=== PATIENT | male | born 1945 | race Caucasian/White ===

== ENCOUNTER 2019-09-21 22:22 | Emergency (ER) | payer OTHER ==
[2019-09-21 22:49] LABS: BASOPHILS % (AUTO) 0.3 % (0.0-5.0); HEMATOCRIT 41.2 % (42-54); LYMPHOCYTES % (AUTO) 22.1 % (21.0-51.0); MEAN CORPUSCULAR HEMOGLOBIN 32.5 pg (27.0-33.0); MEAN CORPUSCULAR HGB CONC 34.7 g/dL (32.0-36.0); MEAN CORPUSCULAR VOLUME 93.8 fL (79-99); MONOCYTES % (AUTO) 9.9 % (3.0-13.0); NEUTROPHILS % (AUTO) 66.7 % (40.0-77.0); NUCLEATED RED BLOOD CELLS 0.1 % (0.0-0.19); PLATELET COUNT (AUTO) 208 K/uL (130-400); RED BLOOD CELL COUNT(AUTO) 4.39 MIL/uL (4.50-6.20); RED CELL DISTRIBUTION WIDTH 14.8 % (11.0-15.5); WHITE BLOOD COUNT (AUTO) 6.3 K/uL (4.8-10.8)
[2019-09-21 22:55] LABS: CREATININE 1.2 mg/dL (0.5-1.5); POTASSIUM 3.6 mmol/L (3.5-5.1)
[2019-09-21 22:57] LABS: INR 1.03 (0.85-1.15); PROTHROMBIN TIME 10.8 SEC (9.6-11.6)
[2019-09-21 23:08] LABS: ALBUMIN 3.6 g/dL (3.5-5.0); BILIRUBIN,TOTAL 0.8 mg/dL (0.2-1.0); TOTAL PROTEIN, SERUM 7.1 g/dL (6.0-8.3)
[2019-09-21] MEDS ORDERED: OCTYL 2-CYANOACRYLATE 1 EACH TP ONE (23:24)
[2019-09-22] MEDS ORDERED: OCTYL 2-CYANOACRYLATE 1 EACH TP ONE (00:55)
[2019-09-22] MEDS ORDERED: TRAMADOL HCL 50 MG TABLET ONE (01:39)
== END 2019-09-22 01:49 | disposition home or self-care (01) ==
LOC: EDH 22:22
DX: S52.501A Unspecified fracture of the lower end of right radius, initial encounter for closed fracture (principal); S01.412A Laceration without foreign body of left cheek and temporomandibular area, initial encounter; S01.112A Laceration without foreign body of left eyelid and periocular area, initial encounter; I10 Essential (primary) hypertension; E78.00 Pure hypercholesterolemia, unspecified; M19.90 Unspecified osteoarthritis, unspecified site; E11.40 Type 2 diabetes mellitus with diabetic neuropathy, unspecified; Z88.8 Allergy status to other drugs, medicaments and biological substances; Z79.899 Other long term (current) drug therapy; Z87.891 Personal history of nicotine dependence; W18.39XA Other fall on same level, initial encounter; Y93.01 Activity, walking, marching and hiking; Y92.89 Other specified places as the place of occurrence of the external cause; Y99.8 Other external cause status
CPT/HCPCS: 12013; 29125; 36415; 70450; 70486; 71045; 72125; 73110; 80053; 82550; 84484; 85025; 85610; 85730; 93005; 99291

== ENCOUNTER → 2022-05-17 | Outpatient (CLI) | payer OTHER | END | disposition home or self-care (01) | LOC: SHCH 10:42 | PROVIDERS: ATTEND Student in an Organized Health Care Education/Training Program | DX: R06.02 Shortness of breath (principal); R55 Syncope and collapse; I10 Essential (primary) hypertension; E11.9 Type 2 diabetes mellitus without complications; J44.9 Chronic obstructive pulmonary disease, unspecified; K21.9 Gastro-esophageal reflux disease without esophagitis; G47.33 Obstructive sleep apnea (adult) (pediatric); L40.50 Arthropathic psoriasis, unspecified; Z99.81 Dependence on supplemental oxygen | CPT/HCPCS: 93306 ==

== ENCOUNTER 2022-06-15 06:18 | Day surgery (SDC) | payer OTHER ==
[2022-06-14 13:13] LABS: BASOPHILS % (AUTO) 0.6 % (0.0-5.0); LYMPHOCYTES % (AUTO) 36.1 % (21.0-51.0); MEAN CORPUSCULAR HEMOGLOBIN 29.3 pg (27.0-33.0); MEAN CORPUSCULAR HGB CONC 32.8 g/dL (32.0-36.0); MEAN CORPUSCULAR VOLUME 89.4 fL (79-99); MONOCYTES % (AUTO) 8.6 % (3.0-13.0); NEUTROPHILS % (AUTO) 49.3 % (40.0-77.0); PLATELET COUNT (AUTO) 213 K/uL (130-400); RED BLOOD CELL COUNT(AUTO) 4.81 MIL/uL (4.50-6.20); RED CELL DISTRIBUTION WIDTH 13.1 % (11.0-15.5); WHITE BLOOD COUNT (AUTO) 5.2 K/uL (4.8-10.8)
[2022-06-14 13:24] LABS: APPEARANCE,URINE CLEAR (CLEAR); BILIRUBIN,URINE NEGATIVE (NEGATIVE); COLOR,URINE YELLOW (YELLOW); GLUCOSE, URINE (UA) 250 mg/dL (NEGATIVE); KETONES,URINE NEGATIVE (NEGATIVE); LEUKOCYTE ESTERASE ,URINE NEGATIVE (NEGATIVE); NITRATE,URINE NEGATIVE (NEGATIVE); OCCULT BLOOD,URINE NEGATIVE (NEGATIVE); PROTEIN,URINE 30 mg/dL (NEGATIVE); UROBILINOGEN,URINE 0.2 mg/dL (0.2-1.0)
[2022-06-14 13:28] LABS: INR 0.96 (0.85-1.15); PROTHROMBIN TIME 10.5 SEC (9.6-11.6)
[2022-06-14 13:30] LABS: PARTIAL THROMBOPLASTIN TIME 24.8 SEC (26.3-35.5)
[2022-06-14 13:31] LABS: CREATININE 1.3 mg/dL (0.5-1.5)
[2022-06-14 13:47] LABS: BACTERIA,URINE Rare /HPF (None Seen); RBC,URINE None Seen /HPF (0-1); SQUAMOUS EPITHELIAL CELL,UR Rare /HPF (0-2); WBC,URINE None Seen /HPF (0-1)
[2022-06-14 13:50] VITALS: BP 181/85
[2022-06-15] VITALS (11 sets, daily range): BP systolic 110–169; BP diastolic 56–81
[~2022-06-15] VITALS: Ht 172.7 cm; Wt 88.5 kg
[~2022-06-15 06:18] MED LIST: ADAL40SY SQ; AREDS 2 PO; BUDE10.27 IH; CHOL100040 PO; DICLOFENAC GEL TP; DULO60CA64 PO; FLUT16H NASAL; FOLIC ACID PO; INSU100V52 SQ; KETO5DRO6 OU; LACT10SO9 PO; LOPE2CAP PO; LOSA25TA41 PO; MELA1TAB28 PO; MIRA50TA PO; OXYC5TAB3 PO; SEMA1PEN3 SQ; TRAZ-187 PO
[2022-06-15] MEDS ORDERED: NITROGLYCERIN 50MG VIAL ONE (07:08)
[2022-06-15] MEDS ORDERED: HEPARIN 10,000 UNIT/10ML (1,000 UNIT/ML) VIAL ONE (07:08)
[2022-06-15] MEDS ORDERED: IOHEXOL 350 MG/ML 100ML INFUS..BTL IV ONE (07:08)
[2022-06-15] MEDS ORDERED: LIDOCAINE HCL 400MG/20ML VIAL ONE (07:08)
[2022-06-15] MEDS ORDERED: FENTANYL CITRATE PF 50 MCG/1 ML 2ML VIAL ONE (07:32)
[2022-06-15] MEDS ORDERED: IOHEXOL-350 50ML VIAL IV ONE (07:32)
[2022-06-15] MEDS ORDERED: MIDAZOLAM HCL 1 MG/ML 2ML VIAL ONE (07:32)
[2022-06-15] MEDS ORDERED: DiphenhydrAMINE HCL 50 MG/ML VIAL ONE (07:34)
[2022-06-15] MEDS ORDERED: ROPI0.257 PO (07:34)
[2022-06-15] MEDS ORDERED: HYDRALAZINE 20MG/ML VIAL ONE (07:37)
[2022-06-15] MEDS ORDERED: 0.9%NACL 1000ML 1,000 ML IV ONE (07:55)
[2022-06-15] MEDS ORDERED: 0.9%NACL 1000ML 1,000 ML IV SCH (08:30)
[2022-06-15] MEDS ORDERED: LOSARTAN 50 MG TABLET PO SCH (08:30)
[2022-06-15] MEDS ORDERED: DEXTROSE 50%-WATER 50 ML DISP.SYRIN IV PRN (08:30)
[2022-06-15] MEDS ORDERED: GLUCAGON 1MG KIT 1 MG ML IM PRN (08:30)
[2022-06-15] MEDS ORDERED: LOSARTAN 25 MG TABLET PO ONE (08:41)
== END 2022-06-15 14:53 | disposition home or self-care (01) ==
LOC: DAH 06:18
PROVIDERS: ATTEND Student in an Organized Health Care Education/Training Program
DX: I49.3 Ventricular premature depolarization (principal); I25.119 Atherosclerotic heart disease of native coronary artery with unspecified angina pectoris; R55 Syncope and collapse; I10 Essential (primary) hypertension; J44.9 Chronic obstructive pulmonary disease, unspecified; K21.9 Gastro-esophageal reflux disease without esophagitis; G47.33 Obstructive sleep apnea (adult) (pediatric); E11.9 Type 2 diabetes mellitus without complications; L40.59 Other psoriatic arthropathy; G89.29 Other chronic pain; J90 Pleural effusion, not elsewhere classified; J98.11 Atelectasis; Z99.81 Dependence on supplemental oxygen; Z82.49 Family history of ischemic heart disease and other diseases of the circulatory system; Z79.01 Long term (current) use of anticoagulants; Z79.899 Other long term (current) drug therapy; Z79.4 Long term (current) use of insulin
CPT/HCPCS: 36415; 71045; 80048; 81001; 82948; 85025; 85610; 85730; 93005; 93454; 99156; 99157; A4606; C1760; C1894; J0360; J1200; J1644; J2250; J3010; J3490; J7030; Q9967

== ENCOUNTER → 2022-07-01 | Outpatient (CLI) | payer OTHER ==
[~2022-07-01] VITALS: Ht 175.3 cm; Wt 86.6 kg
[~2022-07-01] MED LIST changes: +REGADENOSON 0.4 MG/5 ML PF SYG IVP SCH; +ROPI0.257 PO
== END | disposition home or self-care (01) ==
LOC: SHCH 08:25
PROVIDERS: ATTEND Student in an Organized Health Care Education/Training Program
DX: I49.3 Ventricular premature depolarization (principal); R94.39 Abnormal result of other cardiovascular function study; R06.02 Shortness of breath; R00.2 Palpitations; R94.31 Abnormal electrocardiogram [ECG] [EKG]; R42 Dizziness and giddiness; R55 Syncope and collapse; I10 Essential (primary) hypertension
CPT/HCPCS: 78452; 96374; 93017; J2785; A9500 ×2

== ENCOUNTER → 2022-08-30 | Outpatient (CLI) | payer OTHER ==
[~2022-08-30] MED LIST changes: -REGADENOSON 0.4 MG/5 ML PF SYG IVP SCH
== END | disposition home or self-care (01) ==
LOC: SHCH 13:08
PROVIDERS: ATTEND Student in an Organized Health Care Education/Training Program
DX: I70.293 Other atherosclerosis of native arteries of extremities, bilateral legs (principal); I73.9 Peripheral vascular disease, unspecified
CPT/HCPCS: 93925

== ENCOUNTER 2022-09-22 06:00 | Day surgery (SDC) | payer OTHER ==
[2022-09-20 11:55] LABS: BASOPHILS % (AUTO) 0.5 % (0.0-5.0); HEMATOCRIT 42.3 % (42-54); LYMPHOCYTES % (AUTO) 36.8 % (21.0-51.0); MEAN CORPUSCULAR HEMOGLOBIN 29.5 pg (27.0-33.0); MEAN CORPUSCULAR HGB CONC 32.4 g/dL (32.0-36.0); MEAN CORPUSCULAR VOLUME 91.2 fL (79-99); MONOCYTES % (AUTO) 11.6 % (3.0-13.0); NEUTROPHILS % (AUTO) 43.6 % (40.0-77.0); PLATELET COUNT (AUTO) 200 K/uL (130-400); RED BLOOD CELL COUNT(AUTO) 4.64 MIL/uL (4.50-6.20); WHITE BLOOD COUNT (AUTO) 5.7 K/uL (4.8-10.8)
[2022-09-20 12:08] LABS: CREATININE 1.2 mg/dL (0.5-1.5); POTASSIUM 4.8 mmol/L (3.5-5.1)
[2022-09-20 12:17] LABS: INR 0.94 (0.85-1.15); PROTHROMBIN TIME 10.3 SEC (9.6-11.6)
[2022-09-20 12:18] LABS: PARTIAL THROMBOPLASTIN TIME 25.4 SEC (26.3-35.5)
[2022-09-21 11:53] VITALS: BP 144/71
[2022-09-22] VITALS (12 sets, daily range): BP systolic 89–152; BP diastolic 40–74
[~2022-09-22] VITALS: Ht 172.7 cm; Wt 89.3 kg
[~2022-09-22 06:00] MED LIST changes: +0.9% NACL 500ML IV.SOLN 500 ML IV SCH; +AEC81 PO; -AREDS 2 PO; +ATOR40TA69 PO; -BUDE10.27 IH; +BUPR1PAT20 TD; +CARB1DRO OP; -DICLOFENAC GEL TP; -LACT10SO9 PO; -LOSA25TA41 PO; +LOSA50TA64 PO; -SEMA1PEN3 SQ; +SEMA2PEN SQ; +VIT1CAPS5 PO
[2022-09-22] MEDS ORDERED: 0.9%NACL 1000ML 1,000 ML IV ONE (06:18)
[2022-09-22] MEDS ORDERED: MIDAZOLAM HCL 1 MG/ML 2ML VIAL ONE ×2 (07:41→08:41)
[2022-09-22] MEDS ORDERED: IODIXANOL 320 MG/ML 100 ML VIAL ONE ×2 (07:41→08:25)
[2022-09-22] MEDS ORDERED: LIDOCAINE HCL 1% 20 ML VIAL ONE (07:41)
[2022-09-22] MEDS ORDERED: FENTANYL CITRATE PF 50 MCG/1 ML 2ML VIAL ONE (07:42)
[2022-09-22] MEDS ORDERED: NITROGLYCERIN 50MG VIAL ONE (07:46)
[2022-09-22] MEDS ORDERED: HEPARIN 10,000 UNIT/10ML (1,000 UNIT/ML) VIAL ONE (07:47)
[2022-09-22] MEDS ORDERED: VERAPAMIL HCL 2.5 MG/ML VIAL ONE (07:58)
[2022-09-22] MEDS ORDERED: HYDRALAZINE 20MG/ML VIAL ONE ×2 (08:01→08:41)
[2022-09-22] MEDS ORDERED: DiphenhydrAMINE HCL 50 MG/ML VIAL ONE (08:02)
[2022-09-22] MEDS ORDERED: 0.9%NACL 1000ML 1,000 ML IV SCH (09:00)
[2022-09-22] MEDS ORDERED: DEXTROSE 50%-WATER 50 ML DISP.SYRIN IV PRN (09:00)
[2022-09-22] MEDS ORDERED: GLUCAGON 1MG KIT 1 MG ML IM PRN (09:00)
== END 2022-09-22 15:15 | disposition home or self-care (01) ==
LOC: DAH 06:00
PROVIDERS: ATTEND Student in an Organized Health Care Education/Training Program
DX: I70.211 Atherosclerosis of native arteries of extremities with intermittent claudication, right leg (principal); E11.51 Type 2 diabetes mellitus with diabetic peripheral angiopathy without gangrene; I49.3 Ventricular premature depolarization; J44.9 Chronic obstructive pulmonary disease, unspecified; I10 Essential (primary) hypertension; I25.10 Atherosclerotic heart disease of native coronary artery without angina pectoris; R55 Syncope and collapse; G89.29 Other chronic pain; L40.59 Other psoriatic arthropathy; G47.33 Obstructive sleep apnea (adult) (pediatric); K21.9 Gastro-esophageal reflux disease without esophagitis; Z79.82 Long term (current) use of aspirin; Z79.4 Long term (current) use of insulin; Z79.899 Other long term (current) drug therapy; Z98.890 Other specified postprocedural states; Z82.49 Family history of ischemic heart disease and other diseases of the circulatory system; Z72.89 Other problems related to lifestyle; Z79.01 Long term (current) use of anticoagulants
CPT/HCPCS: 36246; 36415; 71045; 75716; 80048; 82948; 85025; 85610; 85730; 93005; 99156; 99157; A4606; C1894; J0360; J1200; J1644; J2250; J3010; J3490; J7030; Q9967

== ENCOUNTER → 2022-10-06 | Outpatient (CLI) | payer OTHER ==
[~2022-10-06] MED LIST changes: -0.9% NACL 500ML IV.SOLN 500 ML IV SCH
== END | disposition home or self-care (01) ==
LOC: RAH 15:44
PROVIDERS: ATTEND Student in an Organized Health Care Education/Training Program
DX: S30.1XXA Contusion of abdominal wall, initial encounter (principal); I72.4 Aneurysm of artery of lower extremity; X58.XXXA Exposure to other specified factors, initial encounter; Y93.89 Activity, other specified; Y92.89 Other specified places as the place of occurrence of the external cause; Y99.8 Other external cause status
CPT/HCPCS: 93926

== ENCOUNTER 2022-10-27 06:07 | Day surgery (SDC) | payer OTHER ==
[2022-10-25 13:01] LABS: BASOPHILS % (AUTO) 0.5 % (0.0-5.0); EOSINOPHILS % (AUTO) 5.5 % (0.0-8.0); HEMATOCRIT 44.5 % (42-54); MEAN CORPUSCULAR HEMOGLOBIN 29.1 pg (27.0-33.0); MEAN CORPUSCULAR HGB CONC 32.6 g/dL (32.0-36.0); MEAN CORPUSCULAR VOLUME 89.2 fL (79-99); MONOCYTES % (AUTO) 7.2 % (3.0-13.0); NEUTROPHILS % (AUTO) 57.6 % (40.0-77.0); PLATELET COUNT (AUTO) 209 K/uL (130-400); RED BLOOD CELL COUNT(AUTO) 4.99 MIL/uL (4.50-6.20); RED CELL DISTRIBUTION WIDTH 13.3 % (11.0-15.5)
[2022-10-25 13:16] LABS: PROTHROMBIN TIME 10.9 SEC (9.6-11.6)
[2022-10-25 13:17] LABS: CREATININE 1.2 mg/dL (0.5-1.5); PARTIAL THROMBOPLASTIN TIME 26.1 SEC (26.3-35.5); POTASSIUM 4.1 mmol/L (3.5-5.1)
[2022-10-25 13:20] LABS: APPEARANCE,URINE CLEAR (CLEAR); BILIRUBIN,URINE NEGATIVE (NEGATIVE); COLOR,URINE YELLOW (YELLOW); GLUCOSE, URINE (UA) >=1000 mg/dL (NEGATIVE); KETONES,URINE NEGATIVE (NEGATIVE); LEUKOCYTE ESTERASE ,URINE NEGATIVE Leu/uL (NEGATIVE); NITRATE,URINE NEGATIVE (NEGATIVE); OCCULT BLOOD,URINE NEGATIVE (NEGATIVE); PH,URINE 5.5 (5.0-8.0); PROTEIN,URINE 100 mg/dL (NEGATIVE); UROBILINOGEN,URINE 0.2 mg/dL (0.2-1.0)
[2022-10-25 13:31] LABS: BACTERIA,URINE Rare /HPF (None Seen); RBC,URINE 0-1 /HPF (0-1); SQUAMOUS EPITHELIAL CELL,UR 0-2 /HPF (0-2); WBC,URINE 0-1 /HPF (0-1)
[2022-10-26 10:05] VITALS: BP 113/61
[2022-10-27] VITALS (21 sets, daily range): BP systolic 99–145; BP diastolic 50–86
[~2022-10-27] VITALS: Ht 172.7 cm; Wt 85.9 kg
[~2022-10-27 06:07] MED LIST changes: +0.9% NACL 500ML IV.SOLN 500 ML IV SCH; -CARB1DRO OP; +CARV12.511 PO; -CHOL100040 PO; +CLOP75TA32 PO; -FLUT16H NASAL; +INSLAN SQ; -KETO5DRO6 OU; +MIRT-93 PO; +VITAMIN D3 PO
[2022-10-27] MEDS ORDERED: 0.9%NACL 1000ML 1,000 ML IV ONE (06:33)
[2022-10-27] MEDS ORDERED: LIDOCAINE HCL 1% 20 ML VIAL ONE (07:04)
[2022-10-27] MEDS ORDERED: MIDAZOLAM HCL 1 MG/ML 2ML VIAL ONE ×2 (07:04→12:59)
[2022-10-27] MEDS ORDERED: IODIXANOL 320 MG/ML 100 ML VIAL ONE (07:04)
[2022-10-27] MEDS ORDERED: NITROGLYCERIN 50MG VIAL ONE (07:04)
[2022-10-27] MEDS ORDERED: HEPARIN 10,000 UNIT/10ML (1,000 UNIT/ML) VIAL ONE (07:04)
[2022-10-27] MEDS ORDERED: FENTANYL CITRATE PF 50 MCG/1 ML 2ML VIAL ONE (07:05)
[2022-10-27] MEDS ORDERED: DiphenhydrAMINE HCL 50 MG/ML VIAL ONE (08:51)
[2022-10-27] MEDS ORDERED: 0.9%NACL 1000ML 1,000 ML IV SCH (09:30)
[2022-10-27] MEDS ORDERED: DEXTROSE 50%-WATER 50 ML DISP.SYRIN IV PRN (09:30)
[2022-10-27] MEDS ORDERED: GLUCAGON 1MG KIT 1 MG ML IM PRN (09:30)
[2022-10-27] MEDS ORDERED: MEPERIDINE-PF 25 MG/ML SYG ONE (12:58)
[2022-10-27] MEDS ORDERED: ATROPINE 1MG SYG IVP ONE (13:21)
[2022-10-27] MEDS ORDERED: HYDROCODONE/ACETAMINOPHEN 10/325 MG TAB ONE (13:53)
[2022-10-27] MEDS ORDERED: MORPHINE 2 MG SYG ONE (13:54)
== END 2022-10-27 23:36 | disposition home or self-care (01) ==
LOC: DAH 06:07
PROVIDERS: ATTEND Student in an Organized Health Care Education/Training Program
DX: I70.211 Atherosclerosis of native arteries of extremities with intermittent claudication, right leg (principal); E11.51 Type 2 diabetes mellitus with diabetic peripheral angiopathy without gangrene; I25.10 Atherosclerotic heart disease of native coronary artery without angina pectoris; I10 Essential (primary) hypertension; I49.3 Ventricular premature depolarization; J44.9 Chronic obstructive pulmonary disease, unspecified; K21.9 Gastro-esophageal reflux disease without esophagitis; G47.33 Obstructive sleep apnea (adult) (pediatric); G89.29 Other chronic pain; D64.9 Anemia, unspecified; L40.50 Arthropathic psoriasis, unspecified; Z79.82 Long term (current) use of aspirin; Z79.4 Long term (current) use of insulin; Z79.899 Other long term (current) drug therapy; Z98.890 Other specified postprocedural states; Z79.01 Long term (current) use of anticoagulants; Z82.49 Family history of ischemic heart disease and other diseases of the circulatory system; Z72.89 Other problems related to lifestyle; Z88.8 Allergy status to other drugs, medicaments and biological substances
CPT/HCPCS: 80048; 85025; 85610; 85730 ×3; 81001; 36415 ×2; 71045; 93005; 37221; 82948; 75716; C1894 ×2; C1893; C1753 ×2; C1725 ×3; C1876; C1769; J1200; J3010; J7030; J1644 ×2; J2250 ×2; J2175; J3490; Q9967; A4615; A4215; A6402; A4222; A6260; A4221; A4663; A4216; A4606; A4223 ×3; 96360; 96361; 99156; 99157; J0461

== ENCOUNTER 2023-05-01 05:55 | Day surgery (SDC) | payer OTHER ==
[~2023-05-01] VITALS: Ht 172.7 cm; Wt 88.9 kg
[~2023-05-01 05:55] MED LIST changes: -0.9% NACL 500ML IV.SOLN 500 ML IV SCH; -BUPR1PAT20 TD; +CARB1DRO39 OP; +CARV6.25 PO; +CHOL200013 PO; -CLOP75TA32 PO; +DOXE25CA3 PO; +FLUT1BLS12 IH; -INSLAN SQ; +KETO-100 OP; -LOPE2CAP PO; +LOPE2CAP14 PO; -MIRT-93 PO; +SEMA1PEN3 SQ; -SEMA2PEN SQ; +TAMS-1 PO; -TRAZ-187 PO; -VITAMIN D3 PO; +ZINC28.47 TP; +[UNRECOGNIZED DRUG - CODE] TP
[2023-05-01 06:00] VITALS: BP 136/55
[2023-05-01] MEDS ORDERED: PROPOFOL 10 MG/ML 20ML VIAL IV ONE (07:01)
[2023-05-01] MEDS ORDERED: LIDOCAINE HCL 1% 20 ML VIAL ONE (07:02)
[2023-05-01] MEDS ORDERED: 0.9%NACL 1000ML 1,000 ML IV ONE (12:04)
== END 2023-05-01 08:00 | disposition home or self-care (01) ==
LOC: DAH 05:55 → ENDO 05:55
PROVIDERS: ATTEND Internal Medicine Gastroenterology
DX: D64.9 Anemia, unspecified (principal); Z20.822 Contact with and (suspected) exposure to COVID-19; K62.5 Hemorrhage of anus and rectum; K57.30 Diverticulosis of large intestine without perforation or abscess without bleeding; I11.9 Hypertensive heart disease without heart failure; E11.9 Type 2 diabetes mellitus without complications; J44.9 Chronic obstructive pulmonary disease, unspecified; E66.01 Morbid (severe) obesity due to excess calories; M81.0 Age-related osteoporosis without current pathological fracture; M19.90 Unspecified osteoarthritis, unspecified site; I25.2 Old myocardial infarction; Z90.49 Acquired absence of other specified parts of digestive tract; Z86.010 Personal history of colon polyps; Z79.82 Long term (current) use of aspirin; Z79.899 Other long term (current) drug therapy; Z99.81 Dependence on supplemental oxygen; Z68.29 Body mass index [BMI] 29.0-29.9, adult
CPT/HCPCS: 87426; 82948 ×2; 43235; J7030; J2704; A4620; A4215 ×2; A4223; A7002; A4222; A4221; A4663; A4606

== ENCOUNTER 2023-05-02 07:49 | Day surgery (SDC) | payer OTHER ==
[~2023-05-02] VITALS: Ht 172.7 cm; Wt 88.9 kg
[~2023-05-02 07:49] MED LIST changes: -AEC81 PO; -CARV12.511 PO; -CARV6.25 PO
[2023-05-02 09:15] VITALS: BP 188/82
[2023-05-02] MEDS ORDERED: 0.9%NACL 1000ML 1,000 ML IV ONE (09:36)
[2023-05-02] MEDS ORDERED: PROPOFOL 10 MG/ML 20ML VIAL IV ONE (09:48)
[2023-05-02] MEDS ORDERED: LIDOCAINE PF 100MG/5ML (2%) SYRINGE 5ML ONE (09:49)
[2023-05-02 10:10] VITALS: BP 147/89
[2023-05-02 10:25] VITALS: BP 178/82
[2023-05-02 10:40] VITALS: BP 164/85
[2023-05-02 11:00] VITALS: BP 162/84
== END 2023-05-02 11:20 | disposition home or self-care (01) ==
LOC: DAH 07:49 → SUH 07:49
PROVIDERS: ATTEND Internal Medicine Gastroenterology
DX: D50.9 Iron deficiency anemia, unspecified (principal); Z20.822 Contact with and (suspected) exposure to COVID-19; K62.5 Hemorrhage of anus and rectum; K57.30 Diverticulosis of large intestine without perforation or abscess without bleeding; J44.9 Chronic obstructive pulmonary disease, unspecified; I10 Essential (primary) hypertension; K31.89 Other diseases of stomach and duodenum; I11.9 Hypertensive heart disease without heart failure; E13.9 Other specified diabetes mellitus without complications; M19.90 Unspecified osteoarthritis, unspecified site; I25.10 Atherosclerotic heart disease of native coronary artery without angina pectoris; E66.01 Morbid (severe) obesity due to excess calories; I25.2 Old myocardial infarction; M81.0 Age-related osteoporosis without current pathological fracture; Z90.49 Acquired absence of other specified parts of digestive tract; Z98.890 Other specified postprocedural states; Z79.4 Long term (current) use of insulin; Z79.899 Other long term (current) drug therapy; Z79.82 Long term (current) use of aspirin; Z79.01 Long term (current) use of anticoagulants; Z68.29 Body mass index [BMI] 29.0-29.9, adult
CPT/HCPCS: 45330; 43239; 88305; J7030; J2001; J2704; A4620; A4215 ×2; A4223; A4222; A4221; A4663; A4606; 45378

== ENCOUNTER 2023-05-03 09:59 | Day surgery (SDC) | payer OTHER ==
[2023-05-03] VITALS (8 sets, daily range): BP systolic 154–177; BP diastolic 79–92
[~2023-05-03] VITALS: Ht 172.7 cm; Wt 88.9 kg
[~2023-05-03 09:59] MED LIST changes: -LOPE2CAP14 PO
[2023-05-03] MEDS ORDERED: 0.9%NACL 1000ML 1,000 ML IV ONE (10:37)
[2023-05-03] MEDS ORDERED: PROPOFOL 10 MG/ML 20ML VIAL IV ONE (11:48)
== END 2023-05-03 12:45 | disposition home or self-care (01) ==
LOC: SUH 09:59
PROVIDERS: ATTEND Internal Medicine Gastroenterology
DX: D64.9 Anemia, unspecified (principal); Z20.822 Contact with and (suspected) exposure to COVID-19; K63.5 Polyp of colon; K62.5 Hemorrhage of anus and rectum; K57.30 Diverticulosis of large intestine without perforation or abscess without bleeding; I25.10 Atherosclerotic heart disease of native coronary artery without angina pectoris; I11.9 Hypertensive heart disease without heart failure; E13.9 Other specified diabetes mellitus without complications; M19.90 Unspecified osteoarthritis, unspecified site; M81.0 Age-related osteoporosis without current pathological fracture; I25.2 Old myocardial infarction; Z79.2 Long term (current) use of antibiotics; Z98.890 Other specified postprocedural states; Z79.82 Long term (current) use of aspirin; Z79.899 Other long term (current) drug therapy; Z79.4 Long term (current) use of insulin
CPT/HCPCS: 82948; 45385; J7030 ×2; J2704; A4620; A4215 ×2; A4223; A7002; A4222; A4221; A4663; A4606

== ENCOUNTER → 2023-07-07 | Outpatient (CLI) | payer OTHER ==
[~2023-07-07] MED LIST changes: +ROPI0.2535 PO; -ROPI0.257 PO
== END | disposition home or self-care (01) ==
LOC: SHCH 12:50
PROVIDERS: ATTEND Internal Medicine Cardiovascular Disease
DX: I11.9 Hypertensive heart disease without heart failure (principal); I49.3 Ventricular premature depolarization; E11.9 Type 2 diabetes mellitus without complications; E78.5 Hyperlipidemia, unspecified; J44.9 Chronic obstructive pulmonary disease, unspecified
CPT/HCPCS: 93306

== ENCOUNTER 2023-09-18 14:31 | Emergency (ER) | payer OTHER ==
[~2023-09-18] VITALS: Ht 172.7 cm; Wt 91.2 kg
[~2023-09-18 14:31] MED LIST changes: +ASPI-1197 PO; +BUPR1PAT23 TD; +DICL100G60 TP; +DOCU100C33 PO; -DOXE25CA3 PO; -KETO-100 OP; +LOPE2CAP PO; +TRAZ-187 PO
[2023-09-18 14:57] LABS: HEMATOCRIT 41.9 % (42-54); MEAN CORPUSCULAR HEMOGLOBIN 29.6 pg (27.0-33.0); MEAN CORPUSCULAR VOLUME 92.5 fL (79-99); RED BLOOD CELL COUNT(AUTO) 4.53 MIL/uL (4.50-6.20); RED CELL DISTRIBUTION WIDTH 12.7 % (11.0-15.5); WHITE BLOOD COUNT (AUTO) 6.5 K/uL (4.8-10.8)
[2023-09-18 15:05] LABS: CREATININE 1.2 mg/dL (0.5-1.5); POTASSIUM 3.9 mmol/L (3.5-5.1)
[2023-09-18 15:07] LABS: APPEARANCE,URINE CLEAR (CLEAR); BILIRUBIN,URINE NEGATIVE (NEGATIVE); COLOR,URINE LIGHT-YELLOW (YELLOW); GLUCOSE, URINE (UA) >=1000 mg/dL (NEGATIVE); KETONES,URINE NEGATIVE (NEGATIVE); LEUKOCYTE ESTERASE ,URINE NEGATIVE Leu/uL (NEGATIVE); NITRATE,URINE NEGATIVE (NEGATIVE); OCCULT BLOOD,URINE NEGATIVE (NEGATIVE); PH,URINE 5.5 (5.0-8.0); PROTEIN,URINE 50 mg/dL (NEGATIVE); UROBILINOGEN,URINE 0.2 mg/dL (0.2-1.0)
[2023-09-18 15:09] LABS: ADD UA MICROSCOPIC YES
[2023-09-18 15:11] LABS: MUCUS,URINE RARE LPF (None Seen); RBC,URINE 0-1 /HPF (0-1); WBC,URINE 0-1 /HPF (0-1)
[2023-09-18 15:22] LABS: MAGNESIUM 1.6 mg/dL (1.80-2.40); THYROID STIMULATING HORMONE 0.87 uIU/mL (0.36-3.74)
[2023-09-18] MEDS ORDERED: MAGNESIUM 2GM PREMIX 50ML 50 ML IV SCH (16:30)
[2023-09-18 20:49] VITALS: BP 123/70; PULSE 72; RESP 18; O2SAT 99
== END 2023-09-18 20:51 | disposition home or self-care (01) ==
LOC: EDH 14:31
DX: R00.0 Tachycardia, unspecified (principal); E86.0 Dehydration; E83.42 Hypomagnesemia; E11.9 Type 2 diabetes mellitus without complications; I25.10 Atherosclerotic heart disease of native coronary artery without angina pectoris; Z79.4 Long term (current) use of insulin; Z79.51 Long term (current) use of inhaled steroids; Z79.82 Long term (current) use of aspirin; Z79.899 Other long term (current) drug therapy; Z88.1 Allergy status to other antibiotic agents
CPT/HCPCS: 99285; 96365; 71045; 96366; 84443; 82550; 83735; 83874; 84484; 80048; 85027; 81001; 36415; 93005; J3475

== ENCOUNTER → 2023-10-24 | Outpatient (CLI) | payer OTHER ==
[~2023-10-24] MED LIST changes: +AMLO-257 PO; +FLUT16H NS; +FOLI1 PO; +MELA3CAP2 PO; +MULT-1367 PO
== END | disposition home or self-care (01) ==
LOC: SHCH 13:29
PROVIDERS: ATTEND Student in an Organized Health Care Education/Training Program
DX: I70.203 Unspecified atherosclerosis of native arteries of extremities, bilateral legs (principal)
CPT/HCPCS: 93925

== ENCOUNTER → 2024-05-08 | Outpatient (CLI) | payer OTHER ==
[~2024-05-08] MED LIST changes: -ADAL40SY SQ; -ASPI-1197 PO; -ATOR40TA69 PO; -BUPR1PAT23 TD; -CARB1DRO39 OP; -CHOL200013 PO; -DICL100G60 TP; -DOCU100C33 PO; -DULO60CA64 PO; +EMPA25TA PO; -FLUT16H NS; -FLUT1BLS12 IH; -FOLI1 PO; -FOLIC ACID PO; -INSU100V52 SQ; +IOHEXOL-350 75 ML VIAL IV ONE; -LOPE2CAP PO; -MELA1TAB28 PO; -MELA3CAP2 PO; -MIRA50TA PO; -MULT-1367 PO; +OXYC10TA48 PO; -OXYC5TAB3 PO; -ROPI0.2535 PO; -SEMA1PEN3 SQ; -TAMS-1 PO; -TRAZ-187 PO; -VIT1CAPS5 PO; -ZINC28.47 TP; -[UNRECOGNIZED DRUG - CODE] TP
[2024-05-08 08:21] LABS: ALBUMIN 3.6 g/dL (3.5-5.0); BILIRUBIN,TOTAL 0.4 mg/dL (0.2-1.0); CREATININE 1.2 mg/dL (0.5-1.3); POTASSIUM 4.4 mmol/L (3.5-5.1); TOTAL PROTEIN, SERUM 7.2 g/dL (6.0-8.3)
== END | disposition home or self-care (01) ==
LOC: RAH 08:14
PROVIDERS: ATTEND Student in an Organized Health Care Education/Training Program
DX: I65.23 Occlusion and stenosis of bilateral carotid arteries (principal); I10 Essential (primary) hypertension
CPT/HCPCS: 70496; 80053; 36415; 70498; Q9967

== ENCOUNTER 2024-09-26 15:11 | Emergency (ER) | payer OTHER ==
[~2024-09-26] VITALS: Ht 167.6 cm; Wt 65.8 kg
[~2024-09-26 15:11] MED LIST changes: -IOHEXOL-350 75 ML VIAL IV ONE
[2024-09-26 15:33] LABS: BASOPHILS # (AUTO) 0.03 K/uL (0.00-0.20); BASOPHILS % (AUTO) 0.4 % (0.0-5.0); EOSINOPHILS # (AUTO) 0.55 K/uL (0.00-0.70); EOSINOPHILS % (AUTO) 6.7 % (0.0-8.0); HEMATOCRIT 36.3 % (42-54); IMMATURE GRANULOCYTE ABSOLUTE 0.04 K/uL (0-1); LYMPHOCYTES # (AUTO) 1.3 K/uL (1.0-4.8); LYMPHOCYTES % (AUTO) 16.2 % (21.0-51.0); MEAN CORPUSCULAR HEMOGLOBIN 29.9 pg (27.0-33.0); MEAN CORPUSCULAR HGB CONC 31.4 g/dL (32.0-36.0); MEAN CORPUSCULAR VOLUME 95.3 fL (79-99); MONOCYTES # (AUTO) 0.7 K/uL (0.1-1.0); NEUTROPHILS # (AUTO) 5.6 K/uL (1.8-7.7); NEUTROPHILS % (AUTO) 67.2 % (40.0-77.0); PLATELET COUNT (AUTO) 201 K/uL (130-400); RED BLOOD CELL COUNT(AUTO) 3.81 MIL/uL (4.50-6.20); RED CELL DISTRIBUTION WIDTH 14.1 % (11.0-15.5); WHITE BLOOD COUNT (AUTO) 8.3 K/uL (4.8-10.8)
--- NOTE | 2024-09-26 15:35 | EKG ---
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
[2024-09-26 15:45] LABS: CREATININE 1.6 mg/dL (0.5-1.3)
[2024-09-26 15:47] LABS: INR 1.01 (0.85-1.15); PROTHROMBIN TIME 10.9 SEC (9.6-11.6)
--- NOTE | 2024-09-26 15:53 | ERN ---
General Chief Complaint: Upper Extremity Pain/Injury Stated Complaint: UPPER ARM FX Time Seen by MD: 15:15 History of Present Illness Initial Comments 79-year-old male brought in by EMS from the [facility] for a humerus fracture. Patient had a fall three days ago, has been clinical, he fell to his right side. Reports right elbow pain. He is neurovascularly intact. Denies other injuries. Medical history: Diabetes, CAD, COPD oxygen dependent PCP: [facility] Allergies: Coded Allergies: doxepin (Unverified Allergy, Unknown, 08/11/23) metronidazole (Unverified Allergy, Unknown, 09/22/19) prazosin (Unverified Allergy, Unknown, 09/22/19) Home Meds Active Scripts Meloxicam (Meloxicam) 15 Mg Tablet, 15 MG PO DAILY PRN for PAIN for 7 Days, #7 TAB Prov:NIA MANJARREZ DO 09/26/24 Hydrocodone/Acetaminophen (Hydrocodone-Acetamin 5-300 mg) 5 Mg-300 Mg Tablet, 1 TAB PO TIDP PRN for pain for 5 Days, #15 TAB 0 Refills Prov:NIA MANJARREZ DO 09/26/24 Reported Medications Empagliflozin (Jardiance) 25 Mg Tablet, 25 MG PO DAILY, TAB 01/18/24 Losartan Potassium (Losartan Potassium) 50 Mg Tablet, 50 MG PO DAILY, TAB 01/18/24 Oxycodone HCl (Oxycodone HCl) 10 Mg Tablet, 10 MG PO AD, TAB 01/18/24 Amlodipine Besylate (Amlodipine Besylate) 5 Mg Tablet, 5 MG PO DAILY, TAB 10/31/23 Past Medical History Past Medical History: Diabetes-Type II, High Cholesterol, Hypertension, Other Medical History Other: PROSTATE, PTSD, TINNITUS Past Surgical History: Cholecystectomy, Other Surgical History Other: NECK SX, ANKLE SX Social History Social History: Lives with family ROS Dictation CONSTITUTIONAL: No chills, no fever, no weakness, no diaphoresis, no malaise. HEAD/FACE: No signs of trauma. EENT: No eye pain, no blurred vision, no tearing, no double vision, no ear pain, no ear discharge, no nose pain, no nasal congestion, no throat pain, no throat swelling, no mouth pain. RESPIRATORY: No cough, no orthopnea, no SOB, no stridor, no wheezing. CARDIOVASCULAR: No chest pain, no edema, no palpitations, no syncope. GASTROINTESTINAL/ABDOMINAL: No abdominal pain, no constipation, no diarrhea, no nausea, no vomiting. GENITOURINARY: No abnormal discharge, no dysuria, no frequent urination, no hematuria. No complaints of pain in the genitals. MUSCULOSKELETAL: Right arm pain INTEGUMENTARY: No change in color, no change in hair/nails, no dryness, no lesion, no lumps, no rash. NEUROLOGICAL/PSYCH: No anxiety, not depressed, no emotional problem, no headache, no numbness, no pre-existing deficit, no history of seizures, no tremors, no weakness. HEMATOLOGIC/LYMPHATIC: Not anemic, no history of blood clots, no apparent bleeding, no bruising, glands not swollen. All Systems Negative, Except as Noted. Physical Exam Physical Exam Dictation VITAL SIGNS: Reviewed. GENERAL APPEARANCE: Alert, oriented x3, no acute distress, obese. HEAD AND FACE: Non-traumatic. EYES: PERRL, pink conjunctivas, eyelid no trauma, anterior chamber clear. EARS: Pinnas intact and no signs of trauma or erythema. Ear canals clear and no discharge. TMs no erythema. NOSE: No discharge, no bleeding. OROPHARYNX: Mouth normal, teeth no caries, tongue pink. Pharynx clear, no erythema. Tonsils no exudates, no abscesses noted. Mucous membrane moist. NECK: Supple, non-tender, no thyromegaly, no masses, no JVD, no bruits. BREAST: Deferred. CHEST: No tenderness, no crepitus, no paradoxical movement, no retractions. LUNGS: Clear, well-ventilated, symmetric, no rales, no wheezing, no rhonchi, no stridor, good breath sounds bilaterally. HEART: Regular rate, regular rhythm, no murmur, no gallops. VASCULAR: No peripheral edema. ABDOMEN: Soft, positive bowel sounds, nondistended, no guarding, nontender, no rebound, no masses no hepatomegaly, no splenomegaly, no Astudillo's sign, no hernias. RECTAL: Deferred. GENITAL: Deferred. NEUROLOGICAL: Normal speech, gross motor function intact, gross sensory function intact. MUSCULOSKELETAL: Right elbow pain. Swollen. Neurovascularly intact. EXTREMITIES: Nontender, full range of motion. SKIN: Color pink, dry, no turgor, no rash, no lacerations, no abrasions, no contusions. LYMPHATICS: Deferred. Results Laboratory and Microbiology Lab and Micro Result Laboratory Tests Test 09/26/24 15:26 White Blood Count 8.3 K/uL (4.8-10.8) Red Blood Count 3.81 MIL/uL (4.50-6.20) L Hemoglobin 11.4 g/dL (14.0-18.0) L Hematocrit 36.3 % (42-54) L Mean Corpuscular Volume 95.3 fL (79-99) Mean Corpuscular Hemoglobin 29.9 pg (27.0-33.0) Mean Corpuscular Hemoglobin Concent 31.4 g/dL (32.0-36.0) L Red Cell Distribution Width 14.1 % (11.0-15.5) Platelet Count 201 K/uL (130-400) Mean Platelet Volume 9.1 fL (7.5-10.5) Immature Granulocyte % (Auto) 0.5 % (0-1) Neutrophils (%) (Auto) 67.2 % (40.0-77.0) Lymphocytes (%) (Auto) 16.2 % (21.0-51.0) L Monocytes (%) (Auto) 9.0 % (3.0-13.0) Eosinophils (%) (Auto) 6.7 % (0.0-8.0) Basophils (%) (Auto) 0.4 % (0.0-5.0) Neutrophils # (Auto) 5.6 K/uL (1.8-7.7) Lymphocytes # (Auto) 1.3 K/uL (1.0-4.8) Monocytes # (Auto) 0.7 K/uL (0.1-1.0) Eosinophils # (Auto) 0.55 K/uL (0.00-0.70) Basophils # (Auto) 0.03 K/uL (0.00-0.20) Absolute Immature Granulocyte (auto 0.04 K/uL (0-1) Nucleated Red Blood Cells 0.0 % (0.0-0.19) Prothrombin Time 10.9 SEC (9.6-11.6) Prothromb Time International Ratio 1.01 (0.85-1.15) Sodium Level 135 mmol/L (136-145) L Potassium Level 4.0 mmol/L (3.5-5.1) Chloride Level 94 mmol/L (101-111) L Carbon Dioxide Level 35 mmol/L (21-32) H Blood Urea Nitrogen 25 mg/dL (7-18) H Creatinine 1.6 mg/dL (0.5-1.3) H Glomerular Filtration Rate Calc 44 mL/min (>90) Random Glucose 205 mg/dL (70-105) H Total Calcium 9.2 mg/dL (8.5-10.1) Total Creatine Kinase 43 U/L (21-232) Troponin I High Sensitivity 16.9 ng/L (4-75) MDM CC: Fall with a right elbow pain Historian: Patient Comorbidities: Diabetes, CAD, COPD oxygen dependent, advanced age Limitations by social determinants of health: None Differential diagnosis: Fracture, neurovascular injury, Vital signs: Stable on the ER. CBC shows mild normocytic anemia. Coags are normal. BMP shows creatinine 1.6, mildly elevated compared to previous but does not meet criteria for RICARDO. The other electrolytes are stable. The right elbow fracture per my independent interpretation shows a supracondylar fracture. The chest x-ray per my independent interpretation shows no acute abnormalities. Consultation: Dr. Mills, orthopedist. He recommends posterior splint and follow up in the clinic. Patient agrees with this plan. Patient will be discharged with a prescription for meloxicam and [place] and orthopedic follow up. The patient was placed in a splint here in the ER by the RN, neurovascularly intact before and after. ED Course Orders Procedure Category Date Status Time Cardiac Panel LAB 09/26/24 Complete 15:15 Cbc With Differential LAB 09/26/24 Complete 15:15 Basic Metabolic Panel LAB 09/26/24 Complete 15:15 Prothrombin Time With LAB 09/26/24 Complete INR 15:15 Urinalysis Profile LAB 09/26/24 Logged 15:15 12 Lead Ekg Tracing- EKG 09/26/24 Complete Technical 15:15 Chest 1vw RAD 09/26/24 Resulted 15:15 Elbow Comp 3+Vws Rt RAD 09/26/24 Resulted 15:15 Ketorolac PHA 09/26/24 Complete Tromethamine 15mg/Ml 15:30 Morphine 4mg Syg PHA 09/26/24 Complete (Morphine 4mg Syg) 15:30 Elbow Splint BRI 09/26/24 Complete 15:53 Current Medications Medications (Trade) Dose Ordered Sig/Jose Route PRN Reason Start Time Stop Time Status Last Admin Dose Admin Ketorolac Tromethamine (toRADol) 15 mg ONCE ONCE IV 09/26/24 15:30 09/26/24 15:31 DC 09/26/24 16:33 Morphine Sulfate (morPHINE 4MG SYG) 4 mg ONCE ONCE IVP 09/26/24 15:30 09/26/24 15:31 DC 09/26/24 16:34 Vital Signs Date Time Temp Pulse Resp B/P (MAP) Pulse Ox O2 Delivery O2 Flow Rate FiO2 09/26/24 18:00 97.7 99 21 109/56 95 Nasal Cannula* 4 36 09/26/24 15:31 98.1 107 20 97/47 93 Nasal Cannula* 4 36 09/26/24 15:12 98.1 107 20 97/47 94 Nasal Cannula 4.0 DX & DISP Disposition: Discharge Departure Impression: Primary Impression: Right supracondylar humerus fracture Condition: Stable Scripts Meloxicam (Meloxicam) 15 Mg Tablet 15 MG PO DAILY PRN for PAIN for 7 Days, #7 TAB Prov: NIA MANJARREZ DO 09/26/24 Hydrocodone/Acetaminophen (Hydrocodone-Acetamin 5-300 mg) 5 Mg-300 Mg Tablet 1 TAB PO TIDP PRN for pain for 5 Days, #15 TAB 0 Refills Prov: NIA MANJARREZ DO 09/26/24 Additional Instructions: You have a right supracondylar fracture. You were placed in a long posterior splint. Keep the splint on until you are evaluated by an orthopedist. I have prescribed [place] tabs to use up to 3 times a day as needed for pain. I have prescribed meloxicam which is an anti-inflammatory pain medication. Please take this once per day for pain. You will need to follow up with the orthopedist. As we discussed, you can contact Dr. Crooks, or you can visit Dr. Mills's office tomorrow from 8-12 a.m.. I have provided his contact information above. Please return to the emergency department if you have any concerns. Referrals: DOLLY MCKEON MD (PCP) JUWAN MILLS MD, RYAN E DO Sep 26, 2024 15:53
--- NOTE | 2024-09-26 16:30 | HMCIMG ---
CHEST 1VW HISTORY: Chest pain COMPARISON: 01/16/2024 FINDINGS: A frontal projection of the chest was obtained. No acute pulmonary infiltrates is seen. The heart is borderline enlarged. Degenerative changes are seen. Aortic calcifications are seen. Prominent interstitial markings are seen. IMPRESSION: 1. No acute pulmonary infiltrate is seen.
--- NOTE | 2024-09-26 16:31 | HMCIMG ---
ELBOW COMP 3+VWS RT HISTORY: Pain COMPARISON: None TECHNIQUE: 3 images of right elbow were obtained. FINDINGS: Transverse fracture with mild displacement is seen in the supracondylar region of the distal humerus. No dislocation is seen. Degenerative changes are seen. IMPRESSION: 1. Findings as described above.
[2024-09-26] MEDS: ketOROlac 15MG/ML VIAL (15MG/ML) IV ONE (16:33)
[2024-09-26] MEDS: morPHINE 4 MG SYG IVP ONE (16:34)
[2024-09-26] MEDS ORDERED: HYDR-4377 PO (16:46)
[2024-09-26] MEDS ORDERED: MELO-108 PO (16:46)
[2024-09-26 18:00] VITALS: BP 109/56; PULSE 99; RESP 21; TEMP 97.7; O2SAT 95
== END 2024-09-26 18:08 | disposition home or self-care (01) ==
LOC: EDH 15:11
DX: S42.411A Displaced simple supracondylar fracture without intercondylar fracture of right humerus, initial encounter for closed fracture (principal); I25.10 Atherosclerotic heart disease of native coronary artery without angina pectoris; J44.9 Chronic obstructive pulmonary disease, unspecified; I10 Essential (primary) hypertension; E78.00 Pure hypercholesterolemia, unspecified; E11.9 Type 2 diabetes mellitus without complications; Z79.84 Long term (current) use of oral hypoglycemic drugs; Z79.899 Other long term (current) drug therapy; Z88.1 Allergy status to other antibiotic agents; Z90.49 Acquired absence of other specified parts of digestive tract; Z98.890 Other specified postprocedural states; W18.39XA Other fall on same level, initial encounter; Y93.89 Activity, other specified; Y92.89 Other specified places as the place of occurrence of the external cause; Y99.8 Other external cause status
CPT/HCPCS: 99285; 96374; 29105; 71045; 96375; 82550; 84484; 80048; 85025; 85610; 36415; 73080; 93005; J2270; J1885

== ENCOUNTER 2024-10-15 13:34 | Inpatient (IN) | payer OTHER, MEDICARE ==
[~2024-10-15] VITALS: Ht 172.7 cm; Wt 94.5 kg
[~2024-10-15 13:34] MED LIST changes: +HYDR-4377 PO; +MELO-108 PO
--- NOTE | 2024-10-15 14:11 | NUR ---
NO ONE ANSWERED WHEN CALLED IN LOBBY. PT ASSIGNED BUT NOT IN MY ED BED 12
[2024-10-15 14:37] LABS: CREATININE 1.4 mg/dL (0.5-1.3)
[2024-10-15 14:39] LABS: BASOPHILS # (AUTO) 0.02 K/uL (0.00-0.20); BASOPHILS % (AUTO) 0.2 % (0.0-5.0); EOSINOPHILS # (AUTO) 0.01 K/uL (0.00-0.70); EOSINOPHILS % (AUTO) 0.1 % (0.0-8.0); HEMATOCRIT 37.7 % (42-54); IMMATURE GRANULOCYTE ABSOLUTE 0.05 K/uL (0-1); LYMPHOCYTES # (AUTO) 0.6 K/uL (1.0-4.8); LYMPHOCYTES % (AUTO) 5.7 % (21.0-51.0); MEAN CORPUSCULAR HEMOGLOBIN 29.7 pg (27.0-33.0); MEAN CORPUSCULAR HGB CONC 31.8 g/dL (32.0-36.0); MEAN CORPUSCULAR VOLUME 93.3 fL (79-99); MONOCYTES # (AUTO) 0.6 K/uL (0.1-1.0); MONOCYTES % (AUTO) 5.4 % (3.0-13.0); NEUTROPHILS # (AUTO) 9.9 K/uL (1.8-7.7); NEUTROPHILS % (AUTO) 88.2 % (40.0-77.0); PLATELET COUNT (AUTO) 252 K/uL (130-400); RED BLOOD CELL COUNT(AUTO) 4.04 MIL/uL (4.50-6.20); RED CELL DISTRIBUTION WIDTH 14.4 % (11.0-15.5); WHITE BLOOD COUNT (AUTO) 11.3 K/uL (4.8-10.8)
--- NOTE | 2024-10-15 14:43 | EKG ---
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
--- NOTE | 2024-10-15 14:47 | ERN ---
ED Note History of Present Illness Stated Complaint: SENT BY Chief Complaint: Weakness Time Seen by MD: 13:51 Dictation: Patient is a 79-year-old male with past medical history of diabetes, hypertension, falls, hypercholesterolemia, peripheral artery disease came to the ED with chief complaint of weakness since few days . Patient was sent by Dr. Vandana duque to get evaluated for the weakness and frequent falls and get a cardiac clearance for the upcoming surgery for humerus fracture due to a fall 3 weeks ago. Patient complains of weakness, nausea since few days. Patient also complains of swollen and painful left leg . Patient also informed about the peripheral artery disease which is severe on the right and got a stent placed and surgically corrected. Allergies: Coded Allergies: doxepin (Unverified Allergy, Unknown, 08/11/23) metronidazole (Unverified Allergy, Unknown, 09/22/19) prazosin (Unverified Allergy, Unknown, 09/22/19) Home Meds Reported Medications Ketotifen Fumarate (Ketotifen Fumarate) 0.025 % (0.035 %) Drops, 1 DROP OP BID, #5 ML 0 Refills 10/16/24 Carboxymethylcellulose Sodium (Artificial Tears) 1 % Drops, 1 DROP OP DAILY for 30 Days, #15 ML 0 Refills 10/16/24 Multivitamin W-Minerals/Lutein (Pub Multivitamin 50 Plus Tab) 1 Each Tablet, 1 TAB PO BID for 30 Days, #30 TAB 0 Refills 10/16/24 Trospium Chloride (Trospium Chloride) 20 Mg Tablet, 20 MG PO HS, TAB 10/16/24 Semaglutide (Ozempic) 2 Mg/0.75 Ml (8 Mg/3 Ml) Pen.injctr, 2 MG SQ QWEEK for 30 Days, #3 ML 0 Refills 10/16/24 Trazodone HCl (Trazodone HCl) 100 Mg Tablet, 200 MG PO HS, TAB 10/16/24 Tamsulosin HCl (Flomax) 0.4 Mg Cap.er.24h, 0.4 MG PO HS, CAPSULE. 10/16/24 Ropinirole HCl (Ropinirole HCl) 0.25 Mg Tablet, 1 TAB PO BID for 30 Days, #30 TAB 0 Refills 10/16/24 Pioglitazone HCl (Pioglitazone HCl) 30 Mg Tablet, 30 MG PO DAILY, TAB 10/16/24 Oxycodone HCl (Oxycodone HCl) 10 Mg Tablet, 1 TAB PO DAILY PRN for PAIN for 5 Days, #20 TAB 0 Refills 10/16/24 Melatonin (Melatonin) 3 Mg Capsule, 6 MG PO HS, CAP 10/16/24 Losartan Potassium (Losartan Potassium) 50 Mg Tablet, 50 MG PO BID, TAB 10/16/24 Duloxetine HCl (Duloxetine HCl) 60 Mg Capsule.dr, 60 MG PO DAILY, CAP 10/16/24 Atorvastatin Calcium (Atorvastatin Calcium) 40 Mg Tablet, 40 MG PO HS, TAB 10/16/24 Aspirin (Aspirin) 81 Mg Tab.chew, 81 MG PO DAILY, TAB.CHEW 10/16/24 Amlodipine Besylate (Amlodipine Besylate) 5 Mg Tablet, 5 MG PO DAILY, TAB 10/31/23 Discontinued Reported Medications Empagliflozin (Jardiance) 25 Mg Tablet, 25 MG PO DAILY, TAB 01/18/24 Losartan Potassium (Losartan Potassium) 50 Mg Tablet, 50 MG PO DAILY, TAB 01/18/24 Oxycodone HCl (Oxycodone HCl) 10 Mg Tablet, 10 MG PO AD, TAB 01/18/24 Discontinued Scripts Meloxicam (Meloxicam) 15 Mg Tablet, 15 MG PO DAILY PRN for PAIN for 7 Days, #7 TAB Prov:NIA MANJARREZ DO 09/26/24 Hydrocodone/Acetaminophen (Hydrocodone-Acetamin 5-300 mg) 5 Mg-300 Mg Tablet, 1 TAB PO TIDP PRN for pain for 5 Days, #15 TAB 0 Refills Prov:NIA MANJARREZ DO 09/26/24 Past Medical History Past Medical History: No Pertinent History, Diabetes-Type II, High Cholesterol, Hypertension, Other Additional Past Medical Hx: PROSTATE, PTSD, TINNITUS Surgical History: Cholecystectomy, Other Surgical History Other: NECK SX, ANKLE SX Social History: Lives with family Review of System Dictation Constitutional-no chills, weight loss/gain, fever Eyes-no injury, pain, redness and discharge ENT-no injury, pain, swelling Cardiovascular no chest pain, palpitations, edema Respiratory no shortness of breath, cough, wheezing Abdomen/GI-no abdominal pain, diarrhea, constipation, vomiting, nausea Back no injury and pain Genitourinary no injury, bleeding and discharge Musculoskeletal/extremities no injury, deformity . Left leg pain and swelling. Right humerus fracture due to fall Skin no rash, discoloration Neuro-no headache, weakness, numbness, tingling, seizures, mild tremors present Psych-no suicidal ideation, homicidal ideation, hallucinations, depression, anxiety, memory loss Initial Vital Sign VS Vital Signs Date Time Temp Pulse Resp B/P (MAP) Pulse Ox O2 Delivery O2 Flow Rate FiO2 10/15/24 13:46 98.2 89 22 102/57 93 Nasal Cannula* 3 32 Physical Exam Dictation General-patient is awake alert and oriented Head/neck-normocephalic, atraumatic Eyes-PERRL, EOMI, vision at baseline Neck-trachea midline, supple, no nuchal rigidity Cardiovascular-RRR, normal S1/S2, no MRG is, no JVD Respiratory-no distress, wheezing, rales, rhonchi Abdomen-no tenderness, guarding, soft, nondistended Skin warm, dry, normal turgor, no rash Musculoskeletal/extremities pulses equal, no cyanosis Neuro-COA X 4, GCS 15, strength 5/5, CN 2-12 intact Psych-normal behavior, mood and affect normal Results (Laboratory/Radiology) Laboratory/Radiology Laboratory Tests Test 10/15/24 14:07 10/15/24 20:38 10/16/24 04:38 10/16/24 05:38 White Blood Count 11.3 K/uL (4.8-10.8) H 9.3 K/uL (4.8-10.8) Red Blood Count 4.04 MIL/uL (4.50-6.20) L 3.32 MIL/uL (4.50-6.20) L Hemoglobin 12.0 g/dL (14.0-18.0) L 10.0 g/dL (14.0-18.0) L Hematocrit 37.7 % (42-54) L 31.3 % (42-54) L Mean Corpuscular Volume 93.3 fL (79-99) 94.3 fL (79-99) Mean Corpuscular Hemoglobin 29.7 pg (27.0-33.0) 30.1 pg (27.0-33.0) Mean Corpuscular Hemoglobin Concent 31.8 g/dL (32.0-36.0) L 31.9 g/dL (32.0-36.0) L Red Cell Distribution Width 14.4 % (11.0-15.5) 14.6 % (11.0-15.5) Platelet Count 252 K/uL (130-400) 199 K/uL (130-400) Mean Platelet Volume 8.9 fL (7.5-10.5) 8.8 fL (7.5-10.5) Immature Granulocyte % (Auto) 0.4 % (0-1) Neutrophils (%) (Auto) 88.2 % (40.0-77.0) H Lymphocytes (%) (Auto) 5.7 % (21.0-51.0) L Monocytes (%) (Auto) 5.4 % (3.0-13.0) Eosinophils (%) (Auto) 0.1 % (0.0-8.0) Basophils (%) (Auto) 0.2 % (0.0-5.0) Neutrophils # (Auto) 9.9 K/uL (1.8-7.7) H Lymphocytes # (Auto) 0.6 K/uL (1.0-4.8) L Monocytes # (Auto) 0.6 K/uL (0.1-1.0) Eosinophils # (Auto) 0.01 K/uL (0.00-0.70) Basophils # (Auto) 0.02 K/uL (0.00-0.20) Absolute Immature Granulocyte (auto 0.05 K/uL (0-1) Nucleated Red Blood Cells 0.0 % (0.0-0.19) 0.0 % (0.0-0.19) White Cell Morphology Comment See comments Sodium Level 133 mmol/L (136-145) L 137 mmol/L (136-145) Potassium Level 4.0 mmol/L (3.5-5.1) 3.7 mmol/L (3.5-5.1) Chloride Level 94 mmol/L (101-111) L 100 mmol/L (101-111) L Carbon Dioxide Level 33 mmol/L (21-32) H 32 mmol/L (21-32) Blood Urea Nitrogen 25 mg/dL (7-18) H 24 mg/dL (7-18) H Creatinine 1.4 mg/dL (0.5-1.3) H 1.1 mg/dL (0.5-1.3) Glomerular Filtration Rate Calc 51 mL/min (>90) 69 mL/min (>90) Random Glucose 176 mg/dL (70-105) H 120 mg/dL (70-105) H Total Calcium 9.3 mg/dL (8.5-10.1) 8.7 mg/dL (8.5-10.1) Total Creatine Kinase 43 U/L (21-232) Troponin I High Sensitivity 15 ng/L (4-75) 15 ng/L (4-75) Whole Blood Glucose 142 MG/DL (70-110) H 121 MG/DL (70-110) H Hemoglobin A1c 6.8 % (4.0-6.0) H Estimated Average Glucose (eAG) 148 mg/dL (70-126) H Magnesium Level 1.60 mg/dL (1.80-2.40) L Thyroid Stimulating Hormone (TSH) 0.59 uIU/mL (0.36-3.74) # Test 10/16/24 07:41 10/16/24 11:03 10/16/24 16:18 10/16/24 19:00 Blood Gas Specimen Type Arterial Arterial Blood pH 7.416 (7.350-7.450) Arterial Blood Partial Pressure CO2 47 mmHg (35-48) Arterial Blood Partial Pressure O2 66.3 mmHg (83.0-108.0) L Arterial Blood HCO3 29.7 mmol/L (21.0-28.0) H Arterial Blood Oxygen Saturation 93.3 % (94.0-98.0) L Arterial Blood Base Excess 4.5 mmol/L (-2.0-3.0) H Hemoglobin (Blood Gas) 11.3 g/dL (13.5-17.5) L Sodium (Blood Gas) 135 MMOL/L (136-145) L Bedside Potassium (Blood Gas) 3.7 MMOL/L (3.4-4.5) Bedside Chloride (Blood Gas) 97 MMOL/L (98-107) L Bedside Glucose (Blood Gas) 127 MG/DL (65-95) H Bedside Ionized Calcium (Blood Gas) 1.17 MMOL/L (1.15-1.33) Bedside Lactic Acid (Blood Gas) 0.73 MMOL/L (0.36-0.75) Blood Gas Temperature 37.0 CELSIUS (35.5-37.0) Blood Gas Flow-by 2.00 L/min (0.00-15.00) FiO2 28.0 % Blood Gas Specimen Comment LR 2LNC Whole Blood Glucose 139 MG/DL (70-110) H 124 MG/DL (70-110) H Influenza Type A Antigen Negative For Type A Influenza Type B Antigen Negative For Type B SARS-CoV-2, RNA, NAAT NEGATIVE SARS CoV-2 Test 10/16/24 19:28 10/17/24 03:40 10/17/24 03:41 10/17/24 05:27 Whole Blood Glucose 180 MG/DL (70-110) H 121 MG/DL (70-110) H Urine Color LIGHT-YELLOW (YELLOW) Urine Appearance CLEAR (CLEAR) Urine pH 5.0 (5.0-8.0) Urine Specific [place] 1.011 (1.001-1.031) Urine Protein NEGATIVE mg/dL (NEGATIVE) Urine Glucose (UA) NEGATIVE mg/dL (NEGATIVE) Urine Ketones NEGATIVE mg/dL (NEGATIVE) Urine Occult Blood NEGATIVE (NEGATIVE) Urine Nitrate NEGATIVE (NEGATIVE) Urine Bilirubin NEGATIVE mg/dL (NEGATIVE) Urine Urobilinogen 0.2 mg/dL (0.2-1.0) Urine Leukocyte Esterase NEGATIVE Miller/uL White Blood Count 7.5 K/uL (4.8-10.8) Red Blood Count 3.30 MIL/uL (4.50-6.20) L Hemoglobin 10.0 g/dL (14.0-18.0) L Hematocrit 31.0 % (42-54) L Mean Corpuscular Volume 93.9 fL (79-99) Mean Corpuscular Hemoglobin 30.3 pg (27.0-33.0) Mean Corpuscular Hemoglobin Concent 32.3 g/dL (32.0-36.0) Red Cell Distribution Width 14.6 % (11.0-15.5) Platelet Count 210 K/uL (130-400) Mean Platelet Volume 9.1 fL (7.5-10.5) Immature Granulocyte % (Auto) 0.4 % (0-1) Neutrophils (%) (Auto) 63.5 % (40.0-77.0) Lymphocytes (%) (Auto) 23.0 % (21.0-51.0) Monocytes (%) (Auto) 9.4 % (3.0-13.0) Eosinophils (%) (Auto) 3.3 % (0.0-8.0) Basophils (%) (Auto) 0.4 % (0.0-5.0) Neutrophils # (Auto) 4.8 K/uL (1.8-7.7) Lymphocytes # (Auto) 1.7 K/uL (1.0-4.8) Monocytes # (Auto) 0.7 K/uL (0.1-1.0) Eosinophils # (Auto) 0.25 K/uL (0.00-0.70) Basophils # (Auto) 0.03 K/uL (0.00-0.20) Absolute Immature Granulocyte (auto 0.03 K/uL (0-1) Nucleated Red Blood Cells 0.0 % (0.0-0.19) Sodium Level 136 mmol/L (136-145) Potassium Level 3.8 mmol/L (3.5-5.1) Chloride Level 101 mmol/L (101-111) Carbon Dioxide Level 32 mmol/L (21-32) Blood Urea Nitrogen 14 mg/dL (7-18) Creatinine 0.9 mg/dL (0.5-1.3) Glomerular Filtration Rate Calc 87 mL/min (>90) Random Glucose 110 mg/dL (70-105) H Total Calcium 8.1 mg/dL (8.5-10.1) L Magnesium Level 1.70 mg/dL (1.80-2.40) L Total Bilirubin 0.6 mg/dL (0.2-1.0) Aspartate Amino Transf (AST/SGOT) 13 U/L (10-37) Alanine Aminotransferase (ALT/SGPT) 14 U/L (12-78) Alkaline Phosphatase 79 U/L (50-136) B-Type Natriuretic Peptide 79 pg/mL (0-100) Total Protein 5.7 g/dL (6.0-8.3) L Albumin 2.5 g/dL (3.5-5.0) L Vitamin B12 Level 279 pg/mL (193-986) ED Course ED Course Orders Procedure Category Date Status Time Cbc With Differential LAB 10/15/24 Complete 13:51 Basic Metabolic Panel LAB 10/15/24 Complete 13:51 Troponin I High LAB 10/15/24 Complete Sensitivity 13:58 12 Lead Ekg Tracing- EKG 10/15/24 Resulted Technical 13:58 Urinalysis Profile LAB 10/15/24 Complete 13:58 Creatine Kinase, Total LAB 10/15/24 Complete 14:07 Us Venous Doppler US 10/15/24 Resulted Unilateral 14:34 Ct Head/Brain W/O CT 10/15/24 Resulted Contrast 14:34 0.9%Nacl 1000ml (Ns PHA 10/15/24 In Process 1000ml) 15:00 Admit Orders ADM 10/15/24 Transmitted 18:53 Vital Signs Every 4 CPOE 10/15/24 Transmitted Hours 18:56 Orthostatic Vital CPOE 10/15/24 Transmitted Signs 18:56 I&O Q Shift CPOE 10/15/24 Transmitted 18:56 Activity: Br W/Brp CPOE 10/15/24 Transmitted With Assist 18:56 Heart Healthy Diet DIET 10/16/24 Transmitted Breakfast O2 Order RT 10/15/24 Transmitted 18:56 Cbc Without LAB 10/16/24 Complete Differential 04:00 Basic Metabolic Panel LAB 10/16/24 Complete 04:00 Magnesium LAB 10/16/24 Complete 04:00 Thyroid Stimulating LAB 10/16/24 Complete Hormone 04:00 Us Carotid Duplex US 10/15/24 Resulted 18:56 Famotidine 20mg Tab PHA 10/15/24 Complete (Pepcid 20mg Tab) 21:00 Acetaminophen 325 Tab PHA 10/15/24 In Process (Tylenol 325mg Tab 19:00 Acetaminophen 650mg PHA 10/15/24 In Process Supp (Tylenol 650mg 19:00 Lactulose 20 Gm/30 Ml PHA 10/15/24 In Process Udcup (Constulose 19:00 Docusate Sodium 100 PHA 10/15/24 In Process Mg Cap (Colace 100mg 19:00 Temazepam 15 Mg Cap PHA 10/15/24 In Process (Restoril 15 Mg Cap) 19:00 Ondansetron 4mg Inj PHA 10/15/24 In Process (Zofran 4mg Inj) 19:00 Hydralazine 20mg Inj PHA 10/15/24 In Process (Apresoline 20mg In 19:00 Apply Scds CPOE 10/15/24 Transmitted 18:56 Telemetry Monitoring CPOE 10/15/24 Transmitted 18:56 Initiate BRI 10/15/24 In Process Hyperglycemia Protoco 18:56 Insulin Regular, PHA 10/15/24 In Process Human 3ml (Humulin R 21:00 Troponin I High LAB 10/16/24 Complete Sensitivity 04:00 Hemoglobin A1c LAB 10/16/24 Complete 04:00 Famotidine 20mg Tab PHA 10/16/24 In Process (Pepcid 20mg Tab) 21:00 Echo 2-D Complete ECHO 10/16/24 Resulted 18:56 Arterial Blood Gas + RT 10/16/24 Transmitted 06:11 Docusate Sodium 100 PHA 10/16/24 In Process Mg Cap (Colace 100mg 09:00 Orthostatic Vital CPOE 10/16/24 Transmitted Signs 06:24 Influenza Type A & B, LAB 10/16/24 Complete Rapid 06:31 Covid Rna Naat LAB 10/16/24 Complete 06:31 Pt Eval And Treat PT 10/16/24 Transmitted 06:31 Cardiology Consult CONPHYSVC 10/16/24 Transmitted 06:49 Arterial Blood Gas LAB 10/16/24 Complete Arterial + 07:41 Magnesium 2gm Premix PHA 10/16/24 In Process 50ml (Magnesium 2gm 09:30 Initiate Po BRI 10/16/24 In Process Hypokalemia Protoc 09:06 Potassium Chloride PHA 10/16/24 In Process 20meq/100ml ([place] 09:30 Potassium Chl 10% PHA 10/16/24 In Process Elixir 20meq (Kcl 10% 09:30 Potassium Chloride PHA 10/16/24 In Process 20meq Er (K-Dur/Klor- 09:30 Notify Physician If CPOE 10/16/24 Transmitted There Is 09:06 Notify Md On The Next CPOE 10/16/24 Transmitted 09:06 Notify Md On The CPOE 10/16/24 Transmitted Next(Cont.) 09:06 Amlodipine 5 Mg Tab PHA 10/17/24 In Process (Norvasc 5mg Tab) 09:00 Aspirin 81mg Chew Tab PHA 10/17/24 In Process (Aspirin 81mg Chew 09:00 Atorvastatin 40mg PHA 10/16/24 In Process (Lipitor 40mg) 21:00 Losartan 50 Mg Tablet PHA 10/16/24 In Process (Cozaar 50 Mg Tab) 21:00 Tamsulosin Hcl PHA 10/16/24 In Process (Flomax) 21:00 Morphine 2mg Syg PHA 10/16/24 In Process (Morphine 2mg Syg) 11:00 Cbc With Differential LAB 10/17/24 Complete 04:00 Comprehensive LAB 10/17/24 Complete Metabolic Panel 04:00 B-Type Natriuretic LAB 10/17/24 Complete Peptide 04:00 Vitamin B12 Serum LAB 10/17/24 Complete 04:00 Magnesium LAB 10/17/24 Complete 04:00 Trazodone Hcl PHA 10/17/24 In Process (Desyrel/Oleptro) 21:00 Home Medication (Home PHA 10/17/24 In Process Medication) 21:00 Case Management CM 10/17/24 Transmitted Evaluation 10:15 Current Medications Medications (Trade) Dose Ordered Sig/Jose Route PRN Reason Start Time Stop Time Status Last Admin Dose Admin Sodium Chloride 1,000 ml @ 125 mls/hr Q8H IV 10/15/24 15:00 11/14/24 14:59 10/17/24 03:25 Vital Signs Date Time Temp Pulse Resp B/P (MAP) Pulse Ox O2 Delivery O2 Flow Rate FiO2 10/17/24 08:03 95 Nasal Cannula* 2 10/17/24 08:03 Nasal Cannula* 2 10/17/24 08:00 98.4 88 18 130/65 95 Room Air 10/17/24 04:00 98.1 88 19 122/66 95 Nasal Cannula 2.0 136/80 10/17/24 00:20 87 18 N/Cannula Low lpm 2.0 10/16/24 23:45 98.1 94 19 143/81 95 Nasal Cannula 2.0 10/16/24 20:00 97.9 106 18 134/81 94 Nasal Cannula 2.0 10/16/24 19:10 94 Nasal Cannula* 2 10/16/24 16:41 97.9 94 17 144/80 92 Room Air 10/16/24 12:39 97.7 92 19 110/72 94 Room Air 10/16/24 11:31 107 18 N/Cannula Low lpm 2.0 10/16/24 08:39 97.9 90 17 156/77 99 Room Air 10/16/24 07:50 99 Room Air* 0 10/16/24 03:55 98.8 89 18 130/78 94 Nasal Cannula 2.0 10/16/24 00:00 98.1 68 18 113/63 93 Nasal Cannula 2.0 10/15/24 21:51 97.9 110 18 119/61 93 Nasal Cannula 2.0 10/15/24 21:26 93 Nasal Cannula* 2 28 10/15/24 21:04 98.1 75 18 135/57 99 Room Air* 0 21 10/15/24 18:13 98.1 16 99/60 94 Room Air* 0 21 10/15/24 13:46 98.1 109 16 102/57 95 Nasal Cannula 3.0 10/15/24 13:46 98.2 89 22 102/57 93 Nasal Cannula* 3 32 Medical Decision Making MDM INITIAL IMPRESSION Initial history and physical concerning for syncopal fall , mechanical fall , generalized weakness I have reviewed the triage nursing notes and vital signs. Initial plan: Laboratory evaluation and x-ray DATA REVIEW I have reviewed additional NN, repeat VS, and monitoring where indicated. Heart rate, blood pressure, and O2 saturation are acceptable. DISPOSITION Final diagnostic impression: Frequent falls of unknown etiology I discussed my findings, clinical impression and treatment recommendations with the patient. I have reviewed the social factors contributing to the patient's presentation and disposition planning. My final plan for disposition was made based upon -mild risk of complications and potential morbidity of the patient's condition. -Discussion with the patient regarding management options. Patient will be admitted for observation and further evaluation DX & DISP Disposition: Inpatient Decision to Admit Date: Oct 15, 2024 Decision to Admit Time: 17:42 Departure Impression: Primary Impression: Syncope Additional Impressions: Falls frequently, Generalized weakness Condition: Stable Referrals: DOLLY MCKEON MD (PCP) Time of Disposition: 17:44 I have reviewed I have reviewed the case I have examined patient I performed a substantive portion of the visit. I have reviewed and personally made and approve the management plan that is documented in the notes by myself with SUNNY/resident. I acknowledged full responsibility for the patient's management plan. JACKELINE MARIA MD Oct 15, 2024 14:47 NIA MANJARREZ DO Oct 17, 2024 10:44
--- NOTE | 2024-10-15 15:00 | NUR ---
PT JUST RETURNED FROM CT SCAN
--- NOTE | 2024-10-15 15:05 | HMCIMG ---
Exam: NONCONTRAST CT BRAIN REASON: frequent falls , recent fall 2 days ago. COMPARISON: 01/17/2024 TECHNIQUE: Images are obtained from vertex to the skull base. The exam was performed without IV contrast. FINDINGS: There is focal encephalomalacia deep central white matter in the right posterior frontal region consistent with an old stroke, this was present on prior study as well. There are generous ventricles and sulci. There is decreased attenuation in the deep central white matter. These findings are consistent with atrophy. There are no acute appearing focal parenchymal lesions. There is no evidence of mass, intracranial hemorrhage or acute stroke. Posterior fossa and brainstem structures appear unremarkable. There are no abnormal fluid collections. Extra cranial soft tissues appear unremarkable as well. IMPRESSION: 1. Atrophy, no acute finding. 2. 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 CT was performed with one or more following dose reduction techniques: automated exposure control, adjustment of the mA and kv according to patient's size, or use of a iterative reconstruction technique.
--- NOTE | 2024-10-15 15:14 | NUR ---
SONO TECH AT BS TO PERFORM EXAM
--- NOTE | 2024-10-15 15:32 | HMCIMG ---
US VENOUS DOPPLER UNILATERAL REASON: pain and swelling COMPARISON: None Technique: Left venous doppler ultrasound was performed with spectral analysis and color flow imaging technique. FINDINGS: There is a normal appearance of the common femoral, deep femoral, the profunda femoris and popliteal veins. Proximal calf veins appear normal as well. There is normal response to compression and augmentation. There is no evidence of deep venous thrombosis. IMPRESSION: Normal left lower extremity venous Doppler ultrasound.
[2024-10-15] MEDS: 0.9%NACL 1000ML 1,000 ML IV SCH (18:29)
[2024-10-15] MEDS ORDERED: TEMAZepam 15 MG CAPSULE PO PRN (19:00)
[2024-10-15] MEDS ORDERED: acetaMINOPHEN 325 MG TAB PO PRN (19:00)
[2024-10-15] MEDS ORDERED: ondanSETRON 4MG INJ IVP PRN (19:00)
[2024-10-15] MEDS ORDERED: doCUSate SODIUM 100 MG CAP PO PRN (19:00)
[2024-10-15] MEDS ORDERED: LACTULOSE 20 GM/30 ML UDCUP PO PRN (19:00)
[2024-10-15] MEDS ORDERED: acetaMINOPHEN 650 MG SUPPOSITORY RC PRN (19:00)
--- NOTE | 2024-10-15 19:13 | NUR ---
REPORT ENDORSED TO EWA MAGANA
[2024-10-15] MEDS: FAMOTIDINE 20MG TAB PO SCH (20:10)
[2024-10-15] MEDS: INSULIN humuLIN R 100 UNIT/ML 3ML SQ SCH (21:00)
--- NOTE | 2024-10-15 21:03 | NUR ---
ORTHOSTATIC VITALS LYING- 135/57 SITTING- 123/59 STANDING- 112/49
--- NOTE | 2024-10-15 21:15 | HP ---
[facility] HISTORY AND PHYSICAL Date of Service: Oct 15, 2024 Time of Service: 21:15 PCP: Dr. Robert Guthrie at [facility] Supervising/attending physicians: Dr. Kerri Bethea and Dr. Rowan HISTORY OF PRESENT ILLNESS: Mr. Connell is a 79-year-old male with past medical history of diabetes, hypertension, falls, hypercholesterolemia, peripheral artery disease who presented to [facility] ED with chief complaint of weakness since September 26 after he fell. Patient was sent by Dr. Vandana Lee for cardiac clearance for the upcoming surgery for humerus fracture due to a fall 3 weeks ago. The patient reported that Dr. Lee send him to the hospital because he appeared pale and weak. Patient complains of weakness, nausea since his fall injury on September 26. Patient also complains of swollen and painful left leg. The at bedside reports that before he fell on Monday his leg was swollen. The patient reports that he has been falling because his legs were weak. The states that she believes that his falls are contributed to multiple pain medications. She reports that he has been on oxycodone 10 mg in a.m. and half a tablet at night. She states that due to the arm fracture he was also started on Tylenol with codeine. The patient reports that he remembers his falls and he never had chest pain, shortness of breath before or after the falls. The patient reports that he never had a syncope episode with the spells. Troponin within normal limits. Remarkable lab results: Hemoglobin 12.0, hematocrit 37.7, WBCs 11.3, BUN 25, creatinine 1.4, GFR 51, sodium 133, chloride 94, glucose 120, magnesium 1.6. CT head without contrast: 1. Atrophy, no acute finding. 2. 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 Venous Doppler: WNL, negative DVT ED provider request patient be admitted with the diagnosis of syncope, fall frequently, generalized weakness. I went to assess patient at bedside. Patient's appear chronically ill, weak, breathing was even and unlabored, in no distress. Patient was very conversive. I informed patient and of labs, diagnostics, and plan of care. I answered their multiple questions. They verbalized understanding and are in agreement with the plan. Plan and assessment are listed below. REVIEW OF SYSTEMS 12-point ROS reviewed with patient. All pertinent positives mentioned above. Otherwise negative, non-pertinent, or noncontributory. Past Medical History: No Pertinent History, Diabetes-Type II, High Cholesterol, Hypertension, PROSTATE, PTSD, TINNITUS Surgical History: Cholecystectomy, NECK SX, ANKLE SX Social History: Denies alcohol, tobacco, illicit drug use Lives with family Coded Allergies: doxepin (Unverified Allergy, Unknown, 08/11/23) metronidazole (Unverified Allergy, Unknown, 09/22/19) prazosin (Unverified Allergy, Unknown, 09/22/19) PHYSICAL EXAM GENERAL APPEARANCE: The patient is awake, alert, and oriented, in no acute cardiopulmonary distress. NEUROLOGICAL: Cranial nerves II-XII grossly intact. Motor is 5/5 in bilateral upper and lower extremities proximal to distal. No sensory deficits. HEENT: Face is symmetric. Pupils are equal and reactive. Extraocular movements are intact. NECK: Supple. No JVD. No thyromegaly. No submental, submandibular, pre- /postauricular, occipital or supraclavicular lymphadenopathy. CHEST: Normal chest expansion. No Telemetry. LUNGS: Absence of any rales, rhonchi or any wheezing. CARDIOVASCULAR: Regular. S1 and S2 normal. No appreciable rubs, murmurs or gallops. ABDOMEN: Obese. Soft, nontender, and nondistended. There is no rebound, voluntary guarding, or rigidity. : Deferred. No Rivera. EXTREMITIES: Left lower extremity edema. No cyanosis. No clubbing. Good capillary refill. SKIN: No skin breakdown. Vital Sign (Last 24 Hours) 10/15/24 21:04 Temp 98.1 Pulse 75 Resp 18 B/P (MAP) 135/57 Pulse Ox 99 O2 Delivery Room Air* O2 Flow Rate 0 FiO2 21 LABS: Laboratory: Test 10/15/24 20:38 10/15/24 14:07 Range/Units Whole Blood Glucose 142 H 70-110 MG/DL White Blood Count 11.3 H 4.8-10.8 K/uL Red Blood Count 4.04 L 4.50-6.20 MIL/uL Hemoglobin 12.0 L 14.0-18.0 g/dL Hematocrit 37.7 L 42-54 % Mean Corpuscular Volume 93.3 79-99 fL Mean Corpuscular Hemoglobin 29.7 27.0-33.0 pg Mean Corpuscular Hemoglobin Concent 31.8 L 32.0-36.0 g/dL Red Cell Distribution Width 14.4 11.0-15.5 % Platelet Count 252 130-400 K/uL Mean Platelet Volume 8.9 7.5-10.5 fL Immature Granulocyte % (Auto) 0.4 0-1 % Neutrophils (%) (Auto) 88.2 H 40.0-77.0 % Lymphocytes (%) (Auto) 5.7 L 21.0-51.0 % Monocytes (%) (Auto) 5.4 3.0-13.0 % Eosinophils (%) (Auto) 0.1 0.0-8.0 % Basophils (%) (Auto) 0.2 0.0-5.0 % Neutrophils # (Auto) 9.9 H 1.8-7.7 K/uL Lymphocytes # (Auto) 0.6 L 1.0-4.8 K/uL Monocytes # (Auto) 0.6 0.1-1.0 K/uL Eosinophils # (Auto) 0.01 0.00-0.70 K/uL Basophils # (Auto) 0.02 0.00-0.20 K/uL Absolute Immature Granulocyte (auto 0.05 0-1 K/uL Nucleated Red Blood Cells 0.0 0.0-0.19 % White Cell Morphology Comment See comments Sodium Level 133 L 136-145 mmol/L Potassium Level 4.0 3.5-5.1 mmol/L Chloride Level 94 L 101-111 mmol/L Carbon Dioxide Level 33 H 21-32 mmol/L Blood Urea Nitrogen 25 H 7-18 mg/dL Creatinine 1.4 H 0.5-1.3 mg/dL Glomerular Filtration Rate Calc 51 >90 mL/min Random Glucose 176 H 70-105 mg/dL Total Calcium 9.3 8.5-10.1 mg/dL Total Creatine Kinase 43 21-232 U/L Troponin I High Sensitivity 15 4-75 ng/L Current Medications Medications (Trade) Dose Ordered Sig/Jose Route PRN Reason Start Time Stop Time Status Last Admin Dose Admin Acetaminophen (TYLenol 325MG TAB) 650 mg Q6H PRN PO FEVER/MILD PAIN LEVEL 1-3 10/15/24 19:00 11/14/24 18:59 Acetaminophen (TYLenol 650MG SUPPOSITORY) 650 mg Q6H PRN RC FEVER / MILD PAIN 1-3 IF NPO 10/15/24 19:00 11/14/24 18:59 Docusate Sodium (COLace 100MG CAP) 100 mg BID PRN PO CONSTIPATION 10/15/24 19:00 11/14/24 18:59 Famotidine (Pepcid 20mg Tab) 20 mg BID PO 10/15/24 21:00 10/15/24 20:44 DC 10/15/24 20:10 20 MG Famotidine (Pepcid 20mg Tab) 20 mg Q24H PO 10/16/24 21:00 11/14/24 20:59 Hydralazine HCl (APRESOLine 20MG INJ) 10 mg Q2H PRN IV SBP GREATER THAN 160 10/15/24 19:00 11/14/24 18:59 Insulin Human Regular (humuLIN R 100 UNIT/ML 3ML) INSULIN SLIDING SCAL... 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, present in the right posterior frontal region, per CT 10/16/2024 Decreased inability to walk, frequent falls Transverse fracture with mild displacement in the supracondylar region of the distal humerus s/p fall on 09/26/2024 Chronic pain on oxycodone scheduled b.i.d., now on Tylenol with codeine also for humerus pain Electrolyte derangement (hyponatremia, hypochloremia, hypomagnesemia) Acute kidney injury, GFR 51 Acute on chronic kidney disease, GFR 51 Acute dehydration Anorexia Hyperglycemia Left lower extremity edema Severe constipation Obstructive sleep apnea, does not use CPAP machine Hypertension Diabetes mellitus type 2 with hyperglycemia COPD Chronic problem list: History of transient hypotension, DM type 2, hypercholesteremia, hypertension, enlarged prostate, PTSD, tinnitus PLAN: Admit to medical floor with telemetry monitoring and fall precautions. Monitor respirations status closely. Trend troponins and EKGs. Obtain echo and carotids. Obtain influenza and COVID swabs were IV gentle hydration. P.r.n. medications for: Pain management, nausea, vomiting, constipation, hypertension, fevers, shortness of breath. Colace 100 mg p.o. b.i.d.. Obtain ABGs. DVT and GI prophylaxis: SCDs and Pepcid Glucometer checks a.c. and HS with insulin regular sliding scale. Blood pressure checks every 4 hours and p.r.n.. Consult Cardiology. 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 Further orders per hospitalization course. ADVANCED CARE PLANNING 1. Which of the following were discussed? Hospice Care - No Therapeutic options - Yes Advance Directives - Yes Other discussions - 2. Discussed with who? Patient 3. Voluntary nature of this service was explained to the patient? Yes 4. Amount of time spent - ___ over 35 minutes ____ 5. Reviewed by Physician? (if this service was performed by NPP) Yes Patient seen and examined by me. Agree with note by LOADERS SEE ADDITIONAL ORDERS PER CHART DISCUSSED WITH NURSING STAFF SAMANTHA POPEP Oct 15, 2024 21:15
[2024-10-15 21:26] VITALS: O2SAT 93
--- NOTE | 2024-10-15 21:26 | NUR ---
ADMISSION: PT RECEIVED FROM ER VIA STRETCHER, AT BEDSIDE. PT/ STATE HE FELL X 3 WEEKS AGO AND HAD A RIGHT HUMERUS FRACTURE CAST AND ARM SLING IN PLACE. PT/ STATE PT HAD FALLEN THREE TIMES THIS MONTH DUE TO GENERAL BODY WEAKNESS. STATES PT HAS A WALKER AT HOME BUT HE DOES NOT USE IT. PLACED TELE# 5 TO CHEST WALL, VOICES NO CHEST PAIN/DISCOMFORTS AT THE TIME. PT WITH O2 AT 2L/MIN PER NC, NO SOB NOTED. PT STATES HE USES OXYGEN AND CPAP MACHINE AT HOME. BILATERAL DRY LACERATIONS NOTED TO LOWER EXTREMITIES FROM FREQUENT FALLS. BED ALARM IN PLACE, S/R UP X 3.
[2024-10-15 21:51] VITALS: BP 119/61; PULSE 110; RESP 18; TEMP 97.8
[2024-10-16] VITALS (10 sets, daily range): BP systolic 110–156; BP diastolic 63–81; PULSE 68–107; RESP 17–19; TEMP 97.7–98.7; O2SAT 94–99
[2024-10-16] MEDS ORDERED: TAMS-1 PO (01:44)
[2024-10-16] MEDS ORDERED: PIOG30TA70 PO (01:44)
[2024-10-16] MEDS ORDERED: SEMA2PEN SQ (01:44)
[2024-10-16] MEDS ORDERED: LOSA50TA64 PO (01:44)
[2024-10-16] MEDS ORDERED: ROPI0.2535 PO (01:44)
[2024-10-16] MEDS ORDERED: ASPI-1197 PO (01:44)
[2024-10-16] MEDS ORDERED: TROS20TA4 PO (01:44)
[2024-10-16] MEDS ORDERED: MULT-470 PO (01:44)
[2024-10-16] MEDS ORDERED: CARB-283 OP (01:44)
[2024-10-16] MEDS ORDERED: ATOR40TA71 PO (01:44)
[2024-10-16] MEDS ORDERED: KETO-99 OP (01:44)
[2024-10-16] MEDS ORDERED: OXYC10TA48 PO (01:44)
[2024-10-16] MEDS ORDERED: MELA3CAP2 PO (01:44)
[2024-10-16] MEDS ORDERED: TRAZ-187 PO (01:44)
[2024-10-16] MEDS ORDERED: DULO60CA64 PO (01:44)
[2024-10-16 04:50] LABS: HEMATOCRIT 31.3 % (42-54); MEAN CORPUSCULAR HEMOGLOBIN 30.1 pg (27.0-33.0); MEAN CORPUSCULAR HGB CONC 31.9 g/dL (32.0-36.0); MEAN CORPUSCULAR VOLUME 94.3 fL (79-99); RED BLOOD CELL COUNT(AUTO) 3.32 MIL/uL (4.50-6.20); RED CELL DISTRIBUTION WIDTH 14.6 % (11.0-15.5); WHITE BLOOD COUNT (AUTO) 9.3 K/uL (4.8-10.8)
[2024-10-16 05:13] LABS: CREATININE 1.1 mg/dL (0.5-1.3); MAGNESIUM 1.6 mg/dL (1.80-2.40); POTASSIUM 3.7 mmol/L (3.5-5.1); THYROID STIMULATING HORMONE 0.59 uIU/mL (0.36-3.74)
[2024-10-16 05:14] LABS: HEMOGLOBIN A1C 6.8 % (4.0-6.0)
[2024-10-16 07:43] LABS: ABG BASE EXCESS 4.5 mmol/L (-2.0-3.0); ABG HCO3 29.7 mmol/L (21.0-28.0); ABG OXYGEN SATURATION 93.3 % (94.0-98.0); ABG PCO2 47 mmHg (35-48); ABG PH 7.416 (7.350-7.450); CARBON MONOXIDE 0.1 % (0.5-1.5); DEVICE COMMENT LR 2LNC; HHb 6.7; PO2, ARTERIAL BG 66.3 mmHg (83.0-108.0)
[2024-10-16] MEDS: doCUSate SODIUM 100 MG CAP PO SCH (08:57)
--- NOTE | 2024-10-16 09:00 | HMCIMG ---
US CAROTID DUPLEX REASON: Near syncope, GBW, frequent falls TECHNIQUE: Exam was performed using spectral analysis and color flow imaging. FINDINGS: Color flow Doppler ultrasound shows mild plaque in each bifurcation. There is no anatomic evidence of significant focal narrowing. Flow velocities and velocity ratios appear normal throughout. There is antegrade flow in both vertebral arteries. RIGHT CAROTID: CCA: 57 cm/sec ICA: 86 cm/sec Ratio: ICA/CCA: 1.5 ECA: 187 cm/sec Vertebral artery: 59 cm/sec LEFT CAROTID: CCA: 106 cm/sec ICA: 102 cm/sec Ratio: ICA/CCA: 0.9 ECA: 167 cm/sec Vertebral artery: 53 cm/sec IMPRESSION: 1. Mild plaque in both carotid bifurcations. 2. No anatomic or hemodynamic evidence of significant focal stenosis.
[2024-10-16] MEDS ORDERED: PoTASSium chloRIDE 20MEQ/100ML 100 ML IV PRN (09:30)
[2024-10-16] MEDS ORDERED: PoTASSium chl 10% ELIXIR 20MEQ 20 MEQ/15 ML UDCUP PO PRN (09:30)
--- NOTE | 2024-10-16 11:10 | PN ---
[facility] PROGRESS NOTE Date of Service: Oct 16, 2024 Time of Service: 11:08 SUBJECTIVE: Patient is seen at the bedside. He is awake alert and oriented. Vitals temperature 97.9, pulse rate 90, respiratory rate 17, blood pressure 156/77, SpO2 99% on room air. He complains of severe right arm pain secondary to transverse supracondylar fracture distal humerus post fall on 09/26. He also s tates that he has been experiencing bilateral lower extremity weakness, balance difficulties while walking which increased in intensity post fall. He denies headache, dizziness, nausea, vomiting, chest pain, palpitations, abdominal pain, difficulty in urination, diarrhea, numbness and paresthesias in bilateral lower extremities. Remarkable lab results hemoglobin 10, BUN 24, creatinine 1.1, magnesium 1.6. TSH, TCK, troponin, calcium levels are normal. ABG pH 7.4, PO2 66.3, pCO2 47. 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 Left lower extremity venous Doppler ultrasound normal. Carotid ultrasound revealed mild plaque in both carotid bifurcations and No anatomic or hemodynamic evidence of significant focal stenosis. Pending cardiology and Neurology consult REVIEW OF SYSTEMS 12-point ROS reviewed with patient. All pertinent positives mentioned above. Otherwise negative, non-pertinent, or noncontributory. PHYSICAL EXAM GENERAL APPEARANCE: The patient is awake, alert, and oriented, in no acute cardiopulmonary distress. NEUROLOGICAL: Cranial nerves II-XII grossly intact. No sensory deficits. HEENT: Face is symmetric. Pupils are equal and reactive. Extraocular movements are intact. NECK: Supple. No JVD. No thyromegaly. No submental, submandibular, pre- /postauricular, occipital or supraclavicular lymphadenopathy. CHEST: Normal chest expansion. No Telemetry. LUNGS: Absence of any rales, rhonchi or any wheezing. CARDIOVASCULAR: Regular. S1 and S2 normal. No appreciable rubs, murmurs or gallops. ABDOMEN: Obese. Soft, nontender, and nondistended. There is no rebound, voluntary guarding, or rigidity. : Deferred. No Rivera. EXTREMITIES: Left lower extremity edema. No cyanosis. No clubbing. Good capillary refill. SKIN: No skin breakdown. Vital Signs (last 8hr) Date Time Temp Pulse Resp B/P (MAP) Pulse Ox O2 Delivery O2 Flow Rate FiO2 10/16/24 08:39 97.9 90 17 156/77 99 Room Air 21 10/16/24 03:55 98.8 89 18 130/78 94 Nasal Cannula 2.0 LABS: Laboratory: Test 10/16/24 07:41 10/16/24 05:38 10/16/24 04:38 10/15/24 14:07 Range/Units Blood Gas Specimen Type Arterial Arterial Blood pH 7.416 7.350-7.450 Arterial Blood Partial Pressure CO2 47 35-48 mmHg Arterial Blood Partial Pressure O2 66.3 L 83.0-108.0 mmHg Arterial Blood HCO3 29.7 H 21.0-28.0 mmol/L Arterial Blood Oxygen Saturation 93.3 L 94.0-98.0 % Arterial Blood Base Excess 4.5 H -2.0-3.0 mmol/L Hemoglobin (Blood Gas) 11.3 L 13.5-17.5 g/dL Sodium (Blood Gas) 135 L 136-145 MMOL/L Bedside Potassium (Blood Gas) 3.7 3.4-4.5 MMOL/L Bedside Chloride (Blood Gas) 97 L 98-107 MMOL/L Bedside Glucose (Blood Gas) 127 H 65-95 MG/DL Bedside Ionized Calcium (Blood Gas) 1.17 1.15-1.33 MMOL/L Bedside Lactic Acid (Blood Gas) 0.73 0.36-0.75 MMOL/L Blood Gas Temperature 37.0 35.5-37.0 CELSIUS Blood Gas Flow-by 2.00 0.00-15.00 L/min FiO2 28.0 % Blood Gas Specimen Comment LR 2LNC Whole Blood Glucose 121 H 70-110 MG/DL White Blood Count 9.3 4.8-10.8 K/uL Red Blood Count 3.32 L 4.50-6.20 MIL/uL Hemoglobin 10.0 L 14.0-18.0 g/dL Hematocrit 31.3 L 42-54 % Mean Corpuscular Volume 94.3 79-99 fL Mean Corpuscular Hemoglobin 30.1 27.0-33.0 pg Mean Corpuscular Hemoglobin Concent 31.9 L 32.0-36.0 g/dL Red Cell Distribution Width 14.6 11.0-15.5 % Platelet Count 199 130-400 K/uL Mean Platelet Volume 8.8 7.5-10.5 fL Nucleated Red Blood Cells 0.0 0.0-0.19 % Sodium Level 137 136-145 mmol/L Potassium Level 3.7 3.5-5.1 mmol/L Chloride Level 100 L 101-111 mmol/L Carbon Dioxide Level 32 21-32 mmol/L Blood Urea Nitrogen 24 H 7-18 mg/dL Creatinine 1.1 0.5-1.3 mg/dL Glomerular Filtration Rate Calc 69 >90 mL/min Random Glucose 120 H 70-105 mg/dL Hemoglobin A1c 6.8 H 4.0-6.0 % Estimated Average Glucose (eAG) 148 H 70-126 mg/dL Total Calcium 8.7 8.5-10.1 mg/dL Magnesium Level 1.60 L 1.80-2.40 mg/dL Troponin I High Sensitivity 15 4-75 ng/L Thyroid Stimulating Hormone (TSH) 0.59 # 0.36-3.74 uIU/mL Immature Granulocyte % (Auto) 0.4 0-1 % Neutrophils (%) (Auto) 88.2 H 40.0-77.0 % Lymphocytes (%) (Auto) 5.7 L 21.0-51.0 % Monocytes (%) (Auto) 5.4 3.0-13.0 % Eosinophils (%) (Auto) 0.1 0.0-8.0 % Basophils (%) (Auto) 0.2 0.0-5.0 % Neutrophils # (Auto) 9.9 H 1.8-7.7 K/uL Lymphocytes # (Auto) 0.6 L 1.0-4.8 K/uL Monocytes # (Auto) 0.6 0.1-1.0 K/uL Eosinophils # (Auto) 0.01 0.00-0.70 K/uL Basophils # (Auto) 0.02 0.00-0.20 K/uL Absolute Immature Granulocyte (auto 0.05 0-1 K/uL White Cell Morphology Comment See comments Total Creatine Kinase 43 21-232 U/L Current Medications Medications (Trade) Dose Ordered Sig/Jose Route PRN Reason Start Time Stop Time Status Last Admin Dose Admin Acetaminophen (TYLenol 325MG TAB) 650 mg Q6H PRN PO FEVER/MILD PAIN LEVEL 1-3 10/15/24 19:00 11/14/24 18:59 Acetaminophen (TYLenol 650MG SUPPOSITORY) 650 mg Q6H PRN RC FEVER / MILD PAIN 1-3 IF NPO 10/15/24 19:00 11/14/24 18:59 Amlodipine Besylate (NorvASC 5MG TAB) 5 mg DAILY PO 10/17/24 09:00 11/16/24 08:59 Aspirin (Aspirin 81mg Chew Tab) 81 mg DAILY PO 10/17/24 09:00 11/16/24 08:59 Atorvastatin Calcium (LIPItor 40MG) 40 mg HS PO 10/16/24 21:00 11/15/24 20:59 Docusate Sodium (COLace 100MG CAP) 100 mg BID PO 10/16/24 09:00 11/15/24 08:59 10/16/24 08:57 100 MG Docusate Sodium (COLace 100MG CAP) 100 mg BID PRN PO CONSTIPATION 10/15/24 19:00 11/14/24 18:59 Famotidine (Pepcid 20mg Tab) 20 mg BID PO 10/15/24 21:00 10/15/24 20:44 DC 10/15/24 20:10 20 MG Famotidine (Pepcid 20mg Tab) 20 mg Q24H PO 10/16/24 21:00 11/14/24 20:59 Hydralazine HCl (APRESOLine 20MG INJ) 10 mg Q2H PRN IV SBP GREATER THAN 160 10/15/24 19:00 11/14/24 18:59 Insulin Human Regular (humuLIN R 100 UNIT/ML 3ML) INSULIN SLIDING SCAL... ACHS SQ 10/15/24 21:00 11/14/24 20:59 Lactulose (Constulose 20gm/ 30ml Udcup) 20 gm Q6H PRN PO CONSTIPATION 10/15/24 19:00 11/14/24 18:59 Losartan Potassium (CozAAR 50 mg TAB) 50 mg BID PO 10/16/24 21:00 11/15/24 20:59 Magnesium Sulfate 50 ml @ 0 mls/hr PROTOCOL PRN IV HYPOMAGNESEMIA 10/16/24 09:30 11/15/24 09:29 Morphine Sulfate (morPHINE 2MG SYG) 2 mg Q4H PRN IVP SEVERE PAIN (7-10) 10/16/24 11:00 10/23/24 10:59 Ondansetron HCl (zoFRAN 4MG INJ) 4 mg Q6H PRN IVP NAUSEA/VOMITING 10/15/24 19:00 11/14/24 18:59 Potassium Chloride 100 ml @ 100 mls/hr AD PRN IV POTASSIUM PROTOCOL 10/16/24 09:30 11/15/24 09:29 Potassium Chloride (K-Dur/Klor-Con 20meq) 20 meq AD PRN PO POTASSIUM PROTOCOL 10/16/24 09:30 11/15/24 09:29 Potassium Chloride (KCl 10% Elixir 20meq/15ml) 20 meq AD PRN PO POTASSIUM PROTOCOL 10/16/24 09:30 11/15/24 09:29 Sodium Chloride 1,000 ml @ 125 mls/hr Q8H IV 10/15/24 15:00 11/14/24 14:59 10/16/24 08:58 125 MLS/HR Tamsulosin HCl (FloMAX) 0.4 mg HS PO 10/16/24 21:00 11/15/24 20:59 Temazepam (restORIL 15 MG CAP) 15 mg HS PRN PO INSOMNIA/SLEEP 10/15/24 19:00 11/14/24 18:59 DIAGNOSTICS / RADIOLOGY: PROCEDURE: HEAD WO - CT HEAD/BRAIN W/O CONTRAST Exam: NONCONTRAST CT BRAIN REASON: frequent falls , recent fall 2 days ago. COMPARISON: 01/17/2024 TECHNIQUE: Images are obtained from vertex to the skull base. The exam was performed without IV contrast. FINDINGS: There is focal encephalomalacia deep central white matter in the right posterior frontal region consistent with an old stroke, this was present on prior study as well. There are generous ventricles and sulci. There is decreased attenuation in the deep central white matter. These findings are consistent with atrophy. There are no acute appearing focal parenchymal lesions. There is no evidence of mass, intracranial hemorrhage or acute stroke. Posterior fossa and brainstem structures appear unremarkable. There are no abnormal fluid collections. Extra cranial soft tissues appear unremarkable as well. IMPRESSION: 1. Atrophy, no acute finding. 2. 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 PROCEDURE: VENOUS UNI - US VENOUS DOPPLER UNILATERAL US VENOUS DOPPLER UNILATERAL REASON: pain and swelling COMPARISON: None Technique: Left venous doppler ultrasound was performed with spectral analysis and color flow imaging technique. FINDINGS: There is a normal appearance of the common femoral, deep femoral, the profunda femoris and popliteal veins. Proximal calf veins appear normal as well. There is normal response to compression and augmentation. There is no evidence of deep venous thrombosis. IMPRESSION: Normal left lower extremity venous Doppler ultrasound. PROCEDURE: CAROTID - US CAROTID DUPLEX US CAROTID DUPLEX REASON: Near syncope, GBW, frequent falls TECHNIQUE: Exam was performed using spectral analysis and color flow imaging. FINDINGS: Color flow Doppler ultrasound shows mild plaque in each bifurcation. There is no anatomic evidence of significant focal narrowing. Flow velocities and velocity ratios appear normal throughout. There is antegrade flow in both vertebral arteries. RIGHT CAROTID: CCA: 57 cm/sec ICA: 86 cm/sec Ratio: ICA/CCA: 1.5 ECA: 187 cm/sec Vertebral artery: 59 cm/sec LEFT CAROTID: CCA: 106 cm/sec ICA: 102 cm/sec Ratio: ICA/CCA: 0.9 ECA: 167 cm/sec Vertebral artery: 53 cm/sec IMPRESSION: 1. Mild plaque in both carotid bifurcations. 2. No anatomic or hemodynamic evidence of significant focal stenosis. 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, present in the right posterior frontal region, per CT 10/16/2024 Decreased inability to walk, frequent falls Transverse fracture with mild displacement in the supracondylar region of the distal humerus s/p fall on 09/26/2024 Chronic pain on oxycodone scheduled b.i.d., now on Tylenol with codeine also for humerus pain Electrolyte derangement (hyponatremia, hypochloremia, hypomagnesemia) Acute kidney injury, GFR 51, improving Acute on chronic kidney disease, GFR 51, Acute dehydration Anorexia Hyperglycemia Left lower extremity edema Severe constipation Obstructive sleep apnea, does not use CPAP machine Hypertension Diabetes mellitus type 2 with hyperglycemia COPD Chronic problem list: History of transient hypotension, DM type 2, hypercholesteremia, hypertension, enlarged prostate, PTSD, tinnitus PLAN: Continue Tele monitoring Monitor respirations status closely. Follow up on Cardiology and Neurology consult IV gentle hydration. P.r.n. medications for: Pain management, nausea, vomiting, constipation, hypertension, fevers, shortness of breath. Continue Colace 100 mg p.o. b.i.d.. DVT and GI prophylaxis: SCDs and Pepcid Glucometer checks a.c. and HS with insulin regular sliding scale. Continue Blood pressure checks every 4 hours and p.r.n.. Repeat Labs a.m. tomorrow ATTESTATION BY PHYSICIAN I have seen and examined the patient. I reviewed the documentation, medical decision making, and treatment plan as noted by the resident above. I agree with the findings and plan of care. Raj Mosley IV, MD, PRIYANKA MD Oct 16, 2024 11:10
--- NOTE | 2024-10-16 16:58 | NUR ---
NEUROLOGY CONSULT SPOKE TO DR. BURRIS REGARDING CONSULT. REQUESTED CONSULT TO BE CANCELLED. IF ORDERING PHYSICIAN HAS ANY QUESTIONS TO CONTACT HIM DIRECTLY.
[2024-10-16] MEDS: PoTASSium chloRIDE 20MEQ ER 20 MEQ ERTAB PO PRN (17:55)
[2024-10-16] MEDS: MAGNESIUM 2GM PREMIX 50ML 50 ML IV PRN (17:55)
--- NOTE | 2024-10-16 19:00 | NUR ---
cardiology according to nurse gaby mancilla, she called dr. vernell duque and let him know about the consult. she said that dr. duque is aware, but was too busy to see the patient.
--- NOTE | 2024-10-16 19:05 | HMCSR ---
APPROVED REPORT EXAM: Two-dimensional and M-mode echocardiogram with Doppler and color Doppler. Study Details: Hx: diabetes, hypertension, falls, hypercholesterolemia, peripheral artery disease INDICATION ICD: Near syncope, cardiac clearance 2D Dimensions RVDd3.4 cmLVED Vol(simp.)72.9 mL LVES Vol(simp.)31.7 mL LVEF(%, simp.)56 % LA ESV INDEX (4CH)36.80 mL/m2 Aortic Valve AoV VTI0.2 mAo Mean GR3.0 mmHgLVOT VTI0.17 m Mitral Valve MV E Vmax80.5 cm/sDECEL Hioj567 ms MV A Ybag067.4 cm/s E/A ratio0.8 Tricuspid Valve RAP (EST) 8 mmHgRVSP8.0 mmHg Left Ventricle Left ventricular cavity size is normal. LVEF is 55-60%. Unable to assess. Right Ventricle The right ventricle is normal size. The right ventricular systolic function is normal. Atria The left atrium size is normal. The right atrium size is normal. Aortic Valve Aortic valve is not well visualized but no significant valvular abnormalities noted. No aortic regurg itation is present. There is no aortic valvular stenosis. Mitral Valve Mitral valve leaflets open well. There is no mitral valve regurgitation noted. There is no mitral duglas ve stenosis. Tricuspid Valve Not well visualzied. There is no tricuspid valve regurgitation noted. Pulmonic Valve Pulmonic valve is not visualized. Great Vessels The aortic root appears normal in size. IVC is not well visualized. Pericardium No pericardial effusion. Other Information Quality : Technically difficult challenging study due to body habitus and left arm fracture pain comp laining of pain when moved from position. pt on supine position. Conclusion Technically difficult study. Left ventricle appears normal in size and systolic function with an LVEF of 55-60% by visual estimate . Unable to assess Diastology due to poor tissue Doppler signals. Both atria appear normal in size. Valves not well visualized. No pericardial effusion.
[2024-10-16 19:26] LABS: INFLUENZA TYPE A Negative For Type A (NEGATIVE); INFLUENZA TYPE B Negative For Type B (NEGATIVE)
[2024-10-16] MEDS: FAMOTIDINE 20MG TAB PO SCH (19:38)
[2024-10-16] MEDS: atorVAStatin 40 MG TABLET PO SCH (19:39)
[2024-10-16] MEDS: LoSARTan 50 MG TABLET PO SCH (19:39)
[2024-10-16] MEDS: tamSULOsin HCL 0.4 MG CAP.ER.24H PO SCH (19:39)
[2024-10-16] MEDS: morPHINE 2 MG SYG IVP PRN (19:41)
[2024-10-16 20:33] LABS: SARS-CoV-2, RNA, NAAT NEGATIVE SARS CoV-2 (NEGATIVE)
[2024-10-17] VITALS (7 sets, daily range): BP systolic 122–146; BP diastolic 65–80; PULSE 76–88; RESP 18–20; TEMP 98.1–98.4; O2SAT 92–95
--- NOTE | 2024-10-17 03:02 | NUR ---
nursing pm note patient alert and oriented times 4. at bedside. plan of care discussed with them and they verbalized understanding. I bladder scanned the patient and he had 250 ml of urine in the bladder. he has no pain or urgency. He is incontinent and urinates on the brief. he has slept about 3 hours tonight. he has some intermittent right arm pain. call light within reach, bed alarm on, 2 side rails up. will continue to monitor patient.
[2024-10-17 04:01] LABS: APPEARANCE,URINE CLEAR (CLEAR); BILIRUBIN,URINE NEGATIVE (NEGATIVE); COLOR,URINE LIGHT-YELLOW (YELLOW); GLUCOSE, URINE (UA) NEGATIVE (NEGATIVE); KETONES,URINE NEGATIVE (NEGATIVE); LEUKOCYTE ESTERASE ,URINE NEGATIVE Leu/uL (NEGATIVE); NITRATE,URINE NEGATIVE (NEGATIVE); OCCULT BLOOD,URINE NEGATIVE (NEGATIVE); PROTEIN,URINE NEGATIVE (NEGATIVE); UROBILINOGEN,URINE 0.2 mg/dL (0.2-1.0)
[2024-10-17 04:10] LABS: BASOPHILS # (AUTO) 0.03 K/uL (0.00-0.20); BASOPHILS % (AUTO) 0.4 % (0.0-5.0); EOSINOPHILS # (AUTO) 0.25 K/uL (0.00-0.70); EOSINOPHILS % (AUTO) 3.3 % (0.0-8.0); IMMATURE GRANULOCYTE ABSOLUTE 0.03 K/uL (0-1); LYMPHOCYTES # (AUTO) 1.7 K/uL (1.0-4.8); MEAN CORPUSCULAR HEMOGLOBIN 30.3 pg (27.0-33.0); MEAN CORPUSCULAR HGB CONC 32.3 g/dL (32.0-36.0); MEAN CORPUSCULAR VOLUME 93.9 fL (79-99); MONOCYTES # (AUTO) 0.7 K/uL (0.1-1.0); MONOCYTES % (AUTO) 9.4 % (3.0-13.0); NEUTROPHILS # (AUTO) 4.8 K/uL (1.8-7.7); NEUTROPHILS % (AUTO) 63.5 % (40.0-77.0); PLATELET COUNT (AUTO) 210 K/uL (130-400); RED CELL DISTRIBUTION WIDTH 14.6 % (11.0-15.5); WHITE BLOOD COUNT (AUTO) 7.5 K/uL (4.8-10.8)
[2024-10-17 04:19] LABS: ADD UA MICROSCOPIC NO
[2024-10-17 04:40] LABS: ALBUMIN 2.5 g/dL (3.5-5.0); BILIRUBIN,TOTAL 0.6 mg/dL (0.2-1.0); CREATININE 0.9 mg/dL (0.5-1.3); MAGNESIUM 1.7 mg/dL (1.80-2.40); POTASSIUM 3.8 mmol/L (3.5-5.1); TOTAL PROTEIN, SERUM 5.7 g/dL (6.0-8.3)
[2024-10-17] MEDS: amLODIPine 5 MG TAB PO SCH (09:11)
[2024-10-17] MEDS: ASPIRIN 81MG CHEW TAB PO SCH (09:11)
--- NOTE | 2024-10-17 12:06 | PN ---
[facility] PROGRESS NOTE Date of Service: Oct 17, 2024 Time of Service: 11:57 SUBJECTIVE: Patient is seen at the bedside. He is awake alert and oriented. Vitals temperature 97.9, pulse rate 90, respiratory rate 17, blood pressure 156/77, SpO2 99% on room air. He complains of severe right arm pain secondary to transverse supracondylar fracture distal humerus post fall on 09/26. He also s tates that he has been experiencing bilateral lower extremity weakness, balance difficulties while walking which increased in intensity post fall. He denies headache, dizziness, nausea, vomiting, chest pain, palpitations, abdominal pain, difficulty in urination, diarrhea, numbness and paresthesias in bilateral lower extremities. Remarkable lab results hemoglobin 10, BUN 24, creatinine 1.1, magnesium 1.6. TSH, TCK, troponin, calcium levels are normal. ABG pH 7.4, PO2 66.3, pCO2 47. 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 Left lower extremity venous Doppler ultrasound normal. Carotid ultrasound revealed mild plaque in both carotid bifurcations and No anatomic or hemodynamic evidence of significant focal stenosis. Pending cardiology and Neurology consult 10/17 Patient is seen at the bedside. He is awake alert and oriented. He is hemodynamically stable SpO2 95% on nasal cannula 3 L. He still complains of guillaume ateral lower extremity weakness. He denies headache, dizziness, nausea, vomiting, chest pain, palpitations, abdominal pain, difficulty in urination, diarrhea, numbness and paresthesias in bilateral lower extremities. Remarkable Lab results hemoglobin 10, magnesium 1.7, calcium 8.1, albumin 2.5. B12, BNP levels are normal. 2D echo Resulted in ejection fraction of 55-60%. Urinalysis results are normal. Pending cardiology, case management consult. REVIEW OF SYSTEMS 12-point ROS reviewed with patient. All pertinent positives mentioned above. Otherwise negative, non-pertinent, or noncontributory. PHYSICAL EXAM GENERAL APPEARANCE: The patient is awake, alert, and oriented, in no acute cardiopulmonary distress. NEUROLOGICAL: Cranial nerves II-XII grossly intact. No sensory deficits. HEENT: Face is symmetric. Pupils are equal and reactive. Extraocular movements are intact. NECK: Supple. No JVD. No thyromegaly. No submental, submandibular, pre- /postauricular, occipital or supraclavicular lymphadenopathy. CHEST: Normal chest expansion. No Telemetry. LUNGS: Absence of any rales, rhonchi or any wheezing. CARDIOVASCULAR: Regular. S1 and S2 normal. No appreciable rubs, murmurs or gallops. ABDOMEN: Obese. Soft, nontender, and nondistended. There is no rebound, voluntary guarding, or rigidity. : Deferred. No Rivera. EXTREMITIES: Left lower extremity edema. No cyanosis. No clubbing. Good capillary refill. SKIN: No skin breakdown. Vital Signs (last 8hr) Date Time Temp Pulse Resp B/P (MAP) Pulse Ox O2 Delivery O2 Flow Rate FiO2 10/17/24 11:52 98.1 76 18 137/76 91 Room Air 21 10/17/24 08:03 95 Nasal Cannula* 2 10/17/24 08:03 Nasal Cannula* 2 10/17/24 08:00 98.4 88 18 130/65 95 Room Air 10/17/24 04:00 98.1 88 19 122/66 95 Nasal Cannula 2.0 136/80 LABS: Laboratory: Test 10/17/24 11:24 10/17/24 03:41 10/17/24 03:40 10/16/24 19:00 Range/Units Whole Blood Glucose 147 H 70-110 MG/DL Bedside Glucose Comment Notified Nurse White Blood Count 7.5 4.8-10.8 K/uL Red Blood Count 3.30 L 4.50-6.20 MIL/uL Hemoglobin 10.0 L 14.0-18.0 g/dL Hematocrit 31.0 L 42-54 % Mean Corpuscular Volume 93.9 79-99 fL Mean Corpuscular Hemoglobin 30.3 27.0-33.0 pg Mean Corpuscular Hemoglobin Concent 32.3 32.0-36.0 g/dL Red Cell Distribution Width 14.6 11.0-15.5 % Platelet Count 210 130-400 K/uL Mean Platelet Volume 9.1 7.5-10.5 fL Immature Granulocyte % (Auto) 0.4 0-1 % Neutrophils (%) (Auto) 63.5 40.0-77.0 % Lymphocytes (%) (Auto) 23.0 21.0-51.0 % Monocytes (%) (Auto) 9.4 3.0-13.0 % Eosinophils (%) (Auto) 3.3 0.0-8.0 % Basophils (%) (Auto) 0.4 0.0-5.0 % Neutrophils # (Auto) 4.8 1.8-7.7 K/uL Lymphocytes # (Auto) 1.7 1.0-4.8 K/uL Monocytes # (Auto) 0.7 0.1-1.0 K/uL Eosinophils # (Auto) 0.25 0.00-0.70 K/uL Basophils # (Auto) 0.03 0.00-0.20 K/uL Absolute Immature Granulocyte (auto 0.03 0-1 K/uL Nucleated Red Blood Cells 0.0 0.0-0.19 % Sodium Level 136 136-145 mmol/L Potassium Level 3.8 3.5-5.1 mmol/L Chloride Level 101 101-111 mmol/L Carbon Dioxide Level 32 21-32 mmol/L Blood Urea Nitrogen 14 7-18 mg/dL Creatinine 0.9 0.5-1.3 mg/dL Glomerular Filtration Rate Calc 87 >90 mL/min Random Glucose 110 H 70-105 mg/dL Total Calcium 8.1 L 8.5-10.1 mg/dL Magnesium Level 1.70 L 1.80-2.40 mg/dL Total Bilirubin 0.6 0.2-1.0 mg/dL Aspartate Amino Transf (AST/SGOT) 13 10-37 U/L Alanine Aminotransferase (ALT/SGPT) 14 12-78 U/L Alkaline Phosphatase 79 50-136 U/L B-Type Natriuretic Peptide 79 0-100 pg/mL Total Protein 5.7 L 6.0-8.3 g/dL Albumin 2.5 L 3.5-5.0 g/dL Vitamin B12 Level 279 193-986 pg/mL Urine Color LIGHT-YELLOW YELLOW Urine Appearance CLEAR CLEAR Urine pH 5.0 5.0-8.0 Urine Specific [place] 1.011 1.001-1.031 Urine Protein NEGATIVE NEGATIVE mg/dL Urine Glucose (UA) NEGATIVE NEGATIVE mg/dL Urine Ketones NEGATIVE NEGATIVE mg/dL Urine Occult Blood NEGATIVE NEGATIVE Urine Nitrate NEGATIVE NEGATIVE Urine Bilirubin NEGATIVE NEGATIVE mg/dL Urine Urobilinogen 0.2 0.2-1.0 mg/dL Urine Leukocyte Esterase NEGATIVE NEGATIVE Miller/uL Influenza Type A Antigen Negative For Type A NEGATIVE Influenza Type B Antigen Negative For Type B NEGATIVE SARS-CoV-2, RNA, NAAT NEGATIVE SARS CoV-2 NEGATIVE Test 10/16/24 07:41 10/16/24 04:38 10/15/24 14:07 Range/Units Blood Gas Specimen Type Arterial Arterial Blood pH 7.416 7.350-7.450 Arterial Blood Partial Pressure CO2 47 35-48 mmHg Arterial Blood Partial Pressure O2 66.3 L 83.0-108.0 mmHg Arterial Blood HCO3 29.7 H 21.0-28.0 mmol/L Arterial Blood Oxygen Saturation 93.3 L 94.0-98.0 % Arterial Blood Base Excess 4.5 H -2.0-3.0 mmol/L Hemoglobin (Blood Gas) 11.3 L 13.5-17.5 g/dL Sodium (Blood Gas) 135 L 136-145 MMOL/L Bedside Potassium (Blood Gas) 3.7 3.4-4.5 MMOL/L Bedside Chloride (Blood Gas) 97 L 98-107 MMOL/L Bedside Glucose (Blood Gas) 127 H 65-95 MG/DL Bedside Ionized Calcium (Blood Gas) 1.17 1.15-1.33 MMOL/L Bedside Lactic Acid (Blood Gas) 0.73 0.36-0.75 MMOL/L Blood Gas Temperature 37.0 35.5-37.0 CELSIUS Blood Gas Flow-by 2.00 0.00-15.00 L/min FiO2 28.0 % Blood Gas Specimen Comment LR 2LNC Hemoglobin A1c 6.8 H 4.0-6.0 % Estimated Average Glucose (eAG) 148 H 70-126 mg/dL Troponin I High Sensitivity 15 4-75 ng/L Thyroid Stimulating Hormone (TSH) 0.59 # 0.36-3.74 uIU/mL White Cell Morphology Comment See comments Total Creatine Kinase 43 21-232 U/L Current Medications Medications (Trade) Dose Ordered Sig/Jose Route PRN Reason Start Time Stop Time Status Last Admin Dose Admin Acetaminophen (TYLenol 325MG TAB) 650 mg Q6H PRN PO FEVER/MILD PAIN LEVEL 1-3 10/15/24 19:00 11/14/24 18:59 Acetaminophen (TYLenol 650MG SUPPOSITORY) 650 mg Q6H PRN RC FEVER / MILD PAIN 1-3 IF NPO 10/15/24 19:00 11/14/24 18:59 Amlodipine Besylate (NorvASC 5MG TAB) 5 mg DAILY PO 10/17/24 09:00 11/16/24 08:59 10/17/24 09:11 5 MG Aspirin (Aspirin 81mg Chew Tab) 81 mg DAILY PO 10/17/24 09:00 11/16/24 08:59 10/17/24 09:11 81 MG Atorvastatin Calcium (LIPItor 40MG) 40 mg HS PO 10/16/24 21:00 11/15/24 20:59 10/16/24 19:39 40 MG Docusate Sodium (COLace 100MG CAP) 100 mg BID PO 10/16/24 09:00 11/15/24 08:59 10/17/24 09:11 100 MG Docusate Sodium (COLace 100MG CAP) 100 mg BID PRN PO CONSTIPATION 10/15/24 19:00 11/14/24 18:59 Famotidine (Pepcid 20mg Tab) 20 mg BID PO 10/15/24 21:00 10/15/24 20:44 DC 10/15/24 20:10 20 MG Famotidine (Pepcid 20mg Tab) 20 mg Q24H PO 10/16/24 21:00 11/14/24 20:59 10/16/24 19:38 20 MG Home Med (Home Medication) Melatonin 6 MG HS PO 10/17/24 21:00 11/16/24 20:59 Hydralazine HCl (APRESOLine 20MG INJ) 10 mg Q2H PRN IV SBP GREATER THAN 160 10/15/24 19:00 11/14/24 18:59 Insulin Human Regular (humuLIN R 100 UNIT/ML 3ML) INSULIN SLIDING SCAL... ACHS SQ 10/15/24 21:00 11/14/24 20:59 10/16/24 19:54 2 UNIT Lactulose (Constulose 20gm/ 30ml Udcup) 20 gm Q6H PRN PO CONSTIPATION 10/15/24 19:00 11/14/24 18:59 Losartan Potassium (CozAAR 50 mg TAB) 50 mg BID PO 10/16/24 21:00 11/15/24 20:59 10/17/24 09:11 50 MG Magnesium Sulfate 50 ml @ 0 mls/hr PROTOCOL PRN IV HYPOMAGNESEMIA 10/16/24 09:30 11/15/24 09:29 10/17/24 05:28 15 MLS/HR Morphine Sulfate (morPHINE 2MG SYG) 2 mg Q4H PRN IVP SEVERE PAIN (7-10) 10/16/24 11:00 10/23/24 10:59 10/17/24 05:31 2 MG Ondansetron HCl (zoFRAN 4MG INJ) 4 mg Q6H PRN IVP NAUSEA/VOMITING 10/15/24 19:00 11/14/24 18:59 Potassium Chloride 100 ml @ 100 mls/hr AD PRN IV POTASSIUM PROTOCOL 10/16/24 09:30 11/15/24 09:29 Potassium Chloride (K-Dur/Klor-Con 20meq) 20 meq AD PRN PO POTASSIUM PROTOCOL 10/16/24 09:30 11/15/24 09:29 10/17/24 05:28 20 MEQ Potassium Chloride (KCl 10% Elixir 20meq/15ml) 20 meq AD PRN PO POTASSIUM PROTOCOL 10/16/24 09:30 11/15/24 09:29 Sodium Chloride 1,000 ml @ 125 mls/hr Q8H IV 10/15/24 15:00 11/14/24 14:59 10/17/24 03:25 125 MLS/HR Tamsulosin HCl (FloMAX) 0.4 mg HS PO 10/16/24 21:00 11/15/24 20:59 10/16/24 19:39 0.4 MG Temazepam (restORIL 15 MG CAP) 15 mg HS PRN PO INSOMNIA/SLEEP 10/15/24 19:00 11/14/24 18:59 Trazodone HCl (DesyREL/OlepTRO) 200 mg HS PO 10/17/24 21:00 11/16/24 20:59 DIAGNOSTICS / RADIOLOGY: PROCEDURE: ECHO CMP - ECHO 2-D COMPLETE APPROVED REPORT EXAM: Two-dimensional and M-mode echocardiogram with Doppler and color Doppler. Study Details: Hx: diabetes, hypertension, falls, hypercholesterolemia, peripheral artery disease INDICATION ICD: Near syncope, cardiac clearance 2D Dimensions RVDd 3.4 cm LVED Vol(simp.) 72.9 mL LVES Vol(simp.) 31.7 mL LVEF(%, simp.) 56 % LA ESV INDEX (4CH) 36.80 mL/m2 Aortic Valve AoV VTI 0.2 m Ao Mean GR 3.0 mmHg LVOT VTI 0.17 m Mitral Valve MV E Vmax 80.5 cm/s DECEL Time 134 ms MV A Vmax 101.4 cm/s E/A ratio 0.8 Tricuspid Valve RAP (EST) 8 mmHg RVSP 8.0 mmHg Left Ventricle Left ventricular cavity size is normal. LVEF is 55-60%. Unable to assess. Right Ventricle The right ventricle is normal size. The right ventricular systolic function is normal. Atria The left atrium size is normal. The right atrium size is normal. Aortic Valve Aortic valve is not well visualized but no significant valvular abnormalities noted. No aortic regurgitation is present. There is no aortic valvular stenosis. Mitral Valve Mitral valve leaflets open well. There is no mitral valve regurgitation noted. There is no mitral valve stenosis. Tricuspid Valve Not well visualzied. There is no tricuspid valve regurgitation noted. Pulmonic Valve Pulmonic valve is not visualized. Great Vessels The aortic root appears normal in size. IVC is not well visualized. Pericardium No pericardial effusion. Other Information Quality : Technically difficult challenging study due to body habitus and left arm fracture pain complaining of pain when moved from position. pt on supine position. Conclusion Technically difficult study. Left ventricle appears normal in size and systolic function with an LVEF of 55- 60% by visual estimate. Unable to assess Diastology due to poor tissue Doppler signals. Both atria appear normal in size. Valves not well visualized. No pericardial effusion. 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, present in the right posterior frontal region, per CT 10/16/2024 Decreased inability to walk, frequent falls Transverse fracture with mild displacement in the supracondylar region of the distal humerus s/p fall on 09/26/2024 COPD on home supplemental oxygen 3 L Electrolyte derangement (hyponatremia, hypochloremia, hypomagnesemia), improving Acute kidney injury, GFR 51, improved Acute on chronic kidney disease, GFR 51, Type 2 diabetes mellitus with hyperglycemia Chronic pain on oxycodone scheduled b.i.d., now on Tylenol with codeine also for humerus pain Acute dehydration Anorexia Chronic Left lower extremity edema Severe constipation, improving COPD on 3 L oxygen at home Hypertension Diabetes mellitus type 2 with hyperglycemia Chronic Left lower extremity edema Severe constipation, improving Coronary artery disease with history of prior silent [place] with fixed inferior and inferolateral defects noted on Lexiscan Cardiolite stress test 07/01/2024 with a gated EF of 62% Peripheral artery disease, stable BPH Psoriatic arthritis PTSD Tinnitus Hyperlipidemia PLAN: Monitor respiration status closely. Follow up on Cardiology consult Follow up on Case management consult IV gentle hydration. P.r.n. medications for: Pain management, nausea, vomiting, constipation, hypertension, fevers, shortness of breath. Continue Colace 100 mg p.o. b.i.d.. DVT and GI prophylaxis: SCDs and Pepcid, not on heparin/enoxaparin/Lovenox in view of bleeding complications secondary to right humerus fracture Glucometer checks a.c. and HS with insulin regular sliding scale. Continue Blood pressure checks every 4 hours and p.r.n.. Repeat Labs a.m. tomorrow Plan to discharge to [facility]rehabilitation center in view of inability to walk/generalized body weakness/balance difficulties ATTESTATION BY PHYSICIAN I have seen and examined the patient. I reviewed the documentation, medical decision making, and treatment plan as noted by the resident above. I agree with the findings and plan of care. Rachael Bethea MD, PRIYANKA MD Oct 17, 2024 12:06
--- NOTE | 2024-10-17 14:48 | NUR ---
Right arm pain Patient complaining of 10/10 arm pain, administered prn morphine as ordered for primary nurse Iliana INTERIANO, per unit policy. Patient aox4, vss. Also provided arm and elbow offloading with positioning supports to assist with pain relief.
--- NOTE | 2024-10-17 18:12 | CONS ---
[facility] CARDIOLOGY CONSULTATION REPORT Date Patient Seen: Oct 17, 2024 Time of Visit: 17:54 Requesting Physician: Rachael Bethea MD Reason for Consultation: Preoperative cardiac clearance for right humerus fracture repair History of Present Illness: This is a 79-year-old patient of Dr. Vandana duque with a past medical history of hypertension, COPD on home oxygen 3 L nocturnally, hypertension, type 2 diabetes mellitus, peripheral artery disease, BPH, psoriatic arthritis, PTSD, who sustained a fall 09/26/2024 while outside. He denies any syncope. He has had recurrent falls x2 since then with the most recent fall occurring about one- week ago. His reports that he has complained of some lower extremity weakness. With his fall on 09/26/2024, he sustained a right humerus fracture. He has been getting oxycodone 10 mg q.a.m. and 5 mg q.p.m. and more recently he was also supplemented with Tylenol No. 3 with codeine. He was referred to the office of Dr. Benjie duque for preoperative cardiac risk assessment but upon assessment at her office, the patient spouse reports that she noted him to be looking pale and sent him to the hospital for further evaluation and preop clearance. The patient denies any prior history of CVA. He reports an old silent AL but has not had any PTCA or stent procedures. He denies any chronic kidney disease. On admission to the ER, he was noted to have a BUN and creatinine of 25 and 1.4 improving to 0.9. Magnesium was 1.6, TSH of 0.59, hemoglobin A1c of 6.8 and a BNP of 79. He has undergone further assessment with a 2D echocardiogram on 10/16/2024 demonstrating an LVEF of 55-60% and no significant valvular pathology. A carotid Doppler on 10/15/2024 was negative for any significant stenosis and a venous Doppler of the lower extremities 10/15/2024 was negative for DVT. EKG demonstrated first-degree AV block with sinus tachycardia and a heart rate of 112 beats per minute and a right bundle branch block with no ischemic changes Past Medical History: As outlined above and summarized below Past Surgical History: Cholecystectomy Right wrist surgery Bladder procedure Family History: Noncontributory Social History: [place] . Lives with spouse. Has been independent Habits: Former smoker, quit 1994 Occasional alcohol consumption. Denies illicit drug use Home Meds: Losartan 50 mg p.o. b.i.d. Amlodipine 5 mg p.o. daily Aspirin 81 mg daily Atorvastatin 40 mg q.h.s. Tamsulosin 0.4 mg daily Trazodone 200 mg p.o. q.h.s. Duloxetine 60 mg daily Oxycodone 10 mg q.a.m. and 5 mg q.p.m. Tylenol No. 3 with codeine p.r.n. Ropinirole 0.25 mg p.o. b.i.d. Ozempic injections weekly Review of Systems: CONST: Positive for generalized weakness and lower extremity weakness. No fever, fatigue, or weight changes. EYES: No recent vision problems. ENT: No congestion, ear pain, or sore throat. C/V: No chest pain, palpitations, or edema. RESP: No cough, congestion, wheezing or shortness of breath. GI: No abdominal pain, nausea, vomiting, constipation, or diarrhea. : No incontinence or dysuria. SKIN: No rashes or lesions. He sustained a right upper extremity humerus fracture 09/26/2024 NEURO: No headache, positive for lower extremity weakness, dizziness, or seizures. PSYCH: No depression or anxiety. HEME: No abnormal bruising or bleeding. LYMPH: No swollen glands. Physical Examination: GENERAL: No acute distress. HEAD: Normal with no signs of head trauma. EYES: PERRLA, EOMI, conjunctiva and sclera normal. ENT: Hearing grossly intact, normal oropharynx. NECK: Supple without JVD. There is no tenderness, lymphadenopathy, or masses. No thyromegaly. Normal carotid upstrokes without bruits. LUNGS: Poor inspiratory effort and diminished breath sounds at the right base but no audible rales or rhonchi or wheezing HEART: Normal rate and rhythm. Normal S1 and S2 without murmurs, gallop or rub. VASC: Peripheral pulses +1 bilaterally. There is trace of pedal edema primarily to the left side ABD: Bowel sounds normal, soft, nontender, no masses, no organomegaly. No audible bruits. : Not examined LYMPH: No lymphadenopathy noted. EXT: Right upper extremity in orthopedic immobilizer. SKIN: No rashes or lesions noted. NEURO: Awake, alert, and oriented x3. No focal sensory or strength deficits noted. Vital Signs (last 8hr) Date Time Temp Pulse Resp B/P (MAP) Pulse Ox O2 Delivery O2 Flow Rate FiO2 10/17/24 16:00 98.2 83 18 146/69 93 Room Air 21 10/17/24 11:52 98.1 76 18 137/76 91 Room Air 21 Laboratory: Hematology Labs: Test 10/17/24 03:41 Range/Units White Blood Count 7.5 4.8-10.8 K/uL Red Blood Count 3.30 L 4.50-6.20 MIL/uL Hemoglobin 10.0 L 14.0-18.0 g/dL Hematocrit 31.0 L 42-54 % Mean Corpuscular Volume 93.9 79-99 fL Mean Corpuscular Hemoglobin 30.3 27.0-33.0 pg Mean Corpuscular Hemoglobin Concent 32.3 32.0-36.0 g/dL Red Cell Distribution Width 14.6 11.0-15.5 % Platelet Count 210 130-400 K/uL Mean Platelet Volume 9.1 7.5-10.5 fL Immature Granulocyte % (Auto) 0.4 0-1 % Neutrophils (%) (Auto) 63.5 40.0-77.0 % Lymphocytes (%) (Auto) 23.0 21.0-51.0 % Monocytes (%) (Auto) 9.4 3.0-13.0 % Eosinophils (%) (Auto) 3.3 0.0-8.0 % Basophils (%) (Auto) 0.4 0.0-5.0 % Neutrophils # (Auto) 4.8 1.8-7.7 K/uL Lymphocytes # (Auto) 1.7 1.0-4.8 K/uL Monocytes # (Auto) 0.7 0.1-1.0 K/uL Eosinophils # (Auto) 0.25 0.00-0.70 K/uL Basophils # (Auto) 0.03 0.00-0.20 K/uL Absolute Immature Granulocyte (auto 0.03 0-1 K/uL Nucleated Red Blood Cells 0.0 0.0-0.19 % Chemistry Labs: Test 10/17/24 16:55 10/17/24 11:24 10/17/24 03:41 10/16/24 04:38 Range/Units Whole Blood Glucose 118 H 70-110 MG/DL Bedside Glucose Comment Notified Nurse Sodium Level 136 136-145 mmol/L Potassium Level 3.8 3.5-5.1 mmol/L Chloride Level 101 101-111 mmol/L Carbon Dioxide Level 32 21-32 mmol/L Blood Urea Nitrogen 14 7-18 mg/dL Creatinine 0.9 0.5-1.3 mg/dL Glomerular Filtration Rate Calc 87 >90 mL/min Random Glucose 110 H 70-105 mg/dL Total Calcium 8.1 L 8.5-10.1 mg/dL Magnesium Level 1.70 L 1.80-2.40 mg/dL Total Bilirubin 0.6 0.2-1.0 mg/dL Aspartate Amino Transf (AST/SGOT) 13 10-37 U/L Alanine Aminotransferase (ALT/SGPT) 14 12-78 U/L Alkaline Phosphatase 79 50-136 U/L B-Type Natriuretic Peptide 79 0-100 pg/mL Total Protein 5.7 L 6.0-8.3 g/dL Albumin 2.5 L 3.5-5.0 g/dL Vitamin B12 Level 279 193-986 pg/mL Hemoglobin A1c 6.8 H 4.0-6.0 % Estimated Average Glucose (eAG) 148 H 70-126 mg/dL Troponin I High Sensitivity 15 4-75 ng/L Thyroid Stimulating Hormone (TSH) 0.59 # 0.36-3.74 uIU/mL Diagnostics / Radiology: 2D echocardiogram 10/16/2024 demonstrated an LVEF of 55-60% and no significant valvular pathology A chest x-ray from 09/26/2024 demonstrated cardiomegaly, poor inspiratory effort with low lung volumes on the right (unchanged from prior history) no CHF noted Impression and Plan: Generalized weakness and recurrent falls: -likely multifactorial including lower extremity weakness, increased use of narcotic analgesia status post fall with right humeral fracture 09/26/2024 -orthostatic hypotension from a supine to a sitting position with orthostatic vital signs this afternoon demonstrated a supine blood pressure 149/73 with pulse of 86, sitting blood pressure 108/74 with pulse of 91, standing blood pressure at 1 minute of 142/73 with pulse of 100 and standing further at 3 minutes of 154/73 with pulse of 99. -continue efforts at progressive mobilization -physical therapy evaluation and management -regarding his lower extremity weakness, may be induced by his atorvastatin and we will give him a statin holiday perhaps 30 days and see how he response to a statin holiday Preoperative cardiac risk assessment: -utilizing the NSQIP surgical risk calculator, the patient has a 0.7% risk of perioperative cardiac complications to undergo right humeral fracture repair -the patient will be cleared with low cardiac risk Comorbidities: Coronary artery disease with history of prior silent [place] with fixed inferior and inferolateral defects noted on Lexiscan Cardiolite stress test 07/01/2024 with a gated EF of 62% Normal LV systolic function with an LVEF of 55-60% and no valvular pathology on 2D echocardiogram 10/16/2024 Hypertension COPD on home supplemental oxygen 3 L Type 2 diabetes mellitus Peripheral artery disease, stable BPH Psoriatic arthritis PTSD Hyperlipidemia VANI BARNETT TWISTHAND Oct 17, 2024 18:12
--- NOTE | 2024-10-17 19:13 | NUR ---
DC PLAN RECEIVED TRIGGER FOR REHAB. FAMILY WANTED TO VISIT FACILITIES BEFORE GIVEN RESPONSE. PATIENT HAVING TROUBLE UNDERSTANDING DC PLAN. FIRST SAID YES FOR REHAB THEN SAID THAT HE DID NOT SIGN FOR FOR REHAB HE SIGNED FORM FOR MORE PROVIDER HOURS. APPEARED LATER TRESA RE WENT OVER PLAN. AT THAT TIME SHE WANTED MORE TIME TO THINK. Addendum: 10/17/24 at 1916 by YOJANA MARTINS RN CM Amended: Links added.
[2024-10-17] MEDS: trAZOdone HCL 100 MG TABLET PO SCH (20:05)
[2024-10-17] MEDS: Melatonin 6 MG PO SCH (20:06)
[2024-10-18] VITALS (7 sets, daily range): BP systolic 128–155; BP diastolic 73–80; PULSE 82–91; RESP 18–20; TEMP 97.8–98.6; O2SAT 94–98
[2024-10-18 05:10] LABS: BASOPHILS # (AUTO) 0.02 K/uL (0.00-0.20); BASOPHILS % (AUTO) 0.4 % (0.0-5.0); EOSINOPHILS # (AUTO) 0.28 K/uL (0.00-0.70); HEMATOCRIT 31.9 % (42-54); IMMATURE GRANULOCYTE ABSOLUTE 0.06 K/uL (0-1); LYMPHOCYTES # (AUTO) 1.6 K/uL (1.0-4.8); LYMPHOCYTES % (AUTO) 28.9 % (21.0-51.0); MEAN CORPUSCULAR HEMOGLOBIN 29.7 pg (27.0-33.0); MONOCYTES # (AUTO) 0.6 K/uL (0.1-1.0); MONOCYTES % (AUTO) 9.9 % (3.0-13.0); NEUTROPHILS # (AUTO) 3.1 K/uL (1.8-7.7); NEUTROPHILS % (AUTO) 54.7 % (40.0-77.0); PLATELET COUNT (AUTO) 198 K/uL (130-400); RED BLOOD CELL COUNT(AUTO) 3.43 MIL/uL (4.50-6.20); RED CELL DISTRIBUTION WIDTH 14.6 % (11.0-15.5); WHITE BLOOD COUNT (AUTO) 5.6 K/uL (4.8-10.8)
[2024-10-18 05:35] LABS: ALBUMIN 2.8 g/dL (3.5-5.0); BILIRUBIN,TOTAL 0.6 mg/dL (0.2-1.0); CREATININE 0.9 mg/dL (0.5-1.3); MAGNESIUM 1.9 mg/dL (1.80-2.40); POTASSIUM 4.2 mmol/L (3.5-5.1); TOTAL PROTEIN, SERUM 5.9 g/dL (6.0-8.3)
--- NOTE | 2024-10-18 08:49 | NUR ---
PAIN Patient complaining of right arm pain, 10/10. PRN iv morphine given per primary nurse Gautam MYCOLOGIST per unit policy. AOX4 and VSS.
--- NOTE | 2024-10-18 13:01 | PN ---
[facility] PROGRESS NOTE Date of Service: Oct 18, 2024 Time of Service: 12:46 SUBJECTIVE: Patient is seen at the bedside. He is awake alert and oriented. Vitals temperature 97.9, pulse rate 90, respiratory rate 17, blood pressure 156/77, SpO2 99% on room air. He complains of severe right arm pain secondary to transverse supracondylar fracture distal humerus post fall on 09/26. He also s tates that he has been experiencing bilateral lower extremity weakness, balance difficulties while walking which increased in intensity post fall. He denies headache, dizziness, nausea, vomiting, chest pain, palpitations, abdominal pain, difficulty in urination, diarrhea, numbness and paresthesias in bilateral lower extremities. Remarkable lab results hemoglobin 10, BUN 24, creatinine 1.1, magnesium 1.6. TSH, TCK, troponin, calcium levels are normal. ABG pH 7.4, PO2 66.3, pCO2 47. 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 Left lower extremity venous Doppler ultrasound normal. Carotid ultrasound revealed mild plaque in both carotid bifurcations and No anatomic or hemodynamic evidence of significant focal stenosis. Pending cardiology and Neurology consult 10/17 Patient is seen at the bedside. He is awake alert and oriented. He is hemodynamically stable SpO2 95% on nasal cannula 2 L. He still complains of guillaume ateral lower extremity weakness. He denies headache, dizziness, nausea, vomiting, chest pain, palpitations, abdominal pain, difficulty in urination, diarrhea, numbness and paresthesias in bilateral lower extremities. Remarkable Lab results hemoglobin 10, magnesium 1.7, calcium 8.1, albumin 2.5. B12, BNP levels are normal. 2D echo Resulted in ejection fraction of 55-60%. Urinalysis results are normal. Pending cardiology, case management consult. 10/18 Patient is seen at the bedside. He is sitting comfortably in a chair. Vitals temperature 98.6, pulse rate 90, respiratory rate 18 , blood pressure 128/80, SpO2 96% on 2 L nasal cannula. He states that he is doing well. He denies headache, dizziness, nausea, vomiting, chest pain, palpitations, abdominal pain, difficulty in urination, diarrhea, numbness and paresthesias in bilateral lower extremities. He is able to ambulate short distance with the physical therapy today. Remarkable lab results hemoglobin 10.2, calcium 8.1, albumin 2.8. Magnesium levels improved from 1.7-1.9. Pending orthopedic surgery consult for right transverse supracondylar fracture distal humerus. Cardiac Clearance is obtained for right humerus fracture surgery. REVIEW OF SYSTEMS 12-point ROS reviewed with patient. All pertinent positives mentioned above. Otherwise negative, non-pertinent, or noncontributory. PHYSICAL EXAM GENERAL APPEARANCE: The patient is awake, alert, and oriented, in no acute cardiopulmonary distress. NEUROLOGICAL: Cranial nerves II-XII grossly intact. No sensory deficits. HEENT: Face is symmetric. Pupils are equal and reactive. Extraocular movements are intact. NECK: Supple. No JVD. No thyromegaly. No submental, submandibular, pre- /postauricular, occipital or supraclavicular lymphadenopathy. CHEST: Normal chest expansion. No Telemetry. LUNGS: Absence of any rales, rhonchi or any wheezing. CARDIOVASCULAR: Regular. S1 and S2 normal. No appreciable rubs, murmurs or gallops. ABDOMEN: Obese. Soft, nontender, and nondistended. There is no rebound, voluntary guarding, or rigidity. : Deferred. No Rivera. EXTREMITIES: Left lower extremity edema. No cyanosis. No clubbing. Good capillary refill. SKIN: No skin breakdown. Vital Signs (last 8hr) Date Time Temp Pulse Resp B/P (MAP) Pulse Ox O2 Delivery O2 Flow Rate FiO2 10/18/24 08:30 83 18 N/Cannula Low lpm 2.0 10/18/24 08:00 98.6 90 18 128/80 96 Nasal Cannula 2.0 24 LABS: Laboratory: Test 10/18/24 11:18 10/18/24 04:07 10/17/24 03:41 10/17/24 03:40 Range/Units Whole Blood Glucose 166 H 70-110 MG/DL Bedside Glucose Comment Notified Nurse White Blood Count 5.6 4.8-10.8 K/uL Red Blood Count 3.43 L 4.50-6.20 MIL/uL Hemoglobin 10.2 L 14.0-18.0 g/dL Hematocrit 31.9 L 42-54 % Mean Corpuscular Volume 93.0 79-99 fL Mean Corpuscular Hemoglobin 29.7 27.0-33.0 pg Mean Corpuscular Hemoglobin Concent 32.0 32.0-36.0 g/dL Red Cell Distribution Width 14.6 11.0-15.5 % Platelet Count 198 130-400 K/uL Mean Platelet Volume 9.1 7.5-10.5 fL Immature Granulocyte % (Auto) 1.1 H 0-1 % Neutrophils (%) (Auto) 54.7 40.0-77.0 % Lymphocytes (%) (Auto) 28.9 21.0-51.0 % Monocytes (%) (Auto) 9.9 3.0-13.0 % Eosinophils (%) (Auto) 5.0 0.0-8.0 % Basophils (%) (Auto) 0.4 0.0-5.0 % Neutrophils # (Auto) 3.1 1.8-7.7 K/uL Lymphocytes # (Auto) 1.6 1.0-4.8 K/uL Monocytes # (Auto) 0.6 0.1-1.0 K/uL Eosinophils # (Auto) 0.28 0.00-0.70 K/uL Basophils # (Auto) 0.02 0.00-0.20 K/uL Absolute Immature Granulocyte (auto 0.06 0-1 K/uL Nucleated Red Blood Cells 0.0 0.0-0.19 % Sodium Level 138 136-145 mmol/L Potassium Level 4.2 3.5-5.1 mmol/L Chloride Level 103 101-111 mmol/L Carbon Dioxide Level 29 21-32 mmol/L Blood Urea Nitrogen 13 7-18 mg/dL Creatinine 0.9 0.5-1.3 mg/dL Glomerular Filtration Rate Calc 87 >90 mL/min Random Glucose 117 H 70-105 mg/dL Total Calcium 8.1 L 8.5-10.1 mg/dL Magnesium Level 1.90 1.80-2.40 mg/dL Total Bilirubin 0.6 0.2-1.0 mg/dL Aspartate Amino Transf (AST/SGOT) 21 10-37 U/L Alanine Aminotransferase (ALT/SGPT) 15 12-78 U/L Alkaline Phosphatase 83 50-136 U/L Total Protein 5.9 L 6.0-8.3 g/dL Albumin 2.8 L 3.5-5.0 g/dL B-Type Natriuretic Peptide 79 0-100 pg/mL Vitamin B12 Level 279 193-986 pg/mL Urine Color LIGHT-YELLOW YELLOW Urine Appearance CLEAR CLEAR Urine pH 5.0 5.0-8.0 Urine Specific [place] 1.011 1.001-1.031 Urine Protein NEGATIVE NEGATIVE mg/dL Urine Glucose (UA) NEGATIVE NEGATIVE mg/dL Urine Ketones NEGATIVE NEGATIVE mg/dL Urine Occult Blood NEGATIVE NEGATIVE Urine Nitrate NEGATIVE NEGATIVE Urine Bilirubin NEGATIVE NEGATIVE mg/dL Urine Urobilinogen 0.2 0.2-1.0 mg/dL Urine Leukocyte Esterase NEGATIVE NEGATIVE Miller/uL Test 10/16/24 19:00 Range/Units Influenza Type A Antigen Negative For Type A NEGATIVE Influenza Type B Antigen Negative For Type B NEGATIVE SARS-CoV-2, RNA, NAAT NEGATIVE SARS CoV-2 NEGATIVE Current Medications Medications (Trade) Dose Ordered Sig/Jose Route PRN Reason Start Time Stop Time Status Last Admin Dose Admin Acetaminophen (TYLenol 325MG TAB) 650 mg Q6H PRN PO FEVER/MILD PAIN LEVEL 1-3 10/15/24 19:00 11/14/24 18:59 Acetaminophen (TYLenol 650MG SUPPOSITORY) 650 mg Q6H PRN RC FEVER / MILD PAIN 1-3 IF NPO 10/15/24 19:00 11/14/24 18:59 Amlodipine Besylate (NorvASC 5MG TAB) 5 mg DAILY PO 10/17/24 09:00 11/16/24 08:59 10/18/24 08:52 5 MG Aspirin (Aspirin 81mg Chew Tab) 81 mg DAILY PO 10/17/24 09:00 11/16/24 08:59 10/18/24 08:52 81 MG Atorvastatin Calcium (LIPItor 40MG) 40 mg HS PO 10/16/24 21:00 10/17/24 18:13 DC 10/16/24 19:39 40 MG Docusate Sodium (COLace 100MG CAP) 100 mg BID PO 10/16/24 09:00 11/15/24 08:59 10/18/24 08:52 100 MG Docusate Sodium (COLace 100MG CAP) 100 mg BID PRN PO CONSTIPATION 10/15/24 19:00 11/14/24 18:59 Famotidine (Pepcid 20mg Tab) 20 mg BID PO 10/15/24 21:00 10/15/24 20:44 DC 10/15/24 20:10 20 MG Famotidine (Pepcid 20mg Tab) 20 mg Q24H PO 10/16/24 21:00 11/14/24 20:59 10/17/24 20:05 20 MG Home Med (Home Medication) Melatonin 6 MG HS PO 10/17/24 21:00 11/16/24 20:59 Hydralazine HCl (APRESOLine 20MG INJ) 10 mg Q2H PRN IV SBP GREATER THAN 160 10/15/24 19:00 11/14/24 18:59 Insulin Human Regular (humuLIN R 100 UNIT/ML 3ML) INSULIN SLIDING SCAL... ACHS SQ 10/15/24 21:00 11/14/24 20:59 10/16/24 19:54 2 UNIT Lactulose (Constulose 20gm/ 30ml Udcup) 20 gm Q6H PRN PO CONSTIPATION 10/15/24 19:00 11/14/24 18:59 Losartan Potassium (CozAAR 50 mg TAB) 50 mg BID PO 10/16/24 21:00 11/15/24 20:59 10/18/24 08:52 50 MG Magnesium Sulfate 50 ml @ 0 mls/hr PROTOCOL PRN IV HYPOMAGNESEMIA 10/16/24 09:30 11/15/24 09:29 10/18/24 05:52 25 MLS/HR Morphine Sulfate (morPHINE 2MG SYG) 2 mg Q4H PRN IVP SEVERE PAIN (7-10) 10/16/24 11:00 10/23/24 10:59 10/18/24 08:45 2 MG Ondansetron HCl (zoFRAN 4MG INJ) 4 mg Q6H PRN IVP NAUSEA/VOMITING 10/15/24 19:00 11/14/24 18:59 Potassium Chloride 100 ml @ 100 mls/hr AD PRN IV POTASSIUM PROTOCOL 10/16/24 09:30 11/15/24 09:29 Potassium Chloride (K-Dur/Klor-Con 20meq) 20 meq AD PRN PO POTASSIUM PROTOCOL 10/16/24 09:30 11/15/24 09:29 10/17/24 05:28 20 MEQ Potassium Chloride (KCl 10% Elixir 20meq/15ml) 20 meq AD PRN PO POTASSIUM PROTOCOL 10/16/24 09:30 11/15/24 09:29 Sodium Chloride 1,000 ml @ 125 mls/hr Q8H IV 10/15/24 15:00 11/14/24 14:59 10/18/24 05:59 125 MLS/HR Tamsulosin HCl (FloMAX) 0.4 mg HS PO 10/16/24 21:00 11/15/24 20:59 10/17/24 20:05 0.4 MG Temazepam (restORIL 15 MG CAP) 15 mg HS PRN PO INSOMNIA/SLEEP 10/15/24 19:00 11/14/24 18:59 Trazodone HCl (DesyREL/OlepTRO) 200 mg HS PO 10/17/24 21:00 11/16/24 20:59 10/17/24 20:05 200 MG DIAGNOSTICS / RADIOLOGY: [ ] 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, present in the right posterior frontal region, per CT 10/16/2024 Decreased inability to walk, frequent falls Transverse fracture with mild displacement in the supracondylar region of the distal humerus s/p fall on 09/26/2024 Orthostatic hypotension Chronic pain on oxycodone scheduled b.i.d., now on Tylenol with codeine also for humerus pain Electrolyte derangement (hyponatremia, hypochloremia, hypomagnesemia) improved Acute kidney injury, GFR 51, improved Acute on chronic kidney disease, GFR 51, Acute dehydration, improved Anorexia Hyperglycemia Chronic Left lower extremity edema Severe constipation, improving COPD on home supplemental oxygen 3 L Hypertension Diabetes mellitus type 2 with hyperglycemia Coronary artery disease with history of prior silent [place] with fixed inferior and inferolateral defects noted on Lexiscan Cardiolite stress test 07/01/2024 with a gated EF of 62% Type 2 diabetes mellitus Peripheral artery disease, stable BPH Psoriatic arthritis PTSD Tinnitus Hyperlipidemia PLAN: Monitor respiration status closely. Follow up on Case management consult Follow up on Orthopedic surgery consult Follow up on pulmonology consult IV gentle hydration. Hold statins for 30 days according to cardiology recommendation in view of bilateral lower extremity weakness P.r.n. medications for: Pain management, nausea, vomiting, constipation, hypertension, fevers, shortness of breath. Continue Colace 100 mg p.o. b.i.d.. DVT and GI prophylaxis: SCDs and Pepcid, not on heparin/enoxaparin/Lovenox, a nticoagulation in view of bleeding complications secondary to right humerus fracture Glucometer checks a.c. and HS with insulin regular sliding scale. Continue Blood pressure checks every 4 hours and p.r.n.. Repeat Labs a.m. tomorrow Plan to discharge to [facility] in view of inability to walk/generalized body weakness/balance difficulties ATTESTATION BY PHYSICIAN I have seen and examined the patient. I reviewed the documentation, medical decision making, and treatment plan as noted by the resident above. I agree with the findings and plan of care. Rachael Bethea MD, PRIYANKA MD Oct 18, 2024 13:01
--- NOTE | 2024-10-18 19:59 | CONS ---
[facility] CONSULTATION NOTE Date Patient Seen: Oct 18, 2024 Time of Visit: 19:59 Supervising Physician: Dr. Uzair Nelson Reason for Consultation: Pulmonary clearance for right humerus fracture surgery Primary Care Physician: Dr. Robert Guthrie at [facility] [place] Outpatient Specialists: Inpatient Consults: [facility] pulmonology team Cardiology, Orthopedics PROBLEM LIST: COPD on home supplemental oxygen 3 L, noncompliance with nebulizer treatments and CPAP Acute on chronic hypoxemic respiratory failure, POA Transverse fracture with mild displacement in the supracondylar region of the distal humerus s/p fall on 09/26/2024 Chronic pain on oxycodone scheduled b.i.d., with addition of Tylenol with codeine s/p fall & fracture of humerus Frequent falls Frailty/debility/general body weakness POA Bilateral lower extremity weakness, POA 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, present in the right posterior frontal region, per CT 10/16/2024 Decreased inability to walk, frequent falls Orthostatic hypotension Electrolyte derangement (hyponatremia, hypochloremia, hypomagnesemia) improved Acute kidney injury, GFR 51, improved Acute on chronic kidney disease, GFR 51, Acute dehydration, improved Anorexia Hyperglycemia Chronic Left lower extremity edema Severe constipation, improving Hypertension Diabetes mellitus type 2 with hyperglycemia Coronary artery disease with history of prior silent [place] with fixed inferior and inferolateral defects noted on Lexiscan Cardiolite stress test 07/01/2024 with a gated EF of 62% Type 2 diabetes mellitus Peripheral artery disease, stable BPH Psoriatic arthritis PTSD Tinnitus Hyperlipidemia HPI: Mr. Connell is a 79-year-old male with a history of DM, HTN, frequent falls, hypercholesteremia, PD who presented to [facility] on 10/15/2024 for evaluation of weakness onset 09/26/2024 after his fall. Patient and report that Dr. Marcellus garcias sent patient to the hospital when she noticed the patient appeared pale and weak. Today 10/18/2024 BI team was consulted for clearance for right humerus fracture surgery. The patient was seen and assessed by me on October 15, 2024 when the patient arrived to ED at that time patient did appear weak, frail. Today 10/18/2024 I assess patient at bedside. The patient's breathing was even, unlabored, on 3 L nasal cannula, appears improved from 10/15/2024. The at bedside reports that patient appears improved for her also. She reports that patient is able to get up with physical therapy. The reports that patient does not use his nebulizer treatments at home and that he does not use his CPAP much at home. The patient reports that Cardiology has cleared him for surgery. They both patient and are eagerly waiting for orthopedic to come evaluate patient for humerus surgery. Plan and assessment are listed below. PAST MEDICAL HX: see above PAST SURGICAL HX: Cholecystectomy, neck surgery, ankle surgery SOCIAL HISTORY: No tobacco, ETOH, or illicit drug use Coded Allergies: doxepin (Unverified Allergy, Unknown, 08/11/23) metronidazole (Unverified Allergy, Unknown, 09/22/19) prazosin (Unverified Allergy, Unknown, 09/22/19) REVIEW OF SYSTEMS: 12 point ROS reviewed with patient. Pertinent positives mentioned above. Otherwise negative. PHYSICAL EXAM: GENERAL: Alert, awake oriented x 3 HEENT: EOMI, Sclera non icteric, moist mucosa NECK: Supple, no JVD, trachea midline LUNGS: Clear breath sounds bilaterally. No wheezes HEART: Regular rate and rhythm. Normal S1 and S2, without murmurs ABD: Obese. Abdomen soft, nontender. Bowel sounds present EXT: No clubbing cyanosis or edema NEURO: Alert and oriented X3, no neuro deficits noted. Vital Signs (last 8hr) Date Time Temp Pulse Resp B/P (MAP) Pulse Ox O2 Delivery O2 Flow Rate FiO2 10/18/24 19:32 91 18 N/Cannula Low lpm 2.0 28 10/18/24 16:00 98.1 82 18 147/73 98 Nasal Cannula 2.0 24 LABS: Hematology Labs: Test 10/18/24 04:07 Range/Units White Blood Count 5.6 4.8-10.8 K/uL Red Blood Count 3.43 L 4.50-6.20 MIL/uL Hemoglobin 10.2 L 14.0-18.0 g/dL Hematocrit 31.9 L 42-54 % Mean Corpuscular Volume 93.0 79-99 fL Mean Corpuscular Hemoglobin 29.7 27.0-33.0 pg Mean Corpuscular Hemoglobin Concent 32.0 32.0-36.0 g/dL Red Cell Distribution Width 14.6 11.0-15.5 % Platelet Count 198 130-400 K/uL Mean Platelet Volume 9.1 7.5-10.5 fL Immature Granulocyte % (Auto) 1.1 H 0-1 % Neutrophils (%) (Auto) 54.7 40.0-77.0 % Lymphocytes (%) (Auto) 28.9 21.0-51.0 % Monocytes (%) (Auto) 9.9 3.0-13.0 % Eosinophils (%) (Auto) 5.0 0.0-8.0 % Basophils (%) (Auto) 0.4 0.0-5.0 % Neutrophils # (Auto) 3.1 1.8-7.7 K/uL Lymphocytes # (Auto) 1.6 1.0-4.8 K/uL Monocytes # (Auto) 0.6 0.1-1.0 K/uL Eosinophils # (Auto) 0.28 0.00-0.70 K/uL Basophils # (Auto) 0.02 0.00-0.20 K/uL Absolute Immature Granulocyte (auto 0.06 0-1 K/uL Nucleated Red Blood Cells 0.0 0.0-0.19 % Chemistry Labs: Test 10/18/24 16:11 10/18/24 04:07 10/17/24 03:41 Range/Units Whole Blood Glucose 149 H 70-110 MG/DL Bedside Glucose Comment Notified Nurse Sodium Level 138 136-145 mmol/L Potassium Level 4.2 3.5-5.1 mmol/L Chloride Level 103 101-111 mmol/L Carbon Dioxide Level 29 21-32 mmol/L Blood Urea Nitrogen 13 7-18 mg/dL Creatinine 0.9 0.5-1.3 mg/dL Glomerular Filtration Rate Calc 87 >90 mL/min Random Glucose 117 H 70-105 mg/dL Total Calcium 8.1 L 8.5-10.1 mg/dL Magnesium Level 1.90 1.80-2.40 mg/dL Total Bilirubin 0.6 0.2-1.0 mg/dL Aspartate Amino Transf (AST/SGOT) 21 10-37 U/L Alanine Aminotransferase (ALT/SGPT) 15 12-78 U/L Alkaline Phosphatase 83 50-136 U/L Total Protein 5.9 L 6.0-8.3 g/dL Albumin 2.8 L 3.5-5.0 g/dL B-Type Natriuretic Peptide 79 0-100 pg/mL Vitamin B12 Level 279 193-986 pg/mL DIAGNOSTICS / RADIOLOGY RESULTS: [ ] PULMONARY PLAN: Continue to monitor respiratory status closely. Continue oxygen supplementation, titrate oxygen prn to keep Spo2>/+=92%. Albuterol and Atrovent nebulizer treatment p.r.n. shortness of breath. RT to provide IS and education on use. Cough and deep breathe exercise. Robitussin DM as needed cough. Obtain ABGs and chest x-ray in carina.ching. [facility] Oct 18, 2024 19:59
[2024-10-19] VITALS (9 sets, daily range): BP systolic 147–174; BP diastolic 74–91; PULSE 67–100; RESP 16–20; TEMP 97.9–98.3; O2SAT 94–98
[2024-10-19 05:47] LABS: BASOPHILS # (AUTO) 0.02 K/uL (0.00-0.20); BASOPHILS % (AUTO) 0.3 % (0.0-5.0); EOSINOPHILS # (AUTO) 0.32 K/uL (0.00-0.70); EOSINOPHILS % (AUTO) 5.2 % (0.0-8.0); HEMATOCRIT 32.6 % (42-54); IMMATURE GRANULOCYTE ABSOLUTE 0.04 K/uL (0-1); LYMPHOCYTES % (AUTO) 31.9 % (21.0-51.0); MEAN CORPUSCULAR HEMOGLOBIN 30.2 pg (27.0-33.0); MEAN CORPUSCULAR HGB CONC 32.2 g/dL (32.0-36.0); MEAN CORPUSCULAR VOLUME 93.7 fL (79-99); MONOCYTES # (AUTO) 0.7 K/uL (0.1-1.0); MONOCYTES % (AUTO) 11.8 % (3.0-13.0); NEUTROPHILS # (AUTO) 3.1 K/uL (1.8-7.7); NEUTROPHILS % (AUTO) 50.1 % (40.0-77.0); PLATELET COUNT (AUTO) 194 K/uL (130-400); RED BLOOD CELL COUNT(AUTO) 3.48 MIL/uL (4.50-6.20); RED CELL DISTRIBUTION WIDTH 14.6 % (11.0-15.5); WHITE BLOOD COUNT (AUTO) 6.1 K/uL (4.8-10.8)
[2024-10-19 06:13] LABS: ALBUMIN 2.7 g/dL (3.5-5.0); BILIRUBIN,TOTAL 0.6 mg/dL (0.2-1.0); MAGNESIUM 1.9 mg/dL (1.80-2.40); POTASSIUM 3.7 mmol/L (3.5-5.1); TOTAL PROTEIN, SERUM 5.9 g/dL (6.0-8.3)
--- NOTE | 2024-10-19 08:52 | HMCIMG ---
CHEST 1VW HISTORY: COPD COMPARISON: 09/26/2024 FINDINGS: A frontal projection of the chest was obtained. Prominent interstitial markings are seen with possible superimposed infiltrates. The heart is borderline enlarged. Degenerative changes are seen. Aortic calcifications are seen. IMPRESSION: 1. Prominent interstitial markings are seen with possible superimposed infiltrates.
[2024-10-19] MEDS: IpraTROPium 0.5 MG/2.5 ML INH IH PRN (10:59)
[2024-10-19] MEDS: ALBUTEROL 0.083% 2.5 MG/3 ML INH IH PRN (10:59)
--- NOTE | 2024-10-19 11:32 | PN ---
[facility] PROGRESS NOTE Date of Service: Oct 19, 2024 Time of Service: 11:31 SUBJECTIVE: Patient is seen at the bedside. He is awake alert and oriented. Vitals temperature 97.9, pulse rate 90, respiratory rate 17, blood pressure 156/77, SpO2 99% on room air. He complains of severe right arm pain secondary to transverse supracondylar fracture distal humerus post fall on 09/26. He also s tates that he has been experiencing bilateral lower extremity weakness, balance difficulties while walking which increased in intensity post fall. He denies headache, dizziness, nausea, vomiting, chest pain, palpitations, abdominal pain, difficulty in urination, diarrhea, numbness and paresthesias in bilateral lower extremities. Remarkable lab results hemoglobin 10, BUN 24, creatinine 1.1, magnesium 1.6. TSH, TCK, troponin, calcium levels are normal. ABG pH 7.4, PO2 66.3, pCO2 47. 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 Left lower extremity venous Doppler ultrasound normal. Carotid ultrasound revealed mild plaque in both carotid bifurcations and No anatomic or hemodynamic evidence of significant focal stenosis. Pending cardiology and Neurology consult 10/17 Patient is seen at the bedside. He is awake alert and oriented. He is hemodynamically stable SpO2 95% on nasal cannula 2 L. He still complains of guillaume ateral lower extremity weakness. He denies headache, dizziness, nausea, vomiting, chest pain, palpitations, abdominal pain, difficulty in urination, diarrhea, numbness and paresthesias in bilateral lower extremities. Remarkable Lab results hemoglobin 10, magnesium 1.7, calcium 8.1, albumin 2.5. B12, BNP levels are normal. 2D echo Resulted in ejection fraction of 55-60%. Urinalysis results are normal. Pending cardiology, case management consult. 10/18 Patient is seen at the bedside. He is sitting comfortably in a chair. Vitals temperature 98.6, pulse rate 90, respiratory rate 18 , blood pressure 128/80, SpO2 96% on 2 L nasal cannula. He states that he is doing well. He denies headache, dizziness, nausea, vomiting, chest pain, palpitations, abdominal pain, difficulty in urination, diarrhea, numbness and paresthesias in bilateral lower extremities. He is able to ambulate short distance with the physical therapy today. Remarkable lab results hemoglobin 10.2, calcium 8.1, albumin 2.8. Magnesium levels improved from 1.7-1.9. Pending orthopedic surgery consult for right transverse supracondylar fracture distal humerus. Cardiac Clearance is obtained for right humerus fracture surgery. 10/19 Patient is seen and examined at the bedside. Vitals Temperature 97.9, pulse rate 67, respiratory rate 18, blood pressure 174/91, SpO2 100% on 2 L nasal cannula. He states that his right upper extremity pain is still severe and constant. No acute events last night. He denies headache, dizziness, nausea, vomiting, chest pain, palpitations, abdominal pain, difficulty in urination, diarrhea, numbness and paresthesias in bilateral lower extremities. Remarkable lab results hemoglobin 10.5, albumin 2.7. Chest x-ray resulted in prominent interstitial markings with possible superimposed infiltrates secondary to COPD. Pending orthopedic surgery consult. REVIEW OF SYSTEMS 12-point ROS reviewed with patient. All pertinent positives mentioned above. Otherwise negative, non-pertinent, or noncontributory. PHYSICAL EXAM GENERAL APPEARANCE: The patient is awake, alert, and oriented, in no acute cardiopulmonary distress. NEUROLOGICAL: Cranial nerves II-XII grossly intact. No sensory deficits. HEENT: Face is symmetric. Pupils are equal and reactive. Extraocular movements are intact. NECK: Supple. No JVD. No thyromegaly. No submental, submandibular, pre- /postauricular, occipital or supraclavicular lymphadenopathy. CHEST: Normal chest expansion. No Telemetry. LUNGS: Absence of any rales, rhonchi or any wheezing. CARDIOVASCULAR: Regular. S1 and S2 normal. No appreciable rubs, murmurs or gallops. ABDOMEN: Obese. Soft, nontender, and nondistended. There is no rebound, voluntary guarding, or rigidity. : Deferred. No Rivera. EXTREMITIES: Left lower extremity edema. No cyanosis. No clubbing. Good capillary refill. SKIN: No skin breakdown. Vital Signs (last 8hr) Date Time Temp Pulse Resp B/P (MAP) Pulse Ox O2 Delivery O2 Flow Rate FiO2 10/19/24 11:02 70 18 10/19/24 11:01 70 18 N/Cannula Low lpm 2.0 28 10/19/24 08:00 97.9 67 18 174/91 100 Nasal Cannula 2.0 10/19/24 06:59 74 18 N/Cannula Low lpm 2.0 28 10/19/24 04:00 98.1 87 20 150/82 93 Room Air LABS: Laboratory: Test 10/19/24 11:21 10/19/24 05:27 Range/Units Whole Blood Glucose 138 H 70-110 MG/DL Bedside Glucose Comment Notified Nurse White Blood Count 6.1 4.8-10.8 K/uL Red Blood Count 3.48 L 4.50-6.20 MIL/uL Hemoglobin 10.5 L 14.0-18.0 g/dL Hematocrit 32.6 L 42-54 % Mean Corpuscular Volume 93.7 79-99 fL Mean Corpuscular Hemoglobin 30.2 27.0-33.0 pg Mean Corpuscular Hemoglobin Concent 32.2 32.0-36.0 g/dL Red Cell Distribution Width 14.6 11.0-15.5 % Platelet Count 194 130-400 K/uL Mean Platelet Volume 8.9 7.5-10.5 fL Immature Granulocyte % (Auto) 0.7 0-1 % Neutrophils (%) (Auto) 50.1 40.0-77.0 % Lymphocytes (%) (Auto) 31.9 21.0-51.0 % Monocytes (%) (Auto) 11.8 3.0-13.0 % Eosinophils (%) (Auto) 5.2 0.0-8.0 % Basophils (%) (Auto) 0.3 0.0-5.0 % Neutrophils # (Auto) 3.1 1.8-7.7 K/uL Lymphocytes # (Auto) 2.0 1.0-4.8 K/uL Monocytes # (Auto) 0.7 0.1-1.0 K/uL Eosinophils # (Auto) 0.32 0.00-0.70 K/uL Basophils # (Auto) 0.02 0.00-0.20 K/uL Absolute Immature Granulocyte (auto 0.04 0-1 K/uL Nucleated Red Blood Cells 0.0 0.0-0.19 % Sodium Level 137 136-145 mmol/L Potassium Level 3.7 3.5-5.1 mmol/L Chloride Level 103 101-111 mmol/L Carbon Dioxide Level 33 H 21-32 mmol/L Blood Urea Nitrogen 15 7-18 mg/dL Creatinine 1.0 0.5-1.3 mg/dL Glomerular Filtration Rate Calc 77 >90 mL/min Random Glucose 119 H 70-105 mg/dL Total Calcium 8.6 8.5-10.1 mg/dL Magnesium Level 1.90 1.80-2.40 mg/dL Total Bilirubin 0.6 0.2-1.0 mg/dL Aspartate Amino Transf (AST/SGOT) 18 10-37 U/L Alanine Aminotransferase (ALT/SGPT) 16 12-78 U/L Alkaline Phosphatase 85 50-136 U/L Total Protein 5.9 L 6.0-8.3 g/dL Albumin 2.7 L 3.5-5.0 g/dL Current Medications Medications (Trade) Dose Ordered Sig/Jose Route PRN Reason Start Time Stop Time Status Last Admin Dose Admin Acetaminophen (TYLenol 325MG TAB) 650 mg Q6H PRN PO FEVER/MILD PAIN LEVEL 1-3 10/15/24 19:00 11/14/24 18:59 Acetaminophen (TYLenol 650MG SUPPOSITORY) 650 mg Q6H PRN RC FEVER / MILD PAIN 1-3 IF NPO 10/15/24 19:00 11/14/24 18:59 Albuterol Sulfate (Proventil 0.083% 2.5mg/3ml) 2.5 mg Q4H PRN IH SHORTNESS OF BREATH 10/19/24 08:30 11/18/24 08:29 10/19/24 10:59 2.5 MG Amlodipine Besylate (NorvASC 5MG TAB) 5 mg DAILY PO 10/17/24 09:00 11/16/24 08:59 10/19/24 10:03 5 MG Aspirin (Aspirin 81mg Chew Tab) 81 mg DAILY PO 10/17/24 09:00 11/16/24 08:59 10/19/24 10:03 81 MG Atorvastatin Calcium (LIPItor 40MG) 40 mg HS PO 10/16/24 21:00 10/17/24 18:13 DC 10/16/24 19:39 40 MG Docusate Sodium (COLace 100MG CAP) 100 mg BID PO 10/16/24 09:00 11/15/24 08:59 10/19/24 10:03 100 MG Docusate Sodium (COLace 100MG CAP) 100 mg BID PRN PO CONSTIPATION 10/15/24 19:00 11/14/24 18:59 Famotidine (Pepcid 20mg Tab) 20 mg BID PO 10/15/24 21:00 10/15/24 20:44 DC 10/15/24 20:10 20 MG Famotidine (Pepcid 20mg Tab) 20 mg Q24H PO 10/16/24 21:00 11/14/24 20:59 10/18/24 20:40 20 MG Home Med (Home Medication) Melatonin 6 MG HS PO 10/17/24 21:00 11/16/24 20:59 Hydralazine HCl (APRESOLine 20MG INJ) 10 mg Q2H PRN IV SBP GREATER THAN 160 10/15/24 19:00 11/14/24 18:59 Insulin Human Regular (humuLIN R 100 UNIT/ML 3ML) INSULIN SLIDING SCAL... ACHS SQ 10/15/24 21:00 11/14/24 20:59 10/16/24 19:54 2 UNIT Ipratropium [place] (AtrovENT UD) 0.5 MG Q4H PRN IH SHORTNESS OF BREATH 10/19/24 08:30 11/18/24 08:29 10/19/24 10:59 0.5 MG Lactulose (Constulose 20gm/ 30ml Udcup) 20 gm Q6H PRN PO CONSTIPATION 10/15/24 19:00 11/14/24 18:59 Losartan Potassium (CozAAR 50 mg TAB) 50 mg BID PO 10/16/24 21:00 11/15/24 20:59 10/19/24 10:03 50 MG Magnesium Sulfate 50 ml @ 0 mls/hr PROTOCOL PRN IV HYPOMAGNESEMIA 10/16/24 09:30 11/15/24 09:29 10/19/24 06:27 25 MLS/HR Morphine Sulfate (morPHINE 2MG SYG) 2 mg Q4H PRN IVP SEVERE PAIN (7-10) 10/16/24 11:00 10/23/24 10:59 10/18/24 20:49 2 MG Ondansetron HCl (zoFRAN 4MG INJ) 4 mg Q6H PRN IVP NAUSEA/VOMITING 10/15/24 19:00 11/14/24 18:59 Potassium Chloride 100 ml @ 100 mls/hr AD PRN IV POTASSIUM PROTOCOL 10/16/24 09:30 11/15/24 09:29 Potassium Chloride (K-Dur/Klor-Con 20meq) 20 meq AD PRN PO POTASSIUM PROTOCOL 10/16/24 09:30 11/15/24 09:29 10/19/24 06:32 20 MEQ Potassium Chloride (KCl 10% Elixir 20meq/15ml) 20 meq AD PRN PO POTASSIUM PROTOCOL 10/16/24 09:30 11/15/24 09:29 Sodium Chloride 1,000 ml @ 125 mls/hr Q8H IV 10/15/24 15:00 11/14/24 14:59 10/18/24 20:39 125 MLS/HR Tamsulosin HCl (FloMAX) 0.4 mg HS PO 10/16/24 21:00 11/15/24 20:59 10/18/24 20:40 0.4 MG Temazepam (restORIL 15 MG CAP) 15 mg HS PRN PO INSOMNIA/SLEEP 10/15/24 19:00 11/14/24 18:59 Trazodone HCl (DesyREL/OlepTRO) 200 mg HS PO 10/17/24 21:00 11/16/24 20:59 10/18/24 20:40 200 MG DIAGNOSTICS / RADIOLOGY: PROCEDURE: CXR1VW - CHEST 1VW CHEST 1VW HISTORY: COPD COMPARISON: 09/26/2024 FINDINGS: A frontal projection of the chest was obtained. Prominent interstitial markings are seen with possible superimposed infiltrates. The heart is borderline enlarged. Degenerative changes are seen. Aortic calcifications are seen. IMPRESSION: 1. Prominent interstitial markings are seen with possible superimposed infiltrates. 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, present in the right posterior frontal region, per CT 10/16/2024 Decreased inability to walk, frequent falls Transverse fracture with mild displacement in the supracondylar region of the distal humerus s/p fall on 09/26/2024 Orthostatic hypotension Chronic pain on oxycodone scheduled b.i.d., now on Tylenol with codeine also for humerus pain Electrolyte derangement (hyponatremia, hypochloremia, hypomagnesemia) improved Acute kidney injury, GFR 51, improved Acute on chronic kidney disease, GFR 51, Acute dehydration, improved Anorexia Hyperglycemia Chronic Left lower extremity edema Severe constipation, improving COPD on home supplemental oxygen 3 L Hypertension Diabetes mellitus type 2 with hyperglycemia Coronary artery disease with history of prior silent NC with fixed inferior and inferolateral defects noted on Lexiscan Cardiolite stress test 07/01/2024 with a gated EF of 62% Type 2 diabetes mellitus Peripheral artery disease, stable BPH Psoriatic arthritis PTSD Tinnitus Hyperlipidemia PLAN: Monitor respiration status closely. Follow up on Orthopedic surgery consult Follow up on right elbow x-ray and CT upper extremity results Continue ipratropium 0.5 mg q.4 H p.r.n., albuterol 2.5 mg q.4h p.r.n. for shortness of breath Hold statins for 30 days according to cardiology recommendation in view of bilateral lower extremity weakness P.r.n. medications for: Pain management, nausea, vomiting, constipation, hypertension, fevers, shortness of breath. Continue Colace 100 mg p.o. b.i.d.. DVT and GI prophylaxis: SCDs and Pepcid, not on heparin/enoxaparin/Lovenox, anticoagulation in view of bleeding complications secondary to right humerus fracture Glucometer checks a.c. and HS with insulin regular sliding scale. Continue blood pressure checks every 4 hours and p.r.n.. Repeat Labs a.m. tomorrow [facility] in view of inability to walk/generalized body weakness/balance difficulties ATTESTATION BY PHYSICIAN I have seen and examined the patient. I reviewed the documentation, medical decision making, and treatment plan as noted by the resident above. I agree with the findings and plan of care. Rachael Bethea MD, PRIYANKA MD Oct 19, 2024 11:32
--- NOTE | 2024-10-19 12:12 | HMCIMG ---
ELBOW 2VWS RT HISTORY: Right elbow pain COMPARISON: None TECHNIQUE: 3 images of right elbow were obtained. FINDINGS: Supracondylar fracture with displacement is seen of the distal humerus. Degenerative changes are seen. Soft tissue swelling is seen. No gross dislocation is seen. Degenerative changes are seen. IMPRESSION: 1. Findings as described above.
--- NOTE | 2024-10-19 12:45 | PN ---
[facility] PROGRESS NOTE Date Patient Seen: Oct 19, 2024 Time of Visit: 12:43 Supervising Physician: [Dr. Nelson] Primary Care Physician: Dr. Robert Guthrie at [facility] Outpatient Specialists: Inpatient Consults: [facility] pulmonology team Cardiology, Orthopedics PROBLEM LIST: COPD on home supplemental oxygen 3 L, noncompliance with nebulizer treatments and CPAP Acute on chronic hypoxemic respiratory failure, POA Transverse fracture with mild displacement in the supracondylar region of the distal humerus s/p fall on 09/26/2024 Small R-pleural effusion Chronic pain on oxycodone scheduled b.i.d., with addition of Tylenol with codeine s/p fall & fracture of humerus Frequent falls Frailty/debility/general body weakness POA Bilateral lower extremity weakness, POA 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, present in the right posterior frontal region, per CT 10/16/2024 Decreased inability to walk, frequent falls Orthostatic hypotension Electrolyte derangement (hyponatremia, hypochloremia, hypomagnesemia) improved Acute kidney injury, GFR 51, improved Acute on chronic kidney disease, GFR 51, Acute dehydration, improved Anorexia Hyperglycemia Chronic Left lower extremity edema Severe constipation, improving Hypertension Diabetes mellitus type 2 with hyperglycemia Coronary artery disease with history of prior silent FL with fixed inferior and inferolateral defects noted on Lexiscan Cardiolite stress test 07/01/2024 with a gated EF of 62% Type 2 diabetes mellitus Peripheral artery disease, stable BPH Psoriatic arthritis PTSD Tinnitus Hyperlipidemia Non-compliance with CPAP INTERVAL HISTORY: [Blood pressure is 165/81 with a heart rate of 100, afebrile on 2 LNC. CXR shows prominent bilateral pulmonary infiltrates as well as a small right pleural effusion. ABG shows a pH of 7.41, pCO2 47, PO2 of 66, bicarb of 29. Patient continues on IS. Is on supplemental oxygen at baseline with 2 L. Will start pulmonary toileting and continue IS.] REVIEW OF SYSTEMS: 12 point ROS reviewed with patient. Pertinent positives mentioned above. Otherwise negative. PHYSICAL EXAM: GENERAL: Alert, awake oriented x 3 HEENT: EOMI, Sclera non icteric, moist mucosa NECK: Supple, no JVD, trachea midline LUNGS: Clear breath sounds bilaterally. No wheezes HEART: Regular rate and rhythm. Normal S1 and S2, without murmurs ABD: Obese. Abdomen soft, nontender. Bowel sounds present EXT: No clubbing cyanosis or edema NEURO: Alert and oriented X3, no neuro deficits noted. Vital Signs (last 8hr) Date Time Temp Pulse Resp B/P (MAP) Pulse Ox O2 Delivery O2 Flow Rate FiO2 10/19/24 11:46 98.2 100 16 165/81 99 Nasal Cannula 2.0 24 10/19/24 11:02 70 18 10/19/24 11:01 70 18 N/Cannula Low lpm 2.0 28 10/19/24 08:00 97.9 67 18 174/91 100 Nasal Cannula 2.0 24 10/19/24 06:59 74 18 N/Cannula Low lpm 2.0 28 LABS: Hematology Labs: Test 10/19/24 05:27 Range/Units White Blood Count 6.1 4.8-10.8 K/uL Red Blood Count 3.48 L 4.50-6.20 MIL/uL Hemoglobin 10.5 L 14.0-18.0 g/dL Hematocrit 32.6 L 42-54 % Mean Corpuscular Volume 93.7 79-99 fL Mean Corpuscular Hemoglobin 30.2 27.0-33.0 pg Mean Corpuscular Hemoglobin Concent 32.2 32.0-36.0 g/dL Red Cell Distribution Width 14.6 11.0-15.5 % Platelet Count 194 130-400 K/uL Mean Platelet Volume 8.9 7.5-10.5 fL Immature Granulocyte % (Auto) 0.7 0-1 % Neutrophils (%) (Auto) 50.1 40.0-77.0 % Lymphocytes (%) (Auto) 31.9 21.0-51.0 % Monocytes (%) (Auto) 11.8 3.0-13.0 % Eosinophils (%) (Auto) 5.2 0.0-8.0 % Basophils (%) (Auto) 0.3 0.0-5.0 % Neutrophils # (Auto) 3.1 1.8-7.7 K/uL Lymphocytes # (Auto) 2.0 1.0-4.8 K/uL Monocytes # (Auto) 0.7 0.1-1.0 K/uL Eosinophils # (Auto) 0.32 0.00-0.70 K/uL Basophils # (Auto) 0.02 0.00-0.20 K/uL Absolute Immature Granulocyte (auto 0.04 0-1 K/uL Nucleated Red Blood Cells 0.0 0.0-0.19 % Chemistry Labs: Test 10/19/24 11:21 10/19/24 05:27 Range/Units Whole Blood Glucose 138 H 70-110 MG/DL Bedside Glucose Comment Notified Nurse Sodium Level 137 136-145 mmol/L Potassium Level 3.7 3.5-5.1 mmol/L Chloride Level 103 101-111 mmol/L Carbon Dioxide Level 33 H 21-32 mmol/L Blood Urea Nitrogen 15 7-18 mg/dL Creatinine 1.0 0.5-1.3 mg/dL Glomerular Filtration Rate Calc 77 >90 mL/min Random Glucose 119 H 70-105 mg/dL Total Calcium 8.6 8.5-10.1 mg/dL Magnesium Level 1.90 1.80-2.40 mg/dL Total Bilirubin 0.6 0.2-1.0 mg/dL Aspartate Amino Transf (AST/SGOT) 18 10-37 U/L Alanine Aminotransferase (ALT/SGPT) 16 12-78 U/L Alkaline Phosphatase 85 50-136 U/L Total Protein 5.9 L 6.0-8.3 g/dL Albumin 2.7 L 3.5-5.0 g/dL DIAGNOSTICS / RADIOLOGY RESULTS: CHEST 1VW HISTORY: COPD COMPARISON: 09/26/2024 FINDINGS: A frontal projection of the chest was obtained. Prominent interstitial markings are seen with possible superimposed infiltrates. The heart is borderline enlarged. Degenerative changes are seen. Aortic calcifications are seen. IMPRESSION: 1. Prominent interstitial markings are seen with possible superimposed infiltrates. PULMONARY PLAN: pulmonary toileting Start solumedrol 20mg BID Start lasix 20mg IV daily for small pl effusion, monitor volume status and creatinine, dc if he becomes clinically dry Continue to monitor respiratory status closely. Continue oxygen supplementation, titrate oxygen prn to keep Spo2>/+=92%. Albuterol and Atrovent nebulizer treatment p.r.n. shortness of breath. RT to provide IS and education on use. Cough and deep breathe exercise. Robitussin DM as needed cough. SUZETTE CHEN Oct 19, 2024 12:45
--- NOTE | 2024-10-19 12:55 | NUR ---
PATIENT UNABLE TO MOVE ARM & ARM OUT OF FIELD OF VIEW TO PERFORM CT EXAM.
[2024-10-19] MEDS: furoSEMIDE 20MG VIAL IV SCH (17:46)
[2024-10-19 18:05] LABS: INR 1.01 (0.85-1.15); PROTHROMBIN TIME 10.9 SEC (9.6-11.6)
[2024-10-19] MEDS: Solu-medROL 40MG VIAL IVP SCH (20:04)
[2024-10-20] VITALS (12 sets, daily range): BP systolic 141–167; BP diastolic 61–87; PULSE 72–91; RESP 16–26; TEMP 97.7–98.5; O2SAT 96–98
--- NOTE | 2024-10-20 01:04 | CONS ---
DATE OF SERVICE: 10/18/2024 CONSULTING PHYSICIAN: Dr. Bethea. REASON FOR CONSULTATION: Right distal humerus fracture. HISTORY OF PRESENT ILLNESS: This is a 79-year-old gentleman with history of multiple medical comorbidities, and I think he fell down and injured his right elbow more than six weeks ago, since the admission, has been admitted for sepsis and has been in the ICU in and out. We saw him almost like more than a month after his injury and we had recommended Cardiology clearance, and he also had a wound on his right upper extremity which prevented us from healing it or treating it. Due to the risk of infection, we had to wait for the wound to heal. The patient is currently admitted in , and Ortho has been consulted for the same. PAST MEDICAL HISTORY: Positive for diabetes, hypertension, multiple falls, hypercholesterolemia, and peripheral artery disease. PAST SURGICAL HISTORY: Previous surgeries include cholecystectomy, neck surgery, and ankle surgery. ALLERGIES: TO DOXEPIN, METRONIDAZOLE, AND PRAZOSIN. SOCIAL HISTORY: Does not smoke, does not drink alcohol, no illegal drugs. Lives with family. REVIEW OF SYSTEMS: Review of twelve-point review of systems was obtained and is negative. PHYSICAL EXAMINATION: GENERAL: The patient is moderately built and nourished, awake, alert, and oriented x 3. LATEST VITAL SIGNS: Temperature is 98.2, pulse is 100, respiratory rate is 16, blood pressure 165/81, pulse oximetry 98% on room air. HEENT: Normocephalic, atraumatic. NECK: No engorged vein. HEART: Regular rate and rhythm. RESPIRATORY: Symmetric movement seen. ABDOMEN: Soft, nontender, nondistended. PELVIS: No tenderness on pelvis compression. EXTREMITIES: Examination of the right upper extremity shows swelling and deformity present in right elbow. Some tenderness present in distal humerus. Elbow range of motion is limited. Motor, sensory is grossly intact. Fingers are warm and pink. Good capillary refill is present. LABORATORY INVESTIGATIONS: Reviewed which shows a white cell count of 6.1, hemoglobin 10.5, hematocrit 32.6, and platelet count is 194. INVESTIGATIONS DATA: We tried to obtain x-rays of the elbow and CT scan of the elbow. X-rays of the right elbow shows a distal humerus fracture with some minimal displacement present. ASSESSMENT AND PLAN: The patient is a 79-year-old gentleman with right elbow distal humerus fracture. I will have another discussion with the patient and family regarding his fracture. On the x-ray, the fracture looks overall in acceptable alignment and probably will do well without surgery also. I have again discussed these findings as well as the x-rays which we obtained today and see what they want me to do. Again, I have discussed the risks and benefits of both surgery and conservative management and see what they want me to do. Ortho will continue to follow the patient. TID: [id number] RECEIPT: [id number] FILIPE
[2024-10-20 05:25] LABS: BASOPHILS # (AUTO) 0.01 K/uL (0.00-0.20); BASOPHILS % (AUTO) 0.2 % (0.0-5.0); HEMATOCRIT 33.6 % (42-54); IMMATURE GRANULOCYTE ABSOLUTE 0.03 K/uL (0-1); LYMPHOCYTES # (AUTO) 0.9 K/uL (1.0-4.8); LYMPHOCYTES % (AUTO) 17.9 % (21.0-51.0); MEAN CORPUSCULAR HEMOGLOBIN 29.5 pg (27.0-33.0); MEAN CORPUSCULAR HGB CONC 31.8 g/dL (32.0-36.0); MEAN CORPUSCULAR VOLUME 92.6 fL (79-99); MONOCYTES # (AUTO) 0.1 K/uL (0.1-1.0); MONOCYTES % (AUTO) 2.4 % (3.0-13.0); NEUTROPHILS % (AUTO) 78.9 % (40.0-77.0); PLATELET COUNT (AUTO) 244 K/uL (130-400); RED BLOOD CELL COUNT(AUTO) 3.63 MIL/uL (4.50-6.20); RED CELL DISTRIBUTION WIDTH 14.4 % (11.0-15.5); WHITE BLOOD COUNT (AUTO) 5.1 K/uL (4.8-10.8)
[2024-10-20 05:29] LABS: POTASSIUM 4.6 mmol/L (3.5-5.1)
--- NOTE | 2024-10-20 09:27 | PN ---
[facility] PROGRESS NOTE Date of Service: Oct 20, 2024 Time of Service: 09:26 SUBJECTIVE: Patient seen and examined in room [address] Robert Guthrie Admitting date 10/15/2024 Patient is seen at the bedside. He is awake alert and oriented. Vitals temperature 97.9, pulse rate 90, respiratory rate 17, blood pressure 156/77, SpO2 99% on room air. He complains of severe right arm pain secondary to transverse supracondylar fracture distal humerus post fall on 09/26. He also states that he has been experiencing bilateral lower extremity weakness, balance difficulties while walking which increased in intensity post fall. He denies headache, dizziness, nausea, vomiting, chest pain, palpitations, abdominal pain, difficulty in urination, diarrhea, numbness and paresthesias in bilateral lower extremities. Remarkable lab results hemoglobin 10, BUN 24, creatinine 1.1, magnesium 1.6. TSH, TCK, troponin, calcium levels are normal. ABG pH 7.4, PO2 66.3, pCO2 47. 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 Left lower extremity venous Doppler ultrasound normal. Carotid ultrasound revealed mild plaque in both carotid bifurcations and No anatomic or hemodynamic evidence of significant focal stenosis. Pending cardiology and Neurology consult 10/17 Patient is seen at the bedside. He is awake alert and oriented. He is hemodynamically stable SpO2 95% on nasal cannula 2 L. He still complains of bilateral lower extremity weakness. He denies headache, dizziness, nausea, vomiting, chest pain, palpitations, abdominal pain, difficulty in urination, diarrhea, numbness and paresthesias in bilateral lower extremities. Remarkable Lab results hemoglobin 10, magnesium 1.7, calcium 8.1, albumin 2.5. B12, BNP levels are normal. 2D echo Resulted in ejection fraction of 55-60%. Urinalysis results are normal. Pending cardiology, case management consult. 10/18 Patient is seen at the bedside. He is sitting comfortably in a chair. V itals temperature 98.6, pulse rate 90, respiratory rate 18 , blood pressure 128/80, SpO2 96% on 2 L nasal cannula. He states that he is doing well. He denies headache, dizziness, nausea, vomiting, chest pain, palpitations, abdominal pain, difficulty in urination, diarrhea, numbness and paresthesias in bilateral lower extremities. He is able to ambulate short distance with the phys ical therapy today. Remarkable lab results hemoglobin 10.2, calcium 8.1, albumin 2.8. Magnesium levels improved from 1.7-1.9. Pending orthopedic surgery consult for right transverse supracondylar fracture distal humerus. Cardiac Clearance is obtained for right humerus fracture surgery. 10/19 Patient is seen and examined at the bedside. Vitals Temperature 97.9, pulse rate 67, respiratory rate 18, blood pressure 174/91, SpO2 100% on 2 L nasal cannula. He states that his right upper extremity pain is still severe and constant. No acute events last night. He denies headache, dizziness, nausea, vomiting, chest pain, palpitations, abdominal pain, difficulty in urination, diarrhea, numbness and paresthesias in bilateral lower extremities. Remarkable lab results hemoglobin 10.5, albumin 2.7. Chest x-ray resulted in prominent interstitial markings with possible superimposed infiltrates secondary to COPD. Pending orthopedic surgery consult. 10/20 Today on bedside evaluation patient was found awake alert and oriented x 3. at bedside. Patient reports wanting to proceed with surgery. Vitals are stable, afebrile, satting 95% on 2 L nasal cannula. Today's labs are stable. 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 Lee has cleared him for surgery if surgery is required. Dr. Mills to visit patient again today for treatment options. We will follow up with Dr. Mills's recommendations. Continues with right arm splint and sling. REVIEW OF SYSTEMS 12-point ROS reviewed with patient. All pertinent positives mentioned above. Otherwise negative, non-pertinent, or noncontributory. PHYSICAL EXAM GENERAL APPEARANCE: The patient is awake, alert, and oriented, in no acute cardiopulmonary distress. NEUROLOGICAL: Cranial nerves II-XII grossly intact. No sensory deficits. HEENT: Face is symmetric. Pupils are equal and reactive. Extraocular movements are intact. NECK: Supple. No JVD. No thyromegaly. No submental, submandibular, pre- /postauricular, occipital or supraclavicular lymphadenopathy. CHEST: Normal chest expansion. No Telemetry. LUNGS: Absence of any rales, rhonchi or any wheezing. CARDIOVASCULAR: Regular. S1 and S2 normal. No appreciable rubs, murmurs or g allops. ABDOMEN: Obese. Soft, nontender, and nondistended. There is no rebound, voluntary guarding, or rigidity. : Deferred. No Rivera. EXTREMITIES: Left lower extremity edema. No cyanosis. No clubbing. Good capillary refill. SKIN: No skin breakdown. Vital Signs (last 8hr) Date Time Temp Pulse Resp B/P (MAP) Pulse Ox O2 Delivery O2 Flow Rate FiO2 10/20/24 08:00 98.1 74 18 146/73 98 Room Air 21 10/20/24 07:29 82 18 N/Cannula Low lpm 2.0 28 10/20/24 04:00 97.7 72 20 156/81 97 CPAP 10/20/24 03:50 84 16 30 LABS: Laboratory: Test 10/20/24 05:16 10/20/24 04:50 10/19/24 17:35 10/19/24 16:10 Range/Units Whole Blood Glucose 169 H 70-110 MG/DL White Blood Count 5.1 4.8-10.8 K/uL Red Blood Count 3.63 L 4.50-6.20 MIL/uL Hemoglobin 10.7 L 14.0-18.0 g/dL Hematocrit 33.6 L 42-54 % Mean Corpuscular Volume 92.6 79-99 fL Mean Corpuscular Hemoglobin 29.5 27.0-33.0 pg Mean Corpuscular Hemoglobin Concent 31.8 L 32.0-36.0 g/dL Red Cell Distribution Width 14.4 11.0-15.5 % Platelet Count 244 # 130-400 K/uL Mean Platelet Volume 9.2 7.5-10.5 fL Immature Granulocyte % (Auto) 0.6 0-1 % Neutrophils (%) (Auto) 78.9 H 40.0-77.0 % Lymphocytes (%) (Auto) 17.9 L 21.0-51.0 % Monocytes (%) (Auto) 2.4 L 3.0-13.0 % Eosinophils (%) (Auto) 0.0 0.0-8.0 % Basophils (%) (Auto) 0.2 0.0-5.0 % Neutrophils # (Auto) 4.0 1.8-7.7 K/uL Lymphocytes # (Auto) 0.9 L 1.0-4.8 K/uL Monocytes # (Auto) 0.1 0.1-1.0 K/uL Eosinophils # (Auto) 0.00 0.00-0.70 K/uL Basophils # (Auto) 0.01 0.00-0.20 K/uL Absolute Immature Granulocyte (auto 0.03 0-1 K/uL Nucleated Red Blood Cells 0.0 0.0-0.19 % Sodium Level 139 136-145 mmol/L Potassium Level 4.6 3.5-5.1 mmol/L Chloride Level 100 L 101-111 mmol/L Carbon Dioxide Level 35 H 21-32 mmol/L Blood Urea Nitrogen 16 7-18 mg/dL Creatinine 1.0 0.5-1.3 mg/dL Glomerular Filtration Rate Calc 77 >90 mL/min Random Glucose 173 H 70-105 mg/dL Total Calcium 8.4 L 8.5-10.1 mg/dL Magnesium Level 2.00 1.80-2.40 mg/dL Prothrombin Time 10.9 9.6-11.6 SEC Prothromb Time International Ratio 1.01 0.85-1.15 Bedside Glucose Comment Notified Nurse Test 10/19/24 05:27 Range/Units Total Bilirubin 0.6 0.2-1.0 mg/dL Aspartate Amino Transf (AST/SGOT) 18 10-37 U/L Alanine Aminotransferase (ALT/SGPT) 16 12-78 U/L Alkaline Phosphatase 85 50-136 U/L Total Protein 5.9 L 6.0-8.3 g/dL Albumin 2.7 L 3.5-5.0 g/dL Current Medications Medications (Trade) Dose Ordered Sig/Jose Route PRN Reason Start Time Stop Time Status Last Admin Dose Admin Acetaminophen (TYLenol 325MG TAB) 650 mg Q6H PRN PO FEVER/MILD PAIN LEVEL 1-3 10/15/24 19:00 11/14/24 18:59 Acetaminophen (TYLenol 650MG SUPPOSITORY) 650 mg Q6H PRN RC FEVER / MILD PAIN 1-3 IF NPO 10/15/24 19:00 11/14/24 18:59 Albuterol Sulfate (Proventil 0.083% 2.5mg/3ml) 2.5 mg Q4H PRN IH SHORTNESS OF BREATH 10/19/24 08:30 11/18/24 08:29 10/19/24 10:59 2.5 MG Amlodipine Besylate (NorvASC 5MG TAB) 5 mg DAILY PO 10/17/24 09:00 11/16/24 08:59 10/19/24 10:03 5 MG Aspirin (Aspirin 81mg Chew Tab) 81 mg DAILY PO 10/17/24 09:00 11/16/24 08:59 10/19/24 10:03 81 MG Atorvastatin Calcium (LIPItor 40MG) 40 mg HS PO 10/16/24 21:00 10/17/24 18:13 DC 10/16/24 19:39 40 MG Docusate Sodium (COLace 100MG CAP) 100 mg BID PO 10/16/24 09:00 11/15/24 08:59 10/19/24 20:03 100 MG Docusate Sodium (COLace 100MG CAP) 100 mg BID PRN PO CONSTIPATION 10/15/24 19:00 11/14/24 18:59 Famotidine (Pepcid 20mg Tab) 20 mg BID PO 10/15/24 21:00 10/15/24 20:44 DC 10/15/24 20:10 20 MG Famotidine (Pepcid 20mg Tab) 20 mg Q24H PO 10/16/24 21:00 11/14/24 20:59 10/19/24 20:04 20 MG Furosemide (LASix 20MG VIAL) 20 mg DAILY IV 10/19/24 16:30 11/18/24 16:29 10/19/24 17:46 20 MG Home Med (Home Medication) Melatonin 6 MG HS PO 10/17/24 21:00 11/16/24 20:59 Hydralazine HCl (APRESOLine 20MG INJ) 10 mg Q2H PRN IV SBP GREATER THAN 160 10/15/24 19:00 11/14/24 18:59 Insulin Human Regular (humuLIN R 100 UNIT/ML 3ML) INSULIN SLIDING SCAL... ACHS SQ 10/15/24 21:00 11/14/24 20:59 10/19/24 18:45 4 UNIT Ipratropium [place] (AtrovENT UD) 0.5 MG Q4H PRN IH SHORTNESS OF BREATH 10/19/24 08:30 11/18/24 08:29 10/19/24 10:59 0.5 MG Lactulose (Constulose 20gm/ 30ml Udcup) 20 gm Q6H PRN PO CONSTIPATION 10/15/24 19:00 11/14/24 18:59 Loratadine (LORATAdine 10 mg) 10 mg DAILY PO 10/20/24 09:00 11/19/24 08:59 Losartan Potassium (CozAAR 50 mg TAB) 50 mg BID PO 10/16/24 21:00 11/15/24 20:59 10/19/24 20:04 50 MG Magnesium Sulfate 50 ml @ 0 mls/hr PROTOCOL PRN IV HYPOMAGNESEMIA 10/16/24 09:30 11/15/24 09:29 10/19/24 06:27 25 MLS/HR Methylprednisolone Sodium Succinate (Solu-medROL 40MG) 20 mg BID IVP 10/19/24 21:00 11/18/24 20:59 10/19/24 20:04 20 MG Montelukast Sodium (SinguLAIR) 10 mg DAILY PO 10/20/24 09:00 11/19/24 08:59 Morphine Sulfate (morPHINE 2MG SYG) 2 mg Q4H PRN IVP SEVERE PAIN (7-10) 10/16/24 11:00 10/23/24 10:59 10/19/24 20:11 2 MG Ondansetron HCl (zoFRAN 4MG INJ) 4 mg Q6H PRN IVP NAUSEA/VOMITING 10/15/24 19:00 11/14/24 18:59 Potassium Chloride 100 ml @ 100 mls/hr AD PRN IV POTASSIUM PROTOCOL 10/16/24 09:30 11/15/24 09:29 Potassium Chloride (K-Dur/Klor-Con 20meq) 20 meq AD PRN PO POTASSIUM PROTOCOL 10/16/24 09:30 11/15/24 09:29 10/19/24 06:32 20 MEQ Potassium Chloride (KCl 10% Elixir 20meq/15ml) 20 meq AD PRN PO POTASSIUM PROTOCOL 10/16/24 09:30 11/15/24 09:29 Sodium Chloride 1,000 ml @ 125 mls/hr Q8H IV 10/15/24 15:00 10/19/24 16:48 DC 10/18/24 20:39 125 MLS/HR Tamsulosin HCl (FloMAX) 0.4 mg HS PO 10/16/24 21:00 11/15/24 20:59 10/19/24 20:04 0.4 MG Temazepam (restORIL 15 MG CAP) 15 mg HS PRN PO INSOMNIA/SLEEP 10/15/24 19:00 11/14/24 18:59 Trazodone HCl (DesyREL/OlepTRO) 200 mg HS PO 10/17/24 21:00 11/16/24 20:59 10/19/24 20:04 200 MG DIAGNOSTICS / RADIOLOGY: [ ] 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, present in the right posterior frontal region, per CT 10/16/2024 Decreased inability to walk, frequent falls Transverse fracture with mild displacement in the supracondylar region of the distal humerus s/p fall on 09/26/2024 Orthostatic hypotension Chronic pain on oxycodone scheduled b.i.d., now on Tylenol with codeine also for humerus pain Electrolyte derangement (hyponatremia, hypochloremia, hypomagnesemia) improved Acute kidney injury, GFR 51, improved Acute on chronic kidney disease, GFR 51, Acute dehydration, improved Anorexia Hyperglycemia Chronic Left lower extremity edema Severe constipation, improving COPD on home supplemental oxygen 3 L Hypertension Diabetes mellitus type 2 with hyperglycemia Coronary artery disease with history of prior silent MT with fixed inferior and inferolateral defects noted on Lexiscan Cardiolite stress test 07/01/2024 with a gated EF of 62% Type 2 diabetes mellitus Peripheral artery disease, stable BPH Psoriatic arthritis PTSD Tinnitus Hyperlipidemia PLAN: Continue admission orthopedic unit Continue heart healthy diet Monitor respiration status closely. We will follow up with recommendations from Dr. Mills, will be speaking to patient later today regarding surgery vs conservative management, we will follow up Follow up on right elbow x-ray and CT upper extremity results Continue ipratropium 0.5 mg q.4 H p.r.n., albuterol 2.5 mg q.4h p.r.n. for shortness of breath Hold statins for 30 days according to cardiology recommendation in view of bilateral lower extremity weakness P.r.n. medications for: Pain management, nausea, vomiting, constipation, hypertension, fevers, shortness of breath. Continue Colace 100 mg p.o. b.i.d.. Glucometer checks a.c. and HS with insulin regular sliding scale. Continue blood pressure checks every 4 hours and p.r.n.. Replace electrolytes Physical therapy consulted Monitor a.m. labs PRN Treatment - Add when necessary meds for nausea, vomiting, pain, constipation, insomnia. DVT/GI prophylaxis- Continue SCDs and famotidine at current doses. Full CODE STATUS Case management coordinating for placement This document was generated in part using voice recognition software, occasional wrong word or sound alike substitutions may have occurred due to the inherent limitations of voice recognition software. Read the chart carefully and recognize using context, where the substitutions have occurred. Although every effort was made to edit the content, zigzag machine operator and typing errors may occur ATTESTATION BY PHYSICIAN I have seen and examined the patient. I reviewed the documentation, medical decision making, and treatment plan as noted by the mid-level provider above. I agree with the findings and plan of care. Finesse Ho MD, [facility] Oct 20, 2024 09:27 FINESSE HO MD Oct 20, 2024 12:17
[2024-10-20] MEDS: LORATAdine 10 mg 10 MG TABLET PO SCH (10:01)
[2024-10-20] MEDS: monteLUKAST sodIUM 10 MG TAB PO SCH (10:01)
--- NOTE | 2024-10-20 10:36 | PN ---
[facility] PROGRESS NOTE Date Patient Seen: Oct 20, 2024 Time of Visit: 10:30 Supervising Physician: [Dr. Nelson] Primary Care Physician: Dr. Robert Guthrie at [facility] Outpatient Specialists: Inpatient Consults: [facility] pulmonology team Cardiology, Orthopedics PROBLEM LIST: COPD on home supplemental oxygen 3 L, POA Acute on chronic hypoxemic respiratory failure, POA Transverse fracture with mild displacement in the supracondylar region of the di stal humerus s/p fall on 09/26/2024 Small R-pleural effusion Chronic pain on oxycodone scheduled b.i.d., with addition of Tylenol with codeine s/p fall & fracture of humerus Frequent falls Frailty/debility/general body weakness POA Bilateral lower extremity weakness, POA 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, present in the right posterior frontal region, per CT 10/16/2024 Decreased inability to walk, frequent falls Orthostatic hypotension Electrolyte derangement (hyponatremia, hypochloremia, hypomagnesemia) improved Acute kidney injury, GFR 51, improved Acute on chronic kidney disease, GFR 51, Acute dehydration, improved Anorexia Hyperglycemia Chronic Left lower extremity edema Severe constipation, improving Hypertension Diabetes mellitus type 2 with hyperglycemia Coronary artery disease with history of prior silent AK with fixed inferior and inferolateral defects noted on Lexiscan Cardiolite stress test 07/01/2024 with a gated EF of 62% Type 2 diabetes mellitus Peripheral artery disease, stable BPH Psoriatic arthritis PTSD Tinnitus Hyperlipidemia Non-compliance with CPAP INTERVAL HISTORY: [Blood pressure is 165/81 with a heart rate of 100, afebrile on 2 LNC. CXR shows prominent bilateral pulmonary infiltrates as well as a small right pleural effusion. ABG shows a pH of 7.41, pCO2 47, PO2 of 66, bicarb of 29. Patient continues on IS. Is on supplemental oxygen at baseline with 2 L. Will start pulmonary toileting and continue IS.] 10/20 blood pressure is 146/73 with a heart rate of 74, afebrile currently on room air. CBC and BMP is within normal limits, no current electrolyte derangement, creatinine 1.0. Patient was admitted for evaluation of right humeral fracture, has been followed by Orthopedic surgery, pending further recommendation regarding surgery. He continues on pulmonary toileting. REVIEW OF SYSTEMS: 12 point ROS reviewed with patient. Pertinent positives mentioned above. Otherwise negative. PHYSICAL EXAM: GENERAL: Alert, awake oriented x 3 HEENT: EOMI, Sclera non icteric, moist mucosa NECK: Supple, no JVD, trachea midline LUNGS: Clear breath sounds bilaterally. No wheezes HEART: Regular rate and rhythm. Normal S1 and S2, without murmurs ABD: Obese. Abdomen soft, nontender. Bowel sounds present EXT: No clubbing cyanosis or edema NEURO: Alert and oriented X3, no neuro deficits noted. Vital Signs (last 8hr) Date Time Temp Pulse Resp B/P (MAP) Pulse Ox O2 Delivery O2 Flow Rate FiO2 10/20/24 08:00 98.1 74 18 146/73 98 Room Air 21 10/20/24 07:29 82 18 N/Cannula Low lpm 2.0 28 10/20/24 04:00 97.7 72 20 156/81 97 CPAP 10/20/24 03:50 84 16 30 LABS: Hematology Labs: Test 10/20/24 04:50 Range/Units White Blood Count 5.1 4.8-10.8 K/uL Red Blood Count 3.63 L 4.50-6.20 MIL/uL Hemoglobin 10.7 L 14.0-18.0 g/dL Hematocrit 33.6 L 42-54 % Mean Corpuscular Volume 92.6 79-99 fL Mean Corpuscular Hemoglobin 29.5 27.0-33.0 pg Mean Corpuscular Hemoglobin Concent 31.8 L 32.0-36.0 g/dL Red Cell Distribution Width 14.4 11.0-15.5 % Platelet Count 244 # 130-400 K/uL Mean Platelet Volume 9.2 7.5-10.5 fL Immature Granulocyte % (Auto) 0.6 0-1 % Neutrophils (%) (Auto) 78.9 H 40.0-77.0 % Lymphocytes (%) (Auto) 17.9 L 21.0-51.0 % Monocytes (%) (Auto) 2.4 L 3.0-13.0 % Eosinophils (%) (Auto) 0.0 0.0-8.0 % Basophils (%) (Auto) 0.2 0.0-5.0 % Neutrophils # (Auto) 4.0 1.8-7.7 K/uL Lymphocytes # (Auto) 0.9 L 1.0-4.8 K/uL Monocytes # (Auto) 0.1 0.1-1.0 K/uL Eosinophils # (Auto) 0.00 0.00-0.70 K/uL Basophils # (Auto) 0.01 0.00-0.20 K/uL Absolute Immature Granulocyte (auto 0.03 0-1 K/uL Nucleated Red Blood Cells 0.0 0.0-0.19 % Chemistry Labs: Test 10/20/24 05:16 10/20/24 04:50 10/19/24 16:10 10/19/24 05:27 Range/Units Whole Blood Glucose 169 H 70-110 MG/DL Sodium Level 139 136-145 mmol/L Potassium Level 4.6 3.5-5.1 mmol/L Chloride Level 100 L 101-111 mmol/L Carbon Dioxide Level 35 H 21-32 mmol/L Blood Urea Nitrogen 16 7-18 mg/dL Creatinine 1.0 0.5-1.3 mg/dL Glomerular Filtration Rate Calc 77 >90 mL/min Random Glucose 173 H 70-105 mg/dL Total Calcium 8.4 L 8.5-10.1 mg/dL Magnesium Level 2.00 1.80-2.40 mg/dL Bedside Glucose Comment Notified Nurse Total Bilirubin 0.6 0.2-1.0 mg/dL Aspartate Amino Transf (AST/SGOT) 18 10-37 U/L Alanine Aminotransferase (ALT/SGPT) 16 12-78 U/L Alkaline Phosphatase 85 50-136 U/L Total Protein 5.9 L 6.0-8.3 g/dL Albumin 2.7 L 3.5-5.0 g/dL Coagulation Labs: Test 10/19/24 17:35 Range/Units Prothrombin Time 10.9 9.6-11.6 SEC Prothromb Time International Ratio 1.01 0.85-1.15 DIAGNOSTICS / RADIOLOGY RESULTS: Reviewed PULMONARY PLAN: pulmonary toileting Start solumedrol 20mg BID Start lasix 20mg IV daily for small pl effusion, monitor volume status and creatinine, dc if he becomes clinically dry Continue to monitor respiratory status closely. Continue oxygen supplementation, titrate oxygen prn to keep Spo2>/+=92%. Albuterol and Atrovent nebulizer treatment p.r.n. shortness of breath. RT to provide IS and education on use. Cough and deep breathe exercise. Robitussin DM as needed cough. SUZETTE CHEN Oct 20, 2024 10:36
--- NOTE | 2024-10-20 14:51 | PN ---
DATE OF SERVICE: 10/20/2024 SUBJECTIVE: This is a 79-year-old gentleman who has been diagnosed with a right distal humerus fracture. No acute events overnight. Pain is under control. No acute events overnight. PHYSICAL EXAMINATION: GENERAL: The patient is awake, alert, oriented x 3. VITAL SIGNS: The latest vital signs are temperature 98.1, pulse is 91, respiratory rate is 20, blood pressure 156/61, pulse oximetry 92% on 2 liters nasal cannula. EXTREMITIES: Examination of the right elbow and right upper extremity shows the posterior splint was removed. The wounds, abrasions, which were previously present are healing well. No obvious signs of infection noted. Very minimal tenderness present to the distal humerus. The elbow range of motion is limited. Motor, sensory is grossly intact. Fingers are warm and pink. Good capillary refill is present. LABORATORY INVESTIGATION: Shows white cell count is 5.1, hemoglobin 10.7, hematocrit is 33.6, platelet count is 244. X-rays of the right elbow, which were done yesterday shows that the fracture is healing in acceptable alignment on both AP and lateral view. ASSESSMENT AND PLAN: I had a detailed conversation with the patient regarding his elbow fractures, which were done yesterday and told the treatment options. I told him the fractures are in acceptable alignment. The date of injury was, I think, 09/26, so we should give at least another couple of weeks for the fracture to become more sticky. Then after that, the patient can start gentle range of motion and we will send him to therapy at that time. All risks and benefits were explained in detail. The patient agreed with the plan. The patient wants conservative management. The patient will come to the clinic in about 2 weeks. Nonweightbearing to right upper extremity, no pushing no pulling. TID: [id number] RECEIPT: [id number] [facility]
--- NOTE | 2024-10-20 15:15 | NUR ---
DR THOMAS HERE AND ASSESSED PATIENT DRESSING TO RT UPPER ARM REMOVED AND MD ASSESSED ,TWO ABRASION SITES WITH XEREFORM GAUZE REMOVED AND BOTH SITE WITH A CLEAN PINK WOUND BED ,REDRESSED PER MD INSTRUCTIONS TO REPLACE XEREFORM GAUZE AND REAPPLY THE SPLINT TO RT ARM. PATIENT TOLERATED WELL.
--- NOTE | 2024-10-20 19:48 | NUR ---
NURSING ROUNDS BEDSIDE REPORT RECEIVED BY SOFÍA INTERIANO, AT BEDSIDE. EDUCATED PATIENT AND ON PLAN OF CARE, PAIN CONTROL, FALL PREVENTION AND TOILETING. PATIENT STATED PAIN AT THIS TIME TO RIGHT UPPER ARM, PATIENT MEDICATED. CALL LIGHT PLACED WITHIN REACH, PATIENT STATED UNDERSTANDING ON USE OF CALL BUTTON.
--- NOTE | 2024-10-20 20:30 | NUR ---
NURSING ROUNDS PATIENT AWAKE AND WATCHING TELEVISION WITH AT BEDSIDE. ADMINISTERED MEDICATIONS ORDERED, OFFERED ASSISTANCE WITH INCONTINENT CARE, PATIENT REFUSED AT THIS TIME. IV TO LEFT HAND 22G FLUSHED. BED ALARM ARMED, CALL LIGHT WITHIN REACH.
[2024-10-21] VITALS (8 sets, daily range): BP systolic 131–167; BP diastolic 68–82; PULSE 68–94; RESP 18–20; TEMP 97.4–98.4; O2SAT 95–98
--- NOTE | 2024-10-21 | NUR ---
NURSING ROUNDS PATIENT ASLEEP, AWAKENED WHEN SPOKEN TO, DENIES PAIN AT THIS TIME. BED ALARM ARMED, CALL LIGHT WITHIN REACH.
[2024-10-21 03:35] LABS: BASOPHILS # (AUTO) 0.01 K/uL (0.00-0.20); BASOPHILS % (AUTO) 0.1 % (0.0-5.0); HEMATOCRIT 34.8 % (42-54); IMMATURE GRANULOCYTE ABSOLUTE 0.05 K/uL (0-1); LYMPHOCYTES % (AUTO) 13.8 % (21.0-51.0); MEAN CORPUSCULAR HEMOGLOBIN 29.6 pg (27.0-33.0); MEAN CORPUSCULAR HGB CONC 32.2 g/dL (32.0-36.0); MEAN CORPUSCULAR VOLUME 92.1 fL (79-99); MONOCYTES # (AUTO) 0.3 K/uL (0.1-1.0); MONOCYTES % (AUTO) 3.6 % (3.0-13.0); NEUTROPHILS # (AUTO) 5.7 K/uL (1.8-7.7); NEUTROPHILS % (AUTO) 81.8 % (40.0-77.0); PLATELET COUNT (AUTO) 228 K/uL (130-400); RED BLOOD CELL COUNT(AUTO) 3.78 MIL/uL (4.50-6.20); RED CELL DISTRIBUTION WIDTH 14.6 % (11.0-15.5)
[2024-10-21 03:54] LABS: POTASSIUM 4.6 mmol/L (3.5-5.1)
--- NOTE | 2024-10-21 14:58 | NUR ---
[facility] NOTE: STR PENDING APPROVAL [facility] [employer] SUPERVISOR OBTAINED TIFFANIE FOR STR FROM PATIENT . [facility] [employer] SUPERVISOR SENT ORDER, CLINICALS, PT TO [facility] VIA SECURE FAX AND EMAIL. CM INFORMED ENEDINA W/[facility] OF NEW REFERRAL, AWARE DCP ONCE APPROVED VIA SECURE TEXT. PENDING REP RESPONSE. PT PENDING APPROVAL AND ACCEPTANCE. MOT SEMI-FILLED PENDING TO COMPLETE ONCE AUTH RECEIVED. EMS ARRANGED AND FAXED FOR TODAY IN CASE PT ABLE TO DC. PRIMARY NURSE YAZMIN MONCADA. TERI BANKS UPDATED. [facility] TO CONTINUE TO FOLLOW UP. Addendum: 10/21/24 at 1507 by GUILHERME JULES LVN CM Amended: Links added.
--- NOTE | 2024-10-21 15:26 | PN ---
[facility] PROGRESS NOTE Date Patient Seen: Oct 21, 2024 Time of Visit: 15:26 Supervising Physician: [Dr. Nelson] Primary Care Physician: Dr. Robert Guthrie at [facility] Outpatient Specialists: Inpatient Consults: [facility] pulmonology team Cardiology, Orthopedics PROBLEM LIST: COPD on home supplemental oxygen 3 L, POA Acute on chronic hypoxemic respiratory failure, POA Transverse fracture with mild displacement in the supracondylar region of the di stal humerus s/p fall on 09/26/2024 Small R-pleural effusion Chronic pain on oxycodone scheduled b.i.d., with addition of Tylenol with codeine s/p fall & fracture of humerus Frequent falls Frailty/debility/general body weakness POA Bilateral lower extremity weakness, POA 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, present in the right posterior frontal region, per CT 10/16/2024 Decreased inability to walk, frequent falls Orthostatic hypotension Electrolyte derangement (hyponatremia, hypochloremia, hypomagnesemia) improved Acute kidney injury, GFR 51, improved Acute on chronic kidney disease, GFR 51, Acute dehydration, improved Anorexia Hyperglycemia Chronic Left lower extremity edema Severe constipation, improving Hypertension Diabetes mellitus type 2 with hyperglycemia Coronary artery disease with history of prior silent FL with fixed inferior and inferolateral defects noted on Lexiscan Cardiolite stress test 07/01/2024 with a gated EF of 62% Type 2 diabetes mellitus Peripheral artery disease, stable BPH Psoriatic arthritis PTSD Tinnitus Hyperlipidemia Non-compliance with CPAP INTERVAL HISTORY: [Blood pressure is 165/81 with a heart rate of 100, afebrile on 2 LNC. CXR shows prominent bilateral pulmonary infiltrates as well as a small right pleural effusion. ABG shows a pH of 7.41, pCO2 47, PO2 of 66, bicarb of 29. Patient continues on IS. Is on supplemental oxygen at baseline with 2 L. Will start pulmonary toileting and continue IS.] 10/20 blood pressure is 146/73 with a heart rate of 74, afebrile currently on room air. CBC and BMP is within normal limits, no current electrolyte derangement, creatinine 1.0. Patient was admitted for evaluation of right humeral fracture, has been followed by Orthopedic surgery, pending further recommendation regarding surgery. He continues on pulmonary toileting. 10/21 Patient continues on supplemental oxygen with 2LNC which is baseline and is weaning off to room air. Labs and vitals are WNL. He was pending surgery, unsure if it will be performed. Patient has no absolute contraindication for R- humeral fracture surgery from pulmonary standpoint. For now will continue all current management. On behalf of [facility], thank you for this interesting consult. We will sign off but please feel free to reach out with any questions/concerns or reconsult as needed. REVIEW OF SYSTEMS: 12 point ROS reviewed with patient. Pertinent positives mentioned above. Otherwise negative. PHYSICAL EXAM: GENERAL: Alert, awake oriented x 3 HEENT: EOMI, Sclera non icteric, moist mucosa NECK: Supple, no JVD, trachea midline LUNGS: Clear breath sounds bilaterally. No wheezes HEART: Regular rate and rhythm. Normal S1 and S2, without murmurs ABD: Obese. Abdomen soft, nontender. Bowel sounds present EXT: No clubbing cyanosis or edema NEURO: Alert and oriented X3, no neuro deficits noted. Vital Signs (last 8hr) Date Time Temp Pulse Resp B/P (MAP) Pulse Ox O2 Delivery O2 Flow Rate FiO2 10/21/24 11:44 97.3 77 20 131/68 96 Room Air 21 10/21/24 11:31 86 20 N/Cannula Low lpm 21 10/21/24 07:40 98.4 76 20 167/82 98 Nasal Cannula 3.0 LABS: Hematology Labs: Test 10/21/24 03:24 Range/Units White Blood Count 7.0 # 4.8-10.8 K/uL Red Blood Count 3.78 L 4.50-6.20 MIL/uL Hemoglobin 11.2 L 14.0-18.0 g/dL Hematocrit 34.8 L 42-54 % Mean Corpuscular Volume 92.1 79-99 fL Mean Corpuscular Hemoglobin 29.6 27.0-33.0 pg Mean Corpuscular Hemoglobin Concent 32.2 32.0-36.0 g/dL Red Cell Distribution Width 14.6 11.0-15.5 % Platelet Count 228 130-400 K/uL Mean Platelet Volume 8.7 7.5-10.5 fL Immature Granulocyte % (Auto) 0.7 0-1 % Neutrophils (%) (Auto) 81.8 H 40.0-77.0 % Lymphocytes (%) (Auto) 13.8 L 21.0-51.0 % Monocytes (%) (Auto) 3.6 3.0-13.0 % Eosinophils (%) (Auto) 0.0 0.0-8.0 % Basophils (%) (Auto) 0.1 0.0-5.0 % Neutrophils # (Auto) 5.7 1.8-7.7 K/uL Lymphocytes # (Auto) 1.0 1.0-4.8 K/uL Monocytes # (Auto) 0.3 0.1-1.0 K/uL Eosinophils # (Auto) 0.00 0.00-0.70 K/uL Basophils # (Auto) 0.01 0.00-0.20 K/uL Absolute Immature Granulocyte (auto 0.05 0-1 K/uL Nucleated Red Blood Cells 0.0 0.0-0.19 % Chemistry Labs: Test 10/21/24 10:45 10/21/24 05:14 10/21/24 03:24 10/20/24 04:50 Range/Units Whole Blood Glucose 142 H 70-110 MG/DL Bedside Glucose Comment Notified Nurse Sodium Level 136 136-145 mmol/L Potassium Level 4.6 3.5-5.1 mmol/L Chloride Level 98 L 101-111 mmol/L Carbon Dioxide Level 34 H 21-32 mmol/L Blood Urea Nitrogen 22 H 7-18 mg/dL Creatinine 1.0 0.5-1.3 mg/dL Glomerular Filtration Rate Calc 77 >90 mL/min Random Glucose 219 H 70-105 mg/dL Total Calcium 8.8 8.5-10.1 mg/dL Magnesium Level 2.00 1.80-2.40 mg/dL Coagulation Labs: Test 10/19/24 17:35 Range/Units Prothrombin Time 10.9 9.6-11.6 SEC Prothromb Time International Ratio 1.01 0.85-1.15 DIAGNOSTICS / RADIOLOGY RESULTS: Reviewed PULMONARY PLAN: pulmonary toileting Continue solumedrol 20mg BID Continue lasix 20mg IV daily for small pl effusion, monitor volume status and creatinine, dc if he becomes clinically dry Continue to monitor respiratory status closely. Continue oxygen supplementation, titrate oxygen prn to keep Spo2>/+=92%. Albuterol and Atrovent nebulizer treatment p.r.n. shortness of breath. RT to provide IS and education on use. Cough and deep breathe exercise. Robitussin DM as needed cough. SUZETTE CHEN Oct 21, 2024 15:26
--- NOTE | 2024-10-21 15:36 | PN ---
[facility] PROGRESS NOTE Date of Service: Oct 21, 2024 Time of Service: 15:32 SUBJECTIVE: Patient seen and examined in room [address] Robert Guthrie Admitting date 10/15/2024 Patient is seen at the bedside. He is awake alert and oriented. Vitals temperature 97.9, pulse rate 90, respiratory rate 17, blood pressure 156/77, SpO2 99% on room air. He complains of severe right arm pain secondary to transverse supracondylar fracture distal humerus post fall on 09/26. He also states that he has been experiencing bilateral lower extremity weakness, balance difficulties while walking which increased in intensity post fall. He denies headache, dizziness, nausea, vomiting, chest pain, palpitations, abdominal pain, difficulty in urination, diarrhea, numbness and paresthesias in bilateral lower extremities. Remarkable lab results hemoglobin 10, BUN 24, creatinine 1.1, magnesium 1.6. TSH, TCK, troponin, calcium levels are normal. ABG pH 7.4, PO2 66.3, pCO2 47. 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 Left lower extremity venous Doppler ultrasound normal. Carotid ultrasound revealed mild plaque in both carotid bifurcations and No anatomic or hemodynamic evidence of significant focal stenosis. Pending cardiology and Neurology consult 10/17 Patient is seen at the bedside. He is awake alert and oriented. He is hemodynamically stable SpO2 95% on nasal cannula 2 L. He still complains of bilateral lower extremity weakness. He denies headache, dizziness, nausea, vomiting, chest pain, palpitations, abdominal pain, difficulty in urination, diarrhea, numbness and paresthesias in bilateral lower extremities. Remarkable Lab results hemoglobin 10, magnesium 1.7, calcium 8.1, albumin 2.5. B12, BNP levels are normal. 2D echo Resulted in ejection fraction of 55-60%. Urinalysis results are normal. Pending cardiology, case management consult. 10/18 Patient is seen at the bedside. He is sitting comfortably in a chair. V itals temperature 98.6, pulse rate 90, respiratory rate 18 , blood pressure 128/80, SpO2 96% on 2 L nasal cannula. He states that he is doing well. He denies headache, dizziness, nausea, vomiting, chest pain, palpitations, abdominal pain, difficulty in urination, diarrhea, numbness and paresthesias in bilateral lower extremities. He is able to ambulate short distance with the phys ical therapy today. Remarkable lab results hemoglobin 10.2, calcium 8.1, albumin 2.8. Magnesium levels improved from 1.7-1.9. Pending orthopedic surgery consult for right transverse supracondylar fracture distal humerus. Cardiac Clearance is obtained for right humerus fracture surgery. 10/19 Patient is seen and examined at the bedside. Vitals Temperature 97.9, pulse rate 67, respiratory rate 18, blood pressure 174/91, SpO2 100% on 2 L nasal cannula. He states that his right upper extremity pain is still severe and constant. No acute events last night. He denies headache, dizziness, nausea, vomiting, chest pain, palpitations, abdominal pain, difficulty in urination, diarrhea, numbness and paresthesias in bilateral lower extremities. Remarkable lab results hemoglobin 10.5, albumin 2.7. Chest x-ray resulted in prominent interstitial markings with possible superimposed infiltrates secondary to COPD. Pending orthopedic surgery consult. 10/20 Today on bedside evaluation patient was found awake alert and oriented x 3. at bedside. Patient reports wanting to proceed with surgery. Vitals are stable, afebrile, satting 95% on 2 L nasal cannula. Today's labs are stable. Patient reports his labview programmer Dr. Lee has cleared him for surgery if surgery is required. Dr. Mills to visit patient again today for treatment options. We will follow up with Dr. Mills's recommendations. Continues with right arm splint and sling. 10/21/24 patient is seen and examined with attending reviewed chart. Patient was seen earlier today patient is fully awake alert oriented x3. Patient agreed for inpatient rehab [facility]. Patient continues with physical therapy was seen by Orthopedic no surgical intervention on this admission patient wants conservat jet management. REVIEW OF SYSTEMS 12-point ROS reviewed with patient. All pertinent positives mentioned above. Otherwise negative, non-pertinent, or noncontributory. PHYSICAL EXAM GENERAL APPEARANCE: The patient is awake, alert, and oriented, in no acute cardiopulmonary distress. NEUROLOGICAL: Cranial nerves II-XII grossly intact. No sensory deficits. HEENT: Face is symmetric. Pupils are equal and reactive. Extraocular movements are intact. NECK: Supple. No JVD. No thyromegaly. No submental, submandibular, pre- /postauricular, occipital or supraclavicular lymphadenopathy. CHEST: Normal chest expansion. No Telemetry. LUNGS: Absence of any rales, rhonchi or any wheezing. CARDIOVASCULAR: Regular. S1 and S2 normal. No appreciable rubs, murmurs or gallops. ABDOMEN: Obese. Soft, nontender, and nondistended. There is no rebound, voluntary guarding, or rigidity. : Deferred. No Rivera. EXTREMITIES: Left lower extremity edema. No cyanosis. No clubbing. Good capillary refill. SKIN: No skin breakdown. Vital Signs (last 8hr) Date Time Temp Pulse Resp B/P (MAP) Pulse Ox O2 Delivery O2 Flow Rate FiO2 10/21/24 11:44 97.3 77 20 131/68 96 Room Air 21 10/21/24 11:31 86 20 N/Cannula Low lpm 21 10/21/24 07:40 98.4 76 20 167/82 98 Nasal Cannula 3.0 LABS: Laboratory: Test 10/21/24 10:45 10/21/24 05:14 10/21/24 03:24 10/20/24 04:50 Range/Units Whole Blood Glucose 142 H 70-110 MG/DL Bedside Glucose Comment Notified Nurse White Blood Count 7.0 # 4.8-10.8 K/uL Red Blood Count 3.78 L 4.50-6.20 MIL/uL Hemoglobin 11.2 L 14.0-18.0 g/dL Hematocrit 34.8 L 42-54 % Mean Corpuscular Volume 92.1 79-99 fL Mean Corpuscular Hemoglobin 29.6 27.0-33.0 pg Mean Corpuscular Hemoglobin Concent 32.2 32.0-36.0 g/dL Red Cell Distribution Width 14.6 11.0-15.5 % Platelet Count 228 130-400 K/uL Mean Platelet Volume 8.7 7.5-10.5 fL Immature Granulocyte % (Auto) 0.7 0-1 % Neutrophils (%) (Auto) 81.8 H 40.0-77.0 % Lymphocytes (%) (Auto) 13.8 L 21.0-51.0 % Monocytes (%) (Auto) 3.6 3.0-13.0 % Eosinophils (%) (Auto) 0.0 0.0-8.0 % Basophils (%) (Auto) 0.1 0.0-5.0 % Neutrophils # (Auto) 5.7 1.8-7.7 K/uL Lymphocytes # (Auto) 1.0 1.0-4.8 K/uL Monocytes # (Auto) 0.3 0.1-1.0 K/uL Eosinophils # (Auto) 0.00 0.00-0.70 K/uL Basophils # (Auto) 0.01 0.00-0.20 K/uL Absolute Immature Granulocyte (auto 0.05 0-1 K/uL Nucleated Red Blood Cells 0.0 0.0-0.19 % Sodium Level 136 136-145 mmol/L Potassium Level 4.6 3.5-5.1 mmol/L Chloride Level 98 L 101-111 mmol/L Carbon Dioxide Level 34 H 21-32 mmol/L Blood Urea Nitrogen 22 H 7-18 mg/dL Creatinine 1.0 0.5-1.3 mg/dL Glomerular Filtration Rate Calc 77 >90 mL/min Random Glucose 219 H 70-105 mg/dL Total Calcium 8.8 8.5-10.1 mg/dL Magnesium Level 2.00 1.80-2.40 mg/dL Test 10/19/24 17:35 Range/Units Prothrombin Time 10.9 9.6-11.6 SEC Prothromb Time International Ratio 1.01 0.85-1.15 Current Medications Medications (Trade) Dose Ordered Sig/Jose Route PRN Reason Start Time Stop Time Status Last Admin Dose Admin Acetaminophen (TYLenol 325MG TAB) 650 mg Q6H PRN PO FEVER/MILD PAIN LEVEL 1-3 10/15/24 19:00 11/14/24 18:59 Acetaminophen (TYLenol 650MG SUPPOSITORY) 650 mg Q6H PRN RC FEVER / MILD PAIN 1-3 IF NPO 10/15/24 19:00 11/14/24 18:59 Acetaminophen/ Codeine Phosphate (TYLenol-coDEINE TAB) 1 tab Q4H PRN PO MODERATE PAIN (4-6) 10/21/24 15:00 11/20/24 14:59 Albuterol Sulfate (Proventil 0.083% 2.5mg/3ml) 2.5 mg Q4H PRN IH SHORTNESS OF BREATH 10/19/24 08:30 11/18/24 08:29 10/19/24 10:59 2.5 MG Amlodipine Besylate (NorvASC 5MG TAB) 5 mg DAILY PO 10/17/24 09:00 11/16/24 08:59 10/21/24 08:53 5 MG Aspirin (Aspirin 81mg Chew Tab) 81 mg DAILY PO 10/17/24 09:00 11/16/24 08:59 10/21/24 08:55 81 MG Atorvastatin Calcium (LIPItor 40MG) 40 mg HS PO 10/16/24 21:00 10/17/24 18:13 DC 10/16/24 19:39 40 MG Docusate Sodium (COLace 100MG CAP) 100 mg BID PO 10/16/24 09:00 11/15/24 08:59 10/21/24 08:54 100 MG Docusate Sodium (COLace 100MG CAP) 100 mg BID PRN PO CONSTIPATION 10/15/24 19:00 11/14/24 18:59 Famotidine (Pepcid 20mg Tab) 20 mg BID PO 10/15/24 21:00 10/15/24 20:44 DC 10/15/24 20:10 20 MG Famotidine (Pepcid 20mg Tab) 20 mg Q24H PO 10/16/24 21:00 11/14/24 20:59 10/20/24 20:35 20 MG Furosemide (LASix 20MG VIAL) 20 mg DAILY IV 10/19/24 16:30 11/18/24 16:29 10/21/24 10:29 20 MG Home Med (Home Medication) Melatonin 6 MG HS PO 10/17/24 21:00 11/16/24 20:59 Hydralazine HCl (APRESOLine 20MG INJ) 10 mg Q2H PRN IV SBP GREATER THAN 160 10/15/24 19:00 11/14/24 18:59 Insulin Human Regular (humuLIN R 100 UNIT/ML 3ML) INSULIN SLIDING SCAL... ACHS SQ 10/15/24 21:00 11/14/24 20:59 10/21/24 06:24 6 UNIT Ipratropium [place] (AtrovENT UD) 0.5 MG Q4H PRN IH SHORTNESS OF BREATH 10/19/24 08:30 11/18/24 08:29 10/19/24 10:59 0.5 MG Lactulose (Constulose 20gm/ 30ml Udcup) 20 gm Q6H PRN PO CONSTIPATION 10/15/24 19:00 11/14/24 18:59 Loratadine (LORATAdine 10 mg) 10 mg DAILY PO 10/20/24 09:00 11/19/24 08:59 10/21/24 08:53 10 MG Losartan Potassium (CozAAR 50 mg TAB) 50 mg BID PO 10/16/24 21:00 11/15/24 20:59 10/21/24 08:54 50 MG Magnesium Sulfate 50 ml @ 0 mls/hr PROTOCOL PRN IV HYPOMAGNESEMIA 10/16/24 09:30 11/15/24 09:29 10/19/24 06:27 25 MLS/HR Methylprednisolone Sodium Succinate (Solu-medROL 40MG) 20 mg BID IVP 10/19/24 21:00 11/18/24 20:59 10/21/24 08:53 20 MG Montelukast Sodium (SinguLAIR) 10 mg DAILY PO 10/20/24 09:00 11/19/24 08:59 10/21/24 08:54 10 MG Morphine Sulfate (morPHINE 2MG SYG) 2 mg Q4H PRN IVP SEVERE PAIN (7-10) 10/16/24 11:00 10/21/24 13:59 DC 10/21/24 07:20 2 MG Ondansetron HCl (zoFRAN 4MG INJ) 4 mg Q6H PRN IVP NAUSEA/VOMITING 10/15/24 19:00 11/14/24 18:59 Potassium Chloride 100 ml @ 100 mls/hr AD PRN IV POTASSIUM PROTOCOL 10/16/24 09:30 11/15/24 09:29 Potassium Chloride (K-Dur/Klor-Con 20meq) 20 meq AD PRN PO POTASSIUM PROTOCOL 10/16/24 09:30 11/15/24 09:29 10/19/24 06:32 20 MEQ Potassium Chloride (KCl 10% Elixir 20meq/15ml) 20 meq AD PRN PO POTASSIUM PROTOCOL 10/16/24 09:30 11/15/24 09:29 Sodium Chloride 1,000 ml @ 125 mls/hr Q8H IV 10/15/24 15:00 10/19/24 16:48 DC 10/18/24 20:39 125 MLS/HR Tamsulosin HCl (FloMAX) 0.4 mg HS PO 10/16/24 21:00 11/15/24 20:59 10/20/24 20:35 0.4 MG Temazepam (restORIL 15 MG CAP) 15 mg HS PRN PO INSOMNIA/SLEEP 10/15/24 19:00 11/14/24 18:59 Trazodone HCl (DesyREL/OlepTRO) 200 mg HS PO 10/17/24 21:00 11/16/24 20:59 10/20/24 20:35 200 MG DIAGNOSTICS / RADIOLOGY: [ ] 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, present in the right posterior frontal region, per CT 10/16/2024 Decreased inability to walk, frequent falls Transverse fracture with mild displacement in the supracondylar region of the distal humerus s/p fall on 09/26/2024 Orthostatic hypotension Chronic pain on oxycodone scheduled b.i.d., now on Tylenol with codeine also for humerus pain Electrolyte derangement (hyponatremia, hypochloremia, hypomagnesemia) improved Acute kidney injury, GFR 51, improved Acute on chronic kidney disease, GFR 51, Acute dehydration, improved Anorexia Hyperglycemia Chronic Left lower extremity edema Severe constipation, improving COPD on home supplemental oxygen 3 L Hypertension Diabetes mellitus type 2 with hyperglycemia Coronary artery disease with history of prior silent DC with fixed inferior and inferolateral defects noted on Lexiscan Cardiolite stress test 07/01/2024 with a gated EF of 62% Type 2 diabetes mellitus Peripheral artery disease, stable BPH Psoriatic arthritis PTSD Tinnitus Hyperlipidemia PLAN: Continue admission orthopedic unit Continue heart healthy diet Monitor respiration status closely. Dr. Mills, no surgical intervention conservative management, follow-up Clinic two weeks Continue pain management for adequate pain control Continues physical therapy continue with arm sling. Continue ipratropium 0.5 mg q.4 H p.r.n., albuterol 2.5 mg q.4h p.r.n. for shortness of breath Hold statins for 30 days according to cardiology recommendation in view of bilateral lower extremity weakness Patient we will need a nephrologists outpatient P.r.n. medications for: Pain management, nausea, vomiting, constipation, hypertension, fevers, shortness of breath. Continue Colace 100 mg p.o. b.i.d.. Glucometer checks a.c. and HS with insulin regular sliding scale. Continue blood pressure checks every 4 hours and p.r.n.. Replace electrolytes Physical therapy consulted Monitor a.m. labs PRN Treatment - Add when necessary meds for nausea, vomiting, pain, constipation, insomnia. DVT/GI prophylaxis- Continue SCDs and famotidine at current doses. Full CODE STATUS Case management [facility] rehab Case discussed with attending agree with care plan. ATTESTATION BY PHYSICIAN I have seen and examined the patient. I reviewed the documentation, medical decision making, and treatment plan as noted by the mid-level provider above. I agree with the findings and plan of care. Rachael Bethea MD, ELIZABETH NP Oct 21, 2024 15:36
--- NOTE | 2024-10-21 17:20 | NUR ---
SPEECH TRIGGER COMPLETED / FALLS Pt IS A 79 Y.O. MALE ADMITTED SECONDARY TO [facility], AND FREQUENT FALLS. Pt HAS A PAST MEDICAL HISTORY SIGNIFICANT FOR HYPERTENSION, DM, FALLS, HYPERCHOLESTEROLEMIA, AND PERIPHERAL ARTERY DISEASE. PATIENT PRESENTED WITH PROMINENT INTERSTITIAL MARKINGS WITH POSSIBLE SUPERIMPOSED INFILTRATES ON MOST RECENT CHEST X-RAY (10/19/2024). Pt CURRENTLY ON HEART HEALTHY DIET (REGULAR TEXTURE AND THIN LIQUIDS). PER NURSE LILY, Pt TOLERATING DIET WITH NO OVERT S/S OF ASPIRATION. PLEASE REQUEST [facility] [employer] SPEECH SERVICES FOR BEDSIDE SWALLOW EVALUATION IF Pt PRESENTS WITH +S/S OF ASPIRATION SUCH COUGH RESPONSE, THROAT CLEAR, OR WET VOCAL QUALITY DURING ORAL INTAKE. ALL QUESTIONS ANSWERED AT THIS TIME. Addendum: 10/21/[address] [facility] Amended: Links added.
[2024-10-21] MEDS: acetaMINOPHEN WITH coDEINE 1 TAB TAB PO PRN (20:28)
[2024-10-22] VITALS (10 sets, daily range): BP systolic 115–177; BP diastolic 59–84; PULSE 76–91; RESP 17–22; TEMP 97.6–98.2; O2SAT 95–98
[2024-10-22] MEDS: hydrALAZine 20MG/ML VIAL IV PRN (03:39)
--- NOTE | 2024-10-22 12:03 | PN ---
[facility] PROGRESS NOTE Date of Service: Oct 22, 2024 Time of Service: 12:00 SUBJECTIVE: Patient seen and examined in room [address] Robert Guthrie Admitting date 10/15/2024 Patient is seen at the bedside. He is awake alert and oriented. Vitals temperature 97.9, pulse rate 90, respiratory rate 17, blood pressure 156/77, SpO2 99% on room air. He complains of severe right arm pain secondary to transverse supracondylar fracture distal humerus post fall on 09/26. He also states that he has been experiencing bilateral lower extremity weakness, balance difficulties while walking which increased in intensity post fall. He denies headache, dizziness, nausea, vomiting, chest pain, palpitations, abdominal pain, difficulty in urination, diarrhea, numbness and paresthesias in bilateral lower extremities. Remarkable lab results hemoglobin 10, BUN 24, creatinine 1.1, magnesium 1.6. TSH, TCK, troponin, calcium levels are normal. ABG pH 7.4, PO2 66.3, pCO2 47. 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 Left lower extremity venous Doppler ultrasound normal. Carotid ultrasound revealed mild plaque in both carotid bifurcations and No anatomic or hemodynamic evidence of significant focal stenosis. Pending cardiology and Neurology consult 10/17 Patient is seen at the bedside. He is awake alert and oriented. He is hemodynamically stable SpO2 95% on nasal cannula 2 L. He still complains of bilateral lower extremity weakness. He denies headache, dizziness, nausea, vomiting, chest pain, palpitations, abdominal pain, difficulty in urination, diarrhea, numbness and paresthesias in bilateral lower extremities. Remarkable Lab results hemoglobin 10, magnesium 1.7, calcium 8.1, albumin 2.5. B12, BNP levels are normal. 2D echo Resulted in ejection fraction of 55-60%. Urinalysis results are normal. Pending cardiology, case management consult. 10/18 Patient is seen at the bedside. He is sitting comfortably in a chair. V itals temperature 98.6, pulse rate 90, respiratory rate 18 , blood pressure 128/80, SpO2 96% on 2 L nasal cannula. He states that he is doing well. He denies headache, dizziness, nausea, vomiting, chest pain, palpitations, abdominal pain, difficulty in urination, diarrhea, numbness and paresthesias in bilateral lower extremities. He is able to ambulate short distance with the phys ical therapy today. Remarkable lab results hemoglobin 10.2, calcium 8.1, albumin 2.8. Magnesium levels improved from 1.7-1.9. Pending orthopedic surgery consult for right transverse supracondylar fracture distal humerus. Cardiac Clearance is obtained for right humerus fracture surgery. 10/19 Patient is seen and examined at the bedside. Vitals Temperature 97.9, pulse rate 67, respiratory rate 18, blood pressure 174/91, SpO2 100% on 2 L nasal cannula. He states that his right upper extremity pain is still severe and constant. No acute events last night. He denies headache, dizziness, nausea, vomiting, chest pain, palpitations, abdominal pain, difficulty in urination, diarrhea, numbness and paresthesias in bilateral lower extremities. Remarkable lab results hemoglobin 10.5, albumin 2.7. Chest x-ray resulted in prominent interstitial markings with possible superimposed infiltrates secondary to COPD. Pending orthopedic surgery consult. 10/20 Today on bedside evaluation patient was found awake alert and oriented x 3. at bedside. Patient reports wanting to proceed with surgery. Vitals are stable, afebrile, satting 95% on 2 L nasal cannula. Today's labs are stable. Patient reports his mother's helper Dr. Lee has cleared him for surgery if surgery is required. Dr. Mills to visit patient again today for treatment options. We will follow up with Dr. Mills's recommendations. Continues with right arm splint and sling. 10/21/24 patient is seen and examined with attending reviewed chart. Patient was seen earlier today patient is fully awake alert oriented x3. Patient agreed for inpatient rehab [facility]. Patient continues with physical therapy was seen by Orthopedic no surgical intervention on this admission patient wants conservat jet management. 10/22/24 patient is seen and examined earlier this morning with attending, reviewed chart. Patient is fully awake alert oriented x3 with spouse at bedside discussed plan of care pending approval to [facility] rehab. Primary nurse reports no events overnight REVIEW OF SYSTEMS 12-point ROS reviewed with patient. All pertinent positives mentioned above. Otherwise negative, non-pertinent, or noncontributory. PHYSICAL EXAM GENERAL APPEARANCE: The patient is awake, alert, and oriented, in no acute cardiopulmonary distress. NEUROLOGICAL: Cranial nerves II-XII grossly intact. No sensory deficits. HEENT: Face is symmetric. Pupils are equal and reactive. Extraocular movements are intact. NECK: Supple. No JVD. No thyromegaly. No submental, submandibular, pre-/postauricular, occipital or supraclavicular lymphadenopathy. CHEST: Normal chest expansion. No Telemetry. LUNGS: Absence of any rales, rhonchi or any wheezing. CARDIOVASCULAR: Regular. S1 and S2 normal. No appreciable rubs, murmurs or gallops. ABDOMEN: Obese. Soft, nontender, and nondistended. There is no rebound, voluntary guarding, or rigidity. : Deferred. No Rivera. EXTREMITIES: Left lower extremity edema. No cyanosis. No clubbing. Good capillary refill. SKIN: No skin breakdown. Vital Signs (last 8hr) Date Time Temp Pulse Resp B/P (MAP) Pulse Ox O2 Delivery O2 Flow Rate FiO2 10/22/24 11:45 98.1 86 17 121/59 94 Nasal Cannula 2.0 10/22/24 09:00 77 18 N/Cannula Low lpm 2.0 28 10/22/24 08:00 97.5 81 17 141/84 98 Nasal Cannula 2.0 10/22/24 05:59 115/75 LABS: Laboratory: Test 10/22/24 11:21 10/21/24 19:52 10/21/24 03:24 Range/Units Whole Blood Glucose 141 H 70-110 MG/DL Bedside Glucose Comment Notified Nurse White Blood Count 7.0 # 4.8-10.8 K/uL Red Blood Count 3.78 L 4.50-6.20 MIL/uL Hemoglobin 11.2 L 14.0-18.0 g/dL Hematocrit 34.8 L 42-54 % Mean Corpuscular Volume 92.1 79-99 fL Mean Corpuscular Hemoglobin 29.6 27.0-33.0 pg Mean Corpuscular Hemoglobin Concent 32.2 32.0-36.0 g/dL Red Cell Distribution Width 14.6 11.0-15.5 % Platelet Count 228 130-400 K/uL Mean Platelet Volume 8.7 7.5-10.5 fL Immature Granulocyte % (Auto) 0.7 0-1 % Neutrophils (%) (Auto) 81.8 H 40.0-77.0 % Lymphocytes (%) (Auto) 13.8 L 21.0-51.0 % Monocytes (%) (Auto) 3.6 3.0-13.0 % Eosinophils (%) (Auto) 0.0 0.0-8.0 % Basophils (%) (Auto) 0.1 0.0-5.0 % Neutrophils # (Auto) 5.7 1.8-7.7 K/uL Lymphocytes # (Auto) 1.0 1.0-4.8 K/uL Monocytes # (Auto) 0.3 0.1-1.0 K/uL Eosinophils # (Auto) 0.00 0.00-0.70 K/uL Basophils # (Auto) 0.01 0.00-0.20 K/uL Absolute Immature Granulocyte (auto 0.05 0-1 K/uL Nucleated Red Blood Cells 0.0 0.0-0.19 % Sodium Level 136 136-145 mmol/L Potassium Level 4.6 3.5-5.1 mmol/L Chloride Level 98 L 101-111 mmol/L Carbon Dioxide Level 34 H 21-32 mmol/L Blood Urea Nitrogen 22 H 7-18 mg/dL Creatinine 1.0 0.5-1.3 mg/dL Glomerular Filtration Rate Calc 77 >90 mL/min Random Glucose 219 H 70-105 mg/dL Total Calcium 8.8 8.5-10.1 mg/dL Current Medications Medications (Trade) Dose Ordered Sig/Jose Route PRN Reason Start Time Stop Time Status Last Admin Dose Admin Acetaminophen (TYLenol 325MG TAB) 650 mg Q6H PRN PO FEVER/MILD PAIN LEVEL 1-3 10/15/24 19:00 11/14/24 18:59 Acetaminophen (TYLenol 650MG SUPPOSITORY) 650 mg Q6H PRN RC FEVER / MILD PAIN 1-3 IF NPO 10/15/24 19:00 11/14/24 18:59 Acetaminophen/ Codeine Phosphate (TYLenol-coDEINE TAB) 1 tab Q4H PRN PO MODERATE PAIN (4-6) 10/21/24 15:00 11/20/24 14:59 10/22/24 03:39 1 TAB Albuterol Sulfate (Proventil 0.083% 2.5mg/3ml) 2.5 mg Q4H PRN IH SHORTNESS OF BREATH 10/19/24 08:30 11/18/24 08:29 10/19/24 10:59 2.5 MG Amlodipine Besylate (NorvASC 5MG TAB) 5 mg DAILY PO 10/17/24 09:00 11/16/24 08:59 10/22/24 09:50 5 MG Aspirin (Aspirin 81mg Chew Tab) 81 mg DAILY PO 10/17/24 09:00 11/16/24 08:59 10/22/24 09:50 81 MG Atorvastatin Calcium (LIPItor 40MG) 40 mg HS PO 10/16/24 21:00 10/17/24 18:13 DC 10/16/24 19:39 40 MG Docusate Sodium (COLace 100MG CAP) 100 mg BID PO 10/16/24 09:00 11/15/24 08:59 10/22/24 09:50 100 MG Docusate Sodium (COLace 100MG CAP) 100 mg BID PRN PO CONSTIPATION 10/15/24 19:00 11/14/24 18:59 Famotidine (Pepcid 20mg Tab) 20 mg BID PO 10/15/24 21:00 10/15/24 20:44 DC 10/15/24 20:10 20 MG Famotidine (Pepcid 20mg Tab) 20 mg Q24H PO 10/16/24 21:00 11/14/24 20:59 10/21/24 20:21 20 MG Furosemide (LASix 20MG VIAL) 20 mg DAILY IV 10/19/24 16:30 11/18/24 16:29 10/22/24 10:44 20 MG Home Med (Home Medication) Melatonin 6 MG HS PO 10/17/24 21:00 11/16/24 20:59 Hydralazine HCl (APRESOLine 20MG INJ) 10 mg Q2H PRN IV SBP GREATER THAN 160 10/15/24 19:00 11/14/24 18:59 10/22/24 03:39 10 MG Insulin Human Regular (humuLIN R 100 UNIT/ML 3ML) INSULIN SLIDING SCAL... ACHS SQ 10/15/24 21:00 11/14/24 20:59 10/22/24 05:38 6 UNIT Ipratropium [place] (AtrovENT UD) 0.5 MG Q4H PRN IH SHORTNESS OF BREATH 10/19/24 08:30 11/18/24 08:29 10/19/24 10:59 0.5 MG Lactulose (Constulose 20gm/ 30ml Udcup) 20 gm Q6H PRN PO CONSTIPATION 10/15/24 19:00 11/14/24 18:59 Loratadine (LORATAdine 10 mg) 10 mg DAILY PO 10/20/24 09:00 11/19/24 08:59 10/22/24 09:50 10 MG Losartan Potassium (CozAAR 50 mg TAB) 50 mg BID PO 10/16/24 21:00 11/15/24 20:59 10/22/24 09:50 50 MG Magnesium Sulfate 50 ml @ 0 mls/hr PROTOCOL PRN IV HYPOMAGNESEMIA 10/16/24 09:30 11/15/24 09:29 10/19/24 06:27 25 MLS/HR Methylprednisolone Sodium Succinate (Solu-medROL 40MG) 20 mg BID IVP 10/19/24 21:00 11/18/24 20:59 10/22/24 09:50 20 MG Montelukast Sodium (SinguLAIR) 10 mg DAILY PO 10/20/24 09:00 11/19/24 08:59 10/22/24 09:50 10 MG Morphine Sulfate (morPHINE 2MG SYG) 2 mg Q4H PRN IVP SEVERE PAIN (7-10) 10/16/24 11:00 10/21/24 13:59 DC 10/21/24 07:20 2 MG Ondansetron HCl (zoFRAN 4MG INJ) 4 mg Q6H PRN IVP NAUSEA/VOMITING 10/15/24 19:00 11/14/24 18:59 Potassium Chloride 100 ml @ 100 mls/hr AD PRN IV POTASSIUM PROTOCOL 10/16/24 09:30 11/15/24 09:29 Potassium Chloride (K-Dur/Klor-Con 20meq) 20 meq AD PRN PO POTASSIUM PROTOCOL 10/16/24 09:30 11/15/24 09:29 10/19/24 06:32 20 MEQ Potassium Chloride (KCl 10% Elixir 20meq/15ml) 20 meq AD PRN PO POTASSIUM PROTOCOL 10/16/24 09:30 11/15/24 09:29 Sodium Chloride 1,000 ml @ 125 mls/hr Q8H IV 10/15/24 15:00 10/19/24 16:48 DC 10/18/24 20:39 125 MLS/HR Tamsulosin HCl (FloMAX) 0.4 mg HS PO 10/16/24 21:00 11/15/24 20:59 10/21/24 20:21 0.4 MG Temazepam (restORIL 15 MG CAP) 15 mg HS PRN PO INSOMNIA/SLEEP 10/15/24 19:00 11/14/24 18:59 Trazodone HCl (DesyREL/OlepTRO) 200 mg HS PO 10/17/24 21:00 11/16/24 20:59 10/21/24 20:21 200 MG DIAGNOSTICS / RADIOLOGY: [ ] 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, present in the right posterior frontal region, per CT 10/16/2024 Decreased inability to walk, frequent falls Transverse fracture with mild displacement in the supracondylar region of the distal humerus s/p fall on 09/26/2024 Orthostatic hypotension Chronic pain on oxycodone scheduled b.i.d., now on Tylenol with codeine also for humerus pain Electrolyte derangement (hyponatremia, hypochloremia, hypomagnesemia) improved Acute kidney injury, GFR 51, improved Acute on chronic kidney disease, GFR 51, Acute dehydration, improved Anorexia Hyperglycemia Chronic Left lower extremity edema Severe constipation, improving COPD on home supplemental oxygen 3 L Hypertension Diabetes mellitus type 2 with hyperglycemia Coronary artery disease with history of prior silent CT with fixed inferior and inferolateral defects noted on Lexiscan Cardiolite stress test 07/01/2024 with a gated EF of 62% Type 2 diabetes mellitus Peripheral artery disease, stable BPH Psoriatic arthritis PTSD Tinnitus Hyperlipidemia PLAN: Continue admission orthopedic unit Continue heart healthy diet Monitor respiration status closely. Dr. Mills, no surgical intervention conservative management, follow-up Clinic two weeks Continue pain management for adequate pain control Continues physical therapy continue with arm sling. Continue ipratropium 0.5 mg q.4 H p.r.n., albuterol 2.5 mg q.4h p.r.n. for shortness of breath Hold statins for 30 days according to cardiology recommendation in view of bilateral lower extremity weakness Patient we will need a nephrologists outpatient P.r.n. medications for: Pain management, nausea, vomiting, constipation, hypertension, fevers, shortness of breath. Continue Colace 100 mg p.o. b.i.d.. Glucometer checks a.c. and HS with insulin regular sliding scale. Continue blood pressure checks every 4 hours and p.r.n.. Replace electrolytes Physical therapy consulted Monitor a.m. labs PRN Treatment - Add when necessary meds for nausea, vomiting, pain, constipation, insomnia. DVT/GI prophylaxis- Continue SCDs and famotidine at current doses. Full CODE STATUS Case management [facility] pending approval Case discussed with attending agree with care plan. ATTESTATION BY PHYSICIAN I have seen and examined the patient. I reviewed the documentation, medical decision making, and treatment plan as noted by the mid-level provider above. I agree with the findings and plan of care. Rachael Bethea MD, ELIZABETH NP Oct 22, 2024 12:02
--- NOTE | 2024-10-22 12:16 | DS ---
Discharge Summary Hospital Course Summary: This is a 79-year-old patient of Dr. Vandana duque with a past medical history of hypertension, COPD on home oxygen 3 L nocturnally, hypertension, type 2 diabetes mellitus, peripheral artery disease, BPH, psoriatic arthritis, PTSD, who sustained a fall 09/26/2024 while outsideHad imaging done during their course of stay: 2D echocardiogram on 10/16/2024 demonstrating an LVEF of 55-60% and no significant valvular pathology. A carotid Doppler on 10/15/2024 was negative for any significant stenosis and a venous Doppler of the lower extremities 10/15/2024 was negative for DVT.EKG demonstrated first-degree AV block with sinus tachycardia and a heart rate of 112 beats per minute and a right bundle branch block with no ischemic changes During the course of stay patient was followed by programmer operator numerical control's. Regarding his lower extremity weakness they discontinue statin for 30 days and see how he response to statin holiday.-orthostatic hypotension from a supine to a sitting position with orthostatic vital signs demonstrated a supine blood pressure 149/73 with pulse of 86, sitting blood pressure 108/74 with pulse of 91, standing blood pressure at 1 minute of 142/73 with pulse of 100 and standing further at 3 minutes of 154/73 with pulse of 99. Given to his generalized weakness and recurrent falls patient will need a nephrologists as outpatient setting patient we will need physical therapy strengthening therefore patient will be transitioned to [facility] re[facility]. Been history of COPD on home supplemental oxygen 3 L noncompliance with nebulizer treatments and CPAP patient was also followed by critical team. Patient was on bronchodilators and IV steroids which will be tapered to p.o.. Patient is clinically stable for discharge. Procedure(s): REASON: injury ORDERING PHYSICIAN: JUWAN MILLS MD PROCEDURE: [id number] - ELBOW 2VWS RT ELBOW 2VWS RT HISTORY: Right elbow pain COMPARISON: None TECHNIQUE: 3 images of right elbow were obtained. FINDINGS: Supracondylar fracture with displacement is seen of the distal humerus. Degenerative changes are seen. Soft tissue swelling is seen. No gross dislocation is seen. Degenerative changes are seen. IMPRESSION: 1. Findings as described above. REASON: near syncop ORDERING PHYSICIAN: SAMANTHA POPE PROCEDURE: ECHO CMP - ECHO 2-D COMPLETE APPROVED REPORT EXAM: Two-dimensional and M-mode echocardiogram with Doppler and color Doppler. Study Details: Hx: diabetes, hypertension, falls, hypercholesterolemia, peripheral artery disease INDICATION ICD: Near syncope, cardiac clearance 2D Dimensions RVDd 3.4 cm LVED Vol(simp.) 72.9 mL LVES Vol(simp.) 31.7 mL LVEF(%, simp.) 56 % LA ESV INDEX (4CH) 36.80 mL/m2 Aortic Valve AoV VTI 0.2 m Ao Mean GR 3.0 mmHg LVOT VTI 0.17 m Mitral Valve MV E Vmax 80.5 cm/s DECEL Time 134 ms MV A Vmax 101.4 cm/s E/A ratio 0.8 Tricuspid Valve RAP (EST) 8 mmHg RVSP 8.0 mmHg Left Ventricle Left ventricular cavity size is normal. LVEF is 55-60%. Unable to assess. Right Ventricle The right ventricle is normal size. The right ventricular systolic function is normal. Atria The left atrium size is normal. The right atrium size is normal. Aortic Valve Aortic valve is not well visualized but no significant valvular abnormalities noted. No aortic regurgitation is present. There is no aortic valvular stenosis. Mitral Valve Mitral valve leaflets open well. There is no mitral valve regurgitation noted. There is no mitral valve stenosis. Tricuspid Valve Not well visualzied. There is no tricuspid valve regurgitation noted. Pulmonic Valve Pulmonic valve is not visualized. Great Vessels The aortic root appears normal in size. IVC is not well visualized. Pericardium No pericardial effusion. Other Information Quality : Technically difficult challenging study due to body habitus and left arm fracture pain complaining of pain when moved from position. pt on supine position. Conclusion Technically difficult study. Left ventricle appears normal in size and systolic function with an LVEF of 55- 60% by visual estimate. Unable to assess Diastology due to poor tissue Doppler signals. Both atria appear normal in size. Valves not well visualized. No pericardial effusion. REASON: Near syncope, GBW, frequent falls ORDERING PHYSICIAN: SAMANTHA POPE PROCEDURE: CAROTID - US CAROTID DUPLEX US CAROTID DUPLEX REASON: Near syncope, GBW, frequent falls TECHNIQUE: Exam was performed using spectral analysis and color flow imaging. FINDINGS: Color flow Doppler ultrasound shows mild plaque in each bifurcation. There is no anatomic evidence of significant focal narrowing. Flow velocities and velocity ratios appear normal throughout. There is antegrade flow in both vertebral arteries. RIGHT CAROTID: CCA: 57 cm/sec ICA: 86 cm/sec Ratio: ICA/CCA: 1.5 ECA: 187 cm/sec Vertebral artery: 59 cm/sec LEFT CAROTID: CCA: 106 cm/sec ICA: 102 cm/sec Ratio: ICA/CCA: 0.9 ECA: 167 cm/sec Vertebral artery: 53 cm/sec IMPRESSION: 1. Mild plaque in both carotid bifurcations. 2. No anatomic or hemodynamic evidence of significant focal stenosis. DICTATED BY: HENRY STUBBS MD DATE: 10/16/24 0856 REASON: pain and swelling ORDERING PHYSICIAN: JACKELINE MARIA MD PROCEDURE: VENOUS UNI - US VENOUS DOPPLER UNILATERAL US VENOUS DOPPLER UNILATERAL REASON: pain and swelling COMPARISON: None Technique: Left venous doppler ultrasound was performed with spectral analysis and color flow imaging technique. FINDINGS: There is a normal appearance of the common femoral, deep femoral, the profunda femoris and popliteal veins. Proximal calf veins appear normal as well. There is normal response to compression and augmentation. There is no evidence of deep venous thrombosis. IMPRESSION: Normal left lower extremity venous Doppler ultrasound. REASON: frequent falls , recent fall 2 days ago ORDERING PHYSICIAN: JACKELINE MARIA MD PROCEDURE: HEAD WO - CT HEAD/BRAIN W/O CONTRAST Exam: NONCONTRAST CT BRAIN REASON: frequent falls , recent fall 2 days ago. COMPARISON: 01/17/2024 TECHNIQUE: Images are obtained from vertex to the skull base. The exam was performed without IV contrast. FINDINGS: There is focal encephalomalacia deep central white matter in the right posterior frontal region consistent with an old stroke, this was present on prior study as well. There are generous ventricles and sulci. There is decreased attenuation in the deep central white matter. These findings are consistent with atrophy. There are no acute appearing focal parenchymal lesions. There is no evidence of mass, intracranial hemorrhage or acute stroke. Posterior fossa and brainstem structures appear unremarkable. There are no abnormal fluid collections. Extra cranial soft tissues appear unremarkable as well. IMPRESSION: 1. Atrophy, no acute finding. 2. 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 Assessment/Plan: Discharged dx's; Frailty/debility/general body weakness POA transition to IP rehab. Bilateral lower extremity weakness, POA improving 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, present in the right posterior frontal region, per CT 10/16/2024 Decreased inability to walk, frequent falls Transverse fracture with mild displacement in the supracondylar region of the distal humerus s/p fall on 09/26/2024 Orthostatic hypotension; resolved Chronic pain on oxycodone scheduled b.i.d., now on Tylenol with codeine also for humerus pain Electrolyte derangement (hyponatremia, hypochloremia, hypomagnesemia) improved Acute kidney injury, GFR 51, improved Acute on chronic kidney disease, GFR 51, Acute dehydration, improved Anorexia Hyperglycemia resolved Chronic Left lower extremity edema Severe constipation, improving COPD on home supplemental oxygen 3 L Hypertension Diabetes mellitus type 2 with hyperglycemia Coronary artery disease with history of prior silent DE with fixed inferior and inferolateral defects noted on Lexiscan Cardiolite stress test 07/01/2024 with a gated EF of 62% Type 2 diabetes mellitus Peripheral artery disease, stable BPH Psoriatic arthritis PTSD Tinnitus Hyperlipidemia PLAN: ADMISSION DATE: 10/15/24 DISCHARGE DATE: 10/22/24 DISPOSITION: [facility] CONDITION: stable PERSONAL HEALTH COACH(S): Orthopedic, Critical care, FOLLOW UP APPOINTMENT(S): DR Mills two wks. PCP: PROCEDURES: no surgical intervention: conservative management IMAGING (S) report attached to summary : echo, carotid Artery US Venous doppler, Head CT elbow xray MICROBIOLOGY: report attached to summary; ACTIVITY: HOME MEDICATIONS CHANGES ON HOME MEDICATIONS NEW MEDICATIONS TEACHING: Emergency instructions: The patient was instructed to present to the nearest Emergency Department or call 911 should their symptoms return or worsen. Home Medications: Reported Medications Ketotifen Fumarate (Ketotifen Fumarate) 0.025 % (0.035 %) Drops, 1 DROP OP BID, #5 ML 0 Refills 10/16/24 Carboxymethylcellulose Sodium (Artificial Tears) 1 % Drops, 1 DROP OP DAILY for 30 Days, #15 ML 0 Refills 10/16/24 Multivitamin W-Minerals/Lutein (Pub Multivitamin 50 Plus Tab) 1 Each Tablet, 1 TAB PO BID for 30 Days, #30 TAB 0 Refills 10/16/24 Trospium Chloride (Trospium Chloride) 20 Mg Tablet, 20 MG PO HS, TAB 10/16/24 Semaglutide (Ozempic) 2 Mg/0.75 Ml (8 Mg/3 Ml) Pen.injctr, 2 MG SQ QWEEK for 30 Days, #3 ML 0 Refills 10/16/24 Trazodone HCl (Trazodone HCl) 100 Mg Tablet, 200 MG PO HS, TAB 10/16/24 Tamsulosin HCl (Flomax) 0.4 Mg Cap.er.24h, 0.4 MG PO HS, CAPSULE.DR 10/16/24 Ropinirole HCl (Ropinirole HCl) 0.25 Mg Tablet, 1 TAB PO BID for 30 Days, #30 TAB 0 Refills 10/16/24 Pioglitazone HCl (Pioglitazone HCl) 30 Mg Tablet, 30 MG PO DAILY, TAB 10/16/24 Oxycodone HCl (Oxycodone HCl) 10 Mg Tablet, 1 TAB PO DAILY PRN for PAIN for 5 Days, #20 TAB 0 Refills 10/16/24 Melatonin (Melatonin) 3 Mg Capsule, 6 MG PO HS, CAP 10/16/24 Losartan Potassium (Losartan Potassium) 50 Mg Tablet, 50 MG PO BID, TAB 10/16/24 Duloxetine HCl (Duloxetine HCl) 60 Mg Capsule.dr, 60 MG PO DAILY, CAP 10/16/24 Atorvastatin Calcium (Atorvastatin Calcium) 40 Mg Tablet, 40 MG PO HS, TAB 10/16/24 Aspirin (Aspirin) 81 Mg Tab.chew, 81 MG PO DAILY, TAB.CHEW 10/16/24 Amlodipine Besylate (Amlodipine Besylate) 5 Mg Tablet, 5 MG PO DAILY, TAB 10/31/23 Discontinued Reported Medications Empagliflozin (Jardiance) 25 Mg Tablet, 25 MG PO DAILY, TAB 01/18/24 Losartan Potassium (Losartan Potassium) 50 Mg Tablet, 50 MG PO DAILY, TAB 01/18/24 Oxycodone HCl (Oxycodone HCl) 10 Mg Tablet, 10 MG PO AD, TAB 01/18/24 Discontinued Scripts Meloxicam (Meloxicam) 15 Mg Tablet, 15 MG PO DAILY PRN for PAIN for 7 Days, #7 TAB Prov:NIA MANJARREZ DO 09/26/24 Hydrocodone/Acetaminophen (Hydrocodone-Acetamin 5-300 mg) 5 Mg-300 Mg Tablet, 1 TAB PO TIDP PRN for pain for 5 Days, #15 TAB 0 Refills Prov:NIA MANJARREZ DO 09/26/24 Continued Medications: Amlodipine Besylate (Amlodipine Besylate) 5 Mg Tablet 5 MG PO DAILY, TAB Aspirin (Aspirin) 81 Mg Tab.chew 81 MG PO DAILY, TAB.CHEW Atorvastatin Calcium (Atorvastatin Calcium) 40 Mg Tablet 40 MG PO HS, TAB Carboxymethylcellulose Sodium (Artificial Tears) 1 % Drops 1 DROP OP DAILY for 30 Days, #15 ML 0 Refills Duloxetine HCl (Duloxetine HCl) 60 Mg Capsule.dr 60 MG PO DAILY, CAP Ketotifen Fumarate (Ketotifen Fumarate) 0.025 % (0.035 %) Drops 1 DROP OP BID, #5 ML 0 Refills Losartan Potassium (Losartan Potassium) 50 Mg Tablet 50 MG PO BID, TAB Melatonin (Melatonin) 3 Mg Capsule 6 MG PO HS, CAP Multivitamin W-Minerals/Lutein (Pub Multivitamin 50 Plus Tab) 1 Each Tablet 1 TAB PO BID for 30 Days, #30 TAB 0 Refills Oxycodone HCl (Oxycodone HCl) 10 Mg Tablet 1 TAB PO DAILY PRN for PAIN for 5 Days, #20 TAB 0 Refills Pioglitazone HCl (Pioglitazone HCl) 30 Mg Tablet 30 MG PO DAILY, TAB Ropinirole HCl (Ropinirole HCl) 0.25 Mg Tablet 1 TAB PO BID for 30 Days, #30 TAB 0 Refills Semaglutide (Ozempic) 2 Mg/0.75 Ml (8 Mg/3 Ml) Pen.injctr 2 MG SQ QWEEK for 30 Days, #3 ML 0 Refills Tamsulosin HCl (Flomax) 0.4 Mg Cap.er.24h 0.4 MG PO HS, CAPSULE. Trazodone HCl (Trazodone HCl) 100 Mg Tablet 200 MG PO HS, TAB Trospium Chloride (Trospium Chloride) 20 Mg Tablet 20 MG PO HS, TAB Time spent arranging discharge: 31-60 minutes ATTESTATION BY PHYSICIAN I have seen and examined the patient. I reviewed the documentation, medical decision making, and treatment plan as noted by the mid-level provider above. I agree with the findings and plan of care. Rachael Bethea MD, ELIZABETH NP Oct 22, 2024 12:16
--- NOTE | 2024-10-22 16:09 | NUR ---
TRESA NOTE: STR APPROVAL CM SPOKE TO [facility], PT HAS APPROVAL. CM SPOKE TO ENEDINA MADE AWARE OF ABOVE. REP VERIFIED, RECEIVED AUTHORIZATION, PT GOOD TO TRANSFER TODAY. MOT FILLED OUT, PENDING AND BRYCE HARRISON TO SIGN. EMS ARRANGED AND FAXED FOR TODAY PRIMARY NURSE TO CALL [facility] ONCE PT READY TO DC. PRIMARY NURSE ANUPAM MADE AWARE. TERI UPDATED. CM TO CONTINUE TO FOLLOW UP. Addendum: 10/22/24 at 1611 by GUILHEMRE JULES LVN CM Amended: Links added.
--- NOTE | 2024-10-22 20:45 | NUR ---
DISCHARGE DISCHARGE TO [facility] VIA EMS PATIENTS AT BEDSIDE, PERSONAL BELONGINGS WITH
== END 2024-10-22 20:45 | DRG 70 ==
LOC: EDH 13:34 → EDHIP 18:53 → 4AH 19:58
PROVIDERS: ADMIT Hospitalist; ATTEND Hospitalist
DX: G93.89 Other specified disorders of brain (principal); J96.21 Acute and chronic respiratory failure with hypoxia; E87.1 Hypo-osmolality and hyponatremia; N17.9 Acute kidney failure, unspecified; J90 Pleural effusion, not elsewhere classified; E11.65 Type 2 diabetes mellitus with hyperglycemia; E86.0 Dehydration; E87.8 Other disorders of electrolyte and fluid balance, not elsewhere classified; G89.29 Other chronic pain; E83.42 Hypomagnesemia; N18.9 Chronic kidney disease, unspecified; E11.22 Type 2 diabetes mellitus with diabetic chronic kidney disease; I12.9 Hypertensive chronic kidney disease with stage 1 through stage 4 chronic kidney disease, or unspecified chronic kidney disease; J44.9 Chronic obstructive pulmonary disease, unspecified; I95.1 Orthostatic hypotension; F43.10 Post-traumatic stress disorder, unspecified; K59.00 Constipation, unspecified; G47.33 Obstructive sleep apnea (adult) (pediatric); I25.10 Atherosclerotic heart disease of native coronary artery without angina pectoris; L40.50 Arthropathic psoriasis, unspecified; N40.0 Benign prostatic hyperplasia without lower urinary tract symptoms; E78.00 Pure hypercholesterolemia, unspecified; I45.10 Unspecified right bundle-branch block; I44.0 Atrioventricular block, first degree; H93.19 Tinnitus, unspecified ear; E11.51 Type 2 diabetes mellitus with diabetic peripheral angiopathy without gangrene; I25.2 Old myocardial infarction; Z86.73 Personal history of transient ischemic attack (TIA), and cerebral infarction without residual deficits; Z88.8 Allergy status to other drugs, medicaments and biological substances; Z88.1 Allergy status to other antibiotic agents; Z79.891 Long term (current) use of opiate analgesic; Z88.6 Allergy status to analgesic agent; Z90.49 Acquired absence of other specified parts of digestive tract; Z99.81 Dependence on supplemental oxygen; Z91.199 Patient's noncompliance with other medical treatment and regimen due to unspecified reason; Z87.891 Personal history of nicotine dependence; Z79.82 Long term (current) use of aspirin; Z79.899 Other long term (current) drug therapy
CPT/HCPCS: 36415; 36600; 70450; 71045; 73070; 80048; 80053; 81003; 82435; 82550; 82607; 82803; 82947; 82948; 83036; 83605; 83735; 83880; 84132; 84295; 84443; 84484; 85018; 85025; 85027; 85610; 87635; 87804; 93005; 93306; 93880; 93971; 94010; 94640; 94660; 94664; G0378; J0360; J1815; J1940; J2270; J2919; J3475; J7030; A4600

== ENCOUNTER → 2024-11-29 | Outpatient (CLI) | payer OTHER ==
[~2024-11-29] MED LIST changes: +ASPI-1197 PO; +ATOR40TA71 PO; +CARB-283 OP; +DULO60CA64 PO; -EMPA25TA PO; -HYDR-4377 PO; +KETO-99 OP; +MELA3CAP2 PO; -MELO-108 PO; +MULT-470 PO; +PIOG30TA70 PO; +ROPI0.2535 PO; +SEMA2PEN SQ; +TAMS-1 PO; +TRAZ-187 PO; +TROS20TA4 PO
== END | disposition home or self-care (01) ==
LOC: SHCH 10:48
PROVIDERS: ATTEND Student in an Organized Health Care Education/Training Program
DX: I72.4 Aneurysm of artery of lower extremity (principal); M62.81 Muscle weakness (generalized)
CPT/HCPCS: 93925; 93978

== ENCOUNTER 2024-12-09 16:27 | Inpatient (IN) | payer OTHER, MEDICARE ==
[~2024-12-09] VITALS: Ht 170.2 cm; Wt 95.4 kg
--- NOTE | 2024-12-09 16:56 | ERN ---
ED Note History of Present Illness Stated Complaint: WEAKNESS Chief Complaint: Weakness Time Seen by MD: 16:29 Dictation: 79-year-old male with history of COPD presents to the ED via EMS for evaluation of weakness onset today. Patient's reports patient was unable to walk and has been shaking constantly. She also mentioned patient has been having increased weakness in his not acting himself. As per EMS patient has a fever of 101 F and had a systolic blood pressure of 121. Allergies: Coded Allergies: doxepin (Unverified Allergy, Unknown, 08/11/23) metronidazole (Unverified Allergy, Unknown, 09/22/19) prazosin (Unverified Allergy, Unknown, 09/22/19) Home Meds Reported Medications Ketotifen Fumarate (Ketotifen Fumarate) 0.025 % (0.035 %) Drops, 1 DROP OP BID, #5 ML 0 Refills 10/16/24 Carboxymethylcellulose Sodium (Artificial Tears) 1 % Drops, 1 DROP OP DAILY for 30 Days, #15 ML 0 Refills 10/16/24 Multivitamin W-Minerals/Lutein (Pub Multivitamin 50 Plus Tab) 1 Each Tablet, 1 TAB PO BID for 30 Days, #30 TAB 0 Refills 10/16/24 Trospium Chloride (Trospium Chloride) 20 Mg Tablet, 20 MG PO HS, TAB 10/16/24 Semaglutide (Ozempic) 2 Mg/0.75 Ml (8 Mg/3 Ml) Pen.injctr, 2 MG SQ QWEEK for 30 Days, #3 ML 0 Refills 10/16/24 Trazodone HCl (Trazodone HCl) 100 Mg Tablet, 200 MG PO HS, TAB 10/16/24 Tamsulosin HCl (Flomax) 0.4 Mg Cap.er.24h, 0.4 MG PO HS, CAPSULE.DR 10/16/24 Ropinirole HCl (Ropinirole HCl) 0.25 Mg Tablet, 1 TAB PO BID for 30 Days, #30 TAB 0 Refills 10/16/24 Pioglitazone HCl (Pioglitazone HCl) 30 Mg Tablet, 30 MG PO DAILY, TAB 10/16/24 Oxycodone HCl (Oxycodone HCl) 10 Mg Tablet, 1 TAB PO DAILY PRN for PAIN for 5 Days, #20 TAB 0 Refills 10/16/24 Melatonin (Melatonin) 3 Mg Capsule, 6 MG PO HS, CAP 10/16/24 Losartan Potassium (Losartan Potassium) 50 Mg Tablet, 50 MG PO BID, TAB 10/16/24 Duloxetine HCl (Duloxetine HCl) 60 Mg Capsule.dr, 60 MG PO DAILY, CAP 10/16/24 Atorvastatin Calcium (Atorvastatin Calcium) 40 Mg Tablet, 40 MG PO HS, TAB 10/16/24 Aspirin (Aspirin) 81 Mg Tab.chew, 81 MG PO DAILY, TAB.CHEW 10/16/24 Amlodipine Besylate (Amlodipine Besylate) 5 Mg Tablet, 5 MG PO DAILY, TAB 10/31/23 Past Medical History Past Medical History: COPD, High Cholesterol, Heart Disease, Hypertension Additional Past Medical Hx: PROSTATE, PTSD, TINNITUS Surgical History: Other Surgical History Other: SHOULDER AND BACK SURGERY Social History: Lives with family Review of System Dictation Constitutional: Positive for weakness and shakiness Negative for fever,chills, and weight loss Eyes: Negative for injury, pain,redness, and discharge ENT: Negative for injury,pain or swelling Cardiovascular: Negative for chest pain, palpitations, and edema Respiratory: Negative for shortness of breath, cough, and wheezing, Abdomen/GI: Negative for abdominal pain, nausea, vomiting, diarrhea, and constipation Back: Negative for injury and pain : Negative for injury, bleeding and discharge MS/Extremity: Negative for injury and deformity Skin: Negative for rash, and discoloration Initial Vital Sign VS Vital Signs Date Time Temp Pulse Resp B/P (MAP) Pulse Ox O2 Delivery O2 Flow Rate FiO2 12/09/24 16:28 100.0 111 18 121/82 94 Nasal Cannula 3.0 12/09/24 16:43 32 Physical Exam Dictation General: awake, alert, resting tremor, low-grade fever Head/Face: Normocephalic, atraumatic Eyes: PERRL, EOMI, vision at baseline ENT: oral cavity clear, TMs clear, no signs of infection Neck: Trachea midline, supple, no nuchal rigidity Cardiovascular: Borderline tachycardia irregular rhythm Respiratory: CTAB, no respiratory distress, No rales or wheezes Abdomen: Soft, non-tender, non-distended, normal bowel sounds, no guarding or rebound. Skin: Warm, dry, normal turgor, no rash MS/Extremity: Pulses equal, no cyanosis, neurovascular intact, FROM Results (Laboratory/Radiology) Laboratory/Radiology Laboratory Tests Test 12/09/24 16:46 12/09/24 17:20 White Blood Count 5.6 K/uL (4.8-10.8) Red Blood Count 4.12 MIL/uL (4.50-6.20) L Hemoglobin 12.3 g/dL (14.0-18.0) L Hematocrit 40.3 % (42-54) L Mean Corpuscular Volume 97.8 fL (79-99) Mean Corpuscular Hemoglobin 29.9 pg (27.0-33.0) Mean Corpuscular Hemoglobin Concent 30.5 g/dL (32.0-36.0) L Red Cell Distribution Width 15.2 % (11.0-15.5) Platelet Count 215 K/uL (130-400) Mean Platelet Volume 9.1 fL (7.5-10.5) Immature Granulocyte % (Auto) 0.4 % (0-1) Neutrophils (%) (Auto) 59.0 % (40.0-77.0) Lymphocytes (%) (Auto) 27.2 % (21.0-51.0) Monocytes (%) (Auto) 10.0 % (3.0-13.0) Eosinophils (%) (Auto) 3.2 % (0.0-8.0) Basophils (%) (Auto) 0.2 % (0.0-5.0) Neutrophils # (Auto) 3.3 K/uL (1.8-7.7) Lymphocytes # (Auto) 1.5 K/uL (1.0-4.8) Monocytes # (Auto) 0.6 K/uL (0.1-1.0) Eosinophils # (Auto) 0.18 K/uL (0.00-0.70) Basophils # (Auto) 0.01 K/uL (0.00-0.20) Absolute Immature Granulocyte (auto 0.02 K/uL (0-1) Nucleated Red Blood Cells 0.0 % (0.0-0.19) Red Blood Cell Morphology See comments Sodium Level 139 mmol/L (136-145) Potassium Level 3.7 mmol/L (3.5-5.1) Chloride Level 98 mmol/L (101-111) L Carbon Dioxide Level 33 mmol/L (21-32) H Blood Urea Nitrogen 18 mg/dL (7-18) Creatinine 1.1 mg/dL (0.5-1.3) Glomerular Filtration Rate Calc 69 mL/min (>90) Random Glucose 140 mg/dL (70-105) H Lactic Acid Level 1.0 mmol/L (0.8-2.5) Total Calcium 9.3 mg/dL (8.5-10.1) Total Bilirubin 0.5 mg/dL (0.2-1.0) Direct Bilirubin 0.2 mg/dL (0.0-0.3) Aspartate Amino Transf (AST/SGOT) 15 U/L (10-37) Alanine Aminotransferase (ALT/SGPT) 11 U/L (12-78) L Alkaline Phosphatase 76 U/L (50-136) Total Creatine Kinase 75 U/L (21-232) # Troponin I High Sensitivity 17 ng/L (4-75) B-Type Natriuretic Peptide 65 pg/mL (0-100) Total Protein 6.8 g/dL (6.0-8.3) Albumin 3.1 g/dL (3.5-5.0) L Urine Color YELLOW (YELLOW) Urine Appearance CLEAR (CLEAR) Urine pH 5.5 (5.0-8.0) Urine Specific [place] 1.027 (1.001-1.031) Urine Protein 20 mg/dL (NEGATIVE) H Urine Glucose (UA) NEGATIVE mg/dL (NEGATIVE) Urine Ketones 5 mg/dL (NEGATIVE) H Urine Occult Blood NEGATIVE (NEGATIVE) Urine Nitrate NEGATIVE (NEGATIVE) Urine Bilirubin NEGATIVE mg/dL (NEGATIVE) Urine Urobilinogen 0.2 mg/dL (0.2-1.0) Urine Leukocyte Esterase NEGATIVE Miller/uL Urine RBC 0-1 /HPF (0-1) Urine WBC 0-1 /HPF (0-1) Urine Squamous Epithelial Cells RARE /HPF (0-2) Urine Bacteria None /HPF (None Seen) Labs Reviewed?: Yes EKG Comment: EKG 12/09/2024 time 4:47 p.m. ventricular rate 113, atrial fibrillation, right bundle-branch block. QRS D 163, QT 379. No STEMI ED Course ED Course Orders Procedure Category Date Status Time 12 Lead Ekg Tracing- EKG 12/09/24 Logged Technical 16:41 Cbc With Differential LAB 12/09/24 Complete 16:43 Basic Metabolic Panel LAB 12/09/24 Complete 16:43 Creatine Kinase, Total LAB 12/09/24 Complete 16:43 Hepatic Function Panel LAB 12/09/24 Complete 16:43 B-Type Natriuretic LAB 12/09/24 Complete Peptide 16:43 Lactic Acid LAB 12/09/24 Complete 16:43 Blood Cult K[facility]ON 12/09/24 In Process 16:43 Troponin I High LAB 12/09/24 Complete Sensitivity 16:43 Urinalysis Profile LAB 12/09/24 Complete 16:43 Chest 1vw RAD 12/09/24 Taken 16:43 Influenza Type A & B, LAB 12/09/24 In Process Rapid 17:41 Ceftriaxone 2gm Vial PHA 12/09/24 Complete (Rocephin 2gm Inj) 18:00 0.9%Nacl 1000ml (Ns PHA 12/09/24 Complete 1000ml) 18:00 Current Medications Medications (Trade) Dose Ordered Sig/Jose Route PRN Reason Start Time Stop Time Status Last Admin Dose Admin Ceftriaxone Sodium (Rocephin 2gm Inj) 2 gm ONCE ONCE IVPB 12/09/24 18:00 12/09/24 18:01 DC 12/09/24 18:04 Sodium Chloride 1,000 ml @ 0 mls/hr ONCE ONCE IV 12/09/24 18:00 12/09/24 18:01 DC 12/09/24 18:04 Vital Signs Date Time Temp Pulse Resp B/P (MAP) Pulse Ox O2 Delivery O2 Flow Rate FiO2 12/09/24 16:43 99.3 107 24 114/61 91 Nasal Cannula* 3 32 12/09/24 16:28 100.0 111 18 121/82 94 Nasal Cannula 3.0 Medical Decision Making MDM MDM: Differential diagnosis: AFib RVR, sepsis 1817- [employer] [facility] consult, accepts patient for admission Rationale: Tests considered and ordered secondary to shared decision making include: labs, ECG and radiology Risk of complication and/or morbidity or mortality of patient management: None Medications-Per medication reconciliation Need for hospitalization: Patient does meet criteria for hospitalization. Need for emergency major/minor surgery: No There are no social concerns with this patient. I independently interpreted the test that were performed, results were reviewed by me and considered findings on radiology if ordered. Medical management and examination interpretation discussions were had by me with other qualified healthcare professionals as indicated for the patient's care. DX & DISP Disposition: Inpatient Decision to Admit Date: Dec 09, 2024 Decision to Admit Time: 18:19 Departure Impression: Primary Impression: Atrial fibrillation with RVR Additional Impression: Sepsis Condition: Stable Referrals: DOLLY MCKEON MD (PCP) PAUL KEN MD Dec 09, 2024 16:56
[2024-12-09 16:57] LABS: BASOPHILS # (AUTO) 0.01 K/uL (0.00-0.20); BASOPHILS % (AUTO) 0.2 % (0.0-5.0); EOSINOPHILS # (AUTO) 0.18 K/uL (0.00-0.70); EOSINOPHILS % (AUTO) 3.2 % (0.0-8.0); HEMATOCRIT 40.3 % (42-54); IMMATURE GRANULOCYTE ABSOLUTE 0.02 K/uL (0-1); LYMPHOCYTES # (AUTO) 1.5 K/uL (1.0-4.8); LYMPHOCYTES % (AUTO) 27.2 % (21.0-51.0); MEAN CORPUSCULAR HEMOGLOBIN 29.9 pg (27.0-33.0); MEAN CORPUSCULAR HGB CONC 30.5 g/dL (32.0-36.0); MEAN CORPUSCULAR VOLUME 97.8 fL (79-99); MONOCYTES # (AUTO) 0.6 K/uL (0.1-1.0); NEUTROPHILS # (AUTO) 3.3 K/uL (1.8-7.7); PLATELET COUNT (AUTO) 215 K/uL (130-400); RED BLOOD CELL COUNT(AUTO) 4.12 MIL/uL (4.50-6.20); RED CELL DISTRIBUTION WIDTH 15.2 % (11.0-15.5); WHITE BLOOD COUNT (AUTO) 5.6 K/uL (4.8-10.8)
[2024-12-09 17:38] LABS: B-TYPE NATRIURETIC PEPTIDE 65 pg/mL (0-100)
[2024-12-09 17:39] LABS: CREATININE 1.1 mg/dL (0.5-1.3); POTASSIUM 3.7 mmol/L (3.5-5.1)
[2024-12-09 17:41] LABS: APPEARANCE,URINE CLEAR (CLEAR); BILIRUBIN,URINE NEGATIVE (NEGATIVE); COLOR,URINE YELLOW (YELLOW); GLUCOSE, URINE (UA) NEGATIVE (NEGATIVE); KETONES,URINE 5 mg/dL (NEGATIVE); LEUKOCYTE ESTERASE ,URINE NEGATIVE Leu/uL (NEGATIVE); NITRATE,URINE NEGATIVE (NEGATIVE); OCCULT BLOOD,URINE NEGATIVE (NEGATIVE); PH,URINE 5.5 (5.0-8.0); PROTEIN,URINE 20 mg/dL (NEGATIVE); UROBILINOGEN,URINE 0.2 mg/dL (0.2-1.0)
[2024-12-09 17:42] LABS: ADD UA MICROSCOPIC YES
[2024-12-09 17:43] LABS: MUCUS,URINE RARE LPF (None Seen); RBC,URINE 0-1 /HPF (0-1); SQUAMOUS EPITHELIAL CELL,UR RARE /HPF (0-2); WBC,URINE 0-1 /HPF (0-1)
[2024-12-09 17:44] LABS: ALBUMIN 3.1 g/dL (3.5-5.0); BILIRUBIN,DIRECT 0.2 mg/dL (0.0-0.3); BILIRUBIN,TOTAL 0.5 mg/dL (0.2-1.0); TOTAL PROTEIN, SERUM 6.8 g/dL (6.0-8.3)
[2024-12-09] MEDS: CEFTRIAXONE 2GM VIAL IVPB ONE (18:04)
[2024-12-09] MEDS: 0.9%NACL 1000ML 1,000 ML IV ONE (18:04)
--- NOTE | 2024-12-09 18:50 | HMCIMG ---
CHEST 1VW HISTORY: Fever COMPARISON: 10/19/2024 FINDINGS: A frontal projection of the chest was obtained. Prominent interstitial markings are seen with possible superimposed infiltrates. The heart is borderline enlarged. Degenerative changes are seen. No evidence of aortic calcification is seen. IMPRESSION: 1. Prominent interstitial markings are seen with possible superimposed infiltrates.
--- NOTE | 2024-12-09 19:23 | HP ---
History of Present Illness Reason for Visit: weakness History of Present Illness Mr. Connell is a 79-year-old male that was seen and examined today on 12/09/2024. Patient's Portia Connell is at bedside and provided the bulk of the following information. Patient was brought to the emergency department with a chief complaint of weakness. Onset was 12/06/2024. Location is to entire body. Duration is constant. Character is described as" shaking and no energy."Symptoms are aggravated with patient's chronic [facility] Patient's believes that he is in withdrawal. Patient takes chronic pain medication for his neuropathy and psoriatic arthritis. There was no alleviating factors. Patient arrived with a heart rate of 111, respirations 24, chest x-ray showed prominent interstitial markings with possible superimposed infiltrates serving as a suspected source of infection therefore meeting clinical sepsis criteria. For this reason emergency room physician recommended that patient be admitted to the hospital. 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, osteoarthritis, GERD, 2D echo 10/16/2024 showed LVEF 55-60%, psoriatic arthritis] SOCIAL HISTORY: [Negative for smoking, alcohol use, drug use.] SURGICAL HISTORY: [Cholecystectomy, left ankle surgery, neck surgery] Review of Systems General: No Fever, No Chills, No Night Sweats, No Fatigue, No Malaise, No Appetite, No Other HEENT: No Head Aches, No Visual Changes, No Eye Pain, No Ear Pain, No Dysphasia, No Sinus Congestion, No Post Nasal Drip, No Sore Throat, No Other Pulmonary: No Dyspnea, No Cough, No Pleuritic Chest Pain, No Other Cardiovascular: No: Chest Pain, Palpitations, Orthopnea, Paroxysmal Noc. Dyspnea, Edema, Lt Headedness, Other Gastrointestinal: No: Nausea, Vomiting, Abdominal Pain, Diarrhea, Constipation, Melena, Hematochezia, Other Genitourinary: No Dysuria, No Frequency, No Incontinence, No Hematuria, No Retention, No Other Musculoskeletal: No: other, neck pain, shoulder pain, arm pain, back pain, hand pain, leg pain, foot pain Skin: No Urticaria, No Rash, No Other Neurological: Weakness; No: Numbness, Incoordination, Change in speech, Confusion, Seizures, Other Allergies: Coded Allergies: doxepin (Unverified Allergy, Unknown, 08/11/23) metronidazole (Unverified Allergy, Unknown, 09/22/19) prazosin (Unverified Allergy, Unknown, 09/22/19) Scheduled Amlodipine Besylate (Amlodipine Besylate), 5 MG PO DAILY, (Reported) Aspirin (Aspirin), 81 MG PO DAILY, (Reported) Atorvastatin Calcium (Atorvastatin Calcium), 40 MG PO HS, (Reported) Carboxymethylcellulose Sodium (Artificial Tears), 1 DROP OP DAILY, (Reported) Duloxetine HCl (Duloxetine HCl), 60 MG PO DAILY, (Reported) Ketotifen Fumarate (Ketotifen Fumarate), 1 DROP OP BID, (Reported) Losartan Potassium (Losartan Potassium), 50 MG PO BID, (Reported) Melatonin (Melatonin), 6 MG PO HS, (Reported) Multivitamin W-Minerals/Lutein (Pub Multivitamin 50 Plus Tab), 1 TAB PO BID, (Reported) Pioglitazone HCl (Pioglitazone HCl), 30 MG PO DAILY, (Reported) Ropinirole HCl (Ropinirole HCl), 1 TAB PO BID, (Reported) Semaglutide (Ozempic), 2 MG SQ QWEEK, (Reported) Tamsulosin HCl (Flomax), 0.4 MG PO HS, (Reported) Trazodone HCl (Trazodone HCl), 200 MG PO HS, (Reported) Trospium Chloride (Trospium Chloride), 20 MG PO HS, (Reported) Scheduled PRN Oxycodone HCl (Oxycodone HCl), 1 TAB PO DAILY PRN for PAIN, (Reported) Exam Vital Signs Vital Signs Date Time Temp Pulse Resp B/P (MAP) Pulse Ox O2 Delivery O2 Flow Rate FiO2 12/09/24 18:40 99.5 100 20 130/55 92 Nasal Cannula* 3.0 N/A General Appearance: Alert (x2), Cooperative, No acute distress HEENT: Atraumatic, EOMI Respiratory: Other (Positive hyper-resonance) Cardiovascular: Regular rate, Regular rhythm, Normal S1, Normal S2 Abdominal: Normal bowel sounds, Soft, No tenderness, No hepatospenomegaly Extremities: No edema Skin: Other (Bruising to bilateral upper extremities) Neuro: Cranial nerves 3-12 NL Psych/Mental Status: Mental status NL, Mood NL, Thoughts/Content NL Assessment/Plan ASSESSMENT: [ Sepsis, POA Suspected pneumonia, POA Hypertension Diabetes mellitius type2 Peripheral artery disease COPD, home O2 dependence Osteoarthritis Gerd Psoriatic arthritis] PLAN: [ Admit patient to PCU as inpatient status. Place patient on telemetry monitoring. Fluid resuscitation with lactated Ringer's 30 mL/kg Empiric antibiotic therapy with Zosyn Check procalcitonin, follow up with the results Reviewed patient's lactic acid, unremarkable Check blood culture, follow up with the results DuoNebs every 6 hours Pulmicort twice daily Supplemental oxygen to maintain O2 saturation greater 92%. Check patient for flu, strep, COVID Respiratory culture, follow up with the results Check hemoglobin A1c in a.m. Glucometer checks a.c. and HS 1800 ADA diet Humulin R sliding scale 1/2 dose Consider resuming home medications once they are reconciled For now, Hydralazine 10 mg IV every 4 hours for systolic blood pressure greater than 160 mmHg As needed analgesia with morphine GI prophylaxis, famotidine 20 mg by mouth daily. DVT prophylaxis Lovenox 40 mg subcutaneously once daily. ADVANCED CARE PLANNING 1. Which of the following were discussed? Hospice Care - Yes Therapeutic options - Yes Advance Directives - Yes- patient does not have any advance directives in place at this time, make decisions for him if he is unable. Other discussions - wishes for patient to remain a full code at this time 2. Discussed with who? Portia Connell 3. Voluntary nature of this service was explained to the patient? Yes 4. Amount of time spent - __ 16 minutes 5. Reviewed by Physician? (if this service was performed by NPP) Yes This document was generated in part using voice recognition software, occasional wrong word or sound alike substitutions may have occurred due to the inherent limitations of voice recognition software. Read the chart carefully and recognize using context, where the substitutions have occurred. Although every effort was made to edit the content, greaser and oiler and typing errors may occur ATTESTATION BY PHYSICIAN I have seen and examined the patient. I reviewed the documentation, medical decision making, and treatment plan as noted by the mid-level provider above. I agree with the findings and plan of care. CHRISTIN TOUSSAINT CLERICAL ASSISTANT Dec 09, 2024 19:22
[2024-12-09] MEDS ORDERED: hydrALAZine 20MG/ML VIAL IV PRN (19:30)
[2024-12-09] MEDS ORDERED: acetaMINOPHEN 325 MG TAB PO PRN (19:30)
[2024-12-09] MEDS ORDERED: ondanSETRON 4MG INJ IV PRN (19:30)
[2024-12-09] MEDS ORDERED: morPHINE 2 MG SYG IVP PRN (19:30)
[2024-12-09 19:45] LABS: INFLUENZA TYPE A Negative For Type A (NEGATIVE); INFLUENZA TYPE B Negative For Type B (NEGATIVE)
[2024-12-09] MEDS: LACTATED RINGERS 1000ML 1,914 ML IV ONE (20:34)
[2024-12-09] MEDS: ZOSYN 3.375GM +NS 50ML IV SCH (20:34)
[2024-12-09] MEDS: INSULIN humuLIN R 100 UNIT/ML 3ML SQ SCH (21:00)
[2024-12-09] MEDS: IpraTROPium/alBUTERol SULFATE 3 ML SOLUTION IH ONE (23:10)
[2024-12-09] MEDS: IpraTROPium/alBUTERol SULFATE 3 ML SOLUTION IH SCH (23:10)
[2024-12-09] MEDS: SODIUM CHLORIDE 3% FOR INHALATION 4 ML/AMP VIAL.NEB IH ONE (23:10)
[2024-12-09 23:12] VITALS: PULSE 101; RESP 19
[2024-12-09 23:13] VITALS: PULSE 101; RESP 19; O2SAT 97
[2024-12-09 23:33] LABS: RAPID GROUP A STREP negative (NEGATIVE)
[2024-12-09 23:37] LABS: SARS-CoV-2, RNA, NAAT NEGATIVE SARS CoV-2 (NEGATIVE)
[2024-12-10] VITALS (14 sets, daily range): BP systolic 109–160; BP diastolic 51–70; PULSE 84–106; RESP 18–20; TEMP 97.3–98.7; O2SAT 92–97
--- NOTE | 2024-12-10 00:46 | NUR ---
ATTEMPTED TO CALL REPORT X2, NURSE NOT AVAILABLE AT THIS TIME
[2024-12-10] MEDS ORDERED: VITAD50000 PO (02:54)
[2024-12-10] MEDS ORDERED: MIRA50TA PO (02:54)
[2024-12-10] MEDS ORDERED: BUPR2TAB3 SL (02:54)
[2024-12-10] MEDS ORDERED: CILO100T3 PO (02:54)
[2024-12-10 05:49] LABS: BASOPHILS # (AUTO) 0.02 K/uL (0.00-0.20); BASOPHILS % (AUTO) 0.4 % (0.0-5.0); EOSINOPHILS # (AUTO) 0.09 K/uL (0.00-0.70); EOSINOPHILS % (AUTO) 1.7 % (0.0-8.0); HEMATOCRIT 33.2 % (42-54); IMMATURE GRANULOCYTE ABSOLUTE 0.02 K/uL (0-1); LYMPHOCYTES # (AUTO) 1.5 K/uL (1.0-4.8); LYMPHOCYTES % (AUTO) 27.6 % (21.0-51.0); MEAN CORPUSCULAR HEMOGLOBIN 29.5 pg (27.0-33.0); MEAN CORPUSCULAR HGB CONC 29.8 g/dL (32.0-36.0); MEAN CORPUSCULAR VOLUME 98.8 fL (79-99); MONOCYTES # (AUTO) 0.6 K/uL (0.1-1.0); MONOCYTES % (AUTO) 10.2 % (3.0-13.0); NEUTROPHILS # (AUTO) 3.2 K/uL (1.8-7.7); NEUTROPHILS % (AUTO) 59.7 % (40.0-77.0); PLATELET COUNT (AUTO) 188 K/uL (130-400); RED BLOOD CELL COUNT(AUTO) 3.36 MIL/uL (4.50-6.20); RED CELL DISTRIBUTION WIDTH 15.3 % (11.0-15.5); WHITE BLOOD COUNT (AUTO) 5.4 K/uL (4.8-10.8)
--- NOTE | 2024-12-10 05:58 | EKG ---
[facility] Test Date: 2024-12-09 Test Time: 16:47:36 Pat Name: MEETA HICKMAN Department: [facility] Room: 404 1 Gender: M Venue Coordinator: [id number] : 1945 Requested By: PAUL KEN Order Number: [id number] Reading MD: Jalen Jeffery Measurements Intervals [place] Rate: 113 P: 0 MD: 0 QRS: 86 QRSD: 163 T: 53 QT: 379 QTc: 520 Interpretive Statements Atrial fibrillation Right bundle branch block Compared to ECG 10/15/2024 14:42:43 Sinus tachycardia no longer present Ventricular premature complex(es) no longer present First degree AV block no longer present Electronically Signed On 12-10-2024 17:08:21 SUPERVISOR SANDBLASTER by Jalen Jeffery Please click the below link to view image of tracing.
[2024-12-10 06:02] LABS: CREATININE 0.9 mg/dL (0.5-1.3); MAGNESIUM 1.4 mg/dL (1.80-2.40); PHOSPHORUS 2.6 mg/dL (2.5-4.9); POTASSIUM 4.1 mmol/L (3.5-5.1)
[2024-12-10 06:15] LABS: HEMOGLOBIN A1C 6.6 % (4.0-6.0)
[2024-12-10] MEDS: BUDESONIDE 0.5 MG/2 ML INH IH SCH (06:41)
[2024-12-10] MEDS: (Mirabegron (Myrbetriq) 50 MG) PO SCH (09:00)
[2024-12-10] MEDS: CHOLECALCIFEROL 50000 UNIT PO SCH (09:00)
[2024-12-10] MEDS: MULTIVITAMIN W MINERALS PO SCH (09:00)
[2024-12-10] MEDS: (Carboxymethylcellulose Sodium (Artificial Tears) 1 DROP) OP SCH (09:00)
[2024-12-10] MEDS: [UNRECOGNIZED DRUG - OTHER] PO SCH (09:00)
[2024-12-10] MEDS: LUTEIN PO SCH (09:00)
[2024-12-10] MEDS: ASPIRIN 81MG CHEW TAB PO SCH (09:14)
[2024-12-10] MEDS: PIOGLITAZONE 30MG TAB PO SCH (09:14)
[2024-12-10] MEDS: LoSARTan 50 MG TABLET PO SCH (09:14)
[2024-12-10] MEDS: duloXETine HCL 30 MG CAP PO SCH (09:15)
[2024-12-10] MEDS: CILOstazol 100 MG TAB PO SCH (09:15)
[2024-12-10] MEDS: amLODIPine 5 MG TAB PO SCH (09:15)
[2024-12-10] MEDS: FAMOTIDINE 20MG TAB PO SCH (09:15)
[2024-12-10] MEDS: ENOXAPARIN SODIUM 40 MG/0.4 ML SYRINGE SQ SCH (09:15)
[2024-12-10] MEDS: ropiNIRole HCL 0.25 MG TABLET PO SCH (09:15)
--- NOTE | 2024-12-10 09:44 | HMCIMG ---
CT HEAD/BRAIN W/O CONTRAST HISTORY: Weakness COMPARISON: None TECHNIQUE: Multiple sequential axial images of the head were obtained from the base of the skull through vertex. Patient was not given contrast through intravenous route. FINDINGS: The ventricles and extraventricular CSF spaces are dilated consistent with cerebral atrophy. Nonspecific white matter changes seen. 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 There is no midline shift, mass effect or herniation. No acute intracranial bleed is seen. Mild bilateral ethmoid and maxillary sinusitis changes are seen with mucoperiosteal thickening. IMPRESSION: 1. No acute intracranial bleed is seen. 2. Atrophy with white matter changes. CT was performed with one or more following dose reduction techniques: automated exposure control, adjustment of the mA and kv according to patient's size, or use of a iterative reconstruction technique.
--- NOTE | 2024-12-10 10:20 | PN ---
[facility] PROGRESS NOTE Date of Service: Dec 10, 2024 Time of Service: 10:[address] Bethea SUBJECTIVE: [ 12/09/24 Mr. Connell is a 79-year-old male that was seen and examined today on 12/09/2024. Patient's Portia Connell is at bedside and provided the bulk of the following information. Patient was brought to the emergency department with a chief complaint of weakness. Onset was 12/06/2024. Location is to entire body. Duration is constant. Character is described as" shaking and no energy."Symptoms are aggravated with patient's chronic pain [facility]. Patient's believes that he is in withdrawal. Patient takes chronic pain medication for his neuropathy and psoriatic arthritis. There was no alleviating factors. Patient arrived with a heart rate of 111, respirations 24, chest x- ray showed prominent interstitial markings with possible superimposed infiltrates serving as a suspected source of infection therefore meeting clinical sepsis criteria. For this reason emergency room physician recommended that patient be admitted to the hospital. 12/10/24 patient was seen by nurse practitioner and physician during rounding in room 404 comfortably lying in the bed. Family member/ at the bedside. Patient has a history of COPD is on3 L nasal cannula baseline. Sputum culture blood culture still pending. CT head brain that is negative. Per family members she would like to try to send patient to rehab. We will consult physical therapy for eval and treat. Case management was consulted as well. Regarding the possible dementia we will recommend that patient follow ups with his neurologist Dr. Allen outpatient. We will continue to monitor patient in the meantime. A.m. labs] REVIEW OF SYSTEMS CONSTITUTIONAL: Denies fevers, chills, or night sweats. No unintentional weight loss reported. NEUROLOGICAL: Denies headache, amaurosis fugax, motor weakness, sensory deficit, vertigo/spinning sensation, gait abnormalities, or tremors. ENT: No hearing loss, otalgia, otorrhea, rhinitis, rhinorrhea, hoarseness, or sore throat. CARDIOVASCULAR: Denies any exertional angina, dyspnea on exertion, orthopnea, paroxysmal nocturnal dyspnea, palpitations, life-threatening arrhythmias, claudication. PULMONARY: Denies any shortness of breath, cough, phlegm/sputum, hemoptysis, pleuritic chest pain. SLEEP: Denies morning headaches, daytime somnolence or napping. Denies difficulty falling asleep, staying asleep, waking from sleep. Denies knowledge of snoring. GASTROINTESTINAL: Denies any type of dysphagia to either liquids or solids. Denies nausea, vomiting, pyrosis, early satiety, abdominal pain, diarrhea, constipation, or changes in stool consistency or caliber. Denies coffee-ground emesis, hematemesis, hematochezia, or melanotic stools. GENITOURINARY: Denies frequency, urgency, nocturia, hematuria or incontinence (Storage/Irritative symptoms.) Low urinary stream, straining to void, urinary intermittency or hesitancy, splitting of the voiding stream, terminal dribbling. ENDOCRINOLOGIC: Denies polyuria, polydipsia, polyphagia or heat/cold intolerances. HEMATOLOGIC: Denies thrombophilia/previous clots, or coagulopathy/bleeding disorders. ONCOLOGIC: Denies personal history of malignancy. DERMATOLOGIC: Denies rashes or pruritus. PSYCHIATRIC: Denies any suicidal or homicidal ideation. Denies hallucinations. PHYSICAL EXAM GENERAL APPEARANCE: The patient is awake, alert, and oriented, in no acute cardiopulmonary distress. NEUROLOGICAL: Cranial nerves II-XII grossly intact. Motor is 5/5 in bilateral upper and lower extremities proximal to distal. No sensory deficits. HEENT: Face is symmetric. Pupils are equal and reactive. Extraocular movements are intact. NECK: Supple. No JVD. No thyromegaly. No submental, submandibular, pre- /postauricular, occipital or supraclavicular lymphadenopathy. CHEST: Normal chest expansion. No Telemetry. LUNGS: Absence of any rales, rhonchi or any wheezing. CARDIOVASCULAR: Regular. S1 and S2 normal. No appreciable rubs, murmurs or gallops. ABDOMEN: Soft, nontender, and nondistended. There is no rebound, voluntary gu arding, or rigidity. : Deferred. No Rivera. EXTREMITIES: Non-edematous and not cyanotic. No clubbing. Good capillary refill. SKIN: No skin breakdown. Vital Signs (last 8hr) Date Time Temp Pulse Resp B/P (MAP) Pulse Ox O2 Delivery O2 Flow Rate FiO2 12/10/24 08:00 98.1 88 19 120/51 94 Nasal Cannula 2.0 12/10/24 06:43 85 20 N/Cannula Low lpm 2.0 28 12/10/24 06:42 85 20 12/10/24 04:43 98.8 94 18 128/52 95 Nasal Cannula 3.0 LABS: Laboratory: Test 12/10/24 05:41 12/10/24 05:22 12/09/24 23:14 12/09/24 18:21 Range/Units Whole Blood Glucose 123 H 70-110 MG/DL White Blood Count 5.4 4.8-10.8 K/uL Red Blood Count 3.36 L 4.50-6.20 MIL/uL Hemoglobin 9.9 L 14.0-18.0 g/dL Hematocrit 33.2 L 42-54 % Mean Corpuscular Volume 98.8 79-99 fL Mean Corpuscular Hemoglobin 29.5 27.0-33.0 pg Mean Corpuscular Hemoglobin Concent 29.8 L 32.0-36.0 g/dL Red Cell Distribution Width 15.3 11.0-15.5 % Platelet Count 188 130-400 K/uL Mean Platelet Volume 9.3 7.5-10.5 fL Immature Granulocyte % (Auto) 0.4 0-1 % Neutrophils (%) (Auto) 59.7 40.0-77.0 % Lymphocytes (%) (Auto) 27.6 21.0-51.0 % Monocytes (%) (Auto) 10.2 3.0-13.0 % Eosinophils (%) (Auto) 1.7 0.0-8.0 % Basophils (%) (Auto) 0.4 0.0-5.0 % Neutrophils # (Auto) 3.2 1.8-7.7 K/uL Lymphocytes # (Auto) 1.5 1.0-4.8 K/uL Monocytes # (Auto) 0.6 0.1-1.0 K/uL Eosinophils # (Auto) 0.09 0.00-0.70 K/uL Basophils # (Auto) 0.02 0.00-0.20 K/uL Absolute Immature Granulocyte (auto 0.02 0-1 K/uL Nucleated Red Blood Cells 0.0 0.0-0.19 % Sodium Level 137 136-145 mmol/L Potassium Level 4.1 3.5-5.1 mmol/L Chloride Level 101 101-111 mmol/L Carbon Dioxide Level 32 21-32 mmol/L Blood Urea Nitrogen 17 7-18 mg/dL Creatinine 0.9 0.5-1.3 mg/dL Glomerular Filtration Rate Calc 87 >90 mL/min Random Glucose 122 H 70-105 mg/dL Hemoglobin A1c 6.6 H 4.0-6.0 % Estimated Average Glucose (eAG) 143 H 70-126 mg/dL Total Calcium 8.7 8.5-10.1 mg/dL Phosphorus Level 2.6 2.5-4.9 mg/dL Magnesium Level 1.40 L 1.80-2.40 mg/dL SARS-CoV-2, RNA, NAAT NEGATIVE SARS CoV-2 NEGATIVE Group A Streptococcus Rapid negative NEGATIVE Influenza Type A Antigen Negative For Type A NEGATIVE Influenza Type B Antigen Negative For Type B NEGATIVE Test 12/09/24 17:20 12/09/24 16:46 Range/Units Urine Color YELLOW YELLOW Urine Appearance CLEAR CLEAR Urine pH 5.5 5.0-8.0 Urine Specific [place] 1.027 1.001-1.031 Urine Protein 20 H NEGATIVE mg/dL Urine Glucose (UA) NEGATIVE NEGATIVE mg/dL Urine Ketones 5 H NEGATIVE mg/dL Urine Occult Blood NEGATIVE NEGATIVE Urine Nitrate NEGATIVE NEGATIVE Urine Bilirubin NEGATIVE NEGATIVE mg/dL Urine Urobilinogen 0.2 0.2-1.0 mg/dL Urine Leukocyte Esterase NEGATIVE NEGATIVE Miller/uL Urine RBC 0-1 0-1 /HPF Urine WBC 0-1 0-1 /HPF Urine Squamous Epithelial Cells RARE 0-2 /HPF Urine Bacteria None None Seen /HPF Red Blood Cell Morphology See comments Lactic Acid Level 1.0 0.8-2.5 mmol/L Total Bilirubin 0.5 0.2-1.0 mg/dL Direct Bilirubin 0.2 0.0-0.3 mg/dL Aspartate Amino Transf (AST/SGOT) 15 10-37 U/L Alanine Aminotransferase (ALT/SGPT) 11 L 12-78 U/L Alkaline Phosphatase 76 50-136 U/L Total Creatine Kinase 75 # 21-232 U/L Troponin I High Sensitivity 17 4-75 ng/L B-Type Natriuretic Peptide 58 0-100 pg/mL Total Protein 6.8 6.0-8.3 g/dL Albumin 3.1 L 3.5-5.0 g/dL Procalcitonin < 0.05 L 0.05-0.5 ng/mL Current Medications Medications (Trade) Dose Ordered Sig/Jose Route PRN Reason Start Time Stop Time Status Last Admin Dose Admin Acetaminophen (TYLenol 325MG TAB) 650 mg Q6H PRN PO TEMPERATURE GREATER THAN 101.5 12/09/24 19:30 01/08/25 19:29 Albuterol (DUOneb) 1 UDVIAL [id number] IH 12/10/24 00:00 01/09/25 00:00 12/10/24 06:41 1 UDVIAL Amlodipine Besylate (NorvASC 5MG TAB) 5 mg DAILY PO 12/10/24 09:00 01/09/25 08:59 12/10/24 09:15 5 MG Aspirin (Aspirin 81mg Chew Tab) 81 mg DAILY PO 12/10/24 09:00 01/09/25 08:59 12/10/24 09:14 81 MG Atorvastatin Calcium (LIPItor 40MG) 40 mg HS PO 12/10/24 21:00 01/09/25 20:59 Budesonide (Pulmicort 0.5 Mg/2ml) 0.5 mg BIDRESP IH 12/10/24 06:00 01/09/25 05:59 12/10/24 06:41 0.5 MG Cilostazol (PLETal 100MG TAB) 100 mg BID PO 12/10/24 09:00 01/09/25 08:59 12/10/24 09:15 100 MG Duloxetine HCl (CymbALTA 30 mg CAP) 60 mg DAILY PO 12/10/24 09:00 01/09/25 08:59 12/10/24 09:15 60 MG Enoxaparin Sodium (Lovenox) 40 mg DAILY SQ 12/10/24 09:00 01/09/25 08:59 12/10/24 09:15 40 MG Famotidine (Pepcid 20mg Tab) 20 mg DAILY PO 12/10/24 09:00 01/09/25 08:59 12/10/24 09:15 20 MG Home Med (Home Medication) (Carboxymethylcellulose Sodium (A... DAILY OP 12/10/24 09:00 01/09/25 08:59 Home Med (Home Medication) (Cholecalciferol (Vitamin D3) 50,000 UNITS) DAILY PO 12/10/24 09:00 01/09/25 08:59 Home Med (Home Medication) (Melatonin 6 MG) HS PO 12/10/24 21:00 01/09/25 20:59 Home Med (Home Medication) (Mirabegron (Myrbetriq) 50 MG) DAILY PO 12/10/24 09:00 01/09/25 08:59 Home Med (Home Medication) (Multivitamin W-Minerals/ Lutein (... BID PO 12/10/24 09:00 01/09/25 08:59 Home Med (Home Medication) (Trospium Chloride 20 MG) HS PO 12/10/24 21:00 01/09/25 20:59 Home Med (Home Medication) 2 each BID SL 12/10/24 09:00 01/09/25 08:59 Hydralazine HCl (APRESOLine 20MG INJ) 10 mg Q6H PRN IV For:SBP above 160;DBP above 90 12/09/24 19:30 01/08/25 19:29 Insulin Human Regular (humuLIN R 100 UNIT/ML 3ML) INSULIN SLIDING SCAL... ACHS SQ 12/09/24 21:00 01/08/25 20:59 Losartan Potassium (CozAAR 50 mg TAB) 50 mg BID PO 12/10/24 09:00 01/09/25 08:59 12/10/24 09:14 50 MG Magnesium Sulfate (Magnesium 4gm Premix 100ml) 4 gm AD IV 12/10/24 10:30 01/09/25 10:29 UNV Morphine Sulfate (morPHINE 2MG SYG) 2 mg Q4H PRN IVP SEVERE PAIN (7-10) 12/09/24 19:30 12/16/24 19:29 Ondansetron HCl (zoFRAN 4MG INJ) 4 mg Q6H PRN IV NAUSEA/VOMITING 12/09/24 19:30 01/08/25 19:29 Pioglitazone HCl (Actos 30mg) 30 mg DAILY PO 12/10/24 09:00 01/09/25 08:59 12/10/24 09:14 30 MG Piperacillin Sod/ Tazobactam Sod (Zosyn 3.375gm+NS 50ml) 3.375 gm Q8H IV 12/09/24 19:30 12/19/24 19:29 12/10/24 04:02 3.375 GM Ropinirole HCl (ropiNIRole HCL) 0.25 mg BID PO 12/10/24 09:00 01/09/25 08:59 12/10/24 09:15 0.25 MG Tamsulosin HCl (FloMAX) 0.4 mg HS PO 12/10/24 21:00 01/09/25 20:59 Trazodone HCl (DesyREL/OlepTRO) 200 mg HS PO 12/10/24 21:00 01/09/25 20:59 DIAGNOSTICS / RADIOLOGY: [ ] ASSESSMENT: [ Acute Sepsis, POA Suspected community acquired pneumonia, POA Uncontrolled Hypertension Uncontrolled Diabetes mellitius type2 with hypoglycemia Peripheral artery disease 10/16/2024 2D echo 55 to 60% EF unable to assess diastolic function due to poor tissue Doppler signals COPD, home O2 dependence Osteoarthritis Gerd Psoriatic arthritis History of cholecystectomy History of neck surgery History of left ankle surgery] PLAN: [ Admit to: Medical-surgical floor Consults: None Antibiotics: Zosyn Tests: None NEURO: Minimize central acting medications as possible. Fall Precautions. Well lighted room through the day and minimize interruptions through the night to prevent acute delirium. PULMONARY: Supplemental 02 as needed BiPAP as necessary, for respiratory distress Titrate Fio2 to keep Spo2 > or = 90% DuoNebs and CPT as needed IS hourly while awake for pulmonary hygiene Out of bed to chair as tolerated VAP Bundle Maintain aspiration precautions at all times CARDIOVASCULAR: Follow hemodynamics. Vital signs per facility protocol GI & NUTRITION: Continue nutritional support Aspirations precautions Prokinetic agents and laxatives as needed KIDNEYS & ELECTROLYTES: Strict monitoring of intake and output Daily weights Avoid nephrotoxic agents Monitor electrolytes and replace as needed Goal urine output of 30mL/hr or 0.5mL/kg/hr Medications to be dosed according to renal function. Avoid contrast if possible ENDOCRINE: Maintain blood glucose between 100-180 at all times. Insulin sliding scale for blood glucose management Hypoglycemia and hyperglycemia protocol in place INFECTIOUS DISEASE: Trend temperature, WBC and procalcitonin level Follow cultures, deescalate antibiotics as soon as possible. Panculture if new onset fever HEMATOLOGY & COAGULATION: Monitor H&H. Keep Hgb > 7 Transfuse 1 unit of PRBC for Hgb < 7 Transfuse 1 pack of platelets of platelets < 20, 000 Watch for any signs and symptoms of bleeding SKIN: Pressure ulcer prevention per facility protocol Specialty mattress as needed Treatment plan discussed with patient and family at the bedside Medications to be reconciled once obtained by patient and/or family and available to be reconciled in computer p.r.n. medication for pain nausea and vomiting Questions were answered We will continue to monitor the patient closely Cookie Mixer Helper for disposition Rehab: PT/OT GI: PPI DVT: SCD's Code Status: Full Resuscitation Disposition: TBD Prognosis: Guarded] ATTESTATION BY PHYSICIAN I have seen and examined the patient. I reviewed the documentation, medical decision making, and treatment plan as noted by the mid-level provider above. I agree with the findings and plan of care. Rachael Bethea MD, KATARZYNA B INDUSTRIAL RELATIONS ANALYST Dec 10, 2024 10:20
[2024-12-10] MEDS ORDERED: MAGNESIUM 4GM PREMIX 100ML IV SCH (10:30)
[2024-12-10] MEDS: MAGNESIUM 2GM PREMIX 50ML 50 ML IV ONE (10:36)
[2024-12-10] MEDS: SODIUM CHLORIDE 3% FOR INHALATION 4 ML/AMP VIAL.NEB IH ONE ×2 (11:30→18:44)
--- NOTE | 2024-12-10 11:30 | NUR ---
Blood glucose 141. No insulin coverage needed at this time.
--- NOTE | 2024-12-10 15:36 | NUR ---
PT eval attempted, patient sleeping and prefers to rest. PT to follow
[2024-12-10] MEDS: atorVAStatin 40 MG TABLET PO SCH (19:57)
[2024-12-10] MEDS: tamSULOsin HCL 0.4 MG CAP.ER.24H PO SCH (19:57)
[2024-12-10] MEDS: trAZOdone HCL 100 MG TABLET PO SCH (19:57)
[2024-12-10] MEDS: TROSPIUM CHLORIDE 20 MG PO SCH (21:00)
[2024-12-10] MEDS: MELATONIN 6 MG PO SCH (21:00)
--- NOTE | 2024-12-10 23:50 | NUR ---
HOME MED: BUPRANORPHINE HCL 2 MG SL BID, HOME MEDICATION TAKEN DOWN TO PHARMACY FOR LABELING. PHARMACY MADE NURSE AWARE THAT IT IS A CONTROLLED SUBSTANCE AND CANNOT BE KEPT AT BEDSIDE. MEDICATION IS TO STAY IN PHARMACY AND NURSING STAFF WILL NEED TO GET MEDICATION FROM PHARMACY. MADE AWARE HOME MED IS CONTROLLED AND WILL BE KEPT IN PHARMACY. VERBALIZES UNDERSTANDING.
[2024-12-11] VITALS (11 sets, daily range): BP systolic 98–154; BP diastolic 50–89; PULSE 70–102; RESP 16–20; TEMP 97.6–98.4; O2SAT 92–98
[2024-12-11 05:35] LABS: BASOPHILS # (AUTO) 0.01 K/uL (0.00-0.20); BASOPHILS % (AUTO) 0.2 % (0.0-5.0); EOSINOPHILS # (AUTO) 0.17 K/uL (0.00-0.70); EOSINOPHILS % (AUTO) 4.2 % (0.0-8.0); HEMATOCRIT 32.4 % (42-54); IMMATURE GRANULOCYTE ABSOLUTE 0.01 K/uL (0-1); LYMPHOCYTES # (AUTO) 1.2 K/uL (1.0-4.8); LYMPHOCYTES % (AUTO) 29.1 % (21.0-51.0); MEAN CORPUSCULAR HEMOGLOBIN 29.8 pg (27.0-33.0); MEAN CORPUSCULAR HGB CONC 30.2 g/dL (32.0-36.0); MEAN CORPUSCULAR VOLUME 98.5 fL (79-99); MONOCYTES # (AUTO) 0.6 K/uL (0.1-1.0); MONOCYTES % (AUTO) 13.5 % (3.0-13.0); NEUTROPHILS # (AUTO) 2.1 K/uL (1.8-7.7); NEUTROPHILS % (AUTO) 52.8 % (40.0-77.0); PLATELET COUNT (AUTO) 158 K/uL (130-400); RED BLOOD CELL COUNT(AUTO) 3.29 MIL/uL (4.50-6.20); RED CELL DISTRIBUTION WIDTH 14.9 % (11.0-15.5); WHITE BLOOD COUNT (AUTO) 4.1 K/uL (4.8-10.8)
[2024-12-11 05:46] LABS: ALBUMIN 2.5 g/dL (3.5-5.0); BILIRUBIN,TOTAL 0.3 mg/dL (0.2-1.0); CREATININE 0.9 mg/dL (0.5-1.3); MAGNESIUM 1.6 mg/dL (1.80-2.40); POTASSIUM 3.8 mmol/L (3.5-5.1); TOTAL PROTEIN, SERUM 5.2 g/dL (6.0-8.3)
[2024-12-11] MEDS: PoTASSium chloRIDE 20MEQ ER 20 MEQ ERTAB PO ONE (08:01)
[2024-12-11] MEDS: MAGNESIUM 2GM PREMIX 50ML 50 ML IV SCH (08:07)
--- NOTE | 2024-12-11 11:21 | PN ---
[facility] PROGRESS NOTE Date of Service: Dec 11, 2024 Time of Service: 11:[address] Bethea SUBJECTIVE: [ 12/09/24 Mr. Connell is a 79-year-old male that was seen and examined today on 12/09/2024. Patient's Portia Connell is at bedside and provided the bulk of the following information. Patient was brought to the emergency department with a chief complaint of weakness. Onset was 12/06/2024. Location is to entire body. Duration is constant. Character is described as" shaking and no energy."Symptoms are aggravated with patient's chronic [facility]. Patient's believes that he is in withdrawal. Patient takes chronic pain medication for his neuropathy and psoriatic arthritis. There was no alleviating factors. Patient arrived with a heart rate of 111, respirations 24, chest x- ray showed prominent interstitial markings with possible superimposed infiltrates serving as a suspected source of infection therefore meeting clinical sepsis criteria. For this reason emergency room physician recommended that patient be admitted to the hospital. 12/10/24 patient was seen by nurse practitioner and physician during rounding in room 404 comfortably lying in the bed. Family member/ at the bedside. Patient has a history of COPD is on3 L nasal cannula baseline. Sputum culture blood culture still pending. CT head brain that is negative. Per family members she would like to try to send patient to rehab. We will consult physical therapy for eval and treat. Case management was consulted as well. Regarding the possible dementia we will recommend that patient follow ups [facility] neurologist Dr. Allen outpatient. We will continue to monitor patient in the meantime. A.m. labs 12/11/24 patient was seen by nurse practitioner and physician during rounding in room 404 lying in the bed. Patient continues to be on 3 L nasal cannula which is a baseline at home. We are still pending final culture of blood. Case management is working on disposition to rehab versus sniff. We will continue to monitor patient in the meantime. A.m. labs] REVIEW OF SYSTEMS CONSTITUTIONAL: Denies fevers, chills, or night sweats. No unintentional weight loss reported. NEUROLOGICAL: Denies headache, amaurosis fugax, motor weakness, sensory deficit, vertigo/spinning sensation, gait abnormalities, or tremors. ENT: No hearing loss, otalgia, otorrhea, rhinitis, rhinorrhea, hoarseness, or sore throat. CARDIOVASCULAR: Denies any exertional angina, dyspnea on exertion, orthopnea, paroxysmal nocturnal dyspnea, palpitations, life-threatening arrhythmias, claudication. PULMONARY: Denies any shortness of breath, cough, phlegm/sputum, hemoptysis, pleuritic chest pain. SLEEP: Denies morning headaches, daytime somnolence or napping. Denies difficulty falling asleep, staying asleep, waking from sleep. Denies knowledge of snoring. GASTROINTESTINAL: Denies any type of dysphagia to either liquids or solids. Denies nausea, vomiting, pyrosis, early satiety, abdominal pain, diarrhea, constipation, or changes in stool consistency or caliber. Denies coffee-ground emesis, hematemesis, hematochezia, or melanotic stools. GENITOURINARY: Denies frequency, urgency, nocturia, hematuria or incontinence (Storage/Irritative symptoms.) Low urinary stream, straining to void, urinary intermittency or hesitancy, splitting of the voiding stream, terminal dribbling. ENDOCRINOLOGIC: Denies polyuria, polydipsia, polyphagia or heat/cold intolerances. HEMATOLOGIC: Denies thrombophilia/previous clots, or coagulopathy/bleeding disorders. ONCOLOGIC: Denies personal history of malignancy. DERMATOLOGIC: Denies rashes or pruritus. PSYCHIATRIC: Denies any suicidal or homicidal ideation. Denies hallucinations. PHYSICAL EXAM GENERAL APPEARANCE: The patient is awake, alert, and oriented, in no acute cardiopulmonary distress. NEUROLOGICAL: Cranial nerves II-XII grossly intact. Motor is 5/5 in bilateral upper and lower extremities proximal to distal. No sensory deficits. HEENT: Face is symmetric. Pupils are equal and reactive. Extraocular movements are intact. NECK: Supple. No JVD. No thyromegaly. No submental, submandibular, pre- /postauricular, occipital or supraclavicular lymphadenopathy. CHEST: Normal chest expansion. No Telemetry. LUNGS: Absence of any rales, rhonchi or any wheezing. CARDIOVASCULAR: Regular. S1 and S2 normal. No appreciable rubs, murmurs or gallops. ABDOMEN: Soft, nontender, and nondistended. There is no rebound, voluntary guarding, or rigidity. : Deferred. No Rivera. EXTREMITIES: Non-edematous and not cyanotic. No clubbing. Good capillary refill. SKIN: No skin breakdown. Vital Signs (last 8hr) Date Time Temp Pulse Resp B/P (MAP) Pulse Ox O2 Delivery O2 Flow Rate FiO2 12/11/24 08:00 97.5 94 18 122/64 97 Room Air 12/11/24 06:16 82 20 N/Cannula Low lpm 2.0 28 12/11/24 06:15 82 20 12/11/24 04:46 98.2 80 17 109/54 99 Nasal Cannula LABS: Laboratory: Test 12/11/24 05:25 12/11/24 05:18 12/10/24 05:22 12/09/24 23:14 Range/Units Whole Blood Glucose 110 70-110 MG/DL White Blood Count 4.1 L 4.8-10.8 K/uL Red Blood Count 3.29 L 4.50-6.20 MIL/uL Hemoglobin 9.8 L 14.0-18.0 g/dL Hematocrit 32.4 L 42-54 % Mean Corpuscular Volume 98.5 79-99 fL Mean Corpuscular Hemoglobin 29.8 27.0-33.0 pg Mean Corpuscular Hemoglobin Concent 30.2 L 32.0-36.0 g/dL Red Cell Distribution Width 14.9 11.0-15.5 % Platelet Count 158 130-400 K/uL Mean Platelet Volume 9.3 7.5-10.5 fL Immature Granulocyte % (Auto) 0.2 0-1 % Neutrophils (%) (Auto) 52.8 40.0-77.0 % Lymphocytes (%) (Auto) 29.1 21.0-51.0 % Monocytes (%) (Auto) 13.5 H 3.0-13.0 % Eosinophils (%) (Auto) 4.2 0.0-8.0 % Basophils (%) (Auto) 0.2 0.0-5.0 % Neutrophils # (Auto) 2.1 1.8-7.7 K/uL Lymphocytes # (Auto) 1.2 1.0-4.8 K/uL Monocytes # (Auto) 0.6 0.1-1.0 K/uL Eosinophils # (Auto) 0.17 0.00-0.70 K/uL Basophils # (Auto) 0.01 0.00-0.20 K/uL Absolute Immature Granulocyte (auto 0.01 0-1 K/uL Nucleated Red Blood Cells 0.0 0.0-0.19 % Sodium Level 139 136-145 mmol/L Potassium Level 3.8 3.5-5.1 mmol/L Chloride Level 104 101-111 mmol/L Carbon Dioxide Level 35 H 21-32 mmol/L Blood Urea Nitrogen 13 7-18 mg/dL Creatinine 0.9 0.5-1.3 mg/dL Glomerular Filtration Rate Calc 87 >90 mL/min Random Glucose 117 H 70-105 mg/dL Total Calcium 8.6 8.5-10.1 mg/dL Magnesium Level 1.60 L 1.80-2.40 mg/dL Total Bilirubin 0.3 0.2-1.0 mg/dL Aspartate Amino Transf (AST/SGOT) 20 10-37 U/L Alanine Aminotransferase (ALT/SGPT) 9 L 12-78 U/L Alkaline Phosphatase 60 50-136 U/L Total Protein 5.2 L 6.0-8.3 g/dL Albumin 2.5 L 3.5-5.0 g/dL Hemoglobin A1c 6.6 H 4.0-6.0 % Estimated Average Glucose (eAG) 143 H 70-126 mg/dL Phosphorus Level 2.6 2.5-4.9 mg/dL SARS-CoV-2, RNA, NAAT NEGATIVE SARS CoV-2 NEGATIVE Group A Streptococcus Rapid negative NEGATIVE Test 12/09/24 18:21 12/09/24 17:20 12/09/24 16:46 Range/Units Influenza Type A Antigen Negative For Type A NEGATIVE Influenza Type B Antigen Negative For Type B NEGATIVE Urine Color YELLOW YELLOW Urine Appearance CLEAR CLEAR Urine pH 5.5 5.0-8.0 Urine Specific [place] 1.027 1.001-1.031 Urine Protein 20 H NEGATIVE mg/dL Urine Glucose (UA) NEGATIVE NEGATIVE mg/dL Urine Ketones 5 H NEGATIVE mg/dL Urine Occult Blood NEGATIVE NEGATIVE Urine Nitrate NEGATIVE NEGATIVE Urine Bilirubin NEGATIVE NEGATIVE mg/dL Urine Urobilinogen 0.2 0.2-1.0 mg/dL Urine Leukocyte Esterase NEGATIVE NEGATIVE Miller/uL Urine RBC 0-1 0-1 /HPF Urine WBC 0-1 0-1 /HPF Urine Squamous Epithelial Cells RARE 0-2 /HPF Urine Bacteria None None Seen /HPF Red Blood Cell Morphology See comments Lactic Acid Level 1.0 0.8-2.5 mmol/L Direct Bilirubin 0.2 0.0-0.3 mg/dL Total Creatine Kinase 75 # 21-232 U/L Troponin I High Sensitivity 17 4-75 ng/L B-Type Natriuretic Peptide 58 0-100 pg/mL Procalcitonin < 0.05 L 0.05-0.5 ng/mL Current Medications Medications (Trade) Dose Ordered Sig/Jose Route PRN Reason Start Time Stop Time Status Last Admin Dose Admin Acetaminophen (TYLenol 325MG TAB) 650 mg Q6H PRN PO TEMPERATURE GREATER THAN 101.5 12/09/24 19:30 01/08/25 19:29 Albuterol (DUOneb) 1 UDVIAL [id number] IH 12/10/24 00:00 01/09/25 00:00 12/11/24 11:08 1 UDVIAL Amlodipine Besylate (NorvASC 5MG TAB) 5 mg DAILY PO 12/10/24 09:00 01/09/25 08:59 12/11/24 08:06 5 MG Aspirin (Aspirin 81mg Chew Tab) 81 mg DAILY PO 12/10/24 09:00 01/09/25 08:59 12/11/24 08:00 81 MG Atorvastatin Calcium (LIPItor 40MG) 40 mg HS PO 12/10/24 21:00 01/09/25 20:59 12/10/24 19:57 40 MG Budesonide (Pulmicort 0.5 Mg/2ml) 0.5 mg BIDRESP IH 12/10/24 06:00 01/09/25 05:59 12/11/24 06:20 0.5 MG Cilostazol (PLETal 100MG TAB) 100 mg BID PO 12/10/24 09:00 01/09/25 08:59 12/11/24 08:02 100 MG Duloxetine HCl (CymbALTA 30 mg CAP) 60 mg DAILY PO 12/10/24 09:00 01/09/25 08:59 12/11/24 08:01 60 MG Enoxaparin Sodium (Lovenox) 40 mg DAILY SQ 12/10/24 09:00 01/09/25 08:59 12/11/24 08:07 40 MG Famotidine (Pepcid 20mg Tab) 20 mg DAILY PO 12/10/24 09:00 01/09/25 08:59 12/11/24 08:01 20 MG Home Med (Home Medication) (Carboxymethylcellulose Sodium (A... DAILY OP 12/10/24 09:00 01/09/25 08:59 Home Med (Home Medication) (Cholecalciferol (Vitamin D3) 50,000 UNITS) DAILY PO 12/10/24 09:00 01/09/25 08:59 Home Med (Home Medication) (Melatonin 6 MG) HS PO 12/10/24 21:00 01/09/25 20:59 Home Med (Home Medication) (Mirabegron (Myrbetriq) 50 MG) DAILY PO 12/10/24 09:00 01/09/25 08:59 Home Med (Home Medication) (Multivitamin W-Minerals/ Lutein (... BID PO 12/10/24 09:00 01/09/25 08:59 12/11/24 10:47 1 EACH Home Med (Home Medication) (Trospium Chloride 20 MG) HS PO 12/10/24 21:00 01/09/25 20:59 Home Med (Home Medication) 1 each BID SL 12/11/24 09:00 01/09/25 08:59 12/11/24 08:41 1 EACH Home Med (Home Medication) 2 each BID SL 12/10/24 09:00 12/10/24 23:48 DC Hydralazine HCl (APRESOLine 20MG INJ) 10 mg Q6H PRN IV For:SBP above 160;DBP above 90 12/09/24 19:30 01/08/25 19:29 Insulin Human Regular (humuLIN R 100 UNIT/ML 3ML) INSULIN SLIDING SCAL... ACHS SQ 12/09/24 21:00 01/08/25 20:59 Losartan Potassium (CozAAR 50 mg TAB) 50 mg BID PO 12/10/24 09:00 01/09/25 08:59 12/11/24 08:08 50 MG Magnesium Sulfate 50 ml @ 0 mls/hr PROTOCOL IV 12/11/24 07:00 01/10/25 06:59 12/11/24 08:07 1 MLS/HR Magnesium Sulfate (Magnesium 4gm Premix 100ml) 4 gm AD IV 12/10/24 10:30 12/10/24 10:18 DC Morphine Sulfate (morPHINE 2MG SYG) 2 mg Q4H PRN IVP SEVERE PAIN (7-10) 12/09/24 19:30 12/16/24 19:29 Ondansetron HCl (zoFRAN 4MG INJ) 4 mg Q6H PRN IV NAUSEA/VOMITING 12/09/24 19:30 01/08/25 19:29 Pioglitazone HCl (Actos 30mg) 30 mg DAILY PO 12/10/24 09:00 01/09/25 08:59 12/11/24 08:01 30 MG Piperacillin Sod/ Tazobactam Sod (Zosyn 3.375gm+NS 50ml) 3.375 gm Q8H IV 12/09/24 19:30 12/19/24 19:29 12/11/24 03:14 3.375 GM Ropinirole HCl (ropiNIRole HCL) 0.25 mg BID PO 12/10/24 09:00 01/09/25 08:59 12/11/24 08:01 0.25 MG Tamsulosin HCl (FloMAX) 0.4 mg HS PO 12/10/24 21:00 01/09/25 20:59 12/10/24 19:57 0.4 MG Trazodone HCl (DesyREL/OlepTRO) 200 mg HS PO 12/10/24 21:00 01/09/25 20:59 12/10/24 19:57 200 MG DIAGNOSTICS / RADIOLOGY: [ ] ASSESSMENT: [ Acute Sepsis, POA Suspected community acquired pneumonia, POA Uncontrolled Hypertension Uncontrolled Diabetes mellitius type2 with hypoglycemia Peripheral artery disease 10/16/2024 2D echo 55 to 60% EF unable to assess diastolic function due to poor tissue Doppler signals COPD, home O2 dependence Osteoarthritis Gerd Psoriatic arthritis History of cholecystectomy History of neck surgery History of left ankle surgery] PLAN: [ Admit to: Medical-surgical floor Consults: None Antibiotics: Zosyn Tests: None NEURO: Minimize central acting medications as possible. Fall Precautions. Well lighted room through the day and minimize interruptions through the night to prevent acute delirium. PULMONARY: Supplemental 02 as needed BiPAP as necessary, for respiratory distress Titrate Fio2 to keep Spo2 > or = 90% DuoNebs and CPT as needed IS hourly while awake for pulmonary hygiene Out of bed to chair as tolerated VAP Bundle Maintain aspiration precautions at all times CARDIOVASCULAR: Follow hemodynamics. Vital signs per facility protocol GI & NUTRITION: Continue nutritional support Aspirations precautions Prokinetic agents and laxatives as needed KIDNEYS & ELECTROLYTES: Strict monitoring of intake and output Daily weights Avoid nephrotoxic agents Monitor electrolytes and replace as needed Goal urine output of 30mL/hr or 0.5mL/kg/hr Medications to be dosed according to renal function. Avoid contrast if possible ENDOCRINE: Maintain blood glucose between 100-180 at all times. Insulin sliding scale for blood glucose management Hypoglycemia and hyperglycemia protocol in place INFECTIOUS DISEASE: Trend temperature, WBC and procalcitonin level Follow cultures, deescalate antibiotics as soon as possible. Panculture if new onset fever HEMATOLOGY & COAGULATION: Monitor H&H. Keep Hgb > 7 Transfuse 1 unit of PRBC for Hgb < 7 Transfuse 1 pack of platelets of platelets < 20, 000 Watch for any signs and symptoms of bleeding SKIN: Pressure ulcer prevention per facility protocol Specialty mattress as needed Treatment plan discussed with patient and family at the bedside Medications to be reconciled once obtained by patient and/or family and available to be reconciled in computer p.r.n. 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 I reviewed the documentation, medical decision making, and treatment plan as noted by the mid-level provider above. I agree with the findings and plan of care. Rachael Bethea MD, [facility] Dec 11, 2024 11:20
--- NOTE | 2024-12-11 16:43 | NUR ---
DC PLAN VISITED WITH PATIENT. PATIENT LIVES WITH SPOUSE. SEMI INDEPENDENT ABLE TO PERFORM ADL'S. PATIENT HAS SERVICES FOR HELP AT HOME. [facility] [facility] AND 02. [facility] HAS BEEN [facility] IN THE PAST. TIFFANIE SIGNED. PACKET MADE AND SENT. REP NOTIFIED. COPY OF PACKET GIVEN TO REP WHILE IN [facility]. [facility]PO[facility]. Addendum: 12/11/24 at 1648 by YOJANA MARTINS RN CM Amended: Links added.
[2024-12-11] MEDS: ZOLPidem TARTrate 5 MG TAB PO ONE (18:53)
[2024-12-12] VITALS (17 sets, daily range): BP systolic 98–130; BP diastolic 44–57; PULSE 66–101; RESP 16–21; TEMP 97.3–98.3; O2SAT 93–96
[2024-12-12 05:20] LABS: BASOPHILS # (AUTO) 0.01 K/uL (0.00-0.20); BASOPHILS % (AUTO) 0.3 % (0.0-5.0); EOSINOPHILS # (AUTO) 0.21 K/uL (0.00-0.70); EOSINOPHILS % (AUTO) 5.9 % (0.0-8.0); HEMATOCRIT 31.2 % (42-54); IMMATURE GRANULOCYTE ABSOLUTE 0.01 K/uL (0-1); LYMPHOCYTES % (AUTO) 28.9 % (21.0-51.0); MEAN CORPUSCULAR HEMOGLOBIN 29.1 pg (27.0-33.0); MEAN CORPUSCULAR HGB CONC 30.1 g/dL (32.0-36.0); MEAN CORPUSCULAR VOLUME 96.6 fL (79-99); MONOCYTES # (AUTO) 0.5 K/uL (0.1-1.0); MONOCYTES % (AUTO) 14.2 % (3.0-13.0); NEUTROPHILS # (AUTO) 1.8 K/uL (1.8-7.7); NEUTROPHILS % (AUTO) 50.4 % (40.0-77.0); PLATELET COUNT (AUTO) 169 K/uL (130-400); RED BLOOD CELL COUNT(AUTO) 3.23 MIL/uL (4.50-6.20); WHITE BLOOD COUNT (AUTO) 3.5 K/uL (4.8-10.8)
[2024-12-12 05:38] LABS: ALBUMIN 2.4 g/dL (3.5-5.0); BILIRUBIN,TOTAL 0.3 mg/dL (0.2-1.0); POTASSIUM 3.9 mmol/L (3.5-5.1); TOTAL PROTEIN, SERUM 5.1 g/dL (6.0-8.3)
--- NOTE | 2024-12-12 14:58 | PN ---
[facility] PROGRESS NOTE Date of Service: Dec 12, 2024 Time of Service: 14:[address] Bethea SUBJECTIVE: [ 12/09/24 Mr. Connell is a 79-year-old male that was seen and examined today on 12/09/2024. Patient's Portia Conenll is at bedside and provided the bulk of the following information. Patient was brought to the emergency department with a chief complaint of weakness. Onset was 12/06/2024. Location is to entire body. Duration is constant. Character is described as" shaking and no energy."Symptoms are aggravated with patient's chronic pain [facility] Patient's believes that he is in withdrawal. Patient takes chronic pain medication for his neuropathy and psoriatic arthritis. There was no alleviating factors. Patient arrived with a heart rate of 111, respirations 24, chest x- ray showed prominent interstitial markings with possible superimposed infiltrates serving as a suspected source of infection therefore meeting clinical sepsis criteria. For this reason emergency room physician recommended that patient be admitted to the hospital. 12/10/24 patient was seen by nurse practitioner and physician during rounding in room 404 comfortably lying in the bed. Family member/ at the bedside. Patient has a history of COPD is on3 L nasal cannula baseline. Sputum culture blood culture still pending. CT head brain that is negative. Per family members she would like to try to send patient to rehab. We will consult physical therapy for eval and treat. Case management was consulted as well. Regarding the possible dementia we will recommend that patient follow ups with [facility] neurologist Dr. Allen outpatient. We will continue to monitor patient in the meantime. A.m. labs 12/11/24 patient was seen by nurse practitioner and physician during rounding in room 404 lying in the bed. Patient continues to be on 3 L nasal cannula which is a baseline at home. We are still pending final culture of blood. Case management is working on disposition to rehab versus sniff. We will continue to monitor patient in the meantime. A.m. labs 12/12/24 patient was seen by nurse practitioner and physician during rounding in room 404 lying in the patient continues to be on 3 L nasal cannula which is baseline. Today WBC is 4.1. At this moment we are pending discharge to [facility] rehab once insurance approved. Med rec already done by HATCHERY HELPER in placed on chart. We will continue to monitor patient in the meantime. A.m. labs] REVIEW OF SYSTEMS CONSTITUTIONAL: Denies fevers, chills, or night sweats. No unintentional weight loss reported. NEUROLOGICAL: Denies headache, amaurosis fugax, motor weakness, sensory deficit, vertigo/spinning sensation, gait abnormalities, or tremors. ENT: No hearing loss, otalgia, otorrhea, rhinitis, rhinorrhea, hoarseness, or sore throat. CARDIOVASCULAR: Denies any exertional angina, dyspnea on exertion, orthopnea, paroxysmal nocturnal dyspnea, palpitations, life-threatening arrhythmias, claudication. PULMONARY: Denies any shortness of breath, cough, phlegm/sputum, hemoptysis, pleuritic chest pain. SLEEP: Denies morning headaches, daytime somnolence or napping. Denies difficulty falling asleep, staying asleep, waking from sleep. Denies knowledge of snoring. GASTROINTESTINAL: Denies any type of dysphagia to either liquids or solids. Denies nausea, vomiting, pyrosis, early satiety, abdominal pain, diarrhea, constipation, or changes in stool consistency or caliber. Denies coffee-ground emesis, hematemesis, hematochezia, or melanotic stools. GENITOURINARY: Denies frequency, urgency, nocturia, hematuria or incontinence (Storage/Irritative symptoms.) Low urinary stream, straining to void, urinary intermittency or hesitancy, splitting of the voiding stream, terminal dribbling. ENDOCRINOLOGIC: Denies polyuria, polydipsia, polyphagia or heat/cold intolerances. HEMATOLOGIC: Denies thrombophilia/previous clots, or coagulopathy/bleeding disorders. ONCOLOGIC: Denies personal history of malignancy. DERMATOLOGIC: Denies rashes or pruritus. PSYCHIATRIC: Denies any suicidal or homicidal ideation. Denies hallucinations. PHYSICAL EXAM GENERAL APPEARANCE: The patient is awake, alert, and oriented, in no acute cardiopulmonary distress. NEUROLOGICAL: Cranial nerves II-XII grossly intact. Motor is 5/5 in bilateral upper and lower extremities proximal to distal. No sensory deficits. HEENT: Face is symmetric. Pupils are equal and reactive. Extraocular movements are intact. NECK: Supple. No JVD. No thyromegaly. No submental, submandibular, pre- /postauricular, occipital or supraclavicular lymphadenopathy. CHEST: Normal chest expansion. No Telemetry. LUNGS: Absence of any rales, rhonchi or any wheezing. CARDIOVASCULAR: Regular. S1 and S2 normal. No appreciable rubs, murmurs or gallops. ABDOMEN: Soft, nontender, and nondistended. There is no rebound, voluntary guarding, or rigidity. : Deferred. No Rivera. EXTREMITIES: Non-edematous and not cyanotic. No clubbing. Good capillary refill. SKIN: No skin breakdown. Vital Signs (last 8hr) Date Time Temp Pulse Resp B/P (MAP) Pulse Ox O2 Delivery O2 Flow Rate FiO2 12/12/24 12:54 97.9 89 21 130/55 96 12/12/24 10:49 101 18 12/12/24 08:15 97.3 83 16 120/57 93 12/12/24 08:00 93 Nasal Cannula* 3 32 LABS: Laboratory: Test 12/12/24 11:20 12/12/24 04:55 Range/Units Whole Blood Glucose 144 H 70-110 MG/DL White Blood Count 3.5 L 4.8-10.8 K/uL Red Blood Count 3.23 L 4.50-6.20 MIL/uL Hemoglobin 9.4 L 14.0-18.0 g/dL Hematocrit 31.2 L 42-54 % Mean Corpuscular Volume 96.6 79-99 fL Mean Corpuscular Hemoglobin 29.1 27.0-33.0 pg Mean Corpuscular Hemoglobin Concent 30.1 L 32.0-36.0 g/dL Red Cell Distribution Width 15.0 11.0-15.5 % Platelet Count 169 130-400 K/uL Mean Platelet Volume 9.5 7.5-10.5 fL Immature Granulocyte % (Auto) 0.3 0-1 % Neutrophils (%) (Auto) 50.4 40.0-77.0 % Lymphocytes (%) (Auto) 28.9 21.0-51.0 % Monocytes (%) (Auto) 14.2 H 3.0-13.0 % Eosinophils (%) (Auto) 5.9 0.0-8.0 % Basophils (%) (Auto) 0.3 0.0-5.0 % Neutrophils # (Auto) 1.8 1.8-7.7 K/uL Lymphocytes # (Auto) 1.0 1.0-4.8 K/uL Monocytes # (Auto) 0.5 0.1-1.0 K/uL Eosinophils # (Auto) 0.21 0.00-0.70 K/uL Basophils # (Auto) 0.01 0.00-0.20 K/uL Absolute Immature Granulocyte (auto 0.01 0-1 K/uL Nucleated Red Blood Cells 0.0 0.0-0.19 % Sodium Level 142 136-145 mmol/L Potassium Level 3.9 3.5-5.1 mmol/L Chloride Level 106 101-111 mmol/L Carbon Dioxide Level 33 H 21-32 mmol/L Blood Urea Nitrogen 14 7-18 mg/dL Creatinine 1.0 0.5-1.3 mg/dL Glomerular Filtration Rate Calc 77 >90 mL/min Random Glucose 132 H 70-105 mg/dL Total Calcium 8.6 8.5-10.1 mg/dL Magnesium Level 2.00 1.80-2.40 mg/dL Total Bilirubin 0.3 0.2-1.0 mg/dL Aspartate Amino Transf (AST/SGOT) 28 10-37 U/L Alanine Aminotransferase (ALT/SGPT) 12 # 12-78 U/L Alkaline Phosphatase 59 50-136 U/L Total Protein 5.1 L 6.0-8.3 g/dL Albumin 2.4 L 3.5-5.0 g/dL Current Medications Medications (Trade) Dose Ordered Sig/Jose Route PRN Reason Start Time Stop Time Status Last Admin Dose Admin Acetaminophen (TYLenol 325MG TAB) 650 mg Q6H PRN PO TEMPERATURE GREATER THAN 101.5 12/09/24 19:30 01/08/25 19:29 Albuterol (DUOneb) 1 UDVIAL [id number] IH 12/10/24 00:00 01/09/25 00:00 12/12/24 10:48 1 UDVIAL Amlodipine Besylate (NorvASC 5MG TAB) 5 mg DAILY PO 12/10/24 09:00 01/09/25 08:59 12/12/24 10:12 5 MG Aspirin (Aspirin 81mg Chew Tab) 81 mg DAILY PO 12/10/24 09:00 01/09/25 08:59 12/12/24 10:13 81 MG Atorvastatin Calcium (LIPItor 40MG) 40 mg HS PO 12/10/24 21:00 01/09/25 20:59 12/11/24 20:47 40 MG Budesonide (Pulmicort 0.5 Mg/2ml) 0.5 mg BIDRESP IH 12/10/24 06:00 01/09/25 05:59 12/12/24 06:30 0.5 MG Cilostazol (PLETal 100MG TAB) 100 mg BID PO 12/10/24 09:00 01/09/25 08:59 12/12/24 10:11 100 MG Duloxetine HCl (CymbALTA 30 mg CAP) 60 mg DAILY PO 12/10/24 09:00 01/09/25 08:59 12/12/24 10:12 60 MG Enoxaparin Sodium (Lovenox) 40 mg DAILY SQ 12/10/24 09:00 01/09/25 08:59 12/12/24 10:13 40 MG Famotidine (Pepcid 20mg Tab) 20 mg DAILY PO 12/10/24 09:00 01/09/25 08:59 12/12/24 10:12 20 MG Home Med (Home Medication) (Carboxymethylcellulose Sodium (A... DAILY OP 12/10/24 09:00 01/09/25 08:59 Home Med (Home Medication) (Cholecalciferol (Vitamin D3) 50,000 UNITS) DAILY PO 12/10/24 09:00 01/09/25 08:59 12/12/24 10:17 1 EACH Home Med (Home Medication) (Melatonin 6 MG) HS PO 12/10/24 21:00 01/09/25 20:59 Home Med (Home Medication) (Mirabegron (Myrbetriq) 50 MG) DAILY PO 12/10/24 09:00 01/09/25 08:59 12/12/24 10:18 1 EACH Home Med (Home Medication) (Multivitamin W-Minerals/ Lutein (... BID PO 12/10/24 09:00 01/09/25 08:59 12/12/24 10:18 1 EACH Home Med (Home Medication) (Trospium Chloride 20 MG) HS PO 12/10/24 21:00 01/09/25 20:59 Home Med (Home Medication) 1 each BID SL 12/11/24 09:00 01/09/25 08:59 12/12/24 10:29 1 EACH Home Med (Home Medication) 2 each BID SL 12/10/24 09:00 12/10/24 23:48 DC Hydralazine HCl (APRESOLine 20MG INJ) 10 mg Q6H PRN IV For:SBP above 160;DBP above 90 12/09/24 19:30 01/08/25 19:29 Insulin Human Regular (humuLIN R 100 UNIT/ML 3ML) INSULIN SLIDING SCAL... ACHS SQ 12/09/24 21:00 01/08/25 20:59 Losartan Potassium (CozAAR 50 mg TAB) 50 mg BID PO 12/10/24 09:00 01/09/25 08:59 12/12/24 10:12 50 MG Magnesium Sulfate 50 ml @ 0 mls/hr PROTOCOL IV 12/11/24 07:00 01/10/25 06:59 12/11/24 08:07 1 MLS/HR Magnesium Sulfate (Magnesium 4gm Premix 100ml) 4 gm AD IV 12/10/24 10:30 12/10/24 10:18 DC Morphine Sulfate (morPHINE 2MG SYG) 2 mg Q4H PRN IVP SEVERE PAIN (7-10) 12/09/24 19:30 12/16/24 19:29 Ondansetron HCl (zoFRAN 4MG INJ) 4 mg Q6H PRN IV NAUSEA/VOMITING 12/09/24 19:30 01/08/25 19:29 Pioglitazone HCl (Actos 30mg) 30 mg DAILY PO 12/10/24 09:00 01/09/25 08:59 12/12/24 10:11 30 MG Piperacillin Sod/ Tazobactam Sod (Zosyn 3.375gm+NS 50ml) 3.375 gm Q8H IV 12/09/24 19:30 12/19/24 19:29 12/12/24 13:35 3.375 GM Ropinirole HCl (ropiNIRole HCL) 0.25 mg BID PO 12/10/24 09:00 01/09/25 08:59 12/12/24 10:11 0.25 MG Tamsulosin HCl (FloMAX) 0.4 mg HS PO 12/10/24 21:00 01/09/25 20:59 12/11/24 20:47 0.4 MG Trazodone HCl (DesyREL/OlepTRO) 200 mg HS PO 12/10/24 21:00 01/09/25 20:59 12/11/24 20:47 200 MG DIAGNOSTICS / RADIOLOGY: [ ] ASSESSMENT: [ Acute Sepsis, POA Suspected community acquired pneumonia, POA Uncontrolled Hypertension Uncontrolled Diabetes mellitius type2 with hypoglycemia Peripheral artery disease 10/16/2024 2D echo 55 to 60% EF unable to assess diastolic function due to poor tissue Doppler signals COPD, home O2 dependence Osteoarthritis Gerd Psoriatic arthritis History of cholecystectomy History of neck surgery History of left ankle surgery] PLAN: [ Admit to: Medical-surgical floor Consults: None Antibiotics: Zosyn Tests: None NEURO: Minimize central acting medications as possible. Fall Precautions. Well lighted room through the day and minimize interruptions through the night to prevent acute delirium. PULMONARY: Supplemental 02 as needed BiPAP as necessary, for respiratory distress Titrate Fio2 to keep Spo2 > or = 90% DuoNebs and CPT as needed IS hourly while awake for pulmonary hygiene Out of bed to chair as tolerated VAP Bundle Maintain aspiration precautions at all times CARDIOVASCULAR: Follow hemodynamics. Vital signs per facility protocol GI & NUTRITION: Continue nutritional support Aspirations precautions Prokinetic agents and laxatives as needed KIDNEYS & ELECTROLYTES: Strict monitoring of intake and output Daily weights Avoid nephrotoxic agents Monitor electrolytes and replace as needed Goal urine output of 30mL/hr or 0.5mL/kg/hr Medications to be dosed according to renal function. Avoid contrast if possible ENDOCRINE: Maintain blood glucose between 100-180 at all times. Insulin sliding scale for blood glucose management Hypoglycemia and hyperglycemia protocol in place INFECTIOUS DISEASE: Trend temperature, WBC and procalcitonin level Follow cultures, deescalate antibiotics as soon as possible. Panculture if new onset fever HEMATOLOGY & COAGULATION: Monitor H&H. Keep Hgb > 7 Transfuse 1 unit of PRBC for Hgb < 7 Transfuse 1 pack of platelets of platelets < 20, 000 Watch for any signs and symptoms of bleeding SKIN: Pressure ulcer prevention per facility protocol Specialty mattress as needed Treatment plan discussed with patient and family at the bedside Medications to be reconciled once obtained by patient and/or family and available to be reconciled in computer p.r.n. medication for pain nausea and vomiting Questions were answered We will continue to monitor the patient closely Flight Operations Inspector for disposition Rehab: PT/OT GI: PPI DVT: SCD's Code Status: Full Resuscitation Disposition: TBD Prognosis: Guarded] ATTESTATION BY PHYSICIAN I have seen and examined the patient. I reviewed the documentation, medical decision making, and treatment plan as noted by the mid-level provider above. I agree with the findings and plan of care. Rachael Bethea MD, KATARZYNA B CLINICAL PROJECT COORDINATOR Dec 12, 2024 14:58
[2024-12-13] VITALS (14 sets, daily range): BP systolic 99–115; BP diastolic 46–94; PULSE 81–106; RESP 16–19; TEMP 97.7–98.6; O2SAT 93–100
[2024-12-13 04:28] LABS: BASOPHILS # (AUTO) 0.01 K/uL (0.00-0.20); BASOPHILS % (AUTO) 0.2 % (0.0-5.0); EOSINOPHILS # (AUTO) 0.27 K/uL (0.00-0.70); EOSINOPHILS % (AUTO) 6.6 % (0.0-8.0); HEMATOCRIT 32.9 % (42-54); IMMATURE GRANULOCYTE ABSOLUTE 0.01 K/uL (0-1); LYMPHOCYTES % (AUTO) 24.1 % (21.0-51.0); MEAN CORPUSCULAR HEMOGLOBIN 29.9 pg (27.0-33.0); MEAN CORPUSCULAR HGB CONC 30.4 g/dL (32.0-36.0); MEAN CORPUSCULAR VOLUME 98.5 fL (79-99); MONOCYTES # (AUTO) 0.5 K/uL (0.1-1.0); MONOCYTES % (AUTO) 11.8 % (3.0-13.0); NEUTROPHILS # (AUTO) 2.3 K/uL (1.8-7.7); NEUTROPHILS % (AUTO) 57.1 % (40.0-77.0); PLATELET COUNT (AUTO) 172 K/uL (130-400); RED BLOOD CELL COUNT(AUTO) 3.34 MIL/uL (4.50-6.20); RED CELL DISTRIBUTION WIDTH 15.3 % (11.0-15.5); WHITE BLOOD COUNT (AUTO) 4.1 K/uL (4.8-10.8)
[2024-12-13 04:42] LABS: ALBUMIN 2.6 g/dL (3.5-5.0); BILIRUBIN,TOTAL 0.3 mg/dL (0.2-1.0); CREATININE 1.1 mg/dL (0.5-1.3); MAGNESIUM 1.8 mg/dL (1.80-2.40); POTASSIUM 3.8 mmol/L (3.5-5.1); TOTAL PROTEIN, SERUM 5.8 g/dL (6.0-8.3)
--- NOTE | 2024-12-13 11:56 | DS ---
Discharge Summary Hospital Course Summary: DATE OF ADMISSION:[12/09/2024] DATE OF DISCHARGE:[12/13/2024] DISPOSITION:[[facility] reh] CONDITION:[Medically stable] CONSULTANTS:[None] FOLLOW UP APPOINTMENTS:[PCP 2 to 3 days. December 16, 2024 at 10:30 a.m.] PROCEDURES:[None] IMAGING: report attached to summary MICROBIOLOGY: report attached to summary ACTIVITY:[One-person assist] HOME MEDICATIONS: see med recc NEW MEDICATIONS:[See med rec] EMERGENCY INSTRUCTIONS: The patient was instructed to present to the nearest Emergency departmentr or call 911 once their symptoms will return or worsen Veterinary Technician Instructor(s): Mr. Connell is a 79-year-old male that was seen and examined today on 12/09/2024. Patient's Portia Connell is at bedside and provided the bulk of the following information. Patient was brought to the emergency department with a chief complaint of weakness. Onset was 12/06/2024. Location is to entire body. Duration is constant. Character is described as" shaking and no energy."Symptoms are aggravated with patient's chronic pain [facility]. Patient's believes that he is in withdrawal. Patient takes chronic pain medication for his neuropathy and psoriatic arthritis. There was no alleviating factors. Patient arrived with a heart rate of 111, respirations 24, chest x-ray showed prominent interstitial markings with possible superimposed infiltrates serving as a suspected source of infection therefore meeting clinical sepsis criteria. For this reason emergency room physician recommended that patient be admitted to the hospital. Throughout the hospitalization chest x-ray shows superimposed infiltrate. CT head brain was negative. Blood culture x2 was negative. Patient was approved to be discharged to [facility]. Follow up with PCP in 2 to 3 days. Follow up with on December 16, 2024 at 10:30 a.m.. Patient denies any shortness of breath, chest pain, nausea, vomiting or any other discomfort. Patient's baseline oxygenation is 3 L nasal cannula with a history of COPD Procedure(s): REVIEW OF SYSTEMS CONSTITUTIONAL: Denies fevers, chills, or night sweats. No unintentional weight loss reported. NEUROLOGICAL: Denies headache, amaurosis fugax, motor weakness, sensory deficit, vertigo/spinning sensation, gait abnormalities, or tremors. ENT: No hearing loss, otalgia, otorrhea, rhinitis, rhinorrhea, hoarseness, or sore throat. CARDIOVASCULAR: Denies any exertional angina, dyspnea on exertion, orthopnea, paroxysmal nocturnal dyspnea, palpitations, life-threatening arrhythmias, claudication. PULMONARY: Denies any shortness of breath, cough, phlegm/sputum, hemoptysis, pleuritic chest pain. SLEEP: Denies morning headaches, daytime somnolence or napping. Denies difficulty falling asleep, staying asleep, waking from sleep. Denies knowledge of snoring. GASTROINTESTINAL: Denies any type of dysphagia to either liquids or solids. Denies nausea, vomiting, pyrosis, early satiety, abdominal pain, diarrhea, constipation, or changes in stool consistency or caliber. Denies coffee-ground emesis, hematemesis, hematochezia, or melanotic stools. GENITOURINARY: Denies frequency, urgency, nocturia, hematuria or incontinence (Storage/Irritative symptoms.) Low urinary stream, straining to void, urinary intermittency or hesitancy, splitting of the voiding stream, terminal dribbling. ENDOCRINOLOGIC: Denies polyuria, polydipsia, polyphagia or heat/cold intolerances. HEMATOLOGIC: Denies thrombophilia/previous clots, or coagulopathy/bleeding disorders. ONCOLOGIC: Denies personal history of malignancy. DERMATOLOGIC: Denies rashes or pruritus. PSYCHIATRIC: Denies any suicidal or homicidal ideation. Denies hallucinations. PHYSICAL EXAM GENERAL APPEARANCE: The patient is awake, alert, and oriented, in no acute cardiopulmonary distress. NEUROLOGICAL: Cranial nerves II-XII grossly intact. Motor is 5/5 in bilateral upper and lower extremities proximal to distal. No sensory deficits. HEENT: Face is symmetric. Pupils are equal and reactive. Extraocular movements are intact. NECK: Supple. No JVD. No thyromegaly. No submental, submandibular, pre- /postauricular, occipital or supraclavicular lymphadenopathy. CHEST: Normal chest expansion. No Telemetry. LUNGS: Absence of any rales, rhonchi or any wheezing. CARDIOVASCULAR: Regular. S1 and S2 normal. No appreciable rubs, murmurs or gallops. ABDOMEN: Soft, nontender, and nondistended. There is no rebound, voluntary guarding, or rigidity. : Deferred. No Rivera. EXTREMITIES: Non-edematous and not cyanotic. No clubbing. Good capillary refill. SKIN: No skin breakdown. Assessment/Plan: ASSESSMENT: [ Acute Sepsis, POA Suspected community acquired pneumonia, POA Uncontrolled Hypertension Uncontrolled Diabetes mellitius type2 with hypoglycemia Peripheral artery disease 10/16/2024 2D echo 55 to 60% EF unable to assess diastolic function due to poor tissue Doppler signals COPD, home O2 dependence Osteoarthritis Gerd Psoriatic arthritis History of cholecystectomy History of neck surgery History of left ankle surgery] Home Medications: Reported Medications Buprenorphine HCl (Buprenorphine HCl) 2 Mg Tab.subl, 2 MG SL BID, TAB.SL 12/10/24 Cholecalciferol (Vitamin D3) 1,250 Mcg (60875 Unit) Cap, 82891 UNITS PO DAILY, CAP 12/10/24 Mirabegron (Myrbetriq) 50 Mg Tab.er.24h, 50 MG PO DAILY, TAB 12/10/24 Cilostazol (Cilostazol) 100 Mg Tablet, 100 MG PO BID, TAB 12/10/24 Carboxymethylcellulose Sodium (Artificial Tears) 1 % Drops, 1 DROP OP DAILY for 30 Days, #15 ML 0 Refills 10/16/24 Multivitamin W-Minerals/Lutein (Pub Multivitamin 50 Plus Tab) 1 Each Tablet, 1 TAB PO BID for 30 Days, #30 TAB 0 Refills 10/16/24 Trospium Chloride (Trospium Chloride) 20 Mg Tablet, 20 MG PO HS, TAB 10/16/24 Semaglutide (Ozempic) 2 Mg/0.75 Ml (8 Mg/3 Ml) Pen.injctr, 2 MG SQ QWEEK for 30 Days, #3 ML 0 Refills 10/16/24 Trazodone HCl (Trazodone HCl) 100 Mg Tablet, 200 MG PO HS, TAB 10/16/24 Tamsulosin HCl (Flomax) 0.4 Mg Cap.er.24h, 0.4 MG PO HS, CAPSULE.DR 10/16/24 Ropinirole HCl (Ropinirole HCl) 0.25 Mg Tablet, 1 TAB PO BID for 30 Days, #30 TAB 0 Refills 10/16/24 Pioglitazone HCl (Pioglitazone HCl) 30 Mg Tablet, 30 MG PO DAILY, TAB 10/16/24 Melatonin (Melatonin) 3 Mg Capsule, 6 MG PO HS, CAP 10/16/24 Losartan Potassium (Losartan Potassium) 50 Mg Tablet, 50 MG PO BID, TAB 10/16/24 Duloxetine HCl (Duloxetine HCl) 60 Mg Capsule.dr, 60 MG PO DAILY, CAP 10/16/24 Atorvastatin Calcium (Atorvastatin Calcium) 40 Mg Tablet, 40 MG PO HS, TAB 10/16/24 Aspirin (Aspirin) 81 Mg Tab.chew, 81 MG PO DAILY, TAB.CHEW 10/16/24 Amlodipine Besylate (Amlodipine Besylate) 5 Mg Tablet, 5 MG PO DAILY, TAB 10/31/23 Discontinued Reported Medications Ketotifen Fumarate (Ketotifen Fumarate) 0.025 % (0.035 %) Drops, 1 DROP OP BID, #5 ML 0 Refills 10/16/24 Oxycodone HCl (Oxycodone HCl) 10 Mg Tablet, 1 TAB PO DAILY PRN for PAIN for 5 Days, #20 TAB 0 Refills 10/16/24 Time spent arranging discharge: 31-60 minutes ATTESTATION BY PHYSICIAN I have seen and examined the patient. I reviewed the documentation, medical decision making, and treatment plan as noted by the mid-level provider above. I agree with the findings and plan of care. Rachael Bethea MD, KATARZYNA B FLOOR SERVICE WORKER SPRING Dec 13, 2024 11:56
[2024-12-14] VITALS (8 sets, daily range): BP systolic 108–111; BP diastolic 46–55; PULSE 52–104; RESP 15–20; TEMP 97.4–98.2; O2SAT 94–96
--- NOTE | 2024-12-14 10:48 | PN ---
[facility] PROGRESS NOTE Date of Service: Dec 14, 2024 Time of Service: 10:[address] Bethea SUBJECTIVE: [ 12/09/24 Mr. Connell is a 79-year-old male that was seen and examined today on 12/09/2024. Patient's Portia Connell is at bedside and provided the bulk of the following information. Patient was brought to the emergency department with a chief complaint of weakness. Onset was 12/06/2024. Location is to entire body. Duration is constant. Character is described as" shaking and no energy."Symptoms are aggravated with patient's chronic pain [facility]. Patient's believes that he is in withdrawal. Patient takes chronic pain medication for his neuropathy and psoriatic arthritis. There was no alleviating factors. Patient arrived with a heart rate of 111, respirations 24, chest x- ray showed prominent interstitial markings with possible superimposed infiltrates serving as a suspected source of infection therefore meeting clinical sepsis criteria. For this reason emergency room physician recommended that patient be admitted to the hospital. 12/10/24 patient was seen by nurse practitioner and physician during rounding in room 404 comfortably lying in the bed. Family member/ at the bedside. Patient has a history of COPD is on3 L nasal cannula baseline. Sputum culture blood culture still pending. CT head brain that is negative. Per family members she would like to try to send patient to rehab. We will consult physical therapy for eval and treat. Case management was consulted as well. Regarding the possible dementia we will recommend that patient follow ups with [facility] neurologist Dr. Allen outpatient. We will continue to monitor patient in the meantime. A.m. labs 12/11/24 patient was seen by nurse practitioner and physician during rounding in room 404 lying in the bed. Patient continues to be on 3 L nasal cannula which is a baseline at home. We are still pending final culture of blood. Case management is working on disposition to rehab versus sniff. We will continue to monitor patient in the meantime. A.m. labs 12/12/24 patient was seen by nurse practitioner and physician during rounding in room 404 lying in the patient continues to be on 3 L nasal cannula which is baseline. Today WBC is 4.1. At this moment we are pending discharge to [facility] rehab once insurance approved. Med rec already done by [employer]ER in placed on chart. We will continue to monitor patient in the meantime. A.m. labs 12/13/24 Mr. Connell is a 79-year-old male that was seen and examined today on 12/09/2024. Patient's Portia Connell is at bedside and provided the bulk of the following information. Patient was brought to the emergency department with a chief complaint of weakness. Onset was 12/06/2024. Location is to entire body. Duration is constant. Character is described as" shaking and no energy."Symptoms are aggrav ated with patient's chronic pain medication [facility]. Patient's believes that he is in withdrawal. Patient takes chronic pain medication for his neuropathy and psoriatic arthritis. There was no alleviating factors. Patient arrived with a heart rate of 111, respirations 24, chest x-ray showed prominent interstitial markings with possible superimposed infiltrates serving as a suspected source of infection therefore meeting clinical sepsis criteria. For this reason emergency room physician recommended that patient be admitted to the hospital. Throughout the hospitalization chest x-ray shows superimposed infiltrate. CT head brain was negative. Blood culture x2 was negative. Patient was approved to be discharged to [facility] rehab. Follow up with PCP in 2 to 3 days. Follow up with on December 16, 2024 at 10:30 a.m.. Patient denies any shortness of breath, chest pain, nausea, vomiting or any other discomfort. Patient's baseline oxygenation is 3 L nasal cannula with a history of COPD 12/14/24 patient was seen by nurse practitioner and physician during rounding in room for 0 four. Patient was accepted to [facility] rehab. Unfortunately at this moment no bed available. We will continue to monitor patient in the meantime. A.m. labs] REVIEW OF SYSTEMS CONSTITUTIONAL: Denies fevers, chills, or night sweats. No unintentional weight loss reported. NEUROLOGICAL: Denies headache, amaurosis fugax, motor weakness, sensory deficit, vertigo/spinning sensation, gait abnormalities, or tremors. ENT: No hearing loss, otalgia, otorrhea, rhinitis, rhinorrhea, hoarseness, or sore throat. CARDIOVASCULAR: Denies any exertional angina, dyspnea on exertion, orthopnea, paroxysmal nocturnal dyspnea, palpitations, life-threatening arrhythmias, claudication. PULMONARY: Denies any shortness of breath, cough, phlegm/sputum, hemoptysis, pleuritic chest pain. SLEEP: Denies morning headaches, daytime somnolence or napping. Denies difficulty falling asleep, staying asleep, waking from sleep. Denies knowledge of snoring. GASTROINTESTINAL: Denies any type of dysphagia to either liquids or solids. Denies nausea, vomiting, pyrosis, early satiety, abdominal pain, diarrhea, c onstipation, or changes in stool consistency or caliber. Denies coffee-ground emesis, hematemesis, hematochezia, or melanotic stools. GENITOURINARY: Denies frequency, urgency, nocturia, hematuria or incontinence (Storage/Irritative symptoms.) Low urinary stream, straining to void, urinary intermittency or hesitancy, splitting of the voiding stream, terminal dribbling. ENDOCRINOLOGIC: Denies polyuria, polydipsia, polyphagia or heat/cold intolerances. HEMATOLOGIC: Denies thrombophilia/previous clots, or coagulopathy/bleeding disorders. ONCOLOGIC: Denies personal history of malignancy. DERMATOLOGIC: Denies rashes or pruritus. PSYCHIATRIC: Denies any suicidal or homicidal ideation. Denies hallucinations. PHYSICAL EXAM GENERAL APPEARANCE: The patient is awake, alert, and oriented, in no acute ca rdiopulmonary distress. NEUROLOGICAL: Cranial nerves II-XII grossly intact. Motor is 5/5 in bilateral upper and lower extremities proximal to distal. No sensory deficits. HEENT: Face is symmetric. Pupils are equal and reactive. Extraocular movements are intact. NECK: Supple. No JVD. No thyromegaly. No submental, submandibular, pre- /postauricular, occipital or supraclavicular lymphadenopathy. CHEST: Normal chest expansion. No Telemetry. LUNGS: Absence of any rales, rhonchi or any wheezing. CARDIOVASCULAR: Regular. S1 and S2 normal. No appreciable rubs, murmurs or gallops. ABDOMEN: Soft, nontender, and nondistended. There is no rebound, voluntary guarding, or rigidity. : Deferred. No Rivera. EXTREMITIES: Non-edematous and not cyanotic. No clubbing. Good capillary refill. SKIN: No skin breakdown. Vital Signs (last 8hr) Date Time Temp Pulse Resp B/P (MAP) Pulse Ox O2 Delivery O2 Flow Rate FiO2 1/25/25 08:00 97.5 92 15 108/55 94 Room Air 3.0 12/14/24 08:00 94 Nasal Cannula* 3 32 12/14/24 06:53 85 18 N/Cannula Low lpm 2.0 28 12/14/24 06:50 84 18 12/14/24 04:00 97.5 64 19 109/55 94 Nasal Cannula 3.0 LABS: Laboratory: Test 12/14/24 05:39 12/13/24 04:08 Range/Units Whole Blood Glucose 137 H 70-110 MG/DL White Blood Count 4.1 L 4.8-10.8 K/uL Red Blood Count 3.34 L 4.50-6.20 MIL/uL Hemoglobin 10.0 L 14.0-18.0 g/dL Hematocrit 32.9 L 42-54 % Mean Corpuscular Volume 98.5 79-99 fL Mean Corpuscular Hemoglobin 29.9 27.0-33.0 pg Mean Corpuscular Hemoglobin Concent 30.4 L 32.0-36.0 g/dL Red Cell Distribution Width 15.3 11.0-15.5 % Platelet Count 172 130-400 K/uL Mean Platelet Volume 9.3 7.5-10.5 fL Immature Granulocyte % (Auto) 0.2 0-1 % Neutrophils (%) (Auto) 57.1 40.0-77.0 % Lymphocytes (%) (Auto) 24.1 21.0-51.0 % Monocytes (%) (Auto) 11.8 3.0-13.0 % Eosinophils (%) (Auto) 6.6 0.0-8.0 % Basophils (%) (Auto) 0.2 0.0-5.0 % Neutrophils # (Auto) 2.3 1.8-7.7 K/uL Lymphocytes # (Auto) 1.0 1.0-4.8 K/uL Monocytes # (Auto) 0.5 0.1-1.0 K/uL Eosinophils # (Auto) 0.27 0.00-0.70 K/uL Basophils # (Auto) 0.01 0.00-0.20 K/uL Absolute Immature Granulocyte (auto 0.01 0-1 K/uL Nucleated Red Blood Cells 0.0 0.0-0.19 % Sodium Level 140 136-145 mmol/L Potassium Level 3.8 3.5-5.1 mmol/L Chloride Level 103 101-111 mmol/L Carbon Dioxide Level 36 H 21-32 mmol/L Blood Urea Nitrogen 15 7-18 mg/dL Creatinine 1.1 0.5-1.3 mg/dL Glomerular Filtration Rate Calc 69 >90 mL/min Random Glucose 122 H 70-105 mg/dL Total Calcium 8.7 8.5-10.1 mg/dL Magnesium Level 1.80 1.80-2.40 mg/dL Total Bilirubin 0.3 0.2-1.0 mg/dL Aspartate Amino Transf (AST/SGOT) 24 10-37 U/L Alanine Aminotransferase (ALT/SGPT) 15 # 12-78 U/L Alkaline Phosphatase 61 50-136 U/L Total Protein 5.8 L 6.0-8.3 g/dL Albumin 2.6 L 3.5-5.0 g/dL Current Medications Medications (Trade) Dose Ordered Sig/Jose Route PRN Reason Start Time Stop Time Status Last Admin Dose Admin Acetaminophen (TYLenol 325MG TAB) 650 mg Q6H PRN PO TEMPERATURE GREATER THAN 101.5 12/09/24 19:30 01/08/25 19:29 Albuterol (DUOneb) 1 UDVIAL [id number] IH 12/10/24 00:00 01/09/25 00:00 12/14/24 06:49 1 UDVIAL Amlodipine Besylate (NorvASC 5MG TAB) 5 mg DAILY PO 12/10/24 09:00 01/09/25 08:59 12/12/24 10:12 5 MG Aspirin (Aspirin 81mg Chew Tab) 81 mg DAILY PO 12/10/24 09:00 01/09/25 08:59 12/14/24 08:20 81 MG Atorvastatin Calcium (LIPItor 40MG) 40 mg HS PO 12/10/24 21:00 01/09/25 20:59 12/13/24 21:40 40 MG Budesonide (Pulmicort 0.5 Mg/2ml) 0.5 mg BIDRESP IH 12/10/24 06:00 01/09/25 05:59 12/14/24 06:49 0.5 MG Cilostazol (PLETal 100MG TAB) 100 mg BID PO 12/10/24 09:00 01/09/25 08:59 12/14/24 08:20 100 MG Duloxetine HCl (CymbALTA 30 mg CAP) 60 mg DAILY PO 12/10/24 09:00 01/09/25 08:59 12/14/24 08:20 60 MG Enoxaparin Sodium (Lovenox) 40 mg DAILY SQ 12/10/24 09:00 01/09/25 08:59 12/14/24 08:21 40 MG Famotidine (Pepcid 20mg Tab) 20 mg DAILY PO 12/10/24 09:00 01/09/25 08:59 12/14/24 08:19 20 MG Home Med (Home Medication) (Carboxymethylcellulose Sodium (A... DAILY OP 12/10/24 09:00 01/09/25 08:59 Home Med (Home Medication) (Cholecalciferol (Vitamin D3) 50,000 UNITS) DAILY PO 12/10/24 09:00 01/09/25 08:59 12/14/24 08:22 1 EACH Home Med (Home Medication) (Melatonin 6 MG) HS PO 12/10/24 21:00 01/09/25 20:59 12/13/24 21:49 1 EACH Home Med (Home Medication) (Mirabegron (Myrbetriq) 50 MG) DAILY PO 12/10/24 09:00 01/09/25 08:59 12/14/24 08:21 1 EACH Home Med (Home Medication) (Multivitamin W-Minerals/ Lutein (... BID PO 12/10/24 09:00 01/09/25 08:59 12/14/24 08:21 1 EACH Home Med (Home Medication) (Trospium Chloride 20 MG) HS PO 12/10/24 21:00 01/09/25 20:59 12/13/24 21:47 1 EACH Home Med (Home Medication) 1 each BID SL 12/11/24 09:00 01/09/25 08:59 12/14/24 08:21 1 EACH Home Med (Home Medication) 2 each BID SL 12/10/24 09:00 12/10/24 23:48 DC Hydralazine HCl (APRESOLine 20MG INJ) 10 mg Q6H PRN IV For:SBP above 160;DBP above 90 12/09/24 19:30 01/08/25 19:29 Insulin Human Regular (humuLIN R 100 UNIT/ML 3ML) INSULIN SLIDING SCAL... ACHS SQ 12/09/24 21:00 01/08/25 20:59 12/13/24 22:04 2 UNIT Losartan Potassium (CozAAR 50 mg TAB) 50 mg BID PO 12/10/24 09:00 01/09/25 08:59 12/12/24 21:20 50 MG Magnesium Sulfate 50 ml @ 0 mls/hr PROTOCOL IV 12/11/24 07:00 01/10/25 06:59 12/13/24 14:34 0 MLS/HR Magnesium Sulfate (Magnesium 4gm Premix 100ml) 4 gm AD IV 12/10/24 10:30 12/10/24 10:18 DC Morphine Sulfate (morPHINE 2MG SYG) 2 mg Q4H PRN IVP SEVERE PAIN (7-10) 12/09/24 19:30 12/16/24 19:29 Ondansetron HCl (zoFRAN 4MG INJ) 4 mg Q6H PRN IV NAUSEA/VOMITING 12/09/24 19:30 01/08/25 19:29 Pioglitazone HCl (Actos 30mg) 30 mg DAILY PO 12/10/24 09:00 01/09/25 08:59 12/14/24 08:20 30 MG Piperacillin Sod/ Tazobactam Sod (Zosyn 3.375gm+NS 50ml) 3.375 gm Q8H IV 12/09/24 19:30 12/19/24 19:29 12/14/24 03:33 3.375 GM Ropinirole HCl (ropiNIRole HCL) 0.25 mg BID PO 12/10/24 09:00 01/09/25 08:59 12/14/24 08:19 0.25 MG Tamsulosin HCl (FloMAX) 0.4 mg HS PO 12/10/24 21:00 01/09/25 20:59 12/13/24 21:39 0.4 MG Trazodone HCl (DesyREL/OlepTRO) 200 mg HS PO 12/10/24 21:00 01/09/25 20:59 12/13/24 21:39 200 MG DIAGNOSTICS / RADIOLOGY: [ ] ASSESSMENT: [ Acute Sepsis, POA Suspected community acquired pneumonia, POA Uncontrolled Hypertension Uncontrolled Diabetes mellitius type2 with hypoglycemia Peripheral artery disease 10/16/2024 2D echo 55 to 60% EF unable to assess diastolic function due to poor tissue Doppler signals COPD, home O2 dependence Osteoarthritis Gerd Psoriatic arthritis History of cholecystectomy History of neck surgery History of left ankle surgery] ATTESTATION BY PHYSICIAN I have seen and examined the patient. I reviewed the documentation, medical decision making, and treatment plan as noted by the mid-level provider above. I agree with the findings and plan of care. Rachael Bethea MD, [employer]ER OPERATOR Dec 14, 2024 10:48
--- NOTE | 2024-12-14 18:35 | NUR ---
PATIENT DISCHARGED TO [facility] ID BAND AND TELE JOHANA REMOVED. DISCHARGE INSTRUCTIONS EXPLAINED AND GIVEN TO PATIENT AND . PATIENT AND VERBALIZED UNDERSTANDING. BELONGINGS PACKED AND TAKEN BY PATIENT. TRANSFERRED VIA STRETCHER BY EMS.
== END 2024-12-14 18:35 | DRG 871 ==
LOC: EDH 16:27 → EDHIP 19:18 → 4AH 23:21
PROVIDERS: ADMIT Internal Medicine; ATTEND Internal Medicine
DX: A41.9 Sepsis, unspecified organism (principal); J18.9 Pneumonia, unspecified organism; J96.02 Acute respiratory failure with hypercapnia; J69.0 Pneumonitis due to inhalation of food and vomit; I10 Essential (primary) hypertension; E11.51 Type 2 diabetes mellitus with diabetic peripheral angiopathy without gangrene; J44.9 Chronic obstructive pulmonary disease, unspecified; K21.9 Gastro-esophageal reflux disease without esophagitis; L40.50 Arthropathic psoriasis, unspecified; E11.40 Type 2 diabetes mellitus with diabetic neuropathy, unspecified; E11.649 Type 2 diabetes mellitus with hypoglycemia without coma; Z20.822 Contact with and (suspected) exposure to COVID-19; E78.00 Pure hypercholesterolemia, unspecified; F43.10 Post-traumatic stress disorder, unspecified; I25.10 Atherosclerotic heart disease of native coronary artery without angina pectoris; Z99.81 Dependence on supplemental oxygen; Z90.49 Acquired absence of other specified parts of digestive tract; Z79.51 Long term (current) use of inhaled steroids; Z51.5 Encounter for palliative care; Z63.4 Disappearance and death of family member; Z88.8 Allergy status to other drugs, medicaments and biological substances
CPT/HCPCS: 36415; 70450; 71045; 80048; 80053; 80076; 81001; 82550; 82948; 83036; 83605; 83735; 83880; 84100; 84145; 84484; 85025; 87040; 87635; 87804; 87880; 93005; 94640; 94664; G0378; J0696; J1650; J1815; J2543; J3475; J7120

== ENCOUNTER → 2025-02-17 | Outpatient (CLI) | payer OTHER ==
[~2025-02-17] MED LIST changes: +ACET-3859 PO; +ALBU18HF7 IH; +BUDE0.5A3 NEB; +CILO100T3 PO; +CLIN-141 PO; +DICL100G60 TP; +FAMO20TA8 PO; +FLUT15.845 NS; +FLUT1BLS12 IH; +INSU100V3 IJ; +INSU3INS3 SQ; +IPRA4AER IH; +LACT-441 PO; +LIDO700A30 TP; +MAG-37 PO; +MIRA50TA PO; +NYST15CR39 TP; -OXYC10TA48 PO; +VITAD50000 PO; +ZINC57OI3 TP; +[UNRECOGNIZED DRUG - CODE] TP
[2025-02-17 16:24] LABS: BASOPHILS # (AUTO) 0.03 K/uL (0.00-0.20); BASOPHILS % (AUTO) 0.4 % (0.0-5.0); EOSINOPHILS # (AUTO) 0.16 K/uL (0.00-0.70); EOSINOPHILS % (AUTO) 2.4 % (0.0-8.0); HEMATOCRIT 40.8 % (42-54); IMMATURE GRANULOCYTE ABSOLUTE 0.03 K/uL (0-1); LYMPHOCYTES # (AUTO) 2.7 K/uL (1.0-4.8); LYMPHOCYTES % (AUTO) 40.3 % (21.0-51.0); MEAN CORPUSCULAR HGB CONC 32.1 g/dL (32.0-36.0); MEAN CORPUSCULAR VOLUME 90.3 fL (79-99); MONOCYTES # (AUTO) 0.6 K/uL (0.1-1.0); MONOCYTES % (AUTO) 8.3 % (3.0-13.0); NEUTROPHILS # (AUTO) 3.3 K/uL (1.8-7.7); NEUTROPHILS % (AUTO) 48.2 % (40.0-77.0); PLATELET COUNT (AUTO) 265 K/uL (130-400); RED BLOOD CELL COUNT(AUTO) 4.52 MIL/uL (4.50-6.20); RED CELL DISTRIBUTION WIDTH 16.5 % (11.0-15.5); WHITE BLOOD COUNT (AUTO) 6.8 K/uL (4.8-10.8)
[2025-02-17 16:35] LABS: INR 0.94 (0.85-1.15)
[2025-02-17 16:39] LABS: ALBUMIN 3.7 g/dL (3.5-5.0); BILIRUBIN,TOTAL 0.4 mg/dL (0.2-1.0); CREATININE 1.2 mg/dL (0.5-1.3); POTASSIUM 4.8 mmol/L (3.5-5.1); TOTAL PROTEIN, SERUM 7.8 g/dL (6.0-8.3)
== END | disposition home or self-care (01) ==
LOC: LAB 15:48
PROVIDERS: ATTEND Student in an Organized Health Care Education/Training Program
DX: Z01.812 Encounter for preprocedural laboratory examination (principal); Z13.6 Encounter for screening for cardiovascular disorders; I10 Essential (primary) hypertension; I95.1 Orthostatic hypotension; I77.9 Disorder of arteries and arterioles, unspecified; I73.9 Peripheral vascular disease, unspecified; E11.8 Type 2 diabetes mellitus with unspecified complications; L08.9 Local infection of the skin and subcutaneous tissue, unspecified; M62.81 Muscle weakness (generalized); R23.1 Pallor; R09.02 Hypoxemia; Z79.899 Other long term (current) drug therapy; Z79.01 Long term (current) use of anticoagulants
CPT/HCPCS: 36415; 80053; 85025; 85610; 85730

== ENCOUNTER 2025-02-28 12:58 | Emergency (ER) | payer OTHER ==
[~2025-02-28] VITALS: Ht 172.7 cm; Wt 83.9 kg
[~2025-02-28 12:58] MED LIST changes: -ASPI-1197 PO; -BUDE0.5A3 NEB; -CILO100T3 PO; -CLIN-141 PO; -DICL100G60 TP; -INSU100V3 IJ; +NYST15CR34 TP; -NYST15CR39 TP; -TAMS-1 PO; +TAMS-55 PO
[2025-02-28 13:07] VITALS: BP 136/69; PULSE 83; RESP 20; TEMP 98.8
--- NOTE | 2025-02-28 13:55 | ERN ---
General Chief Complaint: Urinary Catheter Problems Stated Complaint: CATH REMOVAL Time Seen by MD: 12:59 History of Present Illness Initial Comments 79-year-old male here for Rivera removal. He had a placed recently for a procedure. It was never removed and he was requesting removal. He was sent by his bss solution architect for Rivera removal. Allergies: Coded Allergies: buprenorphine (Unverified Allergy, Severe, HALLUCINATIONS, 02/19/25) AMS doxepin (Unverified Allergy, Unknown, 08/11/23) metronidazole (Unverified Allergy, Unknown, 09/22/19) piperacillin (Verified Allergy, Unknown, 01/23/25) prazosin (Unverified Allergy, Unknown, 09/22/19) tazobactam (Verified Allergy, Unknown, 01/23/25) Home Meds Reported Medications Zinc Oxide (Desitin) 13 % Cream..g., 1 APPL TP DAILY PRN for RASH for 5 Days, #57 GM 0 Refills 02/19/25 Nystatin (Nystatin) 100,000 Unit/Gram Cream.gm., 1 APPL TP BID for 7 Days, #30 GM 0 Refills apply to affected area(s) 02/19/25 Lidocaine (Lidocaine) 5 % Adh..patch, 1 PATCH TP DAILY for 30 Days, #30 PATCH 0 Refills 02/19/25 Lanolin/Mineral Oil (Thera-Derm Lotion) 236 Ml Lotion, 1 APPL TP DAILY for 28 Days, #236 ML 0 Refills DIRECTED 02/19/25 Ketotifen Fumarate (Ketotifen Fumarate) 0.025 % (0.035 %) Drops, 1 DROP OP BID, #5 ML 0 Refills 25 Insulin Glargine,Hum.rec.anlog (Lantus Solostar) 100 Unit/Ml (3 Ml) Insuln.pen, 10 UNIT SQ DAILY for 30 Days, #5 ML 0 Refills 25 Fluticasone Propionate (Fluticasone Propionate) 50 Mcg/Actuation [place].susp, 2 SPRAY NS DAILY, #16 GM 0 Refills 25 Fluticasone Propion/Salmeterol (Fluticasone-Salmeterol 250-50) 250 Mcg-50 Mcg/Dose Blst.w.dev, 1 PUFF IH BID for 30 Days, #60 EACH 0 Refills 02/19/25 Albuterol Sulfate (Ventolin Hfa) 90 Mcg Hfa.aer.ad, 2 PUFF IH Q4HPRN PRN for wheezing for 30 Days, #18 GM 0 Refills 02/19/25 Acetaminophen (Acetaminophen) 325 Mg Tablet, 2 TAB PO Q4PRN for 30 Days, #30 TAB 0 Refills 02/19/25 Mag Hydrox/Aluminum Hyd/Simeth (Maalox Advanced Suspension) 200 Mg-200 Mg-20 Mg/5 Ml Oral.susp, 20 ML PO Q4HPRN PRN for DYSPEPSIA for 14 Days, #840 ML 0 Refills 01/22/25 Lactulose (Lactulose) 10 Gram/15 Ml Solution, 20 ML PO BID for constipation, #500 ML 0 Refills 01/22/25 Famotidine (Famotidine) 20 Mg Tablet, 1 TAB PO DAILY for 30 Days, #60 TAB 0 Refi lls 01/22/25 Ipratropium/Albuterol Sulfate (Combivent Respimat Inhal [place]) 20 Mcg-100 Mcg/Actuation Aer.w.adap, 1 PUFF IH Q6HPRN PRN for SHORTNESS OF BREATH, #4 GM 0 Refills 01/22/25 Cholecalciferol (Vitamin D3) 1,250 Mcg (32638 Unit) Cap, 81484 UNITS PO DAILY, CAP 12/10/24 Mirabegron (Myrbetriq) 50 Mg Tab.er.24h, 50 MG PO DAILY, TAB 12/10/24 Carboxymethylcellulose Sodium (Artificial Tears) 1 % Drops, 1 DROP OP DAILY for 30 Days, #15 ML 0 Refills 10/16/24 Multivitamin W-Minerals/Lutein (Pub Multivitamin 50 Plus Tab) 1 Each Tablet, 1 TAB PO BID for 30 Days, #30 TAB 0 Refills 10/16/24 Trospium Chloride (Trospium Chloride) 20 Mg Tablet, 20 MG PO HS, TAB 10/16/24 Semaglutide (Ozempic) 2 Mg/0.75 Ml (8 Mg/3 Ml) Pen.injctr, 2 MG SQ QWEEK for 30 Days, #3 ML 0 Refills 10/16/24 Trazodone HCl (Trazodone HCl) 100 Mg Tablet, 100 MG PO HS, TAB 10/16/24 Tamsulosin HCl (Flomax) 0.4 Mg Cap.er.24h, 0.4 MG PO HS, CAPSULE.DR 10/16/24 Ropinirole HCl (Ropinirole HCl) 0.25 Mg Tablet, 1 TAB PO BID for 30 Days, #30 TAB 0 Refills 10/16/24 Pioglitazone HCl (Pioglitazone HCl) 30 Mg Tablet, 30 MG PO DAILY, TAB 10/16/24 Melatonin (Melatonin) 3 Mg Capsule, 6 MG PO HS, CAP 10/16/24 Losartan Potassium (Losartan Potassium) 50 Mg Tablet, 50 MG PO BID, TAB 10/16/24 Duloxetine HCl (Duloxetine HCl) 60 Mg Capsule.dr, 60 MG PO DAILY, CAP 10/16/24 Atorvastatin Calcium (Atorvastatin Calcium) 40 Mg Tablet, 40 MG PO HS, TAB 10/16/24 Amlodipine Besylate (Amlodipine Besylate) 5 Mg Tablet, 5 MG PO DAILY, TAB 10/31/23 Discontinued Reported Medications Diclofenac Sodium (Diclofenac Sodium) 1 % Gel..gram., 1 APPL TP QID for 21 Days, #100 GM 0 Refills 02/19/25 Clindamycin HCl (Clindamycin HCl) 300 Mg Capsule, 1 CAP PO DAILY for 10 Days, #30 CAP 0 Refills 02/19/25 Cilostazol (Cilostazol) 100 Mg Tablet, 100 MG PO BID, TAB 12/10/24 Aspirin (Aspirin) 81 Mg Tab.chew, 81 MG PO DAILY, TAB.CHEW 10/16/24 Past Medical History Past Medical History: A-Fib, CAD, COPD, Diabetes-Type II, DVT, High Cholesterol, Heart Disease, Hypertension Medical History Other: PROSTATE, PTSD, TINNITUS Past Surgical History: Other Surgical History Other: SHOULDER AND BACK SURGERY Social History Social History: Lives with family ROS Dictation CONSTITUTIONAL: No chills, no fever, no weakness, no diaphoresis, no malaise. HEAD/FACE: No signs of trauma. EENT: No eye pain, no blurred vision, no tearing, no double vision, no ear pain, no ear discharge, no nose pain, no nasal congestion, no throat pain, no throat swelling, no mouth pain. RESPIRATORY: No cough, no orthopnea, no SOB, no stridor, no wheezing. CARDIOVASCULAR: No chest pain, no edema, no palpitations, no syncope. GASTROINTESTINAL/ABDOMINAL: No abdominal pain, no constipation, no diarrhea, no nausea, no vomiting. GENITOURINARY: No abnormal discharge, no dysuria, no frequent urination, no hematuria. No complaints of pain in the genitals. MUSCULOSKELETAL: No back pain, no gout, no joint pain, no joint swelling, no muscle pain, no muscle stiffness, no neck pain. INTEGUMENTARY: No change in color, no change in hair/nails, no dryness, no lesion, no lumps, no rash. NEUROLOGICAL/PSYCH: No anxiety, not depressed, no emotional problem, no headache, no numbness, no pre-existing deficit, no history of seizures, no tremors, no weakness. HEMATOLOGIC/LYMPHATIC: Not anemic, no history of blood clots, no apparent bleeding, no bruising, glands not swollen. All Systems Negative, Except as Noted. Physical Exam Physical Exam Dictation VITAL SIGNS: Reviewed. GENERAL APPEARANCE: Alert, oriented x3, no acute distress HEAD AND FACE: Non-traumatic. EYES: PERRL, pink conjunctivas, eyelid no trauma, anterior chamber clear. EARS: Pinnas intact and no signs of trauma or erythema. Ear canals clear and no discharge. TMs no erythema. NOSE: No discharge, no bleeding. OROPHARYNX: Mouth normal, teeth no caries, tongue pink. Pharynx clear, no erythema. Tonsils no exudates, no abscesses noted. Mucous membrane moist. NECK: Supple, non-tender, no thyromegaly, no masses, no JVD, no bruits. BREAST: Deferred. CHEST: No tenderness, no crepitus, no paradoxical movement, no retractions. LUNGS: Clear, well-ventilated, symmetric, no rales, no wheezing, no rhonchi, no stridor, good breath sounds bilaterally. HEART: Regular rate, regular rhythm, no murmur, no gallops. VASCULAR: No peripheral edema. ABDOMEN: Soft, positive bowel sounds, nondistended, no guarding, nontender, no rebound, no masses no hepatomegaly, no splenomegaly, no Astudillo's sign, no hernias. RECTAL: Deferred. GENITAL: Deferred. NEUROLOGICAL: Normal speech, gross motor function intact, gross sensory funct ion intact. MUSCULOSKELETAL: Neck nontender, full range of motion, back nontender, full range of motion. EXTREMITIES: Nontender, full range of motion. SKIN: Color pink, dry, no turgor, no rash, no lacerations, no abrasions, no contusions. LYMPHATICS: Deferred. MDM Patient comes in for Rivera removal His vitals are stable Rivera removed Patient able to urinate without problems We will DC ED Course Vital Signs Date Time Temp Pulse Resp B/P (MAP) Pulse Ox O2 Delivery O2 Flow Rate FiO2 02/28/25 13:07 98.8 83 20 136/69 99 Room Air 0 DX & DISP Disposition: Discharge Departure Impression: Primary Impression: Encounter for Rivera catheter removal Condition: Stable Additional Instructions: The Rivera catheter was removed. Continue all home medications. Return to the emergency department as needed. Referrals: DOLLY MCKEON MD (PCP) NIA MANJARREZ DO Feb 28, 2025 13:55
== END 2025-02-28 14:03 | disposition home or self-care (01) ==
LOC: EDH 12:58
DX: Z46.6 Encounter for fitting and adjustment of urinary device (principal); E11.9 Type 2 diabetes mellitus without complications; E78.00 Pure hypercholesterolemia, unspecified; I10 Essential (primary) hypertension; I25.10 Atherosclerotic heart disease of native coronary artery without angina pectoris; J44.9 Chronic obstructive pulmonary disease, unspecified; Z79.02 Long term (current) use of antithrombotics/antiplatelets; Z79.4 Long term (current) use of insulin; Z79.51 Long term (current) use of inhaled steroids; Z79.82 Long term (current) use of aspirin; Z79.84 Long term (current) use of oral hypoglycemic drugs; Z79.85 Long-term (current) use of injectable non-insulin antidiabetic drugs; Z88.0 Allergy status to penicillin; Z88.1 Allergy status to other antibiotic agents
CPT/HCPCS: 99281

== ENCOUNTER 2025-03-03 15:41 | Emergency (ER) | payer OTHER ==
[~2025-03-03] VITALS: Ht 172.7 cm; Wt 83.9 kg
--- NOTE | 2025-03-03 16:28 | HMCIMG ---
Exam Type: US VENOUS DOPPLER UNILATERAL Clinical Information: right lower etxremity swelling Comparison: None Findings: The examination shows normal deep venous system. There is normal compressibility at all levels. There is no intraluminal clot. There is no occlusion. Adequate response is obtained on augmentation. Impression: No evidence of DVT.
--- NOTE | 2025-03-03 16:29 | HMCIMG ---
Exam Type: US ARTERIAL UNILA LOW EXT DUPL Clinical Information: right lower etxremity swelling Comparison: None Findings: Diffuse bilateral plaque is identified. There are normal triphasic waveforms of the mid to distal superficial femoral artery. There are biphasic waveforms of the other vessels of the right lower extremity consistent with moderate nonocclusive hemodynamically significant disease. IMPRESSION: Peripheral vascular disease as noted.
[2025-03-03] MEDS: traMADol HCL 50 MG TABLET PO ONE (16:48)
[2025-03-03] MEDS ORDERED: NAPR-1192 PO (17:11)
--- NOTE | 2025-03-03 17:11 | ERN ---
General Chief Complaint: Lower Extremity Pain/Injury Stated Complaint: R LEG PAIN/SWELLING Time Seen by MD: 15:48 Source: patient History of Present Illness Initial Comments This is a 79-year-old male coming in to be evaluated for right leg seen. Per patient he had arterial occlusion which was evaluated and repaired by Dr. Lee associate data scientist. Per patient was pain has been ongoing for two days. States that the pain is exacerbated with movement. Allergies: Coded Allergies: buprenorphine (Unverified Allergy, Severe, HALLUCINATIONS, 02/19/25) AMS doxepin (Unverified Allergy, Unknown, 08/11/23) metronidazole (Unverified Allergy, Unknown, 09/22/19) piperacillin (Verified Allergy, Unknown, 01/23/25) prazosin (Unverified Allergy, Unknown, 09/22/19) tazobactam (Verified Allergy, Unknown, 01/23/25) Home Meds Reported Medications Zinc Oxide (Desitin) 13 % Cream..g., 1 APPL TP DAILY PRN for RASH for 5 Days, #57 GM 0 Refills 25 Nystatin (Nystatin) 100,000 Unit/Gram Cream.gm., 1 APPL TP BID for 7 Days, #30 GM 0 Refills apply to affected area(s) 02/19/25 Lidocaine (Lidocaine) 5 % Adh..patch, 1 PATCH TP DAILY for 30 Days, #30 PATCH 0 Refills 25 Lanolin/Mineral Oil (Thera-Derm Lotion) 236 Ml Lotion, 1 APPL TP DAILY for 28 Days, #236 ML 0 Refills DIRECTED 25 Ketotifen Fumarate (Ketotifen Fumarate) 0.025 % (0.035 %) Drops, 1 DROP OP BID, #5 ML 0 Refills 25 Insulin Glargine,Hum.rec.anlog (Lantus Solostar) 100 Unit/Ml (3 Ml) Insuln.pen, 10 UNIT SQ DAILY for 30 Days, #5 ML 0 Refills 25 Fluticasone Propionate (Fluticasone Propionate) 50 Mcg/Actuation [place].susp, 2 SPRAY NS DAILY, #16 GM 0 Refills 225 Fluticasone Propion/Salmeterol (Fluticasone-Salmeterol 250-50) 250 Mcg-50 Mcg/Dose Blst.w.dev, 1 PUFF IH BID for 30 Days, #60 EACH 0 Refills 02/19/25 Albuterol Sulfate (Ventolin Hfa) 90 Mcg Hfa.aer.ad, 2 PUFF IH Q4HPRN PRN for wheezing for 30 Days, #18 GM 0 Refills 02/19/25 Acetaminophen (Acetaminophen) 325 Mg Tablet, 2 TAB PO Q4PRN for 30 Days, #30 TAB 0 Refills 02/19/25 Mag Hydrox/Aluminum Hyd/Simeth (Maalox Advanced Suspension) 200 Mg-200 Mg-20 Mg/5 Ml Oral.susp, 20 ML PO Q4HPRN PRN for DYSPEPSIA for 14 Days, #840 ML 0 Refills 01/22/25 Lactulose (Lactulose) 10 Gram/15 Ml Solution, 20 ML PO BID for constipation, #500 ML 0 Refills 01/22/25 Famotidine (Famotidine) 20 Mg Tablet, 1 TAB PO DAILY for 30 Days, #60 TAB 0 Refills 01/22/25 Ipratropium/Albuterol Sulfate (Combivent Respimat Inhal [place]) 20 Mcg-100 Mc g/Actuation Aer.w.adap, 1 PUFF IH Q6HPRN PRN for SHORTNESS OF BREATH, #4 GM 0 Refills 01/22/25 Cholecalciferol (Vitamin D3) 1,250 Mcg (37101 Unit) Cap, 17411 UNITS PO DAILY, CAP 12/10/24 Mirabegron (Myrbetriq) 50 Mg Tab.er.24h, 50 MG PO DAILY, TAB 12/10/24 Carboxymethylcellulose Sodium (Artificial Tears) 1 % Drops, 1 DROP OP DAILY for 30 Days, #15 ML 0 Refills 10/16/24 Multivitamin W-Minerals/Lutein (Pub Multivitamin 50 Plus Tab) 1 Each Tablet, 1 TAB PO BID for 30 Days, #30 TAB 0 Refills 10/16/24 Trospium Chloride (Trospium Chloride) 20 Mg Tablet, 20 MG PO HS, TAB 10/16/24 Semaglutide (Ozempic) 2 Mg/0.75 Ml (8 Mg/3 Ml) Pen.injctr, 2 MG SQ QWEEK for 30 Days, #3 ML 0 Refills 10/16/24 Trazodone HCl (Trazodone HCl) 100 Mg Tablet, 100 MG PO HS, TAB 10/16/24 Tamsulosin HCl (Flomax) 0.4 Mg Cap.er.24h, 0.4 MG PO HS, CAPSULE. 10/16/24 Ropinirole HCl (Ropinirole HCl) 0.25 Mg Tablet, 1 TAB PO BID for 30 Days, #30 TAB 0 Refills 10/16/24 Pioglitazone HCl (Pioglitazone HCl) 30 Mg Tablet, 30 MG PO DAILY, TAB 10/16/24 Melatonin (Melatonin) 3 Mg Capsule, 6 MG PO HS, CAP 10/16/24 Losartan Potassium (Losartan Potassium) 50 Mg Tablet, 50 MG PO BID, TAB 10/16/24 Duloxetine HCl (Duloxetine HCl) 60 Mg Capsule.dr, 60 MG PO DAILY, CAP 10/16/24 Atorvastatin Calcium (Atorvastatin Calcium) 40 Mg Tablet, 40 MG PO HS, TAB 10/16/24 Amlodipine Besylate (Amlodipine Besylate) 5 Mg Tablet, 5 MG PO DAILY, TAB 10/31/23 Past Medical History Past Medical History: A-Fib, CAD, COPD, Diabetes-Type II, DVT, High Cholesterol, Heart Disease, Hypertension Medical History Other: PROSTATE, PTSD, TINNITUS Past Surgical History: Other Surgical History Other: SHOULDER AND BACK SURGERY , R LEG SURGERY (VASCULAR) Social History Social History: Lives with family ROS Dictation CONSTITUTIONAL: No chills, no fever, no weakness, no diaphoresis, no malaise. HEAD/FACE: No signs of trauma. EENT: No eye pain, no blurred vision, no tearing, no double vision, no ear pain, no ear discharge, no nose pain, no nasal congestion, no throat pain, no throat swelling, no mouth pain. RESPIRATORY: No cough, no orthopnea, no SOB, no stridor, no wheezing. CARDIOVASCULAR: No chest pain, no edema, no palpitations, no syncope. GASTROINTESTINAL/ABDOMINAL: No abdominal pain, no constipation, no diarrhea, no nausea, no vomiting. GENITOURINARY: No abnormal discharge, no dysuria, no frequent urination, no hematuria. No complaints of pain in the genitals. MUSCULOSKELETAL: No back pain, no gout, joint pain, no joint swelling, muscle pain, no muscle stiffness, no neck pain. INTEGUMENTARY: No change in color, no change in hair/nails, no dryness, no lesion, no lumps, no rash. NEUROLOGICAL/PSYCH: No anxiety, not depressed, no emotional problem, no headache, no numbness, no pre-existing deficit, no history of seizures, no tremors, no weakness. HEMATOLOGIC/LYMPHATIC: Not anemic, no history of blood clots, no apparent bleeding, no bruising, glands not swollen. All Systems Negative, Except as Noted. Results Laboratory and Microbiology Labs Reviewed?: Yes EKG/XRAY/US/CT/MRI X-RAY Comment X-ray right hip- NAD Ultrasound Comment [facility] [address] [place] [address] [id number] IMAGING REPORT Signed PATIENT: MEETA HICKMAN MR#: [id number] : 1945 SEX: M AGE: 79 LOCATION: ED ORDER 49 STATUS: [facility] ER REPORT#: [id number] SERVICE 47 REASON: right lower etxremity swelling ORDERING PHYSICIAN: LEX ANDERSEN MD PROCEDURE: VENOUS UNI - US VENOUS DOPPLER UNILATERAL Exam Type: US VENOUS DOPPLER UNILATERAL Clinical Information: right lower etxremity swelling Comparison: None Findings: The examination shows normal deep venous system. There is normal compressibility at all levels. There is no intraluminal clot. There is no occlusion. Adequate response is obtained on augmentation. Impression: No evidence of DVT. DICTATED BY: THERESE ENGLE MD DATE: 03/03/251624 ELECTRONICALLY SIGNED BY: THERESE ENGLE MD DATE: 03/03/251627 [facility] [address] [id number] IMAGING REPORT Signed PATIENT: MEETA HICKMAN MR#: [id number] : 1945 SEX: M AGE: 79 LOCATION: ED ORDER 49 STATUS: [facility] REPORT#: [id number] SERVICE 47 REASON: right lower etxremity swelling ORDERING PHYSICIAN: LEX ANDERSEN MD PROCEDURE: ART U LE - US ARTERIAL UNILA LOW EXT DUPL Exam Type: US ARTERIAL UNILA LOW EXT DUPL Clinical Information: right lower etxremity swelling Comparison: None Findings: Diffuse bilateral plaque is identified. There are normal triphasic waveforms of the mid to distal superficial femoral artery. There are biphasic waveforms of the other vessels of the right lower extremity consistent with moderate nonocclusive hemodynamically significant disease. IMPRESSION: Peripheral vascular disease as noted. DICTATED BY: THERESE ENGLE MD DATE: 03/03/251625 ELECTRONICALLY SIGNED BY: THERESE ENGLE MD DATE: 03/03/251628 MDM MDM: Differential diagnosis: Status post surgical procedure, hip strain, Rationale: Tests considered and ordered secondary to shared decision making include: Previous outside records reviewed: Old ER visits. Risk of complication and/or morbidity or mortality of patient management: None Medications-Per medication reconciliation Patient is a 79-year-old gentleman coming in to be evaluated for right thigh pain. Per patient this thigh pain has been ongoing for two days. Ultrasound both arterial venous as well as an x-ray did not disclose acute findings. Per associate data scientist patient was to follow up with the clinic in one week. ED Course Orders Procedure Category Date Status Time Us Venous Doppler US 03/03/25 Resulted Unilateral 15:48 Us Arterial Unila Low US 03/03/25 Resulted Ext Dupl 15:48 Hip Unilat 2-3vw Right RAD 03/03/25 Taken 16:25 Tramadol Hcl (Ultram) PHA 03/03/25 Complete 16:30 Current Medications Medications (Trade) Dose Ordered Sig/Jose Route PRN Reason Start Time Stop Time Status Last Admin Dose Admin Tramadol HCl (UltRAM) 50 mg ONCE ONCE PO 03/03/25 16:30 03/03/25 16:37 DC 03/03/25 16:48 Vital Signs Date Time Temp Pulse Resp B/P (MAP) Pulse Ox O2 Delivery O2 Flow Rate FiO2 03/03/25 16:13 98.8 80 18 148/71 96 Room Air* 0 21 03/03/25 15:45 97.9 72 18 108/78 95 Room Air 0 DX & DISP Disposition: Discharge Departure Impression: Primary Impression: Right hip pain Additional Impression: Status post arterial stent Condition: Stable Scripts Naproxen (Naproxen) 375 Mg Tablet 1 TAB PO BID for pain for 7 Days, #14 TAB 0 Refills with food Prov: LEX ANDERSEN MD 03/03/25 Additional Instructions: FOLLOW-UP WITH PRIMARY CARE PROVIDER IN 1 TO 2 DAYS. TAKE MEDICATIONS DIRE CTED HERE IN THE EMERGENCY ROOM. OKAY TO CONTINUE HOME MEDICATIONS UNLESS OTHERWISE DISCUSSED DURING YOUR VISIT IN THE EMERGENCY ROOM TODAY. RETURN TO YOUR NEAREST EMERGENCY ROOM IF SYMPTOMS WORSEN OR IF THERE IS NO IMPROVEMENT. CALL 911 IF YOU NEED IMMEDIATE ASSISTANCE. TAKE TYLENOL YAWU-BEE-GUETTHH NEEDED AND IF NO CONTRAINDICATIONS ARE PRESENT. INCREASE ORAL HYDRATION. A WOUND CULTURE OR URINE CULTURE WAS ORDERED HERE IN THE EMERGENCY ROOM DEPARTMENT PLEASE FOLLOW-UP WITH PRIMARY CARE PROVIDER AND ADVISE THEM TO GET REPEAT PORTS FROM OUR FACILITY. IF YOU HAD ANY ERIKA WRAP/SPLINTS THAT WERE APPLIED HERE, PLEASE DO NOT REMOVE THEM UNTIL YOU SEE YOUR PRIMARY CARE OR SPECIALTY. Referrals: Referrals: DOLLY MCKEON MD (PCP) JOURDAN LEE MD Time of Disposition: 17:09 LEX ANDERSEN MD Mar 03, 2025 17:11
--- NOTE | 2025-03-03 17:15 | HMCIMG ---
RIGHT HIP RADIOGRAPHS - 2 VIEWS INDICATION: Pain COMPARISON: None FINDINGS: AP and abduction views. No acute fracture or subluxation identified. Femoral head is well formed without osteochondral erosion or radiographic evidence for avascular necrosis. Mild right hip degenerative joint disease. Mild calcific plaque along the inflow and outflow arterial [place]. IMPRESSION: No evidence for fracture or dislocation.
[2025-03-03 17:22] VITALS: BP 153/68; PULSE 83; RESP 18; TEMP 98.5; O2SAT 98
== END 2025-03-03 17:44 | disposition home or self-care (01) ==
LOC: EDH 15:41
DX: M25.551 Pain in right hip (principal); E11.51 Type 2 diabetes mellitus with diabetic peripheral angiopathy without gangrene; E78.00 Pure hypercholesterolemia, unspecified; I10 Essential (primary) hypertension; I25.10 Atherosclerotic heart disease of native coronary artery without angina pectoris; I48.91 Unspecified atrial fibrillation; J44.9 Chronic obstructive pulmonary disease, unspecified; Z79.4 Long term (current) use of insulin; Z79.51 Long term (current) use of inhaled steroids; Z79.84 Long term (current) use of oral hypoglycemic drugs; Z79.85 Long-term (current) use of injectable non-insulin antidiabetic drugs; Z79.899 Other long term (current) drug therapy; Z86.718 Personal history of other venous thrombosis and embolism; Z88.0 Allergy status to penicillin; Z88.1 Allergy status to other antibiotic agents
CPT/HCPCS: 73502; 93926; 93971; 99284